=== PATIENT | male | born 1960 | race Caucasian/White ===

== ENCOUNTER → 2018-05-06 10:40 | Outpatient (CLI) | payer OTHER, SELFPAY | PROVIDERS: Family Provider Family Medicine; PCP Family Medicine; Visit Provider Family Medicine | DX: R31.9 Hematuria, unspecified (principal) | CPT/HCPCS: 87086; 87088 ==

== ENCOUNTER → 2018-06-14 10:41 | Outpatient (CLI) | payer OTHER, SELFPAY ==
--- NOTE | 2018-06-14 10:43 | CT_ITS ---
STUDY: LOW DOSE CT LUNG CANCER SCREENING REASON FOR EXAM: Male, 58 years old. 50 pack-year history RADIATION DOSAGE (If Supplied By Facility): CTDIvol = ( 1.7 ) mGy, DLP = ( 59.55 ) mGycm TECHNIQUE: No contrast was administered. Low dose technique was utilized (average mAS-38 and kVp 120). 1.25 mm axial source images with a slice interval of 1.25-mm were reconstructed in lung windows. 2.5 mm axial source images with a slice interval of 2.5-mm were reconstructed in lung windows. 5.0 mm axial source images with a slice interval of 5.0-mm were reconstructed in soft tissue windows. Nodule measured using lung windows on PACS and/or independent workstation with automated measurement of minimum and maximum diameter. Nodule measurement reported as average diameter rounded to the nearest whole number. Growth is defined as an increase ins size of greater than 1.5 mm. COMPARISON: Chest, February 26, 2015. NODULES: Total lung nodules (excluding granulomas): 0 Emphysema: There are emphysematous changes of the lungs with bilateral apical pleural scarring. Endobronchial lesion: No Aorta: There is minimal atherosclerotic changes of the descending aorta without aneurysm. Coronary arteries: There are coronary artery calcifications. Heart: Normal in size Pulmonary artery: Normal Mediastinal nodes: None Other chest and abdominal findings: There are degenerative changes of the thoracic spine. CT/Low Dose CT Lung Screening IMPRESSION: Lung-RADS category 1 - Continue annual screening with LDCT in 12 months. IMPORTANT NOTES FOR USE: ACR Lung-RADS Version 1.0 Assessment Categories Release Date: March 20, 2014 Category: Coded 0-4 bases on nodule(s) with highest degree of suspicion. Negative screen is defined as categories 1 and 2; a positive screen is defined as categories 3 and 4. Category 3 and 4A nodules that are unchanged on interval CT should be coded as category 2, and individuals returned to screening in 12 months. Category 4X: Category 3 or 4 nodules with additional imaging findings that increase the suspicion of lung cancer, such as spiculation, GGN that doubles in size in 1 year, enlarged lymph notes, etc. Category Modifiers: S (significant finding unrelated to lung cancer) and C (prior history of treated lung cancer) may be added to the 0-4 Lung-RADS Electronically Signed: Spencer Bustillos DO at 17:02 EDT Tel [phone], Service support ,
== END ==
PROVIDERS: Family Provider Family Medicine; PCP Family Medicine; Visit Provider Family Medicine
DX: Z12.2 Encounter for screening for malignant neoplasm of respiratory organs (principal); Z87.891 Personal history of nicotine dependence
CPT/HCPCS: G0297

== ENCOUNTER → 2018-06-21 12:27 | Outpatient (CLI) | payer OTHER, SELFPAY ==
--- NOTE | 2018-06-21 12:30 | CDU_ITS ---
Reason For Study: bruit Rt. Velocities/BP Lt. Velocities/BP Prox CCA 121/23.6 cm/sec. Prox CCA 111/25.1 cm/sec. Mid CCA 119/27.5 cm/sec. Mid CCA 101/24.4 cm/sec. Dist CCA 93.5/25.9 cm/sec. Dist CCA 84.9/25.9 cm/sec. Prox ICA 63.6/14.1 cm/sec. Prox ICA 56.6/14.9 cm/sec. Mid ICA 77.0/25.9 cm/sec. Mid ICA 73.1/18.1 cm/sec. Dist ICA 85.6/33.8 cm/sec. Dist ICA 78.2/30.1 cm/sec. Rt. ICA/CCA = .7. Lt. ICA/CCA = .8. Prox ECA 93.5/22.0 cm/sec. Prox ECA 87.2/25.1 cm/sec. Rt. Vert. 57.4/19.6 cm/sec. Lt. Vert. 44.6/15.8 cm/sec. Right Extracranial There is heterogeneous, irregular atherosclerotic plaque noted in the right common carotid artery. There is heterogeneous, irregular atherosclerotic plaque noted in the right internal carotid artery. There is intimal thickening but no significant atherosclerotic plaque noted in the right external carotid artery. Antegrade flow is noted in the right vertebral artery. Left Extracranial There is homogeneous, smooth atherosclerotic plaque noted in the left common carotid artery. There is heterogeneous, irregular atherosclerotic plaque noted in the left internal carotid artery. There is intimal thickening but no significant atherosclerotic plaque noted in the left external carotid artery. Antegrade flow is noted in the left vertebral artery. Procedure Carotid Duplex [id number]. The exam was diagnostic. Exam performed in department. Interpretation Summary Mild (<50%) stenosis right extracranial internal carotid. Mild (<50%) stenosis left extracranial internal carotid. Flow within the vertebral arteries is antegrade bilaterally. Ordering Physician: Maury Cole Performed By: Mahesh De Anda RVT
== END ==
PROVIDERS: Family Provider Family Medicine; PCP Family Medicine; Visit Provider Family Medicine
DX: I10 Essential (primary) hypertension (principal); R09.89 Other specified symptoms and signs involving the circulatory and respiratory systems; Z72.0 Tobacco use
CPT/HCPCS: 93880

== ENCOUNTER → 2018-06-22 09:32 | Outpatient (CLI) | payer OTHER, SELFPAY ==
--- NOTE | 2018-06-22 09:38 | RAD_ITS ---
STUDY: X-RAY - RIGHT ELBOW REASON FOR EXAM: Male, 58 years old. NKI, pt. states pain for a few weeks without relief, getting worse TECHNIQUE: 2 view(s) of the elbow. COMPARISON: None. FINDINGS: Normal visualized humerus, radius and ulna. Normal radiocapitellar and ulnotrochlear articulations. The soft tissue structures are unremarkable. RAD/Elbow 2 Views IMPRESSION: Normal x-ray examination of the elbow. Electronically Signed: Julissa Glynn MD at 9:51 EDT , Service support ,
== END ==
PROVIDERS: Family Provider Family Medicine; PCP Family Medicine; Visit Provider Nurse Practitioner Family
DX: M25.521 Pain in right elbow (principal)
CPT/HCPCS: 73070

== ENCOUNTER → 2018-12-15 09:19 | Outpatient (CLI) | payer OTHER, SELFPAY ==
--- NOTE | 2018-12-15 09:23 | RAD_ITS ---
STUDY: X-RAY - RIGHT WRIST REASON FOR EXAM: Male, 58 years old. Six-month history of pain. No known injury. TECHNIQUE: 3 view(s) of the wrist were obtained. COMPARISON: None. FINDINGS: Normal visualized distal radius and ulna. There is degenerative arthrosis of the radiocarpal articulation. Normal distal radioulnar articulation. Normal carpal bones. There is widening of the space between the scaphoid and lunate bones. Ligamentous injury should be ruled out. Normal carpometacarpal articulation of the thumb. Normal second through fifth carpometacarpal articulations. Normal visualized metacarpal bones. The soft tissue structures are unremarkable. RAD/Wrist min 3 Views IMPRESSION: Increased distance in the scapholunate space as described suggestive of scapholunate disassociation. Rotary subluxation of the scaphoid should be ruled out. Electronically Signed: Madan Hernández MD at 9:51 EST Tel [phone], Service support ,
--- OUTSIDE RECORDS SUMMARY | 2019-02-16 05:54 | XMS RPT_ITS ---
:1960 Author Organization OHIP Care Team Providers Name Role Phone Maury Cole Attending Unavailable Maury Cole Referring Unavailable Maury Cole Primary Care Unavailable ASSESSMENT, HEALTH RISK Attending Unavailable ASSESSMENT, HEALTH RISK Referring Unavailable Maury Cole Primary Care Unavailable Kelsey, Maury Attending Unavailable Kelsey, Maury Referring Unavailable Kelsey, Maury Primary Care Unavailable Kelsey, Maury Attending Unavailable Kelsey, Maury Referring Unavailable Kelsey, Maury Primary Care Unavailable Kelsey, Maury Attending Unavailable Kelsey, Maury Referring Unavailable Kelsey, Maury Primary Care Unavailable Ute Isidro, [employer] Attending Unavailable Kelsey, Maury Referring Unavailable Ute Isidro, [employer]C Attending Unavailable Ute Isidro, [employer]-C Referring Unavailable Kelsey, Maury Primary Care Unavailable PROBLEMS PROBLEMS DATE TYPE CONDITION / CODE ATTENDING STATUS SOURCE 06/22/2018 Unknown M25.521 - Pain Ute Active [place] in right elbow / Isidro, [employer]ER-C [facility] M25.521(ICD-10) Hospital Repository PROCEDURES PROCEDURES No Procedure Records FoundRESULTS RESULTS WRIST MIN 3 VIEWS Observed: 12/15/2018 Status: F Source: JOHN 9:23 AM [facility] REPOSITORY [facility] Imaging Services [address] [place] [address] Wrist min 3 Views MR#: [id number] Acct: [id number] Name: TAVARES SHAW Rep #: [id number] : 1960 M 58 From: Madan Hernández MD PCP: Maury Cole DO Status: REG CLI Study: Wrist min 3 Views Date of Exam: 12/15/18 Exam# [id number] Ordering Dr: Maury Cole DO STUDY: X-RAY - RIGHT WRIST REASON FOR EXAM: Male, 58 years old. Six-month history of pain. No known injury. TECHNIQUE: 3 view(s) of the wrist were obtained. COMPARISON: None. FINDINGS: Normal visualized distal radius and ulna. There is degenerative arthrosis of the radiocarpal articulation. Normal distal radioulnar articulation. Normal carpal bones. There is widening of the space between the scaphoid and lunate bones. Ligamentous injury should be ruled out. Normal carpometacarpal articulation of the thumb. Normal second through fifth carpometacarpal articulations. Normal visualized metacarpal bones. The soft tissue structures are unremarkable. RAD/Wrist min 3 Views IMPRESSION: Increased distance in the scapholunate space as described suggestive of scapholunate disassociation. Rotary subluxation of the scaphoid should be ruled out. Electronically Signed: Madan Hernández MD at 9:51 EST Tel [phone], Service support , CC: Maury Cole DO Executive Creative Director: Signed CAROTID DUPLEX Observed: 06/23/2018 Status: F Source: [place] ULTRASOUND 5:32 PM [facility] REPOSITORY [facility] Cardiovascular Services [address] [place] [address] Carotid Duplex Ultrasound 06/21/18 1231 MR#: [id number] Acct: [id number] Name: TAVARES SHAW Rep #: [id number] : 1960 58 From: Heriberto Rizvi MD Attending Dr: Maury Cole DO Status: REG CLI Ordering Dr: aMury Cole DO Date: 06/21/18 Location: [facility] Sex: M C Admitted: Reason For Study: bruit Rt. Velocities/BP Lt. Velocities/BP Prox CCA 121/23.6 cm/sec. Prox CCA 111/25.1 cm/sec. Mid CCA 119/27.5 cm/sec. Mid CCA 101/24.4 cm/sec. Dist CCA 93.5/25.9 cm/sec. Dist CCA 84.9/25.9 cm/sec. Prox ICA 63.6/14.1 cm/sec. Prox ICA 56.6/14.9 cm/sec. Mid ICA 77.0/25.9 cm/sec. Mid ICA 73.1/18.1 cm/sec. Dist ICA 85.6/33.8 cm/sec. Dist ICA 78.2/30.1 cm/sec. Rt. ICA/CCA = .7. Lt. ICA/CCA = .8. Prox ECA 93.5/22.0 cm/sec. Prox ECA 87.2/25.1 cm/sec. Rt. Vert. 57.4/19.6 cm/sec. Lt. Vert. 44.6/15.8 cm/sec. Right Extracranial There is heterogeneous, irregular atherosclerotic plaque noted in the right common carotid artery. There is heterogeneous, irregular atherosclerotic plaque noted in the right internal carotid artery. There is intimal thickening but no significant atherosclerotic plaque noted in the right external carotid artery. Antegrade flow is noted in the right vertebral artery. Left Extracranial There is homogeneous, smooth atherosclerotic plaque noted in the left common carotid artery. There is heterogeneous, irregular atherosclerotic plaque noted in the left internal carotid artery. There is intimal thickening but no significant atherosclerotic plaque noted in the left external carotid artery. Antegrade flow is noted in the left vertebral artery. Procedure Carotid Duplex 03104. The exam was diagnostic. Exam performed in department. Interpretation Summary Mild (<50%) stenosis right extracranial internal carotid. Mild (<50%) stenosis left extracranial internal carotid. Flow within the vertebral arteries is antegrade bilaterally. Ordering Physician: Maury Cole Performed By: Mahesh De Anda, T 06/23/181730 Date Heriberto Rizvi MD CC: Maury Cole DO Date Dictated: 06/21/18 1231 Date Transcribed: 06/23/181730 Executive Creative Director: Signed OFFICE VISIT REPORT Observed: 06/22/2018 Status: F Source: JOHN 10:[address] [place] [address] OFFICE VISIT Date of Service: 06/22/18 MR#: [id number] Acct: [id number] Patient: TAVARES SHAW Rep #: [id number] : 1960 Provider: INÉS Felix Age/Sex: 58/M Location: [facility] Status: Signed Intake Vital Signs06/22/18 Height 5 ft 6 in Intake Visit Reasons: RT ELBOW PAIN Chief Complaint: right elbow pain Allergies lisinopril Allergy (Verified 06/22/18 08:58) Other Medications Potassium Chloride 8 meq PO DAILY 09/24/13 [History Confirmed 06/22/18] Multivitamins,Therapeutic [Multivitamin] 1 tab PO DAILY 10/04/13 [History Confirmed 06/22/18] amlodipine 5 mg tablet 5 mg PO DAILY 06/22/18 [History Confirmed 06/22/18] losartan 100 mg-hydrochlorothiazide 12.5 mg tablet 1 tab PO DAILY 06/22/18 [History Confirmed 06/22/18] PFSH Medical History HTN (hypertension) (Chronic) Surgical History History of carpal tunnel release (Acute) Hx of shoulder surgery (Acute) Social History Smoking Status: Smoker, status unknown tobacco type: cigarettes alcohol intake: current Alcohol type: beer HPI HPI Chief Complaint: right elbow pain Details: TAVARES SHAW, is a 58 M who presents to the office today for right elbow pain. The pain started about 2 weeks ago but has been worse over the last 2 days. The patient describes the pain as a constant ache in his right lateral elbow now extending down his forearm. He denies injury or trauma but his current occupation requires repetitive movements. He denies numbness, tingling, redness, warmth or swelling at the site. He has tried naproxen with no relief. ROS Const Constitutional: No fever(s), headache(s), weakness or fatigue ENT ENT: No headache(s) Resp Respiratory: No cough or shortness of breath Cardio Cardiology: No chest pain at rest Musc Musculoskeletal: Positive for joint pain (right elbow); no joint swelling, body aches or numbness Skin Skin: No rash or wounds Neuro Neurology: No headache(s), weakness or numbness Endo Endocrine: No fatigue Exam Const General: cooperative, healthy appearing, comfortable, no acute distress Resp Effort AND Inspection: normal respiratory effort, able to speak in complete sentences Auscultation: Bilateral: Clear to Auscultation Musc Musculoskeletal: Yes joint tenderness (right lateral elbow pain); no joint redness (right elbow), joint warmth (right elbow) or decreased ROM (right elbow) Skin General: no rashes or lesions noted Neuro General: alert, awake, oriented x3 Extrem General: normal to inspection Assessment AND Plan Problems 1. Right elbow pain M25.521 Plan Suspect right lateral epicondylitis. Xray appears benign, final report pending. Patient instructed on RICE, ice 15 min 3 to 4 times a day. Ibuprofen 600mg QID for 7-14 days. Return to PCP in 1 week. Patient Instructions R - rest I - ice C - compression E - elevation Ice 15min on 3 to 4 times a day. Ibuprofen 600mg by mouth 4 times a day for 1 week, then as needed. Orders Orders: Plan Detail Follow Up PCP in 1 week Coding Level of Care Code Off vis,est,level 3 Diagnoses Right elbow pain M25.521 06/22/18 1029 <Electronically signed by Ute CONTE> Date Ute CONTE Cosigner Signature: Date (if applicable) CC: ELBOW 2 VIEWS Observed: 06/22/2018 Status: F Source: [place] 9:38 AM [facility] REPOSITORY [facility] Imaging Services [address] [place] [address] Elbow 2 Views MR#: [id number] Acct: [id number] Name: TAVARES SHAW Rep #: [id number] : 1960 M 58 From: Julissa Glynn MD PCP: Maury Cole DO Status: REG CLI Study: Elbow 2 Views Date of Exam: 06/22/18 Exam# [id number] Ordering Dr: Ute Felix STUDY: X-RAY - RIGHT ELBOW REASON FOR EXAM: Male, 58 years old. NKI, pt. states pain for a few weeks without relief, getting worse TECHNIQUE: 2 view(s) of the elbow. COMPARISON: None. FINDINGS: Normal visualized humerus, radius and ulna. Normal radiocapitellar and ulnotrochlear articulations. The soft tissue structures are unremarkable. RAD/Elbow 2 Views IMPRESSION: Normal x-ray examination of the elbow. Electronically Signed: Julissa Glynn MD at 9:51 EDT , Service support , CC: INÉS Felix; Maury Cole DO Executive Creative Director: Signed LOW DOSE CT LUNG Observed: 06/14/2018 Status: F Source: [place] SCREENING 10:43 AM [facility] REPOSITORY [facility] Imaging Services [address] [place] [address] Lung Screening MR#: [id number] Acct: [id number] Name: TAVARES SHAW Cristina Rep #: [id number] : 1960 M 58 From: Spencer Bustillos DO PCP: Maury Cole DO Status: REG CLI Study: Low Dose CT Lung Screening Date of Exam: 06/14/18 Exam# [id number] Ordering Dr: Maury Cole DO STUDY: LOW DOSE CT LUNG CANCER SCREENING REASON FOR EXAM: Male, 58 years old. 50 pack-year history RADIATION DOSAGE (If Supplied By Facility): CTDIvol = ( 1.7 ) mGy, DLP = ( 59.55 ) mGycm TECHNIQUE: No contrast was administered. Low dose technique was utilized (average mAS-38 and kVp 120). 1.25 mm axial source images with a slice interval of 1.25- mm were reconstructed in lung windows. 2.5 mm axial source images with a slice interval of 2.5-mm were reconstructed in lung windows. 5.0 mm axial source images with a slice interval of 5.0-mm were reconstructed in soft tissue windows. Nodule measured using lung windows on PACS and/or independent workstation with automated measurement of minimum and maximum diameter. Nodule measurement reported as average diameter rounded to the nearest whole number. Growth is defined as an increase ins size of greater than 1.5 mm. COMPARISON: Chest, February 26, 2015. NODULES: Total lung nodules (excluding granulomas): 0 Emphysema: There are emphysematous changes of the lungs with bilateral apical pleural scarring. Endobronchial lesion: No Aorta: There is minimal atherosclerotic changes of the descending aorta without aneurysm. Coronary arteries: There are coronary artery calcifications. Heart: Normal in size Pulmonary artery: Normal Mediastinal nodes: None Other chest and abdominal findings: There are degenerative changes of the thoracic spine. CT/Low Dose CT Lung Screening IMPRESSION: Lung-RADS category 1 - Continue annual screening with LDCT in 12 months. IMPORTANT NOTES FOR USE: ACR Lung-RADS Version 1.0 Assessment Categories Release Date: March 20, 2014 Category: Coded 0-4 bases on nodule(s) with highest degree of suspicion. Negative screen is defined as categories 1 and 2; a positive screen is defined as categories 3 and 4. Category 3 and 4A nodules that are unchanged on interval CT should be coded as category 2, and individuals returned to screening in 12 months. Category 4X: Category 3 or 4 nodules with additional imaging findings that increase the suspicion of lung cancer, such as spiculation, GGN that doubles in size in 1 year, enlarged lymph notes, etc. Category Modifiers: S (significant finding unrelated to lung cancer) and C (prior history of treated lung cancer) may be added to the 0-4 Lung-RADS Electronically Signed: Spencer Bustillos DO at 17:02 EDT Tel [phone], Service support , CC: Maury Cole DO Executive Creative Director: Signed Observed: 05/05/2018 Status: F Source: JOHN CULTURE, URINE 1:00 PM [facility] REPOSITORY Urine Culture ORGANISM 1: Mixed Gram Positive Organisms [place] Count 1000-10,000 MIX CULTURE Mixed contaminants. Submit a new specimen if indicated. Performed By: #### M100.0650 #### [facility] [address] [place], [place], [address] CBC, EMPLOYEE Collected: 05/05/2018 Status: F Source: JOHN 8:50 AM [facility] REPOSITORY TYPE CODE TESTS RESULT OUT OF RANGE REFERENCE UNITS LAB L100.1000 4.4-11.0 K/mm3 Normal WBC 7.6 LAB L100.1200 4.6-6.2 M/mm3 Low RBC 4.57 LAB L100.1300 13.0-16.5 g/dl Normal HGB 15.0 LAB L100.1400 40-54 % Normal HCT 42.2 LAB L100.1500 80-94 fL Normal MCV 92.3 LAB L100.1600 27.0-32.0 pg High MCH 32.8 LAB L100.1700 32-36 g/gl Normal MCHC 35.5 LAB L100.1810 11.6-14.6 % Normal RDW CV 12.3 LAB L100.1820 35.1-43.9 fl Normal RDW SD 40.9 LAB L100.1900 150-450 K/mm3 Normal PLT 320 LAB L100.2000 6.2-12.0 fl Normal MPV 10.0 LAB L100.2110 47-70 % Normal NEUT% 48.3 LAB L100.2210 19-41 % High LY% 42.1 LAB L100.2310 0-10 % Normal MONO% 7.5 LAB L100.2410 0-5 % Normal EO% 1.3 LAB L100.2510 0-1 % Normal BASO% 0.5 LAB L100.2620 2.0-7.7 X10 3/uL Normal Absolute Neut 3.7 LAB L100.2720 0.83-4.51 X10 3/ul Normal Absolute Lymph 3.21 Performed By: #### L100.0200 #### [facility] [address] [place], [address] NICOTINE URINE DRUG Collected: 05/05/2018 Status: F Source: JOHN SCREEN 8:50 AM [facility] REPOSITORY TYPE CODE TESTS RESULT OUT OF RANGE REFERENCE UNITS LAB L505.6250 TO BE Normal CONFIRMED Result Comment: CONFIRMATORY TESTING FOR ALL POSITIVE URINE DRUG SCREEN RESULTS WILL ONLY BE SENT OUT UPON PHYSICIAN ORDER. The results of Urine Drug Screen methods provide only preliminary analytical test results. A more specific alternate chemical method must be used in order to obtain a confirmed analytical result. Gas chromatography/mass spectrometery (GC/MS) is the preferred confirmatory method. Clinical consideration and professional judgement should be applied to any drug of abuse test result, particularly when preliminary positive results are used. LAB L505.6270 <200 ng/mL Normal COT DRG Positive SCREEN Result Comment: Cotinine is the first-stage metabolite of Nicotine. Performed By: #### L505.6240 #### [facility] [address] [place], [place], [address] EMPLOYEE PROFILE Collected: 05/05/2018 Status: F Source: [place] 8:50 AM [facility] REPOSITORY TYPE CODE TESTS RESULT OUT OF RANGE REFERENCE UNITS LAB L501.0100 74-106 mg/dL Normal GLU 92 Result Comment: Please note revised GLUCOSE reference range effective 2017. LAB L501.1000 7-18 mg/dL Normal BUN 17 LAB L501.1100 0.70-1.30 mg/dL Normal CREAT,SERUM 1.13 Result Comment: The validity of the calculated GFR AND GFRAA in patients over 70 years has not been determined. Clinical correlation is essential. LAB L501.1110 >60 mL/min Normal EST GFR 71 Result Comment: Non- GFR Calc LAB L501.1115 >60 mL/min Normal EST GFR - AA 85 Result Comment: GFR Calc LAB L501.1300 10-20 RATIO Normal BUN/CRE 15.0 LAB L501.1400 3.5-7.2 mg/dL Normal URIC 4.6 Result Comment: The drugs N-Acetylcysteine and Metamizole may falsely depress this assay. LAB L501.1500 6.4-8.2 g/dL Normal T PROT 8.0 LAB L501.1800 3.2-5.0 g/dL Normal ALB 4.0 LAB L501.1950 2.2-4.2 g/dL Normal GLOB 4.0 LAB L501.2000 0.9-2.4 RATIO Normal A/G 1.0 LAB L501.2200 8.5-10.1 mg/dL Normal CA 9.0 LAB L501.2300 2.5-4.9 mg/dL Normal PHOS 3.3 LAB L501.4100 15-37 U/L Normal AST 20 LAB L501.4305 45-117 U/L Normal ALK P 76 LAB L501.4405 16-61 U/L Normal ALT 27 LAB L501.4600 0.20-1.00 mg/dL Normal T BILI 0.60 LAB L501.4700 0.00-0.30 mg/dL Normal D BILI 0.14 LAB L501.4900 200 mg/dL High CHOL 212 Result Comment: <200 mg/dL Desirable 200-240 mg/dL Borderline >240 mg/dL High Risk LAB L501.5000 mg/dL Normal TRIG 121 Result Comment: The drugs N-Acetylcysteine and Metamizole may falsely depress this assay. Serum Triglycerides Reference Interval Normal <150 mg/dL Borderline high 150 - 199 mg/dL High 200 - 499 mg/dL Very High > or = 500 mg/dL LAB L501.5300 136-145 mmol/L Low NA 135 LAB L501.5600 3.5-5.1 mmol/L Normal K 3.6 LAB L501.5900 98-107 mmol/L Normal CL 101 LAB L501.6100 21.0-32.0 mmol/L Normal CO2 25.0 LAB L501.6200 5-15 Normal 9 GAP LAB L501.6400 mg/dL Normal HDL 69 Result Comment: The drugs N-Acetylcysteine and Metamizole may falsely depress this assay. Reference Range HDL <40 mg/dL Low HDL Cholesterol HDL >or= 60 mg/dL High HDL Cholesterol LAB L501.6475 Normal CHOL:HDL 3.10 LAB L501.6500 0-130 mg/dL Normal LDL 119 LAB L501.6600 5-40 mg/dL Normal VLDL 24 LAB L504.2610 87-241 U/L Normal LDH 178 Performed By: #### L500.2900 #### [facility] [address] [place], [address] URINALYSIS, EMPLOYEE Collected: 05/05/2018 Status: F Source: [place] 8:50 AM [facility] REPOSITORY TYPE CODE TESTS RESULT OUT OF RANGE REFERENCE UNITS LAB L400.3000 Yellow COLOR Normal Yellow LAB L400.3050 Clear Normal CLARITY Clear LAB L400.3200 Normal mg/dl Normal GLUCOSE, UR Normal LAB L400.3300 Negative mg/dL Normal BILIRUBIN URINE Negative LAB L400.3400 Negative mg/dl Normal KETONE UR Negative LAB L400.3465 1.002-1.030 Normal SP.GR. DIPSTX 1.010 LAB L400.3550 5.0 - 8.0 pH UR Normal 7.0 LAB L400.3600 Negative mg/dl PROT Normal DIPSTX Negative LAB L400.3700 Normal mg/dl Normal UROBILI Normal LAB L400.3750 Negative Normal NITRITE UR Negative LAB L400.3780 Negative /ul High 10 OCCULT BLOOD-UR LAB L400.3800 Negative /ul High LEUK 25 ESTERASE Performed By: #### L400.0100 #### [facility] [address] [place], [address] ALLERGIES ALLERGIES DATE TYPE / CODE NAME / CODE REACTION SEVERITY SOURCE 06/22/2018 Drug lisinopril/F Other Unknown [facility] Allergy/4160 [id number]([facility] 24439(SNOMED NORM) Repository CT) ENCOUNTERS ENCOUNTERS ADMIT/DISCHARGE ACCOUNT ADMITTING ENCOUNTER LOCATION SOURCE NUMBER CLASS 12/15/2018 [id number] [facility] ing:RAD Repository 06/22/2018 [id number] Ambulatory [place] 9 [facility] ing:HPRAD Repository 06/22/2018/ [id number] Ambulatory BMSBuilding:B [place] 8 3 [facility] Repository 06/21/2018 [id number] Amb[place] 0 [facility] ing:CVS Repository 06/14/2018 [id number] Amb[place] 8 [facility] ing:CT Repository 05/06/2018 [id number] Amb[place] 0 [facility] ing:LABSPEC Repository 05/05/2018 [id number] Ambulatory [place] 1 [facility] ing:EMPH Repository PAYERS PAYERS ENCOUNTER GUARANTOR PAYER SUBSCRIBER SOURCE 12/15/2018 TAVARES BELTRAN Primary Insurance:[facility] TAVARES SIGALA [id number] [address] [place] [address] LUCASDOB: [address] [facility] [id number], [place] Number: Repository [phone]: (330 [id number] [phone] (HP) Date:1152-50-74HX [address] [address], [place] [address]EG: CHECK WEBSITE 12/15/2018 Secondary NOT GIVENUNK [place] Insurance:SELF PAY [facility] Number: Effective Repository Date:2018-12-15 06/22/2018 TAVARES A LUCASPO Primary Insurance:[facility] TAVARES A [place] [id number] [place] [address] LUCASD[address]: [address] [facility] [id number], [place] Number: Repository [id number]: ([phone] [id number] [phone] (HP) Date:8815-25-45AU [address] [address]TXGITZXJA, [place] [address]VR: CHECK WEBSITE 06/22/2018 Secondary NOT GIVENUNK [place] Insurance:SELF PAY [facility] Number: Effective Repository Date:2018-06-22 06/22/2018 TAVARES A LUCASPO Primary Insurance:[facility] TAVARES A [place] [address] [place] [address] LUC[address]: [address] [facility]LE[facility] SERVICES[facility] [id number], [place] Number: Repository [id number]: (330 [id number] [phone] (HP) Date:3147-29-48UY [address] [address]YOMXFHNOD, [place] [address]TH: CHECK WEBSITE 06/22/2018 Secondary NOT GIVENUNK [place] Insurance:SELF PAY [facility] Number: Effective Repository Date:2018-06-22 06/21/2018 Tavares A LucasPo Primary Insurance:[facility] Tavares A [place] [id number] [place] [address] LucasDOB: [address] [facility] [id number], [place] Number: Repository [id number]: 330 [id number] [phone] (HP) Date:8492-09-54QH [address] [address]HWZVHZCTU, [place] [address]IP: CHECK WEBSITE 06/21/2018 Secondary NOT GIVENUNK [place] Insurance:SELF PAY [facility] Number: Effective Repository Date:2018-06-10 06/14/2018 Tavares A LucasPo Primary Insurance:[facility] Tavares Evans John [id number] [place] [address] LucasDOB: [facility] Herm[address] [facility] [id number], [place] Number: Repository [address]Fwc: 330 [id number] [phone] (HP) Date:8482-10-25AT [address] [address]BSIJOMSRV, [place] [address]YB: CHECK WEBSITE 06/14/2018 Secondary NOT GIVENUNK [place] Insurance:SELF PAY [facility] Number: Effective Repository Date:2018-06-10 05/06/2018 Tavares A LucasPo Primary Insurance:[facility] Tavares Evans [place] [id number] [place] [address] LucasDOB: [facility] Herm[address] [facility] [id number], [place] Number: Repository [address]Jeo: 330 [id number] [phone] () Date:0450-07-84HY [address] [address]VEBHJGVZC, [place] [address]UY: CHECK WEBSITE 05/06/2018 Secondary NOT GIVENUNK [place] Insurance:SELF PAY [facility] Number: Effective Repository Date:2018-05-06 05/05/2018 Tavares A LucasPo Primary NOT GIVENUNK [place] [id number] 3rd Insurance:SELF PAY [place] Number: Effective Repository [id number]: 330) Date:2018-05-05 [phone] ()
== END ==
PROVIDERS: Family Provider Family Medicine; PCP Family Medicine; Referring Provider Family Medicine; Visit Provider Family Medicine
DX: M25.531 Pain in right wrist (principal)
CPT/HCPCS: 73110

== ENCOUNTER → 2019-01-19 12:19 | Outpatient (CLI) | payer OTHER, SELFPAY ==
--- NOTE | 2019-01-19 13:34 | NEURO ---
NCS and/or EMG Patient Report DATE OF SERVICE: 01/19/19 Smooth Melgar is a 58-year-old male presents for elective diagnostic testing of the right upper limb. He has complaints of pain around the right wrist. He has a history of right carpal tunnel release approximately 6 years ago. Electrodiagnostic findings: Right median motor nerve demonstrates normal distal latency, amplitude and conduction velocity. The right ulnar motor nerve demonstrates normal distal latency and amplitude with an approximately 18% drop in conduction across the elbow. Median sensory latency at the wrist is borderline delayed. Normal right median palmar latency. Normal right ulnar and radial sensory responses. Normal right median and ulnar F-wave. Needle EMG testing showed no evidence of denervation in any muscles tested. Motor unit action potentials were of normal amplitude and duration without polyphasic activity. Electrodiagnostic assessment: This is an abnormal study. 1. There is electrodiagnostic evidence of reduced ulnar motor conduction across the elbow. This is consistent with a mild cubital tunnel syndrome. 2. No electrodiagnostic evidence is noted for median neuropathy, including carpal tunnel syndrome. 3. No electrodiagnostic evidence is noted for cervical radiculopathy. If there are any further questions, please do not hesitate to contact me.
== END ==
PROVIDERS: Family Provider Family Medicine; PCP Family Medicine
DX: G56.21 Lesion of ulnar nerve, right upper limb (principal)
CPT/HCPCS: 95886; 95910

== ENCOUNTER 2019-04-13 13:00 | Outpatient (RCR) | payer OTHER, SELFPAY ==
--- NOTE | 2019-04-01 13:03 | HP.PTEVAL ---
Patient's Visit Information TAVARES SHAW is a 58 year old M referred to Physical Therapy by Maury Cole DO with a diagnosis of LBP. Date of Evaluation: 04/01/19 Physical Therapist: Wilbur Reese, SLIMT, OCS, CSCS - Visit Plan Frequency: 2x /Week Duration: 4-6 Weeks Plan: 2x/week for 4-6 weeks for : hip flexor stretching, NS positioing, increased pelvic movment, NS strengthening and DLS. Progression of function, lossings traction and flexion mobs L/S as needed. - Subjective Findings: Can't walk very far before he gets R leg adn back pain and R forefoot goes numb. Pain starts in R hip posteriorly. Walking 200 feet and needs to stop. Been that way for a couple months. Started all of a sudden for no reason. Wants MRI adn needs therapy first. History inlcudes intermittent back pain forever. Comfortabe sitting unless too long. Firt steps are oK. Up steps a challenge strength adn weak. L side feels good. Sleep is interrupted as he cannot get comfortable usually on back. 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 Enjoys wood working adn runs [employer] and these are on the back burner for last couple months adn hasn;t done in a couple months. Basic ADLS are doable - Pain R LBP and leg Pain Intensity (Out of 10): 0 Pain Intensity Range: 0, 7 Comment: sitting OK - Objective Walks slightly hunched over, flat lodosis in L/S and forward head posture. Stiff in lower L/S. L/S AROM flexion is mod limited, ext is mod limited, SB min Limited B, R SB adn ext both hurt. Pelvic movement is poor and hard for his motor control. reflexes 2/3 patella and achilles. Sensation LE WNL to gross light touch. Strength LE 4+/5, trunk 4/5, no pain. + R slump adn SLR with posterior symptoms. - Goals Goal 1:: Pt able to find neutral spine position and relieve sypmtoms Goal Time Frame: 4-6 Weeks Goal 2:: Pain 1/10 at worst adn walk through parking lot at work without needing rest. Goal Time Frame: 4-6 Weeks Goal 3:: Pt I in approp HEEP to minimize future problems. Goal Time Frame: 4-6 Weeks Goal 4:: Resume walking dogs adn woodworking. Goal Time Frame: 4-6 Weeks - Rehabilitation Potential Physical Therapy Diagnosis: LB likely stenotic in nature. Rehabilitation Potential: Fair - Anticipated Interventions Patient/Client Instruction: Educate patient on: Condition, Plan of Care For the Purpose of:: To decrease pain, To increase tolerance to activity/condition/position, To improve ability of physical actions for home/community/work/leisure Therapeutic Exercise to Include: Strength training, Flexibilty training, Passive ROM, Active ROM, Dynamic Lumbar Stabilization For the Purpose of:: To decrease pain, To increase tolerance to activity/condition/position, To improve ability of physical actions for home/community/work/leisure Manual Therapy Techniques to Include: Mobilization For the Purpose of:: To increase ROM TENS: Yes Thermo therapy (hot pack): Yes For the Purpose of:: To decrease pain Thank you for the opportunity to evaluate your patient. For Medicare and Medicare HMO plans, please review the plan of care and approve it. It will need to be FAXED BACK to us at [phone] for Medicare purposes. For Medicare only, by signing this I certify the plan of care. Please let me know if there are questions or concerns regarding this plan of care. Physician Signature: Date:
--- NOTE | 2019-04-20 10:20 | HP.PTDCSUM ---
HP - PT D/C Summary It has been my pleasure to treat TAVARES SHAW under orders from Maury Cole DO, for the diagnosis of LBP for a total of 5 visit(s). Discharge Date: 04/20/19 Please see the following information for a summary of their discharge status. - Subjective Subjective: Pt called and is not seeing any improvement in condition and is frustrated with pain. wants to return to doctor for next step. - Pain R LBP and leg Pain Intensity (Out of 10): 0 - Overall Improvement % Improvement: 0 - Objective Objective/Function: Pt frustrated and appropriate to return to doctor as therapy is not getting him where he needs to be. - Goals Goal 1:: Pt able to find neutral spine position and relieve sypmtoms Goal 2:: Pain 1/10 at worst adn walk through parking lot at work without needing rest. Goal 3:: Pt I in approp HEEP to minimize future problems. Goal 4:: Resume walking dogs adn woodworking. - Plan Plan: Pt to contact doctor regarding appointment for next step. - D/C Information Discharge Comments: Pt not improving and will contact doctor regarding follow up. If there are questions or concerns regarding this patient's physical therapy, please feel free to call me at [phone]. Thank you for the referral of this patient. Sincerely, Wilbur Reese, DPT, OCS, CSCS
== END 2019-04-13 19:00 | disposition home or self-care (01) ==
LOC: PT 13:00
PROVIDERS: Family Provider Family Medicine; PCP Family Medicine; Referring Provider Family Medicine; Visit Provider Family Medicine
DX: M54.17 Radiculopathy, lumbosacral region (principal); M51.36 Other intervertebral disc degeneration, lumbar region
CPT/HCPCS: 97012; 97014; 97110; 97162; 97530; G0283

== ENCOUNTER → 2019-05-04 11:32 | Outpatient (CLI) | payer OTHER, SELFPAY ==
--- NOTE | 2019-05-04 11:39 | MRI_ITS ---
HISTORY:R sciatica, into R hip down leg and into R foot x 2 mons, no relief with PT MR Spine Lumbar W/O Contrast Technique:Sagittal T1 and T2 and STIR and axial T1 and T2-weighted images # of images including paperwork:123 Comparison:Radiographs obtained on November 29, 2015 Findings: The conus ends at the T12-L1 disc space and appears within normal limits. Straightening of the normal lumbar lordosisl T12-L1: Disc height and hydration are preserved. There is no evidence of the disc contour abnormality or canal stenosis. No significant neural foraminal narrowing or nerve root impingement. L1-2:There is mild disc desiccation. There is a diffuse annular bulge with a central/left central disc protrusion effacing the ventral thecal sac. There is no canal stenosis. No significant neural foraminal narrowing. No nerve impingement L2-3:Modic type II changes at the endplates. There is a diffuse annular bulge with a left central and foraminal disc protrusion as well as posterior osteophytes. There is moderate low right and moderate to marked left neural foraminal narrowing. There is effacement of the ventral thecal sac. The thecal sac is flattened measuring approximately 7.5 mm at this level. There is facet arthrosis. There is effacement of the bilateral L2 nerve roots as they exit the foramen greater on the left. L3-4:Decreased disc height and hydration. Diffuse annular bulge. Trefoil appearance to the canal. Facet hypertrophy. Subarticular recess narrowing. There is flattening of the thecal sac. It measures approximately 6 mm at this level. There is moderate to marked right and moderate left neuroforaminal narrowing. There is impingement on the right L3 nerve root as it exits the foramen and minimal effacement of the left L3 nerve root as it exits the foramen L4-5:Decreased disc height and hydration. There is a diffuse annular bulge with posterior osteophytes. Moderate to marked bilateral neural foraminal narrowing. No canal stenosis. There is effacement of the bilateral L4 nerve roots greater on the left as they exit the foramen L5-S1:Decreased disc height. There is a diffuse annular bulge. There is a prominent amount of fat surrounding the thecal sac at this level. No evidence of nerve root impingement. There is mild/down neural foraminal narrowing at this level MRI/Spine Lumbar (Routine) IMPRESSION: Degenerative changes of the lumbar spine as discussed L2-3 diffuse annular bulge with a left central and foraminal disc protrusion and posterior osteophytes. Flattening of the thecal sac which measures 7.5 mm. Effacement of bilateral L2 nerve roots as they exit the foramen greater on the left L3-4 diffuse annular bulge. Trefoil appearance the canal with subarticular recess narrowing. Flattening of the thecal sac to 6 mm. Impingement on the right L3 nerve root and effacement of the left L3 nerve root as they exit the foramen L4-5 diffuse annular bulge with posterior osteophytes. Effacement of bilateral L4 nerve roots greater on the left as they exit the foramen L5-S1 diffuse annular bulge prominent amount of fat surrounding the thecal sac. No significant nerve impingement at 1807 Reported and signed by: Misti Pollard DO Electronically Signed: Msiti Pollard DO at 18:06 EDT Tel , Service support ,
== END ==
PROVIDERS: Family Provider Family Medicine; PCP Family Medicine; Referring Provider Family Medicine; Visit Provider Family Medicine
DX: M54.17 Radiculopathy, lumbosacral region (principal)
CPT/HCPCS: 72148

== ENCOUNTER 2019-10-13 08:30 | Outpatient (RCR) | payer OTHER, SELFPAY ==
--- NOTE | 2019-09-13 10:36 | HP.PTEVAL ---
Patient's Visit Information TAVARES SHAW is a 59 year old M referred to Physical Therapy by SUKHI GAUTHIER with a diagnosis of L2-4 DECOMPRESSION 08/23/19. Date of Evaluation: 09/13/19 Physical Therapist: Nina Weiss PT, Cert MDT - Visit Plan Frequency: 2-3x /Week Duration: 4-6 Weeks Plan: POSTURE CORRECTION/STRENGTHENING, INSTRUCTION IN APPROPRIATE BODY MECHANICS AND ACTIVITY MODIFICATIONS. DLS STARTING WITH A NEUTRAL SPINE PROGRESSING ROM TOLERATED WHEN OK'D BY SURGEON. ENOC LE ROM, STRETCHING AND STRENGTHENING. HEP INSTRUCTION. *MINIMAL LIFTING < 20 LBS. NO BENDING, TWISTING OR OVER HEAD EXTENSION UNTIL SURGICAL FOLLOW UP. 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 A LOT OF BENDING AND LIFTING. STANDING AND WALKING MOST OF THE TIME. Disability: NO. Present symptoms: ENOC LBP, RIGHT HIP, GROIN, TESTICLE, THIGH, LEG AND FOOT. NUMBNESS AND TINGLING IN RIGHT TOES. Present since: YEARS AGO. Pain Scale: WORST 7/10, LEAST 2/10. Currently: 4/10. IMPROVING. Commenced as a result of: NO APPARENT REASON. Symptoms at onset: DOWN THE RIGHT LEG. Worse: WALKING. Better: SITTING, LSDLY, FLEXERIL, PERCOCET, NEUROTIN. Disturbed sleep: YES. Previous history/Previous treatment: PHYSICAL THERAPY. L45 HEMILAMINECTOMY ABOUT 30 YEARS AGO. Coughing/sneezing/straining: NEGATIVE. Gait: CAN ONLY WALK A COUPLE HUNDRED YARDS BEFORE PAIN DOWN THE RIGHT LEG INCREASES. Difficulty initiating urinatin: YES - HAVING DIFFICULTY BEFORE SURGERY TOO. STATES HE DOESN'T THINK HE HAS TOLD HIS DOCTORS - THIS PT RECOMMENDED NOTIFYING HIS DOCTORS RIGHT AWAY (SURGEON OR FAMILY DOCTORY - LIS). Accidents: NO. Unexplained weight loss: NO. Imaging: NO IMAGING SINCE SURGERY. PMH: HTN - Objective Sitting/Standing Posture: POOR. RIGHT SHLD LEVEL LOWER THAN LEFT. MILD INCREASED TRUNK FLEXION. Lordosis: REDUCED. Active Correction of posture: NE. Other Observations: INDEP GAIT AND TRANSFERS. WEARING BACK BRACE TO PT. MILD LIMP ON RIGHT LE. Motor deficit: ENOC LE STRENGTH GROSSLY 5/5 WITH MMT'ING EXCEPT ENOC HIPS: RIGHT 4-/5, LEFT 4/5. Sensory deficit: DECREASED LIGHT TOUCH SENSATION OF RIGHT LE COMPARED TO LEFT. ROM deficit: TIGHT ENOC HS'S RIGHT > LEFT. Reflexes: UNABLE TO ELICIT ENOC LE DTR'S. Dural Signs: NEG ENOC LE'S. Lumbar mvmt loss: NT. Core strength: POOR. Palpation: INCISION LOOKS GOOD WITHOUT ANY SIGNS OF INFECTION. OTHER: PATIENT IS VERY PLEASANT AND COOPERATIVE TO WORK WITH. INITIATED HEP WITH SUPINE ISO ABDOMINALS AND ENOC LE DURAL STRETCHING TODAY WITH GOOD TOLERANCE. - Goals Goal 1:: DECREASE C/O BACK AND RIGHT LE SX'S Goal Time Frame: 4-6 Weeks Goal 2:: IMPROVE ADL, LIFTING, WALKING, SITTING, STANDING, SLEEP, SOCIAL LIFE, TRAVEL AND WORK FUNCTION. Goal Time Frame: 4-6 Weeks Goal 3:: INSTRUCT IN PROPHYLAXIS Goal Time Frame: 4-6 Weeks - Rehabilitation Potential Rehabilitation Potential: Fair - Anticipated Interventions Patient/Client Instruction: Educate patient on: Condition, Plan of Care, Risk Factors, Benefits of Fitness Program For the Purpose of:: To improve self management Therapeutic Exercise to Include: Strength training, Body mechanics, Postural training, Flexibilty training, Dynamic Lumbar Stabilization For the Purpose of:: To decrease pain, To increase ROM, To improve muscle performance and motor function, To increase tolerance to activity/condition/position, To improve ability of physical actions for home/community/work/leisure, To improve gait and locomotor functions Thank you for the opportunity to evaluate your patient. For Medicare and Medicare HMO plans, please review the plan of care and approve it. It will need to be FAXED BACK to us at [phone] for Medicare purposes. For Medicare only, by signing this I certify the plan of care. Please let me know if there are questions or concerns regarding this plan of care. Physician Signature: Date:
--- NOTE | 2019-10-13 13:54 | HP.PTREVAL ---
SUKHI GAUTHIER, It has been my pleasure to treat TAVARES SHAW over the last 8 visits for L2-4 DECOMPRESSION 08/23/19. Please see the progress note below for an update on the physical therapy plan of care! Subjective: PATIENT REPORTS HE DOES NOT THINK THERAPY HAS HELPED HIM YET BUT HE IS HOPING THERE ARE OTHER THINGS THAT CAN BE DONE TO HELP BECAUSE HE DOESN'T FEEL HE CAN GO ON LIKE THIS. PATIENT REPORTS HE LIKES TO [place] BUT CAN'T BECAUSE HE IS AFRAID HE WONT BE ABLE TO WALK ENOUGH. TOOK A 6 HOUR TRIP TO [facility] AND STATES HE PAID FOR IT FOR 2-3 DAYS. PATIENT REPRTS HE CAN'T WALK 2 BLOCKS. STATES HE TRIED TO VACUUM AND CAN'T TOLERATE THE PAIN. FOLLOW UP WITH SURGEON PENDING THURSDAY. PATIENT REPORTS HE IS GETTING VERY FRUSTRATED WITH HIS PAIN AND HIS LACK OF ABILITY TO DO WHAT HE WANTS TO DO. Patient is not forcing his ex, he stops if pain increases. pt feels the HEP is fine and is a challenge. Present symptoms: STILL GETTING ENOC LBP, RIGHT HIP, GROIN, TESTICLE, THIGH, LEG AND FOOT. NUMBNESS AND TINGLING IN RIGHT TOES. CORTISONE SHOT LEFT SHLD 2 DAYS AGO. CONTACTED DOCTOR AFTER INITIAL PT EVAL AND DUE TO DIFFICULTY INITIATING URINATION AND WAS PUT ON AN ANTIBIOTIC. Objective/Function: THERE ARE NO SIGNIFICANT CHANGES WITH TESTING TODAY COMPARED TO INITIAL EVAL. PHYSICIAN RE-ASSESSMENT RECOMMENDED. FOLLOW UP PENDING THURSDAY. PATIENT MAY BENEFIT FROM AQUATIC THERAPY FOR A REDUCED WEIGHT BEARING ENVIRONMENT. Plan Plan: HOLD PT PENDING FOLLOW UP WITH SURGEON. Goals Goal 1:: DECREASE C/O BACK AND RIGHT LE SX'S Goal Time Frame: 4-6 Weeks Goal Progress: Not Progressing Goal 2:: IMPROVE ADL, LIFTING, WALKING, SITTING, STANDING, SLEEP, SOCIAL LIFE, TRAVEL AND WORK FUNCTION. Goal Time Frame: 4-6 Weeks Goal Progress: Not Progressing Goal 3:: INSTRUCT IN PROPHYLAXIS Goal Time Frame: 4-6 Weeks Goal Progress: Not Progressing Anticipated Interventions Patient/Client Instruction: Educate patient on: Condition, Plan of Care, Risk Factors, Benefits of Fitness Program For the Purpose of:: To improve self management Therapeutic Exercise to Include: Strength training, Body mechanics, Postural training, Flexibilty training, Dynamic Lumbar Stabilization For the Purpose of:: To decrease pain, To increase ROM, To improve muscle performance and motor function, To increase tolerance to activity/condition/position, To improve ability of physical actions for home/community/work/leisure, To improve gait and locomotor functions Please do not hesitate to contact me at [phone] by phone or if you have questions or concerns regarding this new plan of care! Sincerely, Nina Weiss, PT, Cert MDT
--- NOTE | 2019-11-18 16:25 | HP.PT.NRP ---
HP - Discharge Summary (1) - Patient Information TAVARES SHAW was seen in my office for initial evaluation on 09/13/19. The following Plan of Care was established for this patient: Initial Frequency: 2-3x /Week Initial Duration: 4-6 Weeks - Anticipated Interventions Patient/Client Instruction: Educate patient on: Condition, Plan of Care, Risk Factors, Benefits of Fitness Program For the Purpose of:: To improve self management Therapeutic Exercise to Include: Strength training, Body mechanics, Postural training, Flexibilty training, Dynamic Lumbar Stabilization For the Purpose of:: To decrease pain, To increase ROM, To improve muscle performance and motor function, To increase tolerance to activity/condition/position, To improve ability of physical actions for home/community/work/leisure, To improve gait and locomotor functions This patient was last seen in our office 10/13/19. Pertinent comments regarding their Physical therapy will appear below: This patient has not returned to Physical Therapy and is appropriate to return to MD for further follow-up as needed. At this point I will be discontinuing this patient from physical therapy. I would be happy to see this patient again in the future if found appropriate by the physician. Thank you! Nina Weiss, PT, Cert MDT
== END 2019-10-13 19:00 | disposition home or self-care (01) ==
LOC: PT 08:30
PROVIDERS: Family Provider Family Medicine; PCP Family Medicine
DX: M47.816 Spondylosis without myelopathy or radiculopathy, lumbar region (principal); Z98.890 Other specified postprocedural states
CPT/HCPCS: 97110; 97162; 97530

== ENCOUNTER → 2019-10-26 10:58 | Outpatient (CLI) | payer OTHER, SELFPAY ==
--- NOTE | 2019-10-26 11:25 | MRI_ITS ---
STUDY: MRI LUMBAR SPINE WITHOUT CONTRAST REASON FOR EXAM: Male, 59 years old. right lbp, sciatica, right leg pain, s/p surgery 08/23/19 TECHNIQUE: Standardized fat and water weighted pulse sequences were obtained in the sagittal and axial planes. COMPARISON: May 04, 2019 FINDINGS: T12-L1: Normal endplates. Normal disc height, hydration and morphology. Normal bilateral facet joints. Normal central canal and bilateral lateral recesses. Normal bilateral intervertebral neural foramina. Normal lumbar lordosis. There is no substantial scoliosis. Normal conus medullaris that terminates at the T11-T12 assuming 5 nonrib-bearing lumbar vertebral body segments. L1-2: Mild disc desiccation is noted with mild disc bulge and mild bilateral facet arthropathy. There is mild impression upon the anterior left ventral aspect of the thecal sac but no evidence of significant central or foraminal encroachment. L2-3: Disc desiccation with disc height loss and broad disc bulge noted. Degenerative endplate bony changes are present. There is moderate bilateral facet arthropathy with fluid in the right facet joint. There is impression upon the ventral aspect of the thecal sac but no evidence of significant central canal stenosis though there does appear mild left lateral recess stenosis. There is mild encroachment upon the right neural foramen and moderate encroachment upon the left neural foramen. Prior laminectomy. L3-4: Disc desiccation with disc height loss and marginal osteophytes present. Degenerative endplate Modic changes present. There is a broad disc bulge/protrusion which flattens the ventral aspect of the thecal sac. There is bilateral lateral recess stenosis though there is no significant central canal stenosis. There is moderate bilateral facet arthropathy. There is moderate right and left neural foraminal encroachment. Prior laminectomy. L4-5: Marked disc height loss with endplate marginal osteophytes and Modic degenerative changes noted. There is mild bilateral facet arthropathy. There is a mild disc bulge with moderate bilateral neural foraminal encroachment. Prior laminectomy. L5-S1: There is no evidence of significant disc height loss though there is a mild disc bulge. There is no evidence of significant central or foraminal encroachment. There does appear epidural lipomatosis. Normal visualized sacral ala. Normal visualized paraspinous soft tissue structures. MRI/Spine Lumbar (Routine) IMPRESSION: No significant interval change when compared to prior study. The most significant level of right neural foraminal encroachment appears at L3-4 secondary to disc. This abuts the inferior aspect of the exiting nerve root, for instance referred to image #12 series 3. Electronically Signed: Dawn Haney MD at 12:37 EST , Service support ,
== END ==
PROVIDERS: Family Provider Family Medicine; PCP Family Medicine
DX: M54.5 Low back pain (principal); G89.29 Other chronic pain
CPT/HCPCS: 72148

== ENCOUNTER → 2019-12-16 08:46 | Outpatient (CLI) | payer OTHER, SELFPAY ==
--- NOTE | 2019-12-16 11:44 | NEURO ---
NCS and/or EMG Patient Report DATE OF SERVICE: 12/16/19 Smooth Melgar is a 59-year-old male who presents for electrodiagnostic testing of the right lower limb. He reports having had a lumbar laminectomy in August 2019 and having severe low back and right lower extremity pain since. He reports intermittent weakness. Electrodiagnostic findings: Right median motor nerve demonstrates normal distal latency, amplitude and conduction velocity. Normal right tibial motor response. Normal tibial and peroneal F wave. Sensory responses are within normal limits. On needle EMG, 1+ positive sharp waves are noted in the right lower lumbar paraspinals. All other distal muscles tested showed no evidence of denervation with normal motor unit action potentials. Electrodiagnostic assessment: This is an abnormal study in the right lower limb. 1. Electrodiagnostic evaluation reveals the presence of denervation of the right lower lumbar paraspinals. This may be indicative of a right lumbar radiculitis. However, denervation is often noted for a few months postoperatively. There is no definitive evidence for lumbosacral radiculopathy or peripheral neuropathy. If there are any further questions, please do not hesitate to contact me
== END ==
PROVIDERS: Family Provider Family Medicine; PCP Family Medicine; Referring Provider Neurological Surgery; Visit Provider Neurological Surgery
DX: M51.16 Intervertebral disc disorders with radiculopathy, lumbar region (principal); Z98.890 Other specified postprocedural states
CPT/HCPCS: 95886; 95910

== ENCOUNTER → 2020-07-18 08:57 | Outpatient (CLI) | payer OTHER, SELFPAY ==
[2018-06-22 09:04] VITALS: BMI 23.7
== END ==
PROVIDERS: Family Provider Family Medicine; PCP Family Medicine; Referring Provider Family Medicine; Visit Provider Family Medicine
DX: Z12.5 Encounter for screening for malignant neoplasm of prostate (principal)
CPT/HCPCS: 36415; 84153; G0103

== ENCOUNTER → 2020-08-13 | Outpatient (CLI) | payer OTHER, SELFPAY ==
[2020-08-13 09:12] LABS: Absolute Lymphocyte Count 1.65 X10^3/uL (0.83-4.51); Absolute Neutrophil Count 4.6 X10^3/uL (2.0-7.7); Basophil# 0.04 X10^3/uL; Basophil% 0.6 % (0-1); Eosinophil# 0.11 X10^3/uL; Eosinophils% 1.6 % (0-5); Hematocrit 36.9 % (40-54); Hemoglobin 12.4 g/dL (13.0-16.5); Lymphocyte # 1.65 X10^3/ul (4.0); Lymphocyte % 23.3 % (19-41); Mean Corp Hgb Conc 33.6 g/dL (32-36); Mean Corpuscular Hgb 31.7 pg (27.0-32.0); Mean Corpuscular Volume 94.4 fL (80-94); Mean Platelet Vol. 8.8 fl (6.2-12.0); Monocyte# 0.62 X10^3/uL; Monocyte% 8.8 % (0-10); NRBC Flagged by Analyzer 0 % (0-5); Platelet Count 375 K/mm3 (150-450); RBC Distribution Width CV 12.5 % (11.6-14.6); RBC Distribution Width SD 43.5 fl (35.1-43.9); Red Blood Count 3.91 M/mm3 (4.6-6.2); White Blood Count 7.1 K/mm3 (4.4-11.0)
[2020-08-13 09:46] LABS: Ferritin 157 ng/mL (26-388); Iron 103 ug/dL (65-175); T4 Free Direct 1.03 ng/dL (0.76-1.46); Thyroid Stim Hormone (TSH) 0.69 uIU/mL (0.358-3.74)
[2020-08-13 10:08] LABS: Vitamin B12 437 pg/mL (211-911)
[2020-08-18 03:06] LABS: Metanephrine, Ur 53 ug/L (Undefined); Normetanephrines, 24Ur 218 ug/24 hr (156-729); Normetanephrines, Ur 84 ug/L (Undefined)
[2020-08-18 08:08] LABS: Dopamine, UR 71 ug/L (Undefined); Epinephrine, 24Ur 8 ug/24 hr (0-20); Epinephrine, Ur 3 ug/L (Undefined); Norepinephrine, 24Ur 36 ug/24 hr (0-135); Norepinephrine, Ur 14 ug/L (Undefined)
[2020-08-18 08:12] LABS: Dopamine, 24Ur 185 ug/24 hr (0-510)
[2020-08-18 11:04] LABS: Metanephrines, 24Ur 138 ug/24 hr (58-276)
== END | disposition home or self-care (01) ==
LOC: LABSPEC 06:02
PROVIDERS: PCP Family Medicine; Visit Provider Family Medicine
DX: L74.9 Eccrine sweat disorder, unspecified (principal); D64.9 Anemia, unspecified; E27.8 Other specified disorders of adrenal gland
CPT/HCPCS: 36415; 81050; 82384; 82607; 82728; 83540; 83835; 84439; 84443; 85025

== ENCOUNTER → 2020-10-05 11:33 | Outpatient (CLI) | payer OTHER, SELFPAY ==
[2020-10-05 15:37] LABS: Erythrocyte Sedimentation Rate 36 mm/hr (0-20)
[2020-10-05 15:57] LABS: CPK Total, Creatine Kinase 69 U/L (39-308); Rheumatoid Factor < 10.0 IU/mL (<15)
[2020-10-08 12:58] LABS: ANTINUCLEAR ANTIBODIES DIRECT Negative (Negative)
[2020-10-16 05:06] LABS: Lyme IgG P18 Ab Absent (.); Lyme IgG P23 Ab Absent (.); Lyme IgG P28 Ab Absent (.); Lyme IgG P30 Ab Absent (.); Lyme IgG P39 Ab Absent (.); Lyme IgG P41 Ab Absent (.); Lyme IgG P45 Ab Absent (.); Lyme IgG P58 Ab Absent (.); Lyme IgG P66 Ab Absent (.); Lyme IgG P93 Ab Absent (.); Lyme IgM P23 Ab Absent (.); Lyme IgM P39 Ab Absent (.); Lyme IgM P41 Ab Absent (.)
[2020-10-16 11:59] LABS: CCP IgG Antibodies 8 units (0-19); Lyme IgG WB Interpretation Negative (.); Lyme IgM WB Interpretation Negative (.)
== END ==
PROVIDERS: PCP Family Medicine; Visit Provider Family Medicine
DX: M25.50 Pain in unspecified joint (principal); M79.10 Myalgia, unspecified site
CPT/HCPCS: 36415; 82550; 85652; 86038; 86140; 86200; 86225; 86235; 86431; 86617

== ENCOUNTER → 2020-11-22 08:08 | Outpatient (CLI) | payer OTHER, SELFPAY ==
--- NOTE | 2020-11-22 09:15 | RAD_ITS ---
STUDY: X-RAY - PELVIS REASON FOR EXAM: Male, 60 years old. Polyarthropathy, recent back surgery with right iliac artery stent, joint pain all over since back surgery TECHNIQUE: One view of the pelvis was obtained. COMPARISON: None. FINDINGS: There is a non-specific bowel gas pattern. Normal visualized soft tissue structures. Right iliac artery stent. Normal bilateral iliac wings, sacroiliac joints and visualized sacrum. Normal visualized bilateral superior and inferior pubic rami. Normal pubic symphysis. Normal ischial tuberosities. Normal visualized right femoral head. Normal right acetabulum. Normal right hip joint. Normal visualized left femoral head. Normal left acetabulum. Normal left hip joint. RAD/Pelvis 1 or 2 Views IMPRESSION: Normal x-ray examination of the pelvis. Electronically Signed: Raghavendra Pizano MD at 10:11 EST Tel , Service support ,
[2020-11-22 09:28] LABS: Absolute Lymphocyte Count 0.99 X10^3/uL (0.83-4.51); Absolute Neutrophil Count 3.4 X10^3/uL (2.0-7.7); Basophil# 0.04 X10^3/uL; Basophil% 0.8 % (0-1); Eosinophil# 0.32 X10^3/uL; Hematocrit 36.9 % (40-54); Hemoglobin 12.5 g/dL (13.0-16.5); Lymphocyte # 0.99 X10^3/ul (4.0); Lymphocyte % 18.6 % (19-41); Mean Corp Hgb Conc 33.9 g/dL (32-36); Mean Corpuscular Volume 94.4 fL (80-94); Mean Platelet Vol. 9.6 fl (6.2-12.0); Monocyte# 0.57 X10^3/uL; Monocyte% 10.7 % (0-10); NRBC Flagged by Analyzer 0 % (0-5); Neutrophil # 3.36 X10^3/uL (2.7-7.7); Neutrophil % 63.3 % (47-70); Platelet Count 340 K/mm3 (150-450); RBC Distribution Width CV 12.4 % (11.6-14.6); RBC Distribution Width SD 42.7 fl (35.1-43.9); Red Blood Count 3.91 M/mm3 (4.6-6.2); White Blood Count 5.3 K/mm3 (4.4-11.0)
[2020-11-22 10:06] LABS: ALB/GLOB Ratio 1.1 RATIO (0.9-2.4); AST(SGOT) 13 U/L (15-37); Alanine Aminotransfer ALT/SGPT 21 U/L (16-61); Albumin, Serum 3.8 g/dL (3.2-5.0); Alkaline Phosphatase 87 U/L (45-117); Anion Gap 4 (5-15); BUN 13 mg/dL (7-18); BUN/Creat Ratio 11.6 RATIO (10-20); Calcium,Total 8.6 mg/dL (8.5-10.1); Chloride 106 mmol/L (98-107); Creatinine, Serum 1.12 mg/dL (0.70-1.30); EST Glomerular Filtration Rate 71 mL/min (>60); Est Glom Filt Rate - Afr Amer 86 mL/min (>60); Globulin 3.5 g/dL (2.2-4.2); Glucose 100 mg/dL (74-106); Potassium 3.8 mmol/L (3.5-5.1); Protein, Total 7.3 g/dL (6.4-8.2); Sodium Level 137 mmol/L (136-145)
[2020-11-22 10:41] LABS: Hepatitis B Surface Antibody Non-Reactive; Hepatitis B Surface Antigen Non-Reactive (Nonreactive); Hepatitis C Antibody Non-Reactive (Nonreactive)
[2020-11-27 04:07] LABS: QNTFERON TB Mitogen Value > 10.00 IU/mL (.); QNTFERON TB Nil Value 0.03 IU/mL (.); QNTFERON TB1+ Ag Value 0.05 IU/mL (.); QNTFERON TB2+ Ag Value 0.03 IU/mL (.)
[2020-11-27 14:03] LABS: Hepatitis B Core AB IgM Negative (Negative); QNTIFERON TB Positive Criteria Negative (Negative)
== END ==
PROVIDERS: PCP Family Medicine; Referring Provider Internal Medicine Rheumatology; Visit Provider Internal Medicine Rheumatology
DX: M06.4 Inflammatory polyarthropathy (principal); M51.36 Other intervertebral disc degeneration, lumbar region; K21.9 Gastro-esophageal reflux disease without esophagitis; I25.10 Atherosclerotic heart disease of native coronary artery without angina pectoris; I73.9 Peripheral vascular disease, unspecified; I10 Essential (primary) hypertension; N52.9 Male erectile dysfunction, unspecified; M19.139 Post-traumatic osteoarthritis, unspecified wrist; Q66.70 Congenital pes cavus, unspecified foot
CPT/HCPCS: 36415; 72170; 80053; 85025; 86480; 86705; 86706; 86803; 87340

== ENCOUNTER → 2020-12-03 08:02 | Outpatient (CLI) | payer OTHER, SELFPAY ==
[2018-06-22 09:04] VITALS: BMI 23.7
--- NOTE | 2020-12-03 08:09 | AAVD_ITS ---
Reason For Study: Atherosclerosis Aorta Measurements Aorta Doppler Measurements Proximal aorta measures1.65 x 1.69cm. in cross- Peak systolic flow velocities within the proximal sectional axis. aorta measure 73.2 cm/sec. Proximal aorta measures1.61cm. in longitudinal Peak systolic flow velocities within the mid aorta axis. measure 50.1 cm/sec. Mid aorta measures1.04 x 1.03cm. in cross- Peak systolic flow velocities within the distal sectional axis. aorta measure 71 cm/sec. Mid aorta measures1.05cm. in longitudinal axis. Distal aorta measures1.03 x 1.03cm. in cross- sectional axis. Distal aorta measures1.04cm. in longitudinal axis. Left Iliac Artery Left iliac artery measures 0.64 x 0.64 cm. in the cross-sectional axis. Left iliac artery measures 0.67 cm. in the longitudinal axis. Peak systolic velocity in the left iliac artery measures 304.4 cm/sec. Right Iliac Artery Right iliac artery measures 0.61 x 0.64 cm. in the cross-sectional axis. Right iliac artery measures 0.62 cm. in the longitudinal axis. Peak systolic velocity in the right iliac artery measures 183. cm/sec. Stent noted with the Rt MARCELLUS. Procedure Aorta IVC Iliac vasculature or bypass grafts [id number]. Exam performed in department. Interpretation Summary Left iliac with severe stenoiss and otherwise no stenosis or aneurysm noted. Ordering Physician: Chuck Shaw Referring Physician: Maury Cole Performed By: Rubia Singh RVT
--- NOTE | 2020-12-03 08:09 | ART_ITS ---
Reason For Study: Atherosclerosis Procedure A bilateral lower extremity continuous wave Doppler with analog waveform analysis and ankle brachial indexes. Left Segmental Pressures Left brachial= 159mmHg. Left posterior tibial artery = 162mmHg. Left dorsalis pedis artery = 150mmHg. The left dorsalis pedis waveforms are triphasic. The left posterior tibial artery waveforms are triphasic. Right Segmental Pressures Right brachial= 165mmHg. Right posterior tibial artery = 164mmHg. Right dorsalis pedis artery = 163mmHg. The right dorsalis pedis waveforms are triphasic. The right posterior tibial artery waveforms are triphasic. Indices The right ankle brachial index by the dorsalis pedis is 0.99. The right ankle brachial index by the posterior tibial artery is 0.99. The left ankle brachial index by the dorsalis pedis is 0.91. The left ankle brachial index by the posterior tibial artery is 0.98. Interpretation Summary No evidence of occlussive disease at rest wt BRENDA 0.99 and 0.98. Ordering Physician: Chuck Shaw Referring Physician: Maury Cole Performed By: Rubia Singh RVT
--- NOTE | 2020-12-03 08:09 | ADUL_ITS ---
Reason For Study: Atherosclerosis Right Velocities Ext. Iliac Artery, dist = 148.4 cm./sec. Common Femoral Artery, mid = 60.9 cm./sec. Supf Femoral Artery, prox = 119.8 cm./sec. Supf Femoral Artery, mid = 179 cm./sec. Supf Femoral Artery, dist. = 97.8 cm./sec. Profunda Femoral Artery = 79.3 cm./sec. Popliteal Artery, prox. = 92.4 cm./sec. Popliteal Artery, mid = 84.3 cm./sec. Popliteal Artery, dist = 58.5 cm./sec. Post. Tibial Artery, prox = 91.6 cm./sec. Post. Tibial Artery, mid = 86.7 cm./sec. Post. Tibial Artery, dist = 81.8 cm./sec. Peroneal Artery, prox = 45.7 cm./sec. Peroneal Artery, mid = 55.6 cm./sec. Peroneal Artery,dist = 45.7 cm./sec. Ant. Tibial Artery, prox = 74.3 cm./sec. Ant. Tibial Artery, mid = 91.6 cm./sec. Ant. Tibial Artery, dist = 92.8 cm./sec. Procedure Exam performed in department. Interpretation Summary no stenosis right leg with triphasic flow throughout. Ordering Physician: Chuck Shaw Referring Physician: Maury Cole Performed By: Rubia Singh RVT
== END ==
PROVIDERS: PCP Family Medicine
DX: I77.1 Stricture of artery (principal); I70.213 Atherosclerosis of native arteries of extremities with intermittent claudication, bilateral legs; I10 Essential (primary) hypertension; I25.10 Atherosclerotic heart disease of native coronary artery without angina pectoris
CPT/HCPCS: 93922; 93926; 93978

== ENCOUNTER → 2021-02-13 10:24 | Outpatient (CLI) | payer OTHER, SELFPAY ==
[2018-06-22 09:04] VITALS: BMI 23.7
[2021-02-13 11:28] LABS: Absolute Lymphocyte Count 1.28 X10^3/uL (0.83-4.51); Absolute Neutrophil Count 4.6 X10^3/uL (2.0-7.7); Basophil# 0.02 X10^3/uL; Basophil% 0.3 % (0-1); Eosinophil# 0.02 X10^3/uL; Eosinophils% 0.3 % (0-5); Hematocrit 33.8 % (40-54); Hemoglobin 11.5 g/dL (13.0-16.5); Lymphocyte # 1.28 X10^3/ul (4.0); Lymphocyte % 20.1 % (19-41); Mean Corpuscular Hgb 31.9 pg (27.0-32.0); Mean Corpuscular Volume 93.9 fL (80-94); Mean Platelet Vol. 9.6 fl (6.2-12.0); Monocyte# 0.42 X10^3/uL; Monocyte% 6.6 % (0-10); NRBC Flagged by Analyzer 0 % (0-5); Neutrophil # 4.61 X10^3/uL (2.7-7.7); Neutrophil % 72.4 % (47-70); Platelet Count 336 K/mm3 (150-450); RBC Distribution Width CV 13.9 % (11.6-14.6); RBC Distribution Width SD 46.9 fl (35.1-43.9); White Blood Count 6.4 K/mm3 (4.4-11.0)
[2021-02-13 11:55] LABS: ALB/GLOB Ratio 1.1 RATIO (0.9-2.4); AST(SGOT) 25 U/L (15-37); Alanine Aminotransfer ALT/SGPT 36 U/L (16-61); Albumin, Serum 4.1 g/dL (3.2-5.0); Alkaline Phosphatase 74 U/L (45-117); Anion Gap 7 (5-15); BUN 12 mg/dL (7-18); BUN/Creat Ratio 10.7 RATIO (10-20); Calcium,Total 9.3 mg/dL (8.5-10.1); Chloride 102 mmol/L (98-107); Creatinine, Serum 1.12 mg/dL (0.70-1.30); EST Glomerular Filtration Rate 71 mL/min (>60); Est Glom Filt Rate - Afr Amer 86 mL/min (>60); Globulin 3.6 g/dL (2.2-4.2); Glucose 104 mg/dL (74-106); Potassium 3.9 mmol/L (3.5-5.1); Protein, Total 7.7 g/dL (6.4-8.2); Sodium Level 135 mmol/L (136-145)
== END ==
PROVIDERS: PCP Family Medicine; Referring Provider Internal Medicine Rheumatology; Visit Provider Internal Medicine Rheumatology
DX: M06.4 Inflammatory polyarthropathy (principal); M51.36 Other intervertebral disc degeneration, lumbar region; M19.139 Post-traumatic osteoarthritis, unspecified wrist; K21.9 Gastro-esophageal reflux disease without esophagitis; I25.10 Atherosclerotic heart disease of native coronary artery without angina pectoris; I73.9 Peripheral vascular disease, unspecified; I10 Essential (primary) hypertension; N52.9 Male erectile dysfunction, unspecified; Q66.70 Congenital pes cavus, unspecified foot
CPT/HCPCS: 36415; 80053; 85025

== ENCOUNTER → 2021-02-27 09:22 | Outpatient (CLI) | payer OTHER, SELFPAY ==
[2018-06-22 09:04] VITALS: BMI 23.7
[2021-02-27 11:02] LABS: AST(SGOT) 26 U/L (15-37); Alanine Aminotransfer ALT/SGPT 40 U/L (16-61); Cholesterol 209 mg/dL (200); High Density Lipoprotein 124 mg/dL; Triglycerides 78 mg/dL; Very Low Density Lipoprotein 16 mg/dL (5-40)
== END ==
PROVIDERS: PCP Family Medicine
DX: E78.5 Hyperlipidemia, unspecified (principal)
CPT/HCPCS: 36415; 80061; 84450; 84460

== ENCOUNTER → 2021-03-18 10:53 | Outpatient (CLI) | payer OTHER, SELFPAY ==
[2021-03-18 12:16] LABS: Anion Gap 10 (5-15); BUN 17 mg/dL (7-18); BUN/Creat Ratio 12.8 RATIO (10-20); Chloride 104 mmol/L (98-107); Creatinine, Serum 1.33 mg/dL (0.70-1.30); EST Glomerular Filtration Rate 58 mL/min (>60); Est Glom Filt Rate - Afr Amer 70 mL/min (>60); Glucose 111 mg/dL (74-106); Potassium 3.7 mmol/L (3.5-5.1); Sodium Level 137 mmol/L (136-145)
== END ==
PROVIDERS: PCP Family Medicine
DX: I10 Essential (primary) hypertension (principal)
CPT/HCPCS: 36415; 80048

== ENCOUNTER → 2021-04-05 12:24 | Outpatient (CLI) | payer OTHER, SELFPAY ==
[2018-06-22 09:04] VITALS: BMI 23.7
[2021-04-05 13:30] LABS: Absolute Lymphocyte Count 0.69 X10^3/uL (0.83-4.51); Absolute Neutrophil Count 3.1 X10^3/uL (2.0-7.7); Basophil# 0.01 X10^3/uL; Basophil% 0.2 % (0-1); Hematocrit 31.2 % (40-54); Hemoglobin 10.2 g/dL (13.0-16.5); Lymphocyte # 0.69 X10^3/ul (0.83-4.51); Lymphocyte % 16.4 % (19-41); Mean Corp Hgb Conc 32.7 g/dL (32-36); Mean Corpuscular Hgb 32.2 pg (27.0-32.0); Mean Corpuscular Volume 98.4 fL (80-94); Mean Platelet Vol. 9.6 fl (6.2-12.0); Monocyte# 0.36 X10^3/uL; Monocyte% 8.5 % (0-10); NRBC Flagged by Analyzer 0 % (0-5); Neutrophil # 3.14 X10^3/uL (2.7-7.7); Neutrophil % 74.4 % (47-70); Platelet Count 304 K/mm3 (150-450); RBC Distribution Width CV 13.6 % (11.6-14.6); Red Blood Count 3.17 M/mm3 (4.6-6.2); White Blood Count 4.2 K/mm3 (4.4-11.0)
[2021-04-05 13:59] LABS: ALB/GLOB Ratio 1.1 RATIO (0.9-2.4); AST(SGOT) 32 U/L (15-37); Alanine Aminotransfer ALT/SGPT 35 U/L (16-61); Albumin, Serum 3.8 g/dL (3.2-5.0); Alkaline Phosphatase 73 U/L (45-117); Anion Gap 6 (5-15); BUN 17 mg/dL (7-18); BUN/Creat Ratio 12.8 RATIO (10-20); Calcium,Total 8.9 mg/dL (8.5-10.1); Chloride 107 mmol/L (98-107); Creatinine, Serum 1.33 mg/dL (0.70-1.30); EST Glomerular Filtration Rate 58 mL/min (>60); Est Glom Filt Rate - Afr Amer 70 mL/min (>60); Globulin 3.6 g/dL (2.2-4.2); Glucose 115 mg/dL (74-106); Protein, Total 7.4 g/dL (6.4-8.2); Sodium Level 138 mmol/L (136-145)
== END ==
PROVIDERS: PCP Family Medicine; Referring Provider Internal Medicine Rheumatology; Visit Provider Internal Medicine Rheumatology
DX: I10 Essential (primary) hypertension (principal); M06.4 Inflammatory polyarthropathy; M51.36 Other intervertebral disc degeneration, lumbar region; K21.9 Gastro-esophageal reflux disease without esophagitis; I25.10 Atherosclerotic heart disease of native coronary artery without angina pectoris; I73.9 Peripheral vascular disease, unspecified; N52.9 Male erectile dysfunction, unspecified; M19.139 Post-traumatic osteoarthritis, unspecified wrist; Q66.70 Congenital pes cavus, unspecified foot; Z79.899 Other long term (current) drug therapy
CPT/HCPCS: 36415; 80053; 85025

== ENCOUNTER → 2021-05-31 10:21 | Outpatient (CLI) | payer OTHER, SELFPAY ==
[2018-06-22 09:04] VITALS: BMI 23.7
[2021-05-31 11:29] LABS: Absolute Lymphocyte Count 1.02 X10^3/uL (0.83-4.51); Absolute Neutrophil Count 3.3 X10^3/uL (2.0-7.7); Basophil# 0.03 X10^3/uL; Basophil% 0.6 % (0-1); Eosinophil# 0.09 X10^3/uL; Eosinophils% 1.8 % (0-5); Hematocrit 32.5 % (40-54); Hemoglobin 10.8 g/dL (13.0-16.5); Lymphocyte # 1.02 X10^3/ul (0.83-4.51); Lymphocyte % 20.3 % (19-41); Mean Corp Hgb Conc 33.2 g/dL (32-36); Mean Corpuscular Hgb 32.7 pg (27.0-32.0); Mean Corpuscular Volume 98.5 fL (80-94); Mean Platelet Vol. 9.9 fl (6.2-12.0); Monocyte# 0.58 X10^3/uL; Monocyte% 11.5 % (0-10); NRBC Flagged by Analyzer 0 % (0-5); Neutrophil # 3.25 X10^3/uL (2.7-7.7); Neutrophil % 64.6 % (47-70); Platelet Count 262 K/mm3 (150-450); RBC Distribution Width SD 50.4 fl (35.1-43.9)
[2021-05-31 12:10] LABS: ALB/GLOB Ratio 1.1 RATIO (0.9-2.4); AST(SGOT) 28 U/L (15-37); Alanine Aminotransfer ALT/SGPT 42 U/L (16-61); Albumin, Serum 3.9 g/dL (3.2-5.0); Alkaline Phosphatase 82 U/L (45-117); Anion Gap 8 (5-15); BUN 17 mg/dL (7-18); BUN/Creat Ratio 12.4 RATIO (10-20); Calcium,Total 8.9 mg/dL (8.5-10.1); Chloride 105 mmol/L (98-107); Creatinine, Serum 1.37 mg/dL (0.70-1.30); EST Glomerular Filtration Rate 56 mL/min (>60); Est Glom Filt Rate - Afr Amer 68 mL/min (>60); Globulin 3.5 g/dL (2.2-4.2); Glucose 92 mg/dL (74-106); Potassium 4.5 mmol/L (3.5-5.1); Protein, Total 7.4 g/dL (6.4-8.2); Sodium Level 137 mmol/L (136-145)
== END ==
PROVIDERS: PCP Family Medicine; Referring Provider Internal Medicine Rheumatology; Visit Provider Internal Medicine Rheumatology
DX: M06.4 Inflammatory polyarthropathy (principal); M51.36 Other intervertebral disc degeneration, lumbar region; K21.9 Gastro-esophageal reflux disease without esophagitis; I25.10 Atherosclerotic heart disease of native coronary artery without angina pectoris; I73.9 Peripheral vascular disease, unspecified; I10 Essential (primary) hypertension; N52.9 Male erectile dysfunction, unspecified; M19.139 Post-traumatic osteoarthritis, unspecified wrist; Q66.70 Congenital pes cavus, unspecified foot; Z79.899 Other long term (current) drug therapy
CPT/HCPCS: 36415; 80053; 85025

== ENCOUNTER → 2021-07-25 10:14 | Outpatient (CLI) | payer OTHER, SELFPAY ==
[2021-07-25 11:31] LABS: PSA,Total - Annual Screen 1.88 ng/mL (0.00-4.00)
== END ==
PROVIDERS: PCP Family Medicine; Referring Provider Family Medicine; Visit Provider Family Medicine
DX: Z12.5 Encounter for screening for malignant neoplasm of prostate (principal)
CPT/HCPCS: 36415; 84153; G0103

== ENCOUNTER → 2021-08-08 15:28 | Outpatient (CLI) | payer OTHER, SELFPAY ==
--- NOTE | 2021-08-08 15:30 | RAD_ITS ---
STUDY: X-RAY CHEST REASON FOR EXAM: Male, 61 years old. CHEST PAIN COUGH,RML CRACKLES TECHNIQUE: XR Chest 2 Views COMPARISON: 4.6.15 FINDINGS: There is no demonstrated pleural abnormality. There is bilateral infiltrate / atelectasis. Normal size heart. Normal mediastinum and jose elias. Normal visualized pulmonary arteries. There is atherosclerotic calcification of the aortic arch with tortuosity. There are diffuse degenerative changes of the visualized thoracic spine. There is degenerative osteoarthritis of the bilateral shoulders. There is no demonstrated abnormality of the visualized soft tissue structures of the upper abdomen. RAD/Chest PA and Lateral IMPRESSION: There is bilateral infiltrate / atelectasis. Electronically Signed: Kvng Dorsey MD at 15:11 EDT , Service support ,
== END ==
PROVIDERS: PCP Family Medicine; Referring Provider Family Medicine; Visit Provider Family Medicine
DX: R05 Cough (principal); R91.8 Other nonspecific abnormal finding of lung field
CPT/HCPCS: 71046

== ENCOUNTER → 2021-08-22 10:37 | Outpatient (CLI) | payer OTHER, SELFPAY ==
[2018-06-22 09:04] VITALS: BMI 23.7
[2021-08-22 11:18] LABS: Absolute Lymphocyte Count 1.13 X10^3/uL (0.83-4.51); Absolute Neutrophil Count 3.1 X10^3/uL (2.0-7.7); Basophil# 0.04 X10^3/uL; Basophil% 0.8 % (0-1); Eosinophil# 0.05 X10^3/uL; Hematocrit 30.9 % (40-54); Hemoglobin 10.2 g/dL (13.0-16.5); Lymphocyte # 1.13 X10^3/ul (0.83-4.51); Lymphocyte % 23.5 % (19-41); Mean Corpuscular Hgb 32.8 pg (27.0-32.0); Mean Corpuscular Volume 99.4 fL (80-94); Mean Platelet Vol. 9.6 fl (6.2-12.0); Monocyte# 0.51 X10^3/uL; Monocyte% 10.6 % (0-10); NRBC Flagged by Analyzer 0 % (0-5); Neutrophil # 3.06 X10^3/uL (2.7-7.7); Neutrophil % 63.7 % (47-70); Platelet Count 316 K/mm3 (150-450); RBC Distribution Width CV 14.5 % (11.6-14.6); Red Blood Count 3.11 M/mm3 (4.6-6.2); White Blood Count 4.8 K/mm3 (4.4-11.0)
[2021-08-22 11:46] LABS: Vitamin B12 1167 pg/mL (211-911)
[2021-08-22 11:50] LABS: ALB/GLOB Ratio 1.1 RATIO (0.9-2.4); AST(SGOT) 32 U/L (15-37); Alanine Aminotransfer ALT/SGPT 41 U/L (16-61); Albumin, Serum 3.8 g/dL (3.2-5.0); Alkaline Phosphatase 67 U/L (45-117); Anion Gap 9 (5-15); BUN 17 mg/dL (7-18); BUN/Creat Ratio 11.1 RATIO (10-20); Calcium,Total 9.1 mg/dL (8.5-10.1); Chloride 104 mmol/L (98-107); Creatinine, Serum 1.53 mg/dL (0.70-1.30); EST Glomerular Filtration Rate 49 mL/min (>60); Est Glom Filt Rate - Afr Amer 60 mL/min (>60); Ferritin 231 ng/mL (26-388); Globulin 3.6 g/dL (2.2-4.2); Glucose 87 mg/dL (74-106); Iron 71 ug/dL (65-175); Potassium 4.3 mmol/L (3.5-5.1); Protein, Total 7.4 g/dL (6.4-8.2); Sodium Level 138 mmol/L (136-145)
[2021-08-29 00:07] LABS: QNTFERON TB Mitogen Value > 10.00 IU/mL (.); QNTFERON TB Nil Value 0.05 IU/mL (.); QNTFERON TB1+ Ag Value 0.05 IU/mL (.); QNTFERON TB2+ Ag Value 0.05 IU/mL (.)
[2021-08-29 14:32] LABS: QNTIFERON TB Positive Criteria Negative (Negative)
== END ==
PROVIDERS: PCP Family Medicine; Visit Provider Internal Medicine Rheumatology
DX: D64.9 Anemia, unspecified (principal); M06.4 Inflammatory polyarthropathy; Z79.899 Other long term (current) drug therapy; M51.36 Other intervertebral disc degeneration, lumbar region; K21.9 Gastro-esophageal reflux disease without esophagitis
CPT/HCPCS: 80053; 82607; 82728; 83540; 85025; 86480

== ENCOUNTER → 2021-09-04 06:09 | Outpatient (CLI) | payer OTHER, SELFPAY ==
--- NOTE | 2021-09-04 06:21 | RAD_ITS ---
STUDY: X-RAY CHEST REASON FOR EXAM: Male, 61 years old. CAD TECHNIQUE: PA and lateral views of the chest. COMPARISON: Comparison is made with prior study 08/08/2021. FINDINGS: There is hyperinflation of the lungs consistent with chronic obstructive lung disease (COPD). There is no demonstrated pleural abnormality. Normal size heart. Normal mediastinum and jose elias. Normal visualized pulmonary arteries. Normal visualized aortic arch and descending thoracic aorta. There are degenerative changes of the visualized thoracic spine. Normal visualized ribs, clavicles, and shoulders. There is no demonstrated abnormality of the visualized soft tissue structures of the upper abdomen. RAD/Chest PA and Lateral IMPRESSION: Hyperinflation. Electronically Signed: Madan Hernández MD at 11:02 EDT , Service support ,
== END ==
PROVIDERS: PCP Family Medicine; Referring Provider Internal Medicine Rheumatology; Visit Provider Internal Medicine Rheumatology
DX: M06.09 Rheumatoid arthritis without rheumatoid factor, multiple sites (principal); M51.36 Other intervertebral disc degeneration, lumbar region; K21.9 Gastro-esophageal reflux disease without esophagitis; I25.10 Atherosclerotic heart disease of native coronary artery without angina pectoris; I73.9 Peripheral vascular disease, unspecified; I10 Essential (primary) hypertension; N52.9 Male erectile dysfunction, unspecified; Z79.899 Other long term (current) drug therapy
CPT/HCPCS: 71046

== ENCOUNTER 2021-11-27 08:33 | Outpatient (CLI) | payer OTHER, SELFPAY ==
[2021-11-27 09:18] LABS: Absolute Lymphocyte Count 0.98 X10^3/uL (0.83-4.51); Absolute Neutrophil Count 1.6 X10^3/uL (2.0-7.7); Basophil# 0.01 X10^3/uL; Basophil% 0.3 % (0-1); Eosinophil# 0.01 X10^3/uL; Eosinophils% 0.3 % (0-5); Hematocrit 36.9 % (40-54); Hemoglobin 12.6 g/dL (13.0-16.5); Lymphocyte # 0.98 X10^3/ul (0.83-4.51); Lymphocyte % 30.9 % (19-41); Mean Corp Hgb Conc 34.1 g/dL (32-36); Mean Corpuscular Hgb 31.9 pg (27.0-32.0); Mean Corpuscular Volume 93.4 fL (80-94); Mean Platelet Vol. 10.4 fl (6.2-12.0); Monocyte# 0.51 X10^3/uL; Monocyte% 16.1 % (0-10); NRBC Flagged by Analyzer 0 % (0-5); Neutrophil # 1.63 X10^3/uL (2.7-7.7); Neutrophil % 51.5 % (47-70); Platelet Count 247 K/mm3 (150-450); RBC Distribution Width CV 11.9 % (11.6-14.6); RBC Distribution Width SD 40.9 fl (35.1-43.9); Red Blood Count 3.95 M/mm3 (4.6-6.2); White Blood Count 3.2 K/mm3 (4.4-11.0)
[2021-11-27 09:51] LABS: ALB/GLOB Ratio 0.9 RATIO (0.9-2.4); AST(SGOT) 36 U/L (15-37); Alanine Aminotransfer ALT/SGPT 48 U/L (16-61); Albumin, Serum 3.7 g/dL (3.2-5.0); Alkaline Phosphatase 86 U/L (45-117); Anion Gap 9 (5-15); BUN 21 mg/dL (7-18); BUN/Creat Ratio 11.8 RATIO (10-20); Calcium,Total 8.6 mg/dL (8.5-10.1); Chloride 102 mmol/L (98-107); Creatinine, Serum 1.78 mg/dL (0.70-1.30); EST Glomerular Filtration Rate 41 mL/min (>60); Est Glom Filt Rate - Afr Amer 50 mL/min (>60); Globulin 3.9 g/dL (2.2-4.2); Glucose 116 mg/dL (74-106); Potassium 4.8 mmol/L (3.5-5.1); Protein, Total 7.6 g/dL (6.4-8.2); Sodium Level 136 mmol/L (136-145)
== END 2021-11-27 23:59 | disposition short-term general hospital (02) ==
PROVIDERS: PCP Family Medicine; Referring Provider Internal Medicine Rheumatology; Visit Provider Internal Medicine Rheumatology
DX: M06.09 Rheumatoid arthritis without rheumatoid factor, multiple sites (principal); I73.9 Peripheral vascular disease, unspecified; M51.36 Other intervertebral disc degeneration, lumbar region; K21.9 Gastro-esophageal reflux disease without esophagitis; I25.10 Atherosclerotic heart disease of native coronary artery without angina pectoris; I10 Essential (primary) hypertension; Z79.899 Other long term (current) drug therapy
CPT/HCPCS: 36415; 80053; 85025

== ENCOUNTER 2022-01-24 10:17 | Outpatient (CLI) | payer OTHER, SELFPAY ==
[2022-01-24 10:49] LABS: Basophil# 0.04 X10^3/uL; Basophil% 0.9 % (0-1); Eosinophils% 2.3 % (0-5); Hematocrit 34.9 % (40-54); Hemoglobin 12.1 g/dL (13.0-16.5); Lymphocyte % 38.9 % (19-41); Mean Corp Hgb Conc 34.7 g/dL (32-36); Mean Corpuscular Hgb 33.2 pg (27.0-32.0); Mean Corpuscular Volume 95.6 fL (80-94); Mean Platelet Vol. 10.1 fl (6.2-12.0); Monocyte# 0.53 X10^3/uL; Monocyte% 12.1 % (0-10); NRBC Flagged by Analyzer 0 % (0-5); Neutrophil # 1.99 X10^3/uL (2.7-7.7); Neutrophil % 45.6 % (47-70); Platelet Count 254 K/mm3 (150-450); RBC Distribution Width CV 12.7 % (11.6-14.6); RBC Distribution Width SD 44.7 fl (35.1-43.9); Red Blood Count 3.65 M/mm3 (4.6-6.2); White Blood Count 4.4 K/mm3 (4.4-11.0)
[2022-01-24 11:24] LABS: ALB/GLOB Ratio 1.1 RATIO (0.9-2.4); AST(SGOT) 33 U/L (15-37); Alanine Aminotransfer ALT/SGPT 41 U/L (16-61); Albumin, Serum 3.7 g/dL (3.2-5.0); Alkaline Phosphatase 54 U/L (45-117); Anion Gap 4 (5-15); BUN 22 mg/dL (7-18); BUN/Creat Ratio 16.3 RATIO (10-20); Chloride 107 mmol/L (98-107); Creatinine, Serum 1.35 mg/dL (0.70-1.30); EST Glomerular Filtration Rate 57 mL/min (>60); Est Glom Filt Rate - Afr Amer 69 mL/min (>60); Globulin 3.4 g/dL (2.2-4.2); Glucose 125 mg/dL (74-106); Potassium 4.1 mmol/L (3.5-5.1); Protein, Total 7.1 g/dL (6.4-8.2); Sodium Level 138 mmol/L (136-145)
== END 2022-01-24 23:59 | disposition home or self-care (01) ==
LOC: LAB 10:19
PROVIDERS: PCP Family Medicine; Referring Provider Internal Medicine Rheumatology; Visit Provider Internal Medicine Rheumatology
DX: M06.09 Rheumatoid arthritis without rheumatoid factor, multiple sites (principal); I73.9 Peripheral vascular disease, unspecified; M51.36 Other intervertebral disc degeneration, lumbar region; K21.9 Gastro-esophageal reflux disease without esophagitis; I25.10 Atherosclerotic heart disease of native coronary artery without angina pectoris; Z79.899 Other long term (current) drug therapy
CPT/HCPCS: 36415; 80053; 85025

== ENCOUNTER → 2022-03-25 | Outpatient (CLI) | payer OTHER, SELFPAY ==
[2022-03-25 11:10] LABS: Absolute Lymphocyte Count 1.66 X10^3/uL (0.83-4.51); Absolute Neutrophil Count 2.2 X10^3/uL (2.0-7.7); Basophil# 0.03 X10^3/uL; Basophil% 0.6 % (0-1); Eosinophil# 0.06 X10^3/uL; Eosinophils% 1.3 % (0-5); Hematocrit 36.1 % (40-54); Hemoglobin 12.3 g/dL (13.0-16.5); Lymphocyte # 1.66 X10^3/ul (0.83-4.51); Lymphocyte % 35.3 % (19-41); Mean Corp Hgb Conc 34.1 g/dL (32-36); Mean Platelet Vol. 10.2 fl (6.2-12.0); Monocyte# 0.75 X10^3/uL; NRBC Flagged by Analyzer 0 % (0-5); Neutrophil # 2.19 X10^3/uL (2.7-7.7); Neutrophil % 46.6 % (47-70); Platelet Count 249 K/mm3 (150-450); RBC Distribution Width CV 12.2 % (11.6-14.6); RBC Distribution Width SD 42.2 fl (35.1-43.9); Red Blood Count 3.84 M/mm3 (4.6-6.2); White Blood Count 4.7 K/mm3 (4.4-11.0)
[2022-03-25 11:50] LABS: ALB/GLOB Ratio 1.1 RATIO (0.9-2.4); AST(SGOT) 46 U/L (15-37); Alanine Aminotransfer ALT/SGPT 63 U/L (16-61); Albumin, Serum 3.9 g/dL (3.2-5.0); Alkaline Phosphatase 69 U/L (45-117); Anion Gap 9 (5-15); BUN 20 mg/dL (7-18); BUN/Creat Ratio 14.1 RATIO (10-20); Calcium,Total 8.8 mg/dL (8.5-10.1); Chloride 105 mmol/L (98-107); Creatinine, Serum 1.42 mg/dL (0.70-1.30); EST Glomerular Filtration Rate 54 mL/min (>60); Est Glom Filt Rate - Afr Amer 65 mL/min (>60); Globulin 3.6 g/dL (2.2-4.2); Glucose 96 mg/dL (74-106); Potassium 4.4 mmol/L (3.5-5.1); Protein, Total 7.5 g/dL (6.4-8.2); Sodium Level 138 mmol/L (136-145)
== END | disposition home or self-care (01) ==
LOC: LAB 10:14
PROVIDERS: PCP Family Medicine; Visit Provider Internal Medicine Rheumatology
DX: M06.09 Rheumatoid arthritis without rheumatoid factor, multiple sites (principal); I73.9 Peripheral vascular disease, unspecified; M51.36 Other intervertebral disc degeneration, lumbar region; K21.9 Gastro-esophageal reflux disease without esophagitis; I25.10 Atherosclerotic heart disease of native coronary artery without angina pectoris; I10 Essential (primary) hypertension; N52.9 Male erectile dysfunction, unspecified; M19.139 Post-traumatic osteoarthritis, unspecified wrist; Q66.70 Congenital pes cavus, unspecified foot; Z95.5 Presence of coronary angioplasty implant and graft; Z79.899 Other long term (current) drug therapy
CPT/HCPCS: 36415; 80053; 85025

== ENCOUNTER → 2022-06-25 | Outpatient (CLI) | payer OTHER, SELFPAY | END | disposition home or self-care (01) | LOC: LAB 08:38 | PROVIDERS: PCP Family Medicine; Referring Provider Internal Medicine Rheumatology; Visit Provider Internal Medicine Rheumatology | DX: M06.09 Rheumatoid arthritis without rheumatoid factor, multiple sites (principal); I73.9 Peripheral vascular disease, unspecified; M51.36 Other intervertebral disc degeneration, lumbar region; K21.9 Gastro-esophageal reflux disease without esophagitis; I25.10 Atherosclerotic heart disease of native coronary artery without angina pectoris; I10 Essential (primary) hypertension; N52.9 Male erectile dysfunction, unspecified; M19.139 Post-traumatic osteoarthritis, unspecified wrist; Q66.70 Congenital pes cavus, unspecified foot; Z95.5 Presence of coronary angioplasty implant and graft; Z79.899 Other long term (current) drug therapy ==

== ENCOUNTER → 2022-08-15 | Outpatient (CLI) | payer OTHER, SELFPAY ==
--- NOTE | 2022-08-15 10:16 | RAD_ITS ---
STUDY: X-RAY - THORACIC SPINE REASON FOR EXAM: Male, 62 years old. Dorsalgia, unspecified TECHNIQUE: 3 view(s) of the thoracic spine were obtained. COMPARISON: None. FINDINGS: Normal kyphosis of the thoracic spine. There is no substantial scoliosis. Normal thoracic vertebrae and endplates. There is multilevel disc space narrowing of the thoracic spine. The soft tissue structures are unremarkable. RAD/Thoracic Spine 3 Views IMPRESSION: Degenerative changes, no acute findings Electronically Signed: Rufino Joya MD at 14:25 EDT ,
--- NOTE | 2022-08-15 10:17 | RAD_ITS ---
STUDY: X-RAY - UNILATERAL RIBS ( RIGHT ) WITH CHEST REASON FOR EXAM: Male, 62 years old. Dorsalgia, unspecified TECHNIQUE - RIBS: 4 view(s) of the ribs. TECHNIQUE - CHEST: Single PA view of the chest. COMPARISON: None. FINDINGS - RIBS: Normal visualized ribs without a demonstrated fracture. FINDINGS - CHEST: The lungs are clear and expanded. There is no demonstrated pleural abnormality. Normal size heart. Normal mediastinum and jose elias. Normal visualized pulmonary arteries. Normal visualized aortic arch and descending thoracic aorta. Normal visualized thoracic spine. Normal visualized ribs, clavicles, and shoulders. There is no demonstrated abnormality of the visualized soft tissue structures of the upper abdomen. RAD/Ribs Uni Min 3V w/PA Chest IMPRESSION: RIBS: Normal x-ray examination of the ribs. CHEST: Normal x-ray examination of the chest. Electronically Signed: Rufino Joya MD at 14:24 EDT ,
== END | disposition home or self-care (01) ==
PROVIDERS: PCP Family Medicine; Referring Provider Family Medicine; Visit Provider Family Medicine
DX: M51.34 Other intervertebral disc degeneration, thoracic region (principal); R07.81 Pleurodynia
CPT/HCPCS: 71101; 72072

== ENCOUNTER → 2022-09-10 | Outpatient (CLI) | payer OTHER, SELFPAY ==
[2022-09-10 10:01] LABS: Absolute Lymphocyte Count 1.86 X10^3/uL (0.83-4.51); Absolute Neutrophil Count 3.5 X10^3/uL (2.0-7.7); Basophil# 0.04 X10^3/uL; Basophil% 0.7 % (0-1); Eosinophil# 0.08 X10^3/uL; Eosinophils% 1.3 % (0-5); Hematocrit 35.8 % (40-54); Hemoglobin 12.6 g/dL (13.0-16.5); Lymphocyte # 1.86 X10^3/ul (0.83-4.51); Lymphocyte % 30.5 % (19-41); Mean Corp Hgb Conc 35.2 g/dL (32-36); Mean Corpuscular Hgb 33.2 pg (27.0-32.0); Mean Corpuscular Volume 94.5 fL (80-94); Mean Platelet Vol. 10.2 fl (6.2-12.0); Monocyte# 0.65 X10^3/uL; Monocyte% 10.7 % (0-10); NRBC Flagged by Analyzer 0 % (0-5); Neutrophil # 3.45 X10^3/uL (2.7-7.7); Neutrophil % 56.5 % (47-70); Platelet Count 282 K/mm3 (150-450); RBC Distribution Width CV 12.1 % (11.6-14.6); RBC Distribution Width SD 42.2 fl (35.1-43.9); Red Blood Count 3.79 M/mm3 (4.6-6.2); White Blood Count 6.1 K/mm3 (4.4-11.0)
[2022-09-10 10:31] LABS: ALB/GLOB Ratio 1.1 RATIO (0.9-2.4); AST(SGOT) 34 U/L (15-37); Alanine Aminotransfer ALT/SGPT 49 U/L (16-61); Albumin, Serum 3.9 g/dL (3.2-5.0); Alkaline Phosphatase 79 U/L (45-117); Anion Gap 7 (5-15); BUN 23 mg/dL (7-18); BUN/Creat Ratio 15.4 RATIO (10-20); Calcium,Total 9.2 mg/dL (8.5-10.1); Chloride 105 mmol/L (98-107); Creatinine, Serum 1.49 mg/dL (0.70-1.30); EST Glomerular Filtration Rate 51 mL/min (>60); Est Glom Filt Rate - Afr Amer 61 mL/min (>60); Globulin 3.6 g/dL (2.2-4.2); Glucose 105 mg/dL (74-106); Potassium 4.5 mmol/L (3.5-5.1); Protein, Total 7.5 g/dL (6.4-8.2); Sodium Level 136 mmol/L (136-145)
== END | disposition home or self-care (01) ==
LOC: LAB 08:52
PROVIDERS: PCP Family Medicine; Referring Provider Internal Medicine Rheumatology; Visit Provider Internal Medicine Rheumatology
DX: M06.09 Rheumatoid arthritis without rheumatoid factor, multiple sites (principal); I73.9 Peripheral vascular disease, unspecified; M51.36 Other intervertebral disc degeneration, lumbar region; K21.9 Gastro-esophageal reflux disease without esophagitis; I25.10 Atherosclerotic heart disease of native coronary artery without angina pectoris; I10 Essential (primary) hypertension; N52.9 Male erectile dysfunction, unspecified; M19.139 Post-traumatic osteoarthritis, unspecified wrist; Q66.70 Congenital pes cavus, unspecified foot; Z79.899 Other long term (current) drug therapy
CPT/HCPCS: 36415; 80053; 85025

== ENCOUNTER → 2022-10-06 | Outpatient (CLI) | payer OTHER, SELFPAY ==
--- NOTE | 2022-10-06 10:54 | ADUL_ITS ---
Reason For Study: Atherosclerosis Right Velocities Ext. Iliac Artery, mid = 160.8 cm./sec. Common Femoral Artery, mid = 143.2 cm./sec. Supf Femoral Artery, prox = 103.7 cm./sec. Supf Femoral Artery, mid = 112.5 cm./sec. Supf Femoral Artery, dist. = 130.1 cm./sec. Profunda Femoral Artery = 176.2 cm./sec. Popliteal Artery, mid = 51.9 cm./sec. Post. Tibial Artery, prox = 71.7 cm./sec. Post. Tibial Artery, mid = 80.5 cm./sec. Post. Tibial Artery, dist = 86.0 cm./sec. Peroneal Artery, prox = 44.2 cm./sec. Peroneal Artery, mid = 55.2 cm./sec. Peroneal Artery,dist = 46.4 cm./sec. Ant. Tibial Artery, prox = 53.0 cm./sec. Ant. Tibial Artery, mid = 75.0 cm./sec. Ant. Tibial Artery, dist = 68.4 cm./sec. Procedure The exam was diagnostic. Exam performed in department. /US Art Duplex Unilat Lower Ext Interpretation Summary Right leg with no stenosis noted. Ordering Physician: BETSY LÓPEZ Referring Physician: Maury Cole Performed By: Satnam Kelly RVT
--- NOTE | 2022-10-06 10:54 | ART_ITS ---
Reason For Study: Atherosclerosis Procedure A bilateral lower extremity continuous wave Doppler with analog waveform analysis and ankle brachial indexes. Left Segmental Pressures Left brachial= 151mmHg. Left posterior tibial artery = 146mmHg. Left dorsalis pedis artery = 139mmHg. Left digit = 124 mmHg. The left posterior tibial artery waveforms are triphasic. The left dorsalis pedis waveforms are triphasic. Right Segmental Pressures Right brachial= 151mmHg. Right posterior tibial artery = 161mmHg. Right dorsalis pedis artery = 163mmHg. Right digit = 132 mmHg. The right posterior tibial artery waveforms are triphasic. The right dorsalis pedis waveforms are triphasic. Indices The right ankle brachial index by the posterior tibial artery is 1.07. The right ankle brachial index by the dorsalis pedis is 1.08. The right digital-brachial index is 0.87. The left ankle brachial index by the posterior tibial artery is 0.97. The left ankle brachial index by the dorsalis pedis is 0.92. The left digital-brachial index is 0.82. VL/Ankle Brachial Index Interpretation Summary Bilateral lower extremity with no significant occlussive disease at rest with t riphasic flow and with BRENDA 1.08 and 0.97. Ordering Physician: BETSY LÓPEZ Referring Physician: Maury Cole Performed By: Satnam Kelly RVT
== END | disposition home or self-care (01) ==
PROVIDERS: PCP Family Medicine; Referring Provider Surgery; Visit Provider Surgery
DX: Z48.812 Encounter for surgical aftercare following surgery on the circulatory system (principal); I70.211 Atherosclerosis of native arteries of extremities with intermittent claudication, right leg
CPT/HCPCS: 93922; 93926

== ENCOUNTER → 2022-12-10 | Outpatient (CLI) | payer OTHER, SELFPAY ==
[2022-12-10 12:21] LABS: Absolute Neutrophil Count 2.9 X10^3/uL (2.0-7.7); Basophil# 0.03 X10^3/uL; Basophil% 0.6 % (0-1); Eosinophil# 0.06 X10^3/uL; Eosinophils% 1.2 % (0-5); Hematocrit 38.2 % (40-54); Hemoglobin 12.8 g/dL (13.0-16.5); Mean Corp Hgb Conc 33.5 g/dL (32-36); Mean Corpuscular Hgb 31.8 pg (27.0-32.0); Mean Corpuscular Volume 94.8 fL (80-94); Mean Platelet Vol. 10.4 fl (6.2-12.0); Monocyte# 0.64 X10^3/uL; Monocyte% 12.4 % (0-10); NRBC Flagged by Analyzer 0 % (0-5); Neutrophil # 2.93 X10^3/uL (2.7-7.7); Neutrophil % 56.4 % (47-70); Platelet Count 274 K/mm3 (150-450); RBC Distribution Width SD 41.9 fl (35.1-43.9); Red Blood Count 4.03 M/mm3 (4.6-6.2); White Blood Count 5.2 K/mm3 (4.4-11.0)
[2022-12-10 12:51] LABS: ALB/GLOB Ratio 1.1 RATIO (0.9-2.4); AST(SGOT) 33 U/L (15-37); Alanine Aminotransfer ALT/SGPT 48 U/L (16-61); Albumin, Serum 3.9 g/dL (3.2-5.0); Alkaline Phosphatase 63 U/L (45-117); Anion Gap 8 (5-15); BUN 22 mg/dL (7-18); Chloride 105 mmol/L (98-107); Creatinine, Serum 1.47 mg/dL (0.70-1.30); EST Glomerular Filtration Rate 51 mL/min (>60); Est Glom Filt Rate - Afr Amer 62 mL/min (>60); Globulin 3.5 g/dL (2.2-4.2); Glucose 124 mg/dL (74-106); Potassium 4.3 mmol/L (3.5-5.1); Protein, Total 7.4 g/dL (6.4-8.2); Sodium Level 138 mmol/L (136-145)
== END | disposition home or self-care (01) ==
LOC: LAB 11:30
PROVIDERS: PCP Family Medicine; Referring Provider Internal Medicine Rheumatology; Visit Provider Internal Medicine Rheumatology
DX: M06.09 Rheumatoid arthritis without rheumatoid factor, multiple sites (principal); Z79.899 Other long term (current) drug therapy
CPT/HCPCS: 36415; 80053; 85025

== ENCOUNTER → 2023-01-22 | Outpatient (CLI) | payer OTHER, SELFPAY ==
--- NOTE | 2023-01-22 09:20 | NM_ITS ---
CLINICAL: 62-year-old male status post traumatic fall with resultant right anterior rib and mid thoracic spine pain. WHOLE BODY 99m Tc MDP RADIONUCLIDE BONE SCINTIGRAPHY COMPARISON: Plain film radiograph reports thoracic spine and ribs series 08/15/2022 FINDINGS: Following the intravenous administration of 27.0 mCi of 99m Tc MDP, whole body bone images reveal: 1. Increased radiopharmaceutical concentration is defined in the fifth-sixth ribs anteriorly on the right, the fifth thoracic vertebra diffusely, the costochondral junction on the right. 2. Facilitated uptake is noted in the acromioclavicular compartments of both shoulders, the sternoclavicular compartment of the left shoulder, the lower cervical spine posteriorly on the left and in the midline, the 10th thoracic vertebra posteriorly on the right, the patellofemoral and medial tibiofemoral compartments of both knees, the fourth-fifth lumbar vertebra. 3. The remaining skeletal structures are scintigraphically unremarkable with normal-appearing renal images and urinary bladder activity identified. NM/Bone Scan Whole Body IMPRESSION: 1. The increase in tracer visualized in the right anterior fifth and sixth ribs, fifth thoracic vertebra and right costochondral junction is consistent with trauma-fracture. 2. Degenerative arthritis is identified in the cervical, thoracic and lumbar spine, the bilateral shoulders, both knee articulations. Electronically Signed: Raghavendra Rosenberg, at 22:11 EST ,
== END | disposition home or self-care (01) ==
LOC: NM 09:15
PROVIDERS: PCP Family Medicine; Visit Provider Family Medicine
DX: M54.6 Pain in thoracic spine (principal); R07.81 Pleurodynia
CPT/HCPCS: 78306; A9503

== ENCOUNTER → 2023-02-03 | Outpatient (CLI) | payer OTHER, SELFPAY ==
--- NOTE | 2023-02-03 08:06 | BD_ITS ---
STUDY: DUAL ENERGY X-RAY ABSORPTIOMETRY / DXA REASON FOR EXAM: Male, 62 years old. Z79.52 TECHNIQUE: Bone Mineral Density (BMD) measurements of lumbar spine and bilateral hips were obtained. COMPARISON: None. FINDINGS: Lumbar Spine (L1-L4): g/cm2 (0.894) / T-score (-1.4) / Z-score (-0.7) Findings are suggestive of osteopenia with a low fracture risk. Left Femur Total: g/cm2 (0.849) / T-score (-1.2) / Z-score (-0.7) Left Femoral Neck: g/cm2 (0.701) / T-score (-1.7) / Z-score (-0.7) Right Femur Total: g/cm2 (0.832) / T-score (-1.3) / Z-score (-0.8) Right Femoral Neck: g/cm2 (0.717) / T-score (-1.6) / Z-score (-0.6) BD/Dexa Bone Density Study IMPRESSION: The patient is considered osteopenic as outlined below according to World Nathan Organization (WHO) criteria with a moderate fracture risk. Reference Information: The T-score is the number of standard deviations above or below the standard which is normal for young adults at their peak bone mineral density. The World Health Organization (WHO) interprets the T-scores as follows: Above -1 Normal bone density Between -1 and -2.5 Osteopenia Equal to / or below -2.5 Osteoporosis As a practical clinical guideline, osteopenia may be graded as follows: Mild -1 through -1.5 Moderate -1.6 through -2.0 Severe -2.1 through -2.4 The Z-score is the number of standard deviations above or below age-matched controls. A Z-score of less than -1.5 would be considered abnormal. References: 1. NIH Osteoporosis and Related Bone Diseases www osteo.org 2. International Society for Clinical Densitometry www iscd.org 3. National Osteoporosis Foundation www nof.org Electronically Signed: Madan Hernández MD at 12:29 EDT ,
== END | disposition home or self-care (01) ==
LOC: OPBD 08:19
PROVIDERS: PCP Family Medicine; Referring Provider Family Medicine; Visit Provider Family Medicine
DX: Z00.00 Encounter for general adult medical examination without abnormal findings (principal); Z79.52 Long term (current) use of systemic steroids
CPT/HCPCS: 77080

== ENCOUNTER → 2023-02-27 | Outpatient (CLI) | payer OTHER, SELFPAY ==
--- NOTE | 2023-02-27 11:44 | RAD_ITS ---
EXAM: XR CHEST, 2 VIEWS CLINICAL INDICATION: cough TECHNIQUE: Frontal and lateral views of the chest. This report was created using [employer] report generation technology. COMPARISON: 08/15/2022 FINDINGS: LUNGS AND PLEURAL SPACES: Unremarkable. No consolidation or edema. No pneumothorax. No effusion. HEART: Unremarkable. Cardiac silhouette not enlarged. MEDIASTINUM: Central airways and mediastinal contour are unremarkable. BONES/JOINTS: Moderate chronic compression fracture of an upper to midthoracic spine vertebral body without underlying pathology or retropulsion. SOFT TISSUES: Unremarkable. RAD/Chest PA and Lateral IMPRESSION: No radiographic evidence of acute cardiopulmonary disease. Electronically Signed: Julien Dale MD at 20:58 EDT ,
== END | disposition home or self-care (01) ==
LOC: MTRAD 11:43
PROVIDERS: PCP Family Medicine; Referring Provider Physician Assistant; Visit Provider Physician Assistant
DX: R05.9 Cough, unspecified (principal)
CPT/HCPCS: 71046

== ENCOUNTER → 2023-03-02 | Outpatient (CLI) | payer OTHER, SELFPAY ==
[2023-03-02 10:07] LABS: Hematocrit 37.1 % (40-54); Hemoglobin 12.7 g/dL (13.0-16.5); Mean Corp Hgb Conc 34.2 g/dL (32-36); Mean Corpuscular Hgb 32.5 pg (27.0-32.0); Mean Corpuscular Volume 94.9 fL (80-94); Mean Platelet Vol. 10.4 fl (6.2-12.0); Platelet Count 263 K/mm3 (150-450); RBC Distribution Width CV 12.4 % (11.6-14.6); Red Blood Count 3.91 M/mm3 (4.6-6.2); White Blood Count 8.2 K/mm3 (4.4-11.0)
[2023-03-02 10:42] LABS: AST(SGOT) 28 U/L (15-37); Alanine Aminotransfer ALT/SGPT 39 U/L (16-61); Albumin, Serum 3.7 g/dL (3.2-5.0); Alkaline Phosphatase 76 U/L (45-117); Anion Gap 3 (5-15); BUN 25 mg/dL (7-18); BUN/Creat Ratio 18.2 RATIO (10-20); Calcium,Total 8.4 mg/dL (8.5-10.1); Chloride 110 mmol/L (98-107); Creatinine, Serum 1.37 mg/dL (0.70-1.30); EST Glomerular Filtration Rate 56 mL/min (>60); Est Glom Filt Rate - Afr Amer 67 mL/min (>60); Globulin 3.6 g/dL (2.2-4.2); Glucose 110 mg/dL (74-106); Potassium 3.8 mmol/L (3.5-5.1); Protein, Total 7.3 g/dL (6.4-8.2); Sodium Level 139 mmol/L (136-145)
[2023-03-03 11:05] LABS: Absolute Neutrophil Count 5.5 X10^3/uL (2.0-7.7); Basophil# 0.01 X10^3/uL; Basophil% 0.1 % (0-1); Lymphocyte % 24.4 % (19-41); Monocyte# 0.67 X10^3/uL; Monocyte% 8.2 % (0-10); NRBC Flagged by Analyzer 0 % (0-5); Neutrophil # 5.49 X10^3/uL (2.7-7.7); Neutrophil % 66.9 % (47-70)
== END | disposition home or self-care (01) ==
LOC: LAB 09:00
PROVIDERS: PCP Family Medicine; Referring Provider Internal Medicine Rheumatology; Visit Provider Internal Medicine Rheumatology
DX: M06.09 Rheumatoid arthritis without rheumatoid factor, multiple sites (principal); Z79.899 Other long term (current) drug therapy
CPT/HCPCS: 36415; 80053; 85025; 85027

== ENCOUNTER → 2023-06-03 | Outpatient (CLI) | payer OTHER, SELFPAY ==
[2023-06-03 11:20] LABS: Absolute Lymphocyte Count 2.62 X10^3/uL (0.83-4.51); Absolute Neutrophil Count 2.2 X10^3/uL (2.0-7.7); Basophil# 0.03 X10^3/uL; Basophil% 0.5 % (0-1); Eosinophil# 0.32 X10^3/uL; Eosinophils% 5.6 % (0-5); Hematocrit 35.8 % (40-54); Hemoglobin 12.3 g/dL (13.0-16.5); Lymphocyte # 2.62 X10^3/ul (0.83-4.51); Mean Corp Hgb Conc 34.4 g/dL (32-36); Mean Corpuscular Hgb 32.2 pg (27.0-32.0); Mean Corpuscular Volume 93.7 fL (80-94); Mean Platelet Vol. 10.2 fl (6.2-12.0); Monocyte# 0.56 X10^3/uL; Monocyte% 9.8 % (0-10); NRBC Flagged by Analyzer 0 % (0-5); Neutrophil # 2.16 X10^3/uL (2.7-7.7); Neutrophil % 37.9 % (47-70); Platelet Count 248 K/mm3 (150-450); RBC Distribution Width CV 12.4 % (11.6-14.6); RBC Distribution Width SD 42.4 fl (35.1-43.9); Red Blood Count 3.82 M/mm3 (4.6-6.2); White Blood Count 5.7 K/mm3 (4.4-11.0)
[2023-06-03 11:43] LABS: AST(SGOT) 28 U/L (15-37); Alanine Aminotransfer ALT/SGPT 43 U/L (16-61); Albumin, Serum 3.6 g/dL (3.2-5.0); Alkaline Phosphatase 54 U/L (45-117); Anion Gap 4 (5-15); BUN 21 mg/dL (7-18); BUN/Creat Ratio 13.6 RATIO (10-20); Calcium,Total 8.6 mg/dL (8.5-10.1); Chloride 108 mmol/L (98-107); Creatinine, Serum 1.54 mg/dL (0.70-1.30); EST Glomerular Filtration Rate 49 mL/min (>60); Est Glom Filt Rate - Afr Amer 59 mL/min (>60); Globulin 3.5 g/dL (2.2-4.2); Glucose 98 mg/dL (74-106); Potassium 4.1 mmol/L (3.5-5.1); Protein, Total 7.1 g/dL (6.4-8.2); Sodium Level 139 mmol/L (136-145)
== END | disposition home or self-care (01) ==
LOC: LAB 10:46
PROVIDERS: PCP Family Medicine; Referring Provider Internal Medicine Rheumatology; Visit Provider Internal Medicine Rheumatology
DX: M06.09 Rheumatoid arthritis without rheumatoid factor, multiple sites (principal); Z79.899 Other long term (current) drug therapy
CPT/HCPCS: 36415; 80053; 85025

== ENCOUNTER → 2023-08-10 | Outpatient (CLI) | payer OTHER, SELFPAY ==
--- NOTE | 2023-08-10 10:02 | RAD_ITS ---
STUDY: X-RAY CHEST REASON FOR EXAM: Male, 63 years old. Cough and dyspnea. TECHNIQUE: PA and lateral views of the chest. COMPARISON: Comparison is made with prior study February 27, 2023. FINDINGS: There is hyperinflation of the lungs consistent with chronic obstructive lung disease (COPD). There is no demonstrated pleural abnormality. Evidence of coronary artery stenting. Normal mediastinum and jose elias. Normal visualized pulmonary arteries. Normal visualized aortic arch and descending thoracic aorta. There are degenerative changes of the visualized thoracic spine. Normal visualized ribs, clavicles, and shoulders. There is no demonstrated abnormality of the visualized soft tissue structures of the upper abdomen. RAD/Chest PA and Lateral IMPRESSION: Hyperinflation. No acute abnormality is seen. Electronically Signed: Madan Hernández MD at 10:57 EDT ,
== END | disposition home or self-care (01) ==
PROVIDERS: PCP Family Medicine; Referring Provider Nurse Practitioner Family; Visit Provider Nurse Practitioner Family
DX: R05.9 Cough, unspecified (principal)
CPT/HCPCS: 71046

== ENCOUNTER → 2023-08-25 | Outpatient (CLI) | payer OTHER, SELFPAY ==
[2023-08-25 12:36] LABS: Absolute Neutrophil Count 3.3 X10^3/uL (2.0-7.7); Basophil# 0.05 X10^3/uL; Basophil% 0.6 % (0-1); Eosinophil# 0.17 X10^3/uL; Eosinophils% 2.1 % (0-5); Hematocrit 38.4 % (40-54); Hemoglobin 12.5 g/dL (13.0-16.5); Lymphocyte % 45.6 % (19-41); Mean Corp Hgb Conc 32.6 g/dL (32-36); Mean Corpuscular Hgb 31.8 pg (27.0-32.0); Mean Corpuscular Volume 97.7 fL (80-94); Mean Platelet Vol. 10.5 fl (6.2-12.0); Monocyte# 0.84 X10^3/uL; Monocyte% 10.4 % (0-10); NRBC Flagged by Analyzer 0 % (0-5); Neutrophil # 3.29 X10^3/uL (2.7-7.7); Neutrophil % 40.6 % (47-70); Platelet Count 248 K/mm3 (150-450); RBC Distribution Width CV 12.5 % (11.6-14.6); RBC Distribution Width SD 45.2 fl (35.1-43.9); Red Blood Count 3.93 M/mm3 (4.6-6.2); White Blood Count 8.1 K/mm3 (4.4-11.0)
[2023-08-25 13:12] LABS: ALB/GLOB Ratio 1.1 RATIO (0.9-2.4); AST(SGOT) 41 U/L (15-37); Alanine Aminotransfer ALT/SGPT 69 U/L (16-61); Albumin, Serum 3.5 g/dL (3.2-5.0); Alkaline Phosphatase 42 U/L (45-117); Anion Gap 7 (5-15); BUN 24 mg/dL (7-18); Calcium,Total 8.4 mg/dL (8.5-10.1); Chloride 105 mmol/L (98-107); EST Glomerular Filtration Rate 50 mL/min (>60); Est Glom Filt Rate - Afr Amer 61 mL/min (>60); Globulin 3.1 g/dL (2.2-4.2); Glucose 91 mg/dL (74-106); Protein, Total 6.6 g/dL (6.4-8.2); Sodium Level 138 mmol/L (136-145)
== END | disposition home or self-care (01) ==
LOC: LAB 12:06
PROVIDERS: PCP Family Medicine; Referring Provider Internal Medicine Rheumatology; Visit Provider Internal Medicine Rheumatology
DX: M06.09 Rheumatoid arthritis without rheumatoid factor, multiple sites (principal); M51.36 Other intervertebral disc degeneration, lumbar region; Z79.899 Other long term (current) drug therapy
CPT/HCPCS: 36415; 80053; 85025

== ENCOUNTER → 2023-09-09 | Outpatient (CLI) | payer OTHER, SELFPAY ==
--- NOTE | 2023-09-10 09:58 | PFT ---
INTRODUCTION: The patient is a 63-year-old male that presents for pulmonary function studies secondary to a diagnosis of emphysema. Respiratory therapy reported good patient effort. Bronchodilators were used during testing. INTERPRETATION: Forced expiration spirometry demonstrates the presence of a severe large airways obstructive ventilatory defect. There was no significant response to aerosolized bronchodilators. Body plethysmography was performed and revealed a decreased TLC to 4.87 L, 77% of predicted, indicative of a mild restrictive ventilatory impairment. Diffusing capacity by single breath CO was reduced to 56% of predicted. IMPRESSION: Irreversible severe mixed ventilatory defect with symmetric reduction in diffusion capacity.
== END | disposition home or self-care (01) ==
PROVIDERS: PCP Family Medicine; Referring Provider Family Medicine; Visit Provider Family Medicine
DX: J43.9 Emphysema, unspecified (principal)
CPT/HCPCS: 94060; 94726; 94729

== ENCOUNTER → 2023-11-18 | Outpatient (CLI) | payer OTHER, SELFPAY ==
--- NOTE | 2023-11-18 12:56 | PR.HP_ITS ---
History of Present Illness General Arrival date:: 11/18/23 Arrival time:: 12:57 Date of Referral:: 11/02/23 Date of Evaluation: 11/18/23 Referring Physician: Dr. Meza Primary Diagnosis: COPD History of Present Pulmonary Event mMRC Breathless Scale: When is the patient short of breath? Y/N Grade: Description of Breathlessness: 0 I only get breathless with strenuous exercise. 1 I get short of breath when hurrying on level ground or walking up a slight hill. 2 On level ground, I walk slower than people of the same age because of breathless, or have to stop for breath when walking at my own pace. 3 I stop for breath after walking 100 yards or after a few minutes on level ground. 4 I am too breathless to leave the house or I am breathless when dressing. Respiratory Problems: Yes Fatigue, Hoarseness, Anxiety, Panic and Dyspnea with Activity; No Retain Secretions, Limited Range of Motion, Chest Pain, Wheezing, Able to Speak in Full Sentences, Dizziness, Ankle Swelling, Dyspnea at Rest, Dyspnea Lying Down Flat or Cough with Secretions Medications Home Medications potassium chloride 8 mEq tablet,extended release 8 meq PO DAILY 09/24/13 multivitamin with folic acid 400 mcg tablet 1 tab PO DAILY 10/04/13 amlodipine 5 mg tablet 5 mg PO DAILY 06/22/18 losartan 100 mg-hydrochlorothiazide 12.5 mg tablet 1 tab PO DAILY 06/22/18 adalimumab 40 mg/0.4 mL subcutaneous pen kit (Humira(CF) Pen) mg subcut 08/09/23 albuterol sulfate 90 mcg/actuation aerosol inhaler (Ventolin HFA) 2 puff inhalation Q6H PRN shortness of breath or wheezing #8.5 grams 08/09/23 benzonatate 200 mg capsule 200 mg PO TID PRN cough #20 caps 08/09/23 carvedilol 25 mg tablet mg PO 08/09/23 clopidogrel 75 mg tablet mg PO 08/09/23 esomeprazole magnesium 40 mg capsule,delayed release mg PO 08/09/23 gabapentin 600 mg tablet mg PO 08/09/23 hydroxychloroquine 200 mg tablet mg PO 08/09/23 oxycodone 5 mg tablet mg PO 08/09/23 rosuvastatin 10 mg tablet mg PO 08/09/23 Allergies Allergies lisinopril Allergy (Verified 08/09/23 08:37) Other Secretions Cough:: No Sleep Disorder Evaluation Hx of Sleep Apnea: No Do you snore loudly (louder than talking or can be heard through closed doors)?: No Do you often feel tired/ fatigued/ sleepy during daytime?: No Has anyone observed you stop breathing during sleep?: No History of Hypertension (for STOP score): Yes STOP Results: Negative Medical Utilization Medical Devices Do you use a spacer device with your inhalers?: Yes Medical Utilization Number of hospital visits in the last year?: 1 Number of emergency room visits in the last year?: 0 Do you see your physician on a regular schedule?: Yes How often?: twice a year Advanced Directives Advanced Directives Power of Residential Recycle Driver: No Living Will: No Advance Directives Information Provided: No Advance Directives on File: No DNR Order?:: No Past Medical History Covid-19 Screening Physicial Symptoms Other Clinical Concerns Exposure Risk Pertinent Comorbidities Has a chronic lung disease or moderate to severe asthma:: Yes Has a serious heart condition:: Yes Severely obese (Body Mass Index of 40 or higher):: No Medical History Past Medical History (Updated 08/09/23 @ 09:26 by Sunny Yang NP, SERVICE OPERATIONS MANAGER-C) Atherosclerosis of [place] coronary artery of [place] heart without angina pectoris I25.10 Stenting x3 to RCA in 03/2020 at [place]; Contact with and (suspected) exposure to other viral communicable diseases Z20.828 HTN (hypertension) I10 Wheezing R06.2 Surgical History Past Surgical History (Updated 08/09/23 @ 08:51 by Sunny Yang SERVICE OPERATIONS MANAGER, SERVICE OPERATIONS MANAGER-C) H/O endarterectomy Z98.890 right femoral 08/2020; History of carpal tunnel release Z98.890 History of coronary artery stent placement Z95.5 Stenting x3 to RCA in 03/2020 at [place]; Hx of shoulder surgery Z98.890 Significant Family History Family History (Updated 08/09/23 @ 08:52 by Sunny Yang NP, SERVICE OPERATIONS MANAGER-C) Father Cancer Prostate Social History Smoking History Smoking Status: Former smoker Years Smokin Packs Smoked per Day: 1 Hx Tobacco Use: Yes (stopped smoking in 2019) Occupation Occupation (List type of work in comments):: Employed Hours worked per day:: 8 Hobbies, Recreation, Social Activities Hobbies: Woodworking and Other (ice maker) Recreational Activities: I am able to engage in all my recreational activities Functioning ADL/IADL Current Ability Current Ability: Dependent: Self-Care (e.g.,grooming, dressing, & bathing), Depe ndent: Ambulation, Dependent: Transfer and Dependent: Household tasks (e.g., light meal prep, laundry, shopping) Pt Functioning Prior to Problem Prior Functioning: Self-Care (e.g.,grooming, dressing, & bathing): Dependent, Ambulation: Dependent, Transfer: Dependent and Household tasks (e.g., light meal prep, laundry, shopping): Dependent Social Environment Status Marital Status: Current Living Arrangements Living Environment:: Spouse Children How many children do you have?: 1 Do any of your children live nearby?: No Safety Do you feel safe in your surroundings?: Yes Assistance Do you need any assistance at home?: no Review of Systems Review of Systems Review of Systems Respiratory: Reports SOB upon Exertion, Appetite, Normal, Fatigue, PVD and Sleep, Normal; Denies Cough, Hemoptysis, Pleuritic Pain, SOB at Rest, Sputum production, Wheezing, Dizziness/Lightheadedness or Sexual changes Pain Is Patient Pain Free?: No Pain Location: other (arthritis pain everywhere) Pain Level: 06/01 Risk Factor Assessment Chief Complaint Chief Complaint: COPD Vital Signs Pulse Rate: 69 Pulse Ox: 97 Blood Pressure: 110/70 Obesity Height: 5 ft 7 in Weight:: 167 lb Weight in Pounds: 167.0 lbs Body Mass Index (BMI): 26.2 Nutritional Referral for Obesity: No Physical Activity Physical Inactivity: Physically demanding job Risk Stratification Risk Guidelines: Moderate Risk: Risk Factor for Smoking, Risk Factor for Diabetes, Risk Factor for Obesity, Risk Factor for Sedentary Lifestyle and Risk Factor for Depression and Highest Risk: Risk Factor for Dyslipidemia and Risk Factor for Hypertension For Smoking Smoking Risk Guidelines For Dyslipidemia Dyslipidemia Risk Guidelines For Diabetes Mellitus Diabetes Risk Guidelines For Obesity/Overweight Obesity/Overweight Risk Guidelines For Hypertension Hypertension Risk Guidelines For Sedentary Lifestyle Sedentary Lifestyle Risk Guidelines For Depression Depression Risk Guidelines Motivation Motivation to Participate On a scale of 1 to 10, how prepared are you to commit to attending program?: 10 What do you see as barriers to successfully being able to complete the program?: nothing What do you see as the benefits of succesfully completing the program? In other words, what do you hope to get out of participating in the program?: breath easier, education Are there issues you are dealing with that will interfere with completing the program?: no Do you have a spouse or signficant other, family or friends who will help support you to complete the program?: yes Diagnostic Data Review Pulmonary Function Test FEV1:: 32 FVC:: 45 FEV1/FVC%:: 71 Gold Classification: GOLD class III(severe COPD)with FEV1/FVC<70, 30%</=FEV1< 50% predicted
[2023-11-18 13:10] VITALS: BP 110/70; PULSE 69; O2SAT 97
--- NOTE | 2023-11-18 13:11 | PCM.PR.TP ---
General Information2 General Information Admitting Diagnosis: COPD Gold Classification:: GOLD 3: Severe PFT FEV1:: 32 FVC:: 45 FEV1/FVC%:: 71 Personal Learning Style/Barriers Personal Learning Style:: Audio/Visual Barriers to Learning: None Education/Goals NE Patient Goals: Increase muscle strength: Initial Assessment, Experience less dyspnea: Initial Assessment, Improve energy level: Initial Assessment, Participate in home exercise: Initial Assessment, Improve the ability to cope with ADLs: Initial Assessment, Improve knowledge of lung disease: Initial Assessment, Understand how to use medications: Initial Assessment, Control panic/anxiety: Initial Assessment, Improve diet and nutrition: Initial Assessment, Improve my quality of life: Initial Assessment and Reduce Stress/relaxation techniques: Initial Assessment Exercise - Initial Assessment Visit Date of Eval: 11/18/23 (initial eval ) Problem/Goals Goals:: Aerobic exercise 30-60 mins x 12 weeks [36 sessions] Physician Prescribed Exercise Modalities: Treadmill, Rower, Airdyne, NuStep, SciFit and Lateral Welding Supervisor Frequency (days/week): 3 Duration (Minutes):: 30-45 Intensity: 60-80% of age predicted maximum heart rate reserve Current METSs:: 3 Resting Blood Pressure: 110/70 Minimum SpO2 with exercise: 97 Plan Plan and Plan to Review:: Benefits of exercise, Core components of exercise, How to measure dyspnea level, How to monitor dyspnea level, Exercise intensity, Exercise safety guideline, Home exercise guidelines and Mark: 3-4/11-13 Home Exercise Mode: Walking and Other Nutrition/Wt Mgmt - Initial Visit Date of Eval: 11/18/23 (initial eval ) Weight Management Admit Height:: 5 ft 7 in Admit Weight:: 167 lb Admit BMI:: 26.2 Intervention Referral to dietitian:: No Will attend diet classes:: Yes Intervention/Plan: Instruct on ideal BMI & set weight loss goal w/patient, Assist pt to ID & incorporate diet changes for weight loss by S9, Refer to Structured Weight Loss program as appropriate, Encourage goal of using 250-300dcal per session for weight loss and Other additional plan/interventions Plan Nutrition Plan: Yes: Review BMI or WC & identify target wt & strategies for wt control, Yes: Nutrition education class:, Yes: Medication education class [Prednisone]:, Yes: Weight control education class:, Yes: Education re: Need for ongoing weight monitoring, Yes: Food diary: and Yes: Physical activity log: Nutrition/Wt Mgmt - 30-Day Weight Management Height: 5 ft 7 in Weight:: 167 lb BMI: 26.2 Nutrition/Wt Mgmt - 60-Day Weight Management Height: 5 ft 7 in Weight:: 167 lb BMI: 26.2 Nutrition/Wt Mgmt - 90-Day Weight Management Height: 5 ft 7 in Weight:: 167 lb BMI: 26.2 Nutrition/Wt Mgmt - Final Weight Management Height: 5 ft 7 in Weight:: 167 lb BMI: 26.2 Psychosocial - Initial Assess Visit Date of Eval: 11/18/23 (initial eval ) Problems/Goals History of Emotional Disorders: None Self-reported stressors: Recent Illness Psychosocial Test Referred to MD for counseling:: No Referral to Behavioral Health PS - Interventions: No: Referral to Behavioral Health if PHQ-9 score >9:, No: Referral to [facility] and No: Attend Stress Management Classes Psychosocial - 30-Day Problems/Goals History of Emotional Disorders: None Self-reported stressors: Recent Illness Psychosocial Test Referred to MD for counseling:: No Referral to Behavioral Health PS - Interventions: No: Referral to Behavioral Health if PHQ-9 score >9:, No: Referral to [facility] and No: Attend Stress Management Classes Psychosocial - 60-Day Problems/Goals History of Emotional Disorders: None Self-reported stressors: Recent Illness Psychosocial Test Referred to MD for counseling:: No Referral to Behavioral Health PS - Interventions: No: Referral to Behavioral Health if PHQ-9 score >9:, No: Referral to [facility] and No: Attend Stress Management Classes Psychosocial - 90-Day Problems/Goals History of Emotional Disorders: None Self-reported stressors: Recent Illness Psychosocial Test Referred to MD for counseling:: No Referral to Behavioral Health PS - Interventions: No: Referral to Behavioral Health if PHQ-9 score >9:, No: Referral to [facility] and No: Attend Stress Management Classes Psychosocial - Final Assess Problems/Goals History of Emotional Disorders: None Self-reported stressors: Recent Illness Psychosocial Test Referred to MD for counseling:: No Referral to Behavioral Health PS - Interventions: No: Referral to Behavioral Health if PHQ-9 score >9:, No: Referral to [facility] and No: Attend Stress Management Classes Oxygen & Oxygen Titration Init Visit Date of Eval: 11/18/23 (initial eval ) Initial Assessment Oxygen on Admission: None SpO2:: 97 Patient Reports:: No cough Plans Plan: Monitor SpO2 rest & with exercise and Train O2 safety & systems Reviewed prescribed medications:: Purpose, Schedule, Side effects and Importance of compliance Bronchial Hygiene Plan: Controlled cough, CPT, Vibratory PEP device, VEST, Role of exercise in secretion clearance, NS Nasal spray, Hydration, Hand hygiene, Evaluate sputum, When to call MD, Signs/symptoms to report:, Influenza/Pneumovax vaccines and Cleaning of respiratory equipment Oxygen & Oxygen Titration 30D Reassessment SpO2:: 97 Oxygen & Oxygen Titration 60D Reassessment SpO2:: 97 Oxygen & Oxygen Titration 90D Reassessment SpO2:: 97 Oxygen & Oxygen Titration MICHOACANO Reassessment SpO2:: 97 Core Components - Initial Visit Date of Eval: 11/18/23 (initial eval ) Hypertension Hypertension Diagnosis:: Hypertension ICD-10 I10 BP: 110/70 [place] [employer] Hypertension Guidelines Outcomes/Goals: Able to verbalize/achieve optimal blood pressure <130/80, Incorporates diet changes & exercise for blood pressure control by DC and Other additional outcomes/goals Tobacco - Initial Assessment Tobacco Program Goals Stages of Change:: Contemplate Learning Barriers: Ready to Learn Do you have family support?: Yes Tobacco Use: Non-smoker (reformed) How long ago did you quit using tobacco products?: Greater than or equal to 6 months ago Years Smokin Smoking Cessation Referral:: No Individual Education/Counseling:: No Education Schedule Given:: Yes Gave Education Materials For:: Tobacco Triggers, Pulmonary Disease, Risk Factors, Breathing Techniques, Medical Compliance, Pulmonary A&P, Exacerbation Signs & Symptoms and Stress & Relaxation Exacerbation Mgmt & Airway Clearance Goals: Pt describes signs and symptoms of infection. Patient Reports:: No cough Plan: Monitor SpO2 rest & with exercise and Train O2 safety & systems Bronchial Hygiene Plan: Controlled cough, CPT, Vibratory PEP device, VEST, Role of exercise in secretion clearance, NS Nasal spray, Hydration, Hand hygiene, Evaluate sputum, When to call MD, Signs/symptoms to report:, Influenza/Pneumovax vaccines and Cleaning of respiratory equipment Medication Interventions/plans: Instruct on medication effects & side effects, Review medication list w/patient every two weeks and Instruct importance of taking meds as ordered & assist problem solving Medication Goals: Adherence to prescribed medications Does pt report taking home meds as prescribed?: Yes Medications: Yes: Spacer Reviewed prescribed medications:: Purpose, Schedule, Side effects and Importance of compliance Diabetes Diabetes:: No Referral to dietitian:: No Will attend diet classes:: Yes Core Components - 30 DAYS Hypertension Hypertension Diagnosis:: Hypertension ICD-10 I10 Resting Blood Pressure:: 110/70 [place] [employer] Hypertension Guidelines Outcomes/Goals: Able to verbalize/achieve optimal blood pressure <130/80, Incorporates diet changes & exercise for blood pressure control by DC and Other additional outcomes/goals Tobacco - 30-Day Tobacco Program Goals Stages of Change:: Contemplate Do you have family support?: Yes Tobacco Use: Non-smoker (reformed) Smoking Cessation Referral:: No Education Schedule Given:: Yes Gave Education Materials For:: Tobacco Triggers, Pulmonary Disease, Risk Factors, Breathing Techniques, Medical Compliance, Pulmonary A&P, Exacerbation Signs & Symptoms and Stress & Relaxation Diabetes Diabetes:: No Core Components - 60 DAYS Hypertension Hypertension Diagnosis:: Hypertension ICD-10 I10 Resting Blood Pressure:: 110/70 [place] [employer] Hypertension Guidelines Outcomes/Goals: Able to verbalize/achieve optimal blood pressure <130/80, Incorporates diet changes & exercise for blood pressure control by DC and Other additional outcomes/goals Tobacco - 60-Day Tobacco Program Goals Stages of Change:: Contemplate Do you have family support?: Yes Tobacco Use: Non-smoker (reformed) Smoking Cessation Referral:: No Individual Education/Counseling:: No Education Schedule Given:: Yes Gave Education Materials For:: Tobacco Triggers, Pulmonary Disease, Risk Factors, Breathing Techniques, Medical Compliance, Pulmonary A&P, Exacerbation Signs & Symptoms and Stress & Relaxation Diabetes Diabetes:: No Core Components - 90 DAYS Hypertension Hypertension Diagnosis:: Hypertension ICD-10 I10 Resting Blood Pressure:: 110/70 [place] [employer] Hypertension Guidelines Outcomes/Goals: Able to verbalize/achieve optimal blood pressure <130/80, Incorporates diet changes & exercise for blood pressure control by DC and Other additional outcomes/goals Tobacco - 90-Day Tobacco Program Goals Stages of Change:: Contemplate Do you have family support?: Yes Tobacco Use: Non-smoker (reformed) Smoking Cessation Referral:: No Individual Education/Counseling:: No Education Schedule Given:: Yes Gave Education Materials For:: Tobacco Triggers, Pulmonary Disease, Risk Factors, Breathing Techniques, Medical Compliance, Pulmonary A&P, Exacerbation Signs & Symptoms and Stress & Relaxation Diabetes Diabetes:: No Core Components - Final Hypertension Hypertension Diagnosis:: Hypertension ICD-10 I10 Resting Blood Pressure:: 110/70 [place] [employer] Hypertension Guidelines Outcomes/Goals: Able to verbalize/achieve optimal blood pressure <130/80, Incorporates diet changes & exercise for blood pressure control by DC and Other additional outcomes/goals Tobacco - Final Tobacco Program Goals Stages of Change:: Contemplate Do you have family support?: Yes Tobacco Use: Non-smoker (reformed) Smoking Cessation Referral:: No Individual Education/Counseling:: No Education Schedule Given:: Yes Diabetes Diabetes:: No Patient Health Questionnaire PHQ-9 Screening Initial Assessment: 1. Little interest or pleasure in doing things: Not at all 2. Feeling down, depressed, or hopeless: Not at all 3. Trouble falling or staying asleep, or sleeping too much: Several days 4. Feeling tired or having little energy: Several days 5. Poor appetite or overeating: Not at all 6. Feeling bad about yourself -- or that you are a failure or have let yourself or your family down: Not at all 7. Trouble concentrating on things, such as reading the newspaper or watching television: Not at all 8. Moving or speaking so slowly that other people could have noticed. Or the opposite - being so fidgety or restless that you have been moving around a lot more than usual: Not at all 9. Thoughts that you would be better off , or of hurting yourself in some way: Not at all How difficult have these problems made it for you to do your work, take care of things at home, or get along with other people?: Not difficult at all Total Score: 2 Knowledge Questionaire (BCKQ) Information Information: [place] COPD Knowledge Questionnaire (BCKQ) This questionnaire is designed to find out what you know about your lung problem. It should be completed without help form anyone else. This usually takes between 10 and 20 minutes. Your answers will help us to find out what information you need to help you to understand and manage your lung condition. [place] which you think is the correct answer. Questions 1. In COPD: b. COPD can only be confirmed by breathing tests: False c. In COPD ther is usually gradual worsening over time: True d. In COPD oxygen levels in the blood are always low: False e. COPD is usually in people less than 40 years old: False 2. COPD: Kristine than 80% of COPD cases are caused by cigarette smoking: True b. COPD can be caused by occupational dust exposure: True c. Longstanding asthma can develop into COPD: True d. COPD is commonly an inherited disease: False e. Women are less vunerable to the effects of cigarette than men: False 3. The following symptoms are Common in COPD: a. Swelling of the ankles is common in COPD:: True b. Fatigue [tiredness] is common in COPD: True c. Wheezing is common in COPD: True d. Crushing chest pain is common in COPD: True e. Rapid weight loss is common in COPD: True 4. Breathlessness in COPD: a. Severe breathlessness prevents travel by air: True b. Breathlessness can be worsened by eating large meals: True c. Breathlessness means that your oxygen levels are low: False d. Breathlessness is a normal response to exercise: False e. Breathlessness is primarily caused by a narrowing of the bronchial tubes: True 5. Phlegm (sputum): a. Coughing phlegm is a common symptom in COPD: True b. Clearing phlegm is more difficult if you get dehydrated: True c. Bronchodilator inhalers can help clear phlegm: True d. Phlegm causes harm if swallowed: False e. Clearing phlegm can be assisted by breathing exercises: True 6. Chest infections / exacerbations: a. Chest infections often cause coughing of blood: True b. Chest infection phlegm usually becomes coloured (ylw/grn): True cExerbations (episodes of worsening) can occur in the absence of chest infection: True d. Chest infections are always accompanied by a high temperature: False e. Steroid tablets should be taken whenever there is an exacerbation: True 7. Excercise in COPD: aWalking excercises better than breathing to improve fitness: True b. Exercise should be avoided as it strains the lungs: False c. Exercise can help maintain your bone density: True d. Exercise helps relieve depression: True e. Exercise should be stopped if it makes you breathless: False 8. Smoking: a. Stopping smoking will reduce the risk of heart disease: True b. Stopping smoking will slow down further lung damage: True c. Stopping smoking is pointless as the damage is done: False d.Stopping smoking usually results in improved lung function: True eNicotine replacement therapy only available on prescription: False 9. Vaccination: a. A flu jab is recommended every year: True b. You can get flu from having a flu jab: False c. You can only have a flu jab if you are 65 or over: False d. A pneumonia jab protects against all forms of pneumonia: False e.You can have a pneumonia jab and a flu job on the same day: True 10. Inhaled bronchodilators: a. Bronchodilators act quickly (within 10 minutes): False b. Both short & long acting bronchodilators can be taken on the same day: True c. Spacers (volumatic,nebuhaler,serochamber)should be dried w/atowel after washing: True d. A spacer device increases the medication to the lungs: True e. Tremor may be a side effect of bronchodilators: True 11. Antibiotic treatment in COPD: a. To be effective, the course should last at least 10 days: True b. Excessive use of antibiotics can cause resistant bacteria (germs): False c. Antibiotics will clear all chest infections: False d. Antibiotic treatment is necessary for an exacerbation (worsening) however mild: False e. Seek advice if antibiotics cause severe diarrhoea: True 12. Steroid tablets given for COPD (eg Prednisolone): a. Steroid tablets help strengthen muscles: False b. Steroid tablets should be avoided if there is a chest infection: False c. The risk of long-term side effects due to steroids is less w/short courses then w/continous treatment: False dIndigestion is common side effect from using steroid tablet: True e. Steroid tablets can increase your appetite: False 13. Inhaled steroids (brown, red or orange): a. Inhaled steroids should be stopped if you are given steroid tablets: False bSteroid inhalers can be used for rapid relief breathlessnes: True c. Spacer devices reduce the risk of getting thrush in the mouth: False d.Steroid inhaler should be taken before your bronchodilator: Don't know e. Inhaled steroids improve lung function in COPD: True COPD Assessment Test [CAT] Questions Never cough = 0, Cough all the time = 5: 1 No phlegm = 0, Chest full of phlegm = 5: 0 No chest tightness = 0, Chest very tight = 5: 0 No breathless w/exertion = 0, Very breathless w/exertion = 5: 2 No limitations w/activity = 0, Very limited w/activity = 5: 2 Confident leaving home = 0, Not at all confident = 5: 0 Sleep soundly = 0, Don't sleep soundly = 5: 2 Lots of energy = 0, No energy at all = 5: 2 Total CAT score:: 9 Self-Efficacy 6-Item Scale Initial Assessment: We would like to know how confident you are in doing certain activities. Please select your confidence level for: Fatigue Select Number: 10 Physical Discomfort or Pain Select Number: 8 Emotional Distress Select Number: 10 Other Symptoms or Health Problems Select Number: 10 Different Tasks and Activities Select Number: 10 Medication Select Number: 10 Total Score:: 9 Nutrition Survey Nutrition Survey Instructions Scoring Instructions Nutrition Survey Initial: Have you lost >10 lbs over the past 2 months without trying?: No Are you following a special diet at home for diabetes, low fat, or low salt?: No Are you interested in meeting with a dietitian for help understanding your diet?: No Do you eat less than 3 meals a day?: Yes Do you eat fatty meats (yeh, sausage, ribs, etc), fried foods, desserts, large amounts of salad dressings, margarine, butter, or cheese most days?: No Do you have food allergies? [Enter types in comment field]: No Do you eat in restaurants more than 3 times a week?: No Do you season food with salt, seasoning salt, or garlic salt?: Yes Do you used canned, boxed, frozen meals, or soups, seasoning packets?: No Total Score:: 2
[2023-11-18 13:12] VITALS: BMI 26.2
[2023-11-18 13:46] VITALS: BP 110/70
[2023-11-18 14:06] VITALS: BP 110/70; O2SAT 97; BMI 26.2
== END | disposition home or self-care (01) ==
LOC: PR 11:45
PROVIDERS: PCP Family Medicine; Referring Provider Internal Medicine Critical Care Medicine; Visit Provider Internal Medicine Critical Care Medicine
DX: J44.9 Chronic obstructive pulmonary disease, unspecified (principal)

== ENCOUNTER → 2023-11-20 | Outpatient (CLI) | payer OTHER, SELFPAY ==
[2023-11-18 14:06] VITALS: BMI 26.2
--- OUTSIDE RECORDS SUMMARY | 2023-11-20 12:05 | XMS RPT_ITS | CCD ---
Author Name Unknown Address [address] [place] [address] Organization [facility] Care Team Providers Care Founder And Chief Technical Officer Name Role Phone Unavailable Primary Care Provider Benitez HAYS DO, DR KATIA Evans Primary Care Unavailab mendy CEDILLO MD, ROXANA Attending Unavailable NGUYEN WHITE, ROXANA Admitting Unavailable LIS CHRISTY, DR KATIA Evans Consulting Unavailab mendy HUMPHRIES MD, DR RAMIREZ Consulting Angeline NAVA MD, ARACELI Morgan Consulting Tasha JACK MD, JOAQUIN Consulting Unavailable Results Test Name Value Interpretation Reference Range Facil ity Encounters Encounter Date Encounter Type Care Provider Facility Start: 09-11-2023 End: 09-14-2023 Evaluation and management of inpatient DR KATIA HAYS DO Facility:[facility] Start: 05-27-2020 End: 05-27-2020 Subsequent hospital visit by physician Provider [facility] Procedures Date Procedure Procedure Detail Performing Clinician Start: 08-23-2019 Antibody screen Payers Date Payer Category Payer Unknown [id number] 1960 Unknown [id number] Social History Date Type Detail Facility Tobacco smoking status NHIS Unknown if ev er smoked [facility] Sex Assigned At Not on file [facility] Summary Purpose Family History No Family History Records FoundNo Family History Records FoundNo Family History Records FoundNo Family History Records FoundNo Family History Records Found Advance Directives No Advanced Directives Records FoundNo Advanced Directives Records FoundNo Advanced Directives Records FoundNo Advanced Directives Records FoundNo Advanced Directives Records Found Procedure Findings Note HNO ID: [id number] Author: Nara Gerber MD Service: Orthopaedic Surgery Author Type: Resident Type: Brief Op Note Filed: 08/23/2019 5:14 PM Note Text: BRIEF OPERATIVE / PROCEDURE NOTE LOG ID: [id number] SURGERY/PROCEDURE DATE: 08/23/2019 INCISION/PROCEDURE START TIME: 12:17 PM INCISION CLOSE/PROCEDURE END TIME: 2:32 PM SURGEON(S)/PROCEDURALIST(S) AND BRIDGE INSTRUCTOR(S): Surgeon(s) and Role: * Jimbo Richter - Primary * Paulo Gerber MD - Resident - Assisting No Additional Staff SURGERY/PROCEDURE(S): L2-4 laminectomy and decrompression ANESTHESIA: General FINDINGS: See dictated op note ESTIMATED BLOOD LOSS: 200 mls SPECIMENS: None COMPLICATIONS: None PRE-OP/PRE-PROCEDURE DIAGNOSIS: Neurogenic claudication [M48.062] POST-OP/POST-PROCEDURE DIAGNOSIS: Neurogenic claudication [M48.062] SIGNATURE: Paulo Gerber MD PATIENT NAME: Smooth Shaw DATE: August 23, 2019 TIME: 5:14 PM PAGER/CONTACT #: Note HNO ID: [id number] Author: Maira Rodriguez Service: ? Author Type: Chiropractor Type: Progress Notes Filed: 12/27/2019 9:08 AM Note Text: Chiropractor Progress/Procedure Note Smooth Shaw is a 59 year old male who presents for Chiropractic follow up for Low Back Pain (into right leg) sm 2 vpcy Have you noticed any improvement since your last visit? Not much has changed since last visit Have you done any home exercises that Dr. Rodriguez gave you? 3 times per day What is your response to the home exercises? Doesn't notice any changes What aggravates your pain? walking What makes your pain better? Rest, repositioning Current pain level? 10 How low has your pain level been on the pain scale since your last visit? 10 How high has your pain level been on the pain scale since your last visit? 10. Since your last visit with Dr. Rodriguez have you had any Images or injections? no REVIEW OF SYSTEMS: Constitutional: Negative for fever and chills. Eyes: Negative for blurred vision and double vi (more content not included)... Note HNO ID: [id number] Author: Maira Rodriguez Service: ? Author Type: Chiropractor Type: Progress Notes Filed: 01/13/2020 8:29 AM Note Text: Chiropractor Progress/Procedure Note Smooth Shaw is a 59 year old male who presents for Chiropractic follow up for Low Back Pain and Right Lower Extremity Pain AB 3/10 vpcy Have you noticed any improvement since your last visit? No noticeable reduction in pain level Have you done any home exercises that Dr. Rodriguez gave you? Performs as instructed What is your response to the home exercises? No complications during, no noticeable improvement in pain level, slight improvement in ROM What aggravates your pain? Walking, lifting, laying down/sleeping What makes your pain better? No specific activity at this time Current pain level? 10 How low has your pain level been on the pain scale since your last visit? 10 How high has your pain level been on the pain scale since your last visit? 10. Since your last visit with Dr. Rodriguez have you had any Images (more content not included)... Note HNO ID: [id number] Author: Maira Rodriguez Service: ? Author Type: Chiropractor Type: Progress Notes Filed: 01/18/2020 9:41 AM Note Text: Chiropractor Progress/Procedure Note Smooth Shaw is a 59 year old male who presents for Chiropractic follow up for Low Back Pain 4/10 VPCY SC Have you noticed any improvement since your last visit? Patient states that his pain was the same leaving as it was coming in and the past 4-5 days have been really bad Have you done any home exercises that Dr. Rodriguez gave you? Y What is your response to the home exercises? Patient is doing them states they are going ok but they do not help with pain and he states that they are difficult to do when pain is high What aggravates your pain? daily What makes your pain better? Patient states there nothing Current pain level? 10 How low has your pain level been on the pain scale since your last visit? 10 How high has your pain level been on the pain scale since your last visit? 910. Since your last visit with Nara (more content not included)... Note HNO ID: [id number] Author: Maira Rodriguez Service: ? Author Type: Chiropractor Type: Progress Notes Filed: 01/24/2020 3:16 PM Note Text: Chiropractor Progress/Procedure Note Smooth Shaw is a 59 year old male who presents for Chiropractic follow up for Low Back Pain (into right leg) sm 04/01 vpcy Have you noticed any improvement since your last visit? No relief after treatment Have you done any home exercises that Dr. Rodriguez gave you? dialy What is your response to the home exercises? Seems to aggravate his pain but he continues to do the exercises What aggravates your pain? Walking, some exercises, quick movements, lifting What makes your pain better? rest Current pain level? 01/30 How low has your pain level been on the pain scale since your last visit? 01/30 How high has your pain level been on the pain scale since your last visit? 08/02. Since your last visit with Dr. Rodriguez have you had any Images or injections? no REVIEW OF SYSTEMS: Constitutional: Negative for fever and chills. Eyes (more content not included)... Note HNO ID: [id number] Author: Tyra peck ([facility]) Maki Service: Neurosurgery Author Type: Nurse Practitioner Type: Discharge Summary Filed: 08/24/2019 1:02 PM Note Text: DISCHARGE SUMMARY PATIENT NAME: Smooth Shaw ADMISSION DATE: 08/23/2019 DISCHARGE DATE: 08/24/2019 Attending Physician: Jimbo Richter Code Status: Not on file Highest Readmission Risk Score: 10 The 30 day readmissions risk score is derived from an internally validated risk model which evaluates patient level characteristics, utilization history, medication orders and lab results up until the day of discharge. Patients with a score of 40 or above are considered highest risk for readmission. Specific patient level drivers will be listed at the bottom of the summary. Reason for Hospitalization: lumbar surgery Diagnosis: lumbar stenosis Hospital Course as Described to the Patient: You were admitted for spine surgery for stenosis. POD #1 did very well. Tolerating diet + flatus, ambulating in halls. Drain removed Op (more content not included)... Hospital Course Note HNO ID: [id number] [facility] Service: Neurosurgery Author Type: Nurse Practitioner Type: Discharge Summary Filed: 08/24/2019 1:02 PM Note Text: DISCHARGE SUMMARY PATIENT NAME: Smooth Shaw ADMISSION DATE: 08/23/2019 DISCHARGE DATE: 08/24/2019 Attending Physician: Jimbo Richter Code Status: Not on file Highest Readmission Risk Score: 10 The 30 day readmissions risk score is derived from an internally validated risk model which evaluates patient level characteristics, utilization history, medication orders and lab results up until the day of discharge. Patients with a score of 40 or above are considered highest risk for readmission. Specific patient level drivers will be listed at the bottom of the summary. Reason for Hospitalization: lumbar surgery Diagnosis: lumbar stenosis Hospital Course as Described to the Patient: You were admitted for spine surgery for stenosis. POD #1 did very well. Tolerating diet + flatus, ambulating in halls. Drain removed Op (more content not included)... Additional Source Comments (unrecognized sect ion and content) No Status Records FoundNo Status Records FoundNo Status Records FoundNo Status Records FoundNo Status Records Found INFORMATION SOURCE (unrecogn ized section and content) DATE CREATED AUTHOR AUTHOR'S ORGANIZ ATION 06/15/2020 [facility] DATE CREATED AUTHOR AUTHOR'S ORGANIZ ATION 06/15/2020 [facility] DATE CREATED AUTHOR AUTHOR'S ORGANIZ ATION 10/30/2020 [facility] DATE CREATED AUTHOR AUTHOR'S ORGANIZ ATION 09/22/2023 [facility] ([place]) Source Comments (unrecognize d section and content) In the event this informatio n is protected by the Federal Confidentiality of Alcohol and Drug Abuse Patient Records regulations: The Federal rules restrict any use of the information to criminally investigate or prosecute any alcohol or drug abuse patient.[facility] FOR RECORDS PERTAINING TO PATIENTS WHO ARE OR HAVE BEEN ENROLLED IN A CHEMICAL DEPENDENCY/SUBSTANCEABUSE PROGRAM, SOME INFORMATION MAY BE OMITTED. This clinical summary was aggregated from multiple sources. Caution should be exercised in using it in the provision of clinical care. This summary normalizes information from multiple sources, and as a consequence, information in this document may materially change the coding, format and clinical context of patient data. In addition, data may be omitted in some cases. CLINICAL DECISIONS SHOULD BE BASED ON THE PRIMARY CLINICAL RECORDS. [facility] [employer] [facility]. provides no warranty or guarantee of the accuracy or completeness of information in this document.
[2023-11-20 12:50] LABS: Absolute Neutrophil Count 3.4 X10^3/uL (2.0-7.7); Basophil# 0.04 X10^3/uL; Basophil% 0.5 % (0-1); Eosinophil# 0.46 X10^3/uL; Eosinophils% 6.2 % (0-5); Hematocrit 34.2 % (40-54); Hemoglobin 11.2 g/dL (13.0-16.5); Lymphocyte % 33.5 % (19-41); Mean Corp Hgb Conc 32.7 g/dL (32-36); Mean Corpuscular Hgb 30.8 pg (27.0-32.0); Mean Platelet Vol. 10.2 fl (6.2-12.0); Monocyte# 1.05 X10^3/uL; Monocyte% 14.1 % (0-10); NRBC Flagged by Analyzer 0 % (0-5); Neutrophil # 3.39 X10^3/uL (2.7-7.7); Neutrophil % 45.4 % (47-70); Platelet Count 264 K/mm3 (150-450); RBC Distribution Width CV 12.5 % (11.6-14.6); RBC Distribution Width SD 43.1 fl (35.1-43.9); Red Blood Count 3.64 M/mm3 (4.6-6.2); White Blood Count 7.5 K/mm3 (4.4-11.0)
[2023-11-20 13:23] LABS: ALB/GLOB Ratio 1.1 RATIO (0.9-2.4); AST(SGOT) 33 U/L (15-37); Alanine Aminotransfer ALT/SGPT 34 U/L (16-61); Albumin, Serum 3.7 g/dL (3.2-5.0); Alkaline Phosphatase 52 U/L (45-117); Anion Gap 7 (5-15); BUN 17 mg/dL (7-18); BUN/Creat Ratio 12.6 RATIO (10-20); Calcium,Total 8.1 mg/dL (8.5-10.1); Chloride 108 mmol/L (98-107); Creatinine, Serum 1.35 mg/dL (0.70-1.30); EST Glomerular Filtration Rate 56 mL/min (>60); Est Glom Filt Rate - Afr Amer 68 mL/min (>60); Globulin 3.3 g/dL (2.2-4.2); Glucose 82 mg/dL (74-106); Potassium 3.9 mmol/L (3.5-5.1); Sodium Level 140 mmol/L (136-145)
== END | disposition home or self-care (01) ==
LOC: LAB 11:49
PROVIDERS: PCP Family Medicine; Referring Provider Internal Medicine Rheumatology; Visit Provider Internal Medicine Rheumatology
DX: M06.09 Rheumatoid arthritis without rheumatoid factor, multiple sites (principal); Z79.899 Other long term (current) drug therapy
CPT/HCPCS: 36415; 80053; 85025

== ENCOUNTER 2023-12-23 13:00 | Outpatient (RCR) | payer OTHER, SELFPAY ==
[2023-11-18 14:06] VITALS: BMI 26.2
== END 2023-12-23 23:59 ==
LOC: PR 13:00
PROVIDERS: PCP Family Medicine; Referring Provider Internal Medicine Critical Care Medicine; Visit Provider Internal Medicine Critical Care Medicine
DX: J44.9 Chronic obstructive pulmonary disease, unspecified (principal)
CPT/HCPCS: 97150; 94626

== ENCOUNTER 2024-01-20 13:00 | Outpatient (RCR) | payer OTHER, SELFPAY ==
[2023-11-18 14:06] VITALS: BMI 26.2
--- NOTE | 2024-01-18 08:41 | PR.ITP_ITS ---
Exercise - Initial Assessment Visit Session Number:: 20 Physician Prescribed Exercise Current RPD:: 2 Maximum Exercise HR:: 123 Resting Blood Pressure: 136/60 Maximum Exercise Blood Pressure: 168/88 Minimum SpO2 with exercise: 95 EKG Type: NSR to ST Nutrition/Wt Mgmt - Initial Visit Session Number:: 20 Weight Management Admit Height:: 5 ft 7 in Admit Weight:: 161 lb 8 oz Admit BMI:: 25.2 Nutrition/Wt Mgmt - 30-Day Visit Date of Eval: 01/18/24 Session Number:: 20 Weight Management Height: 5 ft 7 in Weight:: 161 lb 8 oz BMI: 25.2 Nutrition/Wt Mgmt - 60-Day Visit Date of Eval: 01/18/24 Session Number:: 20 Weight Management Height: 5 ft 7 in Weight:: 161 lb 8 oz BMI: 25.2 Weight Goals Progress:: Goal met Nutrition/Wt Mgmt - 90-Day Visit Session Number:: 20 Weight Management Height: 5 ft 7 in Weight:: 161 lb 8 oz BMI: 25.2 Weight Goals Progress:: Goal met Nutrition/Wt Mgmt - Final Visit Session Number:: 20 Weight Management Height: 5 ft 7 in Weight:: 161 lb 8 oz BMI: 25.2 Psychosocial - Initial Assess Visit Session Number:: 20 Problems/Goals History of Emotional Disorders: None Intervention/Plan: See List Interventions/Plan:: Assess stressors,coping strategies & signs of derpression on admission, Instruct/assist pt to develop coping & personal stress Mgt strategies, Refer to Behavioral Health if appropriate, Refer to Physician if appropriate, Instruct patient to recognize signs & symptoms of depression, Instruct patient to recog and Other additional plan/intervention Psychosocial - 30-Day Visit Date of Eval: 01/18/24 Session Number:: 20 Problems/Goals History of Emotional Disorders: None Plan Interventions/Plan:: Assess stressors,coping strategies & signs of derpression on admission, Instruct/assist pt to develop coping & personal stress Mgt strategies, Refer to Behavioral Health if appropriate, Refer to Physician if appropriate, Instruct patient to recognize signs & symptoms of depression, Instruct patient to recog and Other additional plan/intervention Psychosocial - 60-Day Visit Date of Eval: 01/18/24 Session Number:: 20 Problems/Goals History of Emotional Disorders: None Plan Interventions/Plan:: Assess stressors,coping strategies & signs of derpression on admission, Instruct/assist pt to develop coping & personal stress Mgt strategies, Refer to Behavioral Health if appropriate, Refer to Physician if appropriate, Instruct patient to recognize signs & symptoms of depression, Instruct patient to recog and Other additional plan/intervention Psychosocial - 90-Day Visit Session Number:: 20 Problems/Goals History of Emotional Disorders: None Plan Interventions/Plan:: Assess stressors,coping strategies & signs of derpression on admission, Instruct/assist pt to develop coping & personal stress Mgt strategies, Refer to Behavioral Health if appropriate, Refer to Physician if appropriate, Instruct patient to recognize signs & symptoms of depression, Instruct patient to recog and Other additional plan/intervention Psychosocial - Final Assess Visit Session Number:: 20 Problems/Goals History of Emotional Disorders: None Plan Interventions/Plan:: Assess stressors,coping strategies & signs of derpression on admission, Instruct/assist pt to develop coping & personal stress Mgt strategies, Refer to Behavioral Health if appropriate, Refer to Physician if appropriate, Instruct patient to recognize signs & symptoms of depression, Instruct patient to recog and Other additional plan/intervention Oxygen & Oxygen Titration Init Visit Session Number:: 20 Initial Assessment SpO2:: 95 Oxygen & Oxygen Titration 30D Visit Date of Eval: 01/18/24 Session Number:: 20 Reassessment Breath Sounds:: Clear SpO2:: 95 Oxygen & Oxygen Titration 60D Visit Date of Eval: 01/18/24 Session Number:: 20 Reassessment Breath Sounds:: Clear SpO2:: 95 Oxygen & Oxygen Titration 90D Visit Date of Eval: 01/18/24 Session Number:: 20 Reassessment Breath Sounds:: Clear SpO2:: 95 Oxygen & Oxygen Titration [place]ANO Visit Date of Eval: 01/18/24 Session Number:: 20 Reassessment Breath Sounds:: Clear SpO2:: 95 Core Components - Initial Visit Session Number:: 20 Hypertension Hypertension Diagnosis:: Hypertension ICD-10 I10 BP: 136/60 [place] [employer] Hypertension Guidelines Blood Pressure: 168/88 Outcomes/Goals: Able to verbalize/achieve optimal blood pressure <130/80, Incorporates diet changes & exercise for blood pressure control by DC and Other additional outcomes/goals Tobacco - Initial Assessment Tobacco Program Goals Tobacco Use: Non-smoker Diabetes Diabetes:: No Core Components - 30 DAYS Visit Date of Eval: 01/18/24 Session Number:: 20 Hypertension Hypertension Diagnosis:: Hypertension ICD-10 I10 Resting Blood Pressure:: 136/60 [place] [employer] Hypertension Guidelines Peak Exercise Blood Pressure:: 168/88 Change in medication: No Outcomes/Goals: Able to verbalize/achieve optimal blood pressure <130/80, Incorporates diet changes & exercise for blood pressure control by DC and Other additional outcomes/goals Interventions/plan: Instruct on optimal blood pressure, hypertension & medications, Instruct on effects of sodium, alcohol, stress, exercise &hypertension and Other additional plan/interventions 30 day Reassessments:: Met Tobacco - 30-Day Tobacco Program Goals Tobacco Use: Non-smoker Exacerbation Mgmt & Airway Clearance Bronchial Hygiene Plan: Yes: Pt demonstrates correctly for effective cough, Yes: Pt demo correct for CPT, Yes: Pt demo correct for device, Yes: Pt demo correct for NS nasal spray, Yes: Pt demo correct for sputum management, Yes: Pt demo correct for improved hydration, Yes: Pt demo correct for hand hygiene, Yes: Pt demo correct for evalute sputum, Yes: Pt demo correct for verbalize when to call MD and Yes: Pt demo correct for cleaning of respiratory equipment Medication Taking medications 100% of the time:: Met Medication reassessment: Yes: Pt demonstrates correct technique timing for MDI, Yes: Pt demonstrates correct technique timing for DPI, Yes: Pt demonstrates correct technique timing for NEB and Yes: Pt demonstrates correct technique timing for spacer Diabetes Diabetes:: No Core Components - 60 DAYS Visit Date of al: 01/18/24 Session Number:: 20 Hypertension Hypertension Diagnosis:: Hypertension ICD-10 I10 Resting Blood Pressure:: 136/60 [place] [employer] Hypertension Guidelines Peak Exercise Blood Pressure:: 168/88 Change in medication: No Outcomes/Goals: Able to verbalize/achieve optimal blood pressure <130/80, Incorporates diet changes & exercise for blood pressure control by DC and Other additional outcomes/goals Interventions/plan: Instruct on optimal blood pressure, hypertension & medications, Instruct on effects of sodium, alcohol, stress, exercise &hyp ertension and Other additional plan/interventions 60 day Reassessments:: Met Tobacco - 60-Day Tobacco Program Goals Tobacco Use: Non-smoker Exacerbation Mgmt & Airway Clearance Bronchial Hygiene Plan: Yes: Pt demonstrates correctly for effective cough, Yes: Pt demo correct for CPT, Yes: Pt demo correct for device, Yes: Pt demo correct for NS nasal spray, Yes: Pt demo correct for sputum management, Yes: Pt demo correct for improved hydration, Yes: Pt demo correct for hand hygiene, Yes: Pt demo correct for evalute sputum, Yes: Pt demo correct for verbalize when to call MD and Yes: Pt demo correct for cleaning of respiratory equipment Medication Medication list reviewed:: Yes Taking medications 100% of the time:: Met Taking medications 100% of the time:: Met Medication reassessment: Yes: Pt demonstrates correct technique timing for MDI, Yes: Pt demonstrates correct technique timing for DPI, Yes: Pt demonstrates correct technique timing for NEB and Yes: Pt demonstrates correct technique timing for spacer 60-day Reassessments:: Met Diabetes Diabetes:: No Core Components - 90 DAYS Visit Session Number:: 20 Hypertension Hypertension Diagnosis:: Hypertension ICD-10 I10 Resting Blood Pressure:: 136/60 [place] [employer] Hypertension Guidelines Peak Exercise Blood Pressure:: 168/88 Outcomes/Goals: Able to verbalize/achieve optimal blood pressure <130/80, Incorporates diet changes & exercise for blood pressure control by DC and Other additional outcomes/goals Interventions/plan: Instruct on optimal blood pressure, hypertension & medications, Instruct on effects of sodium, alcohol, stress, exercise &hypertension and Other additional plan/interventions 90 day Reassessments:: Met Tobacco - 90-Day Tobacco Program Goals Tobacco Use: Non-smoker Exacerbation Mgmt & Airway Clearance Bronchial Hygiene Plan: Yes: Pt demonstrates correctly for effective cough, Yes: Pt demo correct for CPT, Yes: Pt demo correct for device, Yes: Pt demo correct for NS nasal spray, Yes: Pt demo correct for sputum management, Yes: Pt demo correct for improved hydration, Yes: Pt demo correct for hand hygiene, Yes: Pt demo correct for evalute sputum, Yes: Pt demo correct for verbalize when to call MD and Yes: Pt demo correct for cleaning of respiratory equipment Medication Medication reassessment: Yes: Pt demonstrates correct technique timing for MDI, Yes: Pt demonstrates correct technique timing for DPI, Yes: Pt demonstrates correct technique timing for NEB and Yes: Pt demonstrates correct technique timing for spacer Diabetes Diabetes:: No Core Components - Final Visit Session Number:: 20 Hypertension Hypertension Diagnosis:: Hypertension ICD-10 I10 Resting Blood Pressure:: 136/60 [place] [employer] Hypertension Guidelines Peak Exercise Blood Pressure:: 168/88 Outcomes/Goals: Able to verbalize/achieve optimal blood pressure <130/80, Incorporates diet changes & exercise for blood pressure control by DC and Other additional outcomes/goals Tobacco - Final Tobacco Program Goals Tobacco Use: Non-smoker Exacerbation Mgmt & Airway Clearance Bronchial Hygiene Plan: Yes: Pt demonstrates correctly for effective cough, Yes: Pt demo correct for CPT, Yes: Pt demo correct for device, Yes: Pt demo correct for NS nasal spray, Yes: Pt demo correct for sputum management, Yes: Pt demo correct for improved hydration, Yes: Pt demo correct for hand hygiene, Yes: Pt demo correct for evalute sputum, Yes: Pt demo correct for verbalize when to call MD and Yes: Pt demo correct for cleaning of respiratory equipment Medication Medication reassessment: Yes: Pt demonstrates correct technique timing for MDI, Yes: Pt demonstrates correct technique timing for DPI, Yes: Pt demonstrates correct technique timing for NEB and Yes: Pt demonstrates correct technique timing for spacer Diabetes Diabetes:: No Patient Health Questionnaire PHQ-9 Screening 60-Day Re-eval Assessment: 1. Little interest or pleasure in doing things: Not at all 2. Feeling down, depressed, or hopeless: Not at all 3. Trouble falling or staying asleep, or sleeping too much: Several days 4. Feeling tired or having little energy: Several days 5. Poor appetite or overeating: Not at all 6. Feeling bad about yourself -- or that you are a failure or have let y ourself or your family down: Not at all 7. Trouble concentrating on things, such as reading the newspaper or watching television: Not at all 8. Moving or speaking so slowly that other people could have noticed. Or the opposite - being so fidgety or restless that you have been moving around a lot more than usual: Not at all 9. Thoughts that you would be better off , or of hurting yourself in some way: Not at all How difficult have these problems made it for you to do your work, take care of things at home, or get along with other people?: Not difficult at all Total Score: 2 Knowledge Questionaire (BCKQ) Information Information: [place] COPD Knowledge Questionnaire (BCKQ) This questionnaire is designed to find out what you know about your lung problem. It should be completed without help form anyone else. This usually takes between 10 and 20 minutes. Your answers will help us to find out what information you need to help you to understand and manage your lung condition. Maury the mary's igloo which you think is the correct answer. Self-Efficacy 6-Item Scale 60-Day Re-eval Assessment: We would like to know how confident you are in doing certain activities. Please select your confidence level for: Fatigue Select Number: 10 Physical Discomfort or Pain Select Number: 8 Emotional Distress Select Number: 10 Other Symptoms or Health Problems Select Number: 10 Different Tasks and Activities Select Number: 10 Medication Select Number: 10 Total Score:: 9 Nutrition Survey Nutrition Survey Instructions Scoring Instructions
[2024-01-18 08:53] VITALS: BP 136/60; BP 168/88; O2SAT 95; BMI 25.2
== END 2024-01-21 23:59 ==
LOC: PR 13:00
PROVIDERS: PCP Family Medicine; Referring Provider Internal Medicine Critical Care Medicine; Visit Provider Internal Medicine Critical Care Medicine
DX: J44.9 Chronic obstructive pulmonary disease, unspecified (principal)
CPT/HCPCS: 97150; 94626

== ENCOUNTER → 2024-01-20 | Outpatient (CLI) | payer OTHER, SELFPAY ==
[2024-01-18 08:53] VITALS: BMI 25.2
[2024-01-20 11:29] LABS: ALB/GLOB Ratio 1.2 RATIO (0.9-2.4); AST(SGOT) 43 U/L (15-37); Alanine Aminotransfer ALT/SGPT 45 U/L (16-61); Albumin, Serum 3.8 g/dL (3.2-5.0); Alkaline Phosphatase 51 U/L (45-117); Anion Gap 5 (5-15); BUN 24 mg/dL (7-18); BUN/Creat Ratio 15.6 RATIO (10-20); Calcium,Total 8.9 mg/dL (8.5-10.1); Chloride 107 mmol/L (98-107); Cholesterol 158 mg/dL (200); Creatinine, Serum 1.54 mg/dL (0.70-1.30); EST Glomerular Filtration Rate 49 mL/min (>60); Est Glom Filt Rate - Afr Amer 59 mL/min (>60); Globulin 3.3 g/dL (2.2-4.2); Glucose 84 mg/dL (74-106); High Density Lipoprotein 90 mg/dL; Potassium 4.3 mmol/L (3.5-5.1); Protein, Total 7.1 g/dL (6.4-8.2); Sodium Level 136 mmol/L (136-145); Triglycerides 79 mg/dL; Very Low Density Lipoprotein 16 mg/dL (5-40)
--- OUTSIDE RECORDS SUMMARY | 2024-01-20 19:07 | XMS RPT_ITS | CCD ---
Author Name Unknown Address [address] [place] [address] Organization [facility] Care Team Providers Care Diabetic Educator Name Role Phone Unavailable Primary Care Provider Benitez HAYS DO, DR KATIA Evans Primary Care Unavailab mendy CEDILLO MD, ROXANA Attending Unavailable NGUYEN WHITE, ROXANA Admitting Unavailable LIS CHRISTY, DR KATIA Evans Consulting Unavailab menyd HUMPHRIES MD, DR RAMIREZ Consulting Angeline NAVA [...] screen Payers Date Payer Category Payer Unknown [id number] 1960 Unknown [id number] Social History Date Type Detail Facility Tobacco smoking status NHIS Unknown if ev er smoked [facility] Sex Assigned At Not on file [facility] Summary Purpose Family History No Family History Records FoundNo Family History Records FoundNo Family History Records FoundNo Family History Records FoundNo Family History Records Found Advance Directives No Advanced Directives Records FoundNo Advanced Directives Records FoundNo Advanced Directives Records FoundNo Advanced Directives Records FoundNo Advanced Directives Records Found Procedure Findings Note HNO ID: [id number] Author: Nara Gerber MD Service: Orthopaedic Surgery Author Type: Resident Type: Brief Op Note Filed: 08/23/2019 5:14 PM Note Text: BRIEF OPERATIVE / PROCEDURE NOTE LOG ID: [id number] SURGERY/PROCEDURE DATE: 08/23/2019 INCISION/PROCEDURE START TIME: 12:17 PM INCISION CLOSE/PROCEDURE END TIME: 2:32 PM SURGEON(S)/PROCEDURALIST(S) AND MENTAL MEASUREMENTS TEACHER(S): Surgeon(s) and Role: * Jimbo Rcihter - Primary * Paulo Gerber MD - [...] 5:14 PM PAGER/CONTACT #: Note HNO ID: [id number] Author: Maira Rodriguez Service: ? Author Type: [...] (more content not included)... Note HNO ID: [id number] Author: Maira Rodriguez Service: ? Author Type: [...] (more content not included)... Note HNO ID: [id number] Author: Maira Rodriguez Service: ? Author Type: [...] (more content not included)... Note HNO ID: [id number] Author: Maira Rodriguez Service: ? Author Type: [...] (more content not included)... Note HNO ID: [id number] Author: Tyra peck ([facility]) Maki Service: Neurosurgery Author Type: Nurse [...] not included)... Hospital Course Note HNO ID: [id number] [facility] Service: Neurosurgery Author Type: Nurse [...] DATE CREATED AUTHOR AUTHOR'S ORGANIZ ATION 06/15/2020 [facility] DATE CREATED AUTHOR AUTHOR'S ORGANIZ ATION 06/15/2020 [facility] DATE CREATED AUTHOR AUTHOR'S ORGANIZ ATION 10/30/2020 [facility] DATE CREATED AUTHOR AUTHOR'S ORGANIZ ATION 09/22/2023 [facility] ([place]) Source Comments (unrecognize d section and content) In the event this informatio n is protected by the Federal Confidentiality of Alcohol and Drug Abuse Patient Records regulations: The Federal rules restrict any use of the information to criminally investigate or prosecute any alcohol or drug abuse patient.[facility] FOR RECORDS PERTAINING TO PATIENTS WHO [...] BE BASED ON THE PRIMARY CLINICAL RECORDS. [facility] [address] [facility]. provides no warranty or guarantee of the accuracy or completeness of information in this document.
== END | disposition home or self-care (01) ==
LOC: LAB 10:08
PROVIDERS: PCP Family Medicine
DX: I25.10 Atherosclerotic heart disease of native coronary artery without angina pectoris (principal); E78.5 Hyperlipidemia, unspecified
CPT/HCPCS: 36415; 80053; 80061

== ENCOUNTER 2024-02-19 13:00 | Outpatient (RCR) | payer OTHER, SELFPAY ==
[2024-01-18 08:53] VITALS: BMI 25.2
[2024-01-22 00:15] VITALS: BP 136/60; BP 168/88; BMI 25.2
== END 2024-02-21 23:59 ==
LOC: PR 13:00
PROVIDERS: PCP Family Medicine; Referring Provider Internal Medicine Critical Care Medicine; Visit Provider Internal Medicine Critical Care Medicine
DX: J44.9 Chronic obstructive pulmonary disease, unspecified (principal)
CPT/HCPCS: 97150; 94626

== ENCOUNTER 2024-02-24 13:00 | Outpatient (RCR) | payer OTHER, SELFPAY ==
[2024-01-18 08:53] VITALS: BMI 25.2
[2024-02-22 00:16] VITALS: BP 136/60; BP 168/88; BMI 25.2
== END 2024-03-22 23:59 ==
LOC: PR 13:00
PROVIDERS: PCP Family Medicine; Referring Provider Internal Medicine Critical Care Medicine; Visit Provider Internal Medicine Critical Care Medicine
DX: J44.9 Chronic obstructive pulmonary disease, unspecified (principal)
CPT/HCPCS: 97150; 94626

== ENCOUNTER → 2024-03-02 | Outpatient (CLI) | payer OTHER, SELFPAY ==
[2024-01-18 08:53] VITALS: BMI 25.2
== END | disposition home or self-care (01) ==
LOC: PSN 08:43
PROVIDERS: PCP Family Medicine; Referring Provider Internal Medicine Critical Care Medicine; Visit Provider Internal Medicine Critical Care Medicine
DX: J44.9 Chronic obstructive pulmonary disease, unspecified (principal)
CPT/HCPCS: 94060; 94726; 94729

== ENCOUNTER 2024-03-29 16:12 | Emergency (ER) | payer OTHER, SELFPAY ==
[2024-01-18 08:53] VITALS: BMI 25.2
[2024-03-29 16:13] VITALS: BP 128/71; PULSE 74; RESP 19; TEMP 36.1; O2SAT 99; BMI 24.8
--- NOTE | 2024-03-29 16:21 | RAD_ITS ---
EXAM: XR RIGHT FOOT COMPLETE, 3 OR MORE VIEWS CLINICAL INDICATION: INJURY TECHNIQUE: Frontal, lateral and oblique views of the right foot. COMPARISON: No relevant prior studies available. FINDINGS: BONES/JOINTS: There is an oblique fracture through the fifth metatarsal. Preservation of the joint space. No sclerotic or destructive changes observed. SOFT TISSUES: Unremarkable. No soft tissue swelling or gas. No radiopaque foreign body. RAD/Foot min 3 Views IMPRESSION: Minimally displaced fracture through the fifth metatarsal. Electronically Signed: Boby Mena MD at 16:36 EDT ,
--- NOTE | 2024-03-29 16:44 | EX.ED.DYSGE1 ---
HPI History of Present Illness Chief Complaint: Lower Extremity Injury [facility] Medical History (Updated 03/29/24 @ 16:[address] Thai Ocampo, DO) Atherosclerosis of [place] coronary artery of [place] heart without angina pectoris Contact with and (suspected) exposure to other viral communicable diseases HTN (hypertension) Wheezing Home Medications potassium chloride 8 mEq tablet,extended release 8 meq PO DAILY 09/24/13 [History Last Taken Unknown] multivitamin with folic acid 400 mcg tablet 1 tab PO DAILY 10/04/13 [History Last Taken Unknown] amlodipine 5 mg tablet 5 mg PO DAILY 06/22/18 [History Last Taken Unknown] losartan 100 mg-hydrochlorothiazide 12.5 mg tablet 1 tab PO DAILY 06/22/18 [History Last Taken Unknown] adalimumab 40 mg/0.4 mL subcutaneous pen kit (Humira(CF) Pen) mg subcut 08/09/23 [History Last Taken Unknown] albuterol sulfate 90 mcg/actuation aerosol inhaler (Ventolin HFA) 2 puff inhalation Q6H PRN shortness of breath or wheezing #8.5 grams 08/09/23 [Rx Last Taken Unknown] benzonatate 200 mg capsule 200 mg PO TID PRN cough #20 caps 08/09/23 [Rx Last Taken Unknown] carvedilol 25 mg tablet mg PO 08/09/23 [History Last Taken Unknown] clopidogrel 75 mg tablet mg PO 08/09/23 [History Last Taken Unknown] esomeprazole magnesium 40 mg capsule,delayed release mg PO 08/09/23 [History Last Taken Unknown] gabapentin 600 mg tablet mg PO 08/09/23 [History Last Taken Unknown] hydroxychloroquine 200 mg tablet mg PO 08/09/23 [History Last Taken Unknown] oxycodone 5 mg tablet mg PO 08/09/23 [History Last Taken Unknown] rosuvastatin 10 mg tablet mg PO 08/09/23 [History Last Taken Unknown] oxycodone 5 mg capsule 5 mg PO Q8H PRN pain 3 days #12 caps 03/29/24 [Rx Last Taken Unknown] Allergy/AdvReac Type Severity Reaction Status Date / Time lisinopril Allergy Other Verified 08/09/23 08:37 Family History (Updated 08/09/23 @ 08:52 by Sunny Yang BIOLOGICAL ENGINEER, BIOLOGICAL ENGINEER-C) Father Cancer Prostate Surgical History (Updated 08/09/23 @ 08:51 by Sunny Yang BIOLOGICAL ENGINEER, BIOLOGICAL ENGINEER-C) H/O endarterectomy History of carpal tunnel release History of coronary artery stent placement Hx of shoulder surgery Social History (Updated 08/09/23 @ 08:53 by Sunny Yang NP, BIOLOGICAL ENGINEER-C) Smoking Status: Former smoker alcohol intake: current Alcohol type: beer EXAM Physical Exam Const Vital Signs: 03/29/24 16:13 Temperature 96.9 F L Temperature Source Temporal Pulse Rate 74 Respiratory Rate 19 H Blood Pressure 128/71 H Blood Pressure Mean 90 Pulse Ox 99 [facility] Narr[place] Medical decision making narrative: HISTORY OF PRESENT ILLNESS: 63-year-old male presents with right foot pain. Notes he tripped suffered mechanical fall and injured his right foot. He further states REVIEW OF SYSTEMS: Pertinent positives: Right foot pain Pertinent negatives: Numbness, tingling PHYSICAL EXAM: Nursing triage notes reviewed, Vital signs reviewed Constitutional: please see [facility] HENT: MMM Eyes: Pupils equal round and reactive to light, Extraocular muscles intact Neck: No stridor, no JVD, full neck ROM Lungs: Clear to auscultation, No wheezing or rales. No increased work of breathing, no conversational dyspnea, no accessory muscle use, no nasal flaring. No respiratory distress noted Heart: Regular rate and rhythm, No murmurs, No rubs and No gallops, 2+ distal pulses (radial, femoral, posterior tibial) in all extremities Abdomen: Soft, there is no tenderness, rigidity, rebound or guarding, no obvious peritoneal signs, no palpable pulsatile abdominal masses, no auscultated abdominal bruit : No CVAT Extremities: No edema Neuro: Intact sensation L1-S1 dermatomal distributions. Intact 5/5 strength in hip flexion (T12-L3). Knee extension (L2-L4). Ankle dorsiflexion (L4-L5). Ankle plantar flexion (S1). Great toe extension (L5). 2+ patellar and Achilles DTRs. Skin: No evidence of open fracture MEDICAL DECISION MAKING: Chief Complaint: Foot pain External records reviewed: Imaging reviewed: Recent [facility] imaging of the involved extremity Factors affecting care: CAD, carotid artery stenosis status post carotid endarterectomy [facility] Narrative: Patient was initially hemodynamically stable, afebrile and nontoxic-appearing. Right lower extremity is neurovascular intact. TTP over lateral right foot. X-ray was read reviewed myself and showed evidence of 5th metatarsal fracture. Patient placed in a short leg splint. He was made nonweightbearing. Given crutches. He is encouraged follow with orthopedic surgery. Strict return precautions were discussed. The patient and/or family, caregivers express understanding. The patient and/or family, caregivers agrees with the plan. Shared decision making: I will have a discussion with the patient and or visitors regarding risk/benefits of further testing or admission. They will be made aware of of the risk/benefits inherent in this decision they will be given the opportunity to voice understanding. Total critical care time today provided was at least 0 minutes. This excludes separately billable procedures. Critical care time (if documented) is secondary to the patient having high probability of clinically significant/life threatening deterioration in the patient's condition which required my urgent intervention. Impression: 1. Foot pain 2. Fifth metatarsal fracture Dispo: Discharge This note was generated with [employer] Interactive dictation software. It may contain incorrect words, spelling, and punctuation that were not noted in review of the chart prior to signing. Radiography Diagnostic Testing: Clinical Impression(s) from Imaging Studies Foot X-Ray 03/29/24 16:21 IMPRESSION: Minimally displaced fracture through the fifth metatarsal. Electronically Signed: Boby Mena MD at 16:36 EDT , Discharge Plan Triage Chief Complaint: Lower Extremity Injury ED Provider: Thai Ocampo Dx/Rx/DC Orders Clinical Impression: Metatarsal bone fracture Instructions: ED Fracture, Foot Prescriptions: New oxycodone 5 mg capsule 5 mg PO Q8H PRN (Reason: pain) 3 Days Qty: 12 0RF No Action Humira(CF) Pen 40 mg/0.4 mL pen injector kit subcut Patient Comments: INJECT 1 SYRINGErSUBCUTANEOUSLY EVERYtOTHER WEEK clopidogrel 75 mg tablet PO Patient Comments: TAKE 1 TABLET BY MOUTHCONCE DAILY, REPLACES BRILINTA AND ASPIRIN oxycodone 5 mg tablet PO Patient Comments: TAKE 1 TABLET BY MOUTHiFOUR TIMES A DAY NEEDED FOR SEVERE PAIN gabapentin 600 mg tablet PO Patient Comments: TAKE 1 TABLET BY MOUTH 3CTIMES A DAY esomeprazole magnesium 40 mg capsule,delayed release(DR/EC) PO Patient Comments: TAKE 1 CAPSULE BY MOUTHCONCE DAILY rosuvastatin 10 mg tablet PO Patient Comments: TAKE 1 TABLET BY MOUTHEONCE DAILY carvedilol 25 mg tablet PO Patient Comments: TAKE 1 TABLET BY MOUTH 2CTIMES A DAY hydroxychloroquine 200 mg tablet PO Patient Comments: TAKE 1 TABLET BY MOUTH 2ITIMES A DAY benzonatate 200 mg capsule 200 mg PO TID PRN (Reason: cough) Qty: 20 0RF albuterol sulfate [Ventolin HFA] 90 mcg/actuation HFA aerosol inhaler 2 puff inhalation Q6H PRN (Reason: shortness of breath or wheezing) Qty: 8.5 0RF multivitamin with folic acid 1 TABLET tablet 1 tab PO DAILY potassium chloride 8 MEQ tablet extended release 8 meq PO DAILY Patient Comments: UNSURE OF DOSE amlodipine 5 mg tablet 5 mg PO DAILY losartan-hydrochlorothiazide 100-12.5 mg tablet 1 tab PO DAILY Stand Alone Forms: ED Work / School Excuse Primary Care Provider: Maury Cole Referrals: Maury Cole DO [Primary Care Provider] - Activity Restrictions/Additional Instructions: Thank you for trusting us with your care today! You are diagnosed with a foot fracture. Please maintain your splint is much as possible throughout the day. Please use crutches and do not bear weight on the involved extremity Please take Tylenol (2 pills, 650 mg), every 6 hours as needed for pain and fever control. If the above regimen does not control your pain please take oxycodone and ibuprofen (2 pills, 400 mg) as needed for breakthrough pain Please return to the emergency department if your symptoms change or worsen. Specifically develop numbness, tingling, loss sensation if your pain is not controlled by the above regimen. Please follow with orthopedic surgery (Dr. Gann) for further outpatient evaluation and management. Disposition Disposition: Home, Self Care
[2024-03-29] MEDS: Oxycodone/Apap 5/325 Tablet PO (16:54)
[2024-03-29 17:28] VITALS: BP 128/71; PULSE 74; RESP 19; TEMP 36.1; O2SAT 99
== END 2024-03-29 17:30 | disposition home or self-care (01) ==
PROVIDERS: Emergency Provider Emergency Medicine; PCP Family Medicine; Visit Provider Emergency Medicine
DX: S92.351A Displaced fracture of fifth metatarsal bone, right foot, initial encounter for closed fracture (principal); I25.10 Atherosclerotic heart disease of native coronary artery without angina pectoris; Z87.891 Personal history of nicotine dependence; I10 Essential (primary) hypertension; Z79.899 Other long term (current) drug therapy; Z95.5 Presence of coronary angioplasty implant and graft; W01.10XA Fall on same level from slipping, tripping and stumbling with subsequent striking against unspecified object, initial encounter
CPT/HCPCS: 29515; 73630; 99283

== ENCOUNTER → 2024-04-29 | Outpatient (CLI) | payer OTHER, SELFPAY ==
[2024-01-18 08:53] VITALS: BMI 25.2
[2024-03-30 08:32] VITALS: BMI 25.2
--- NOTE | 2024-04-29 10:15 | CT_ITS ---
STUDY: LOW DOSE CT LUNG CANCER SCREENING REASON FOR EXAM: Male, 64 years old. SCREENING FOR LUNG CANCER. Patient smoked 1 pack per day for 52 years. Former smoker. RADIATION DOSAGE (If Supplied By Facility): CTDIvol = ( 2.01 ) mGy, DLP = ( 67.71 ) mGycm TECHNIQUE: No contrast was administered. Low dose technique was utilized (average mAS-38 and kVp 120). 1.25 mm axial source images with a slice interval of 1.25-mm were reconstructed in lung windows. 2.5 mm axial source images with a slice interval of 2.5-mm were reconstructed in lung windows. 5.0 mm axial source images with a slice interval of 5.0-mm were reconstructed in soft tissue windows. COMPARISON: Comparison is made with prior study dated June 14, 2018. NODULES: No suspicious nodules are seen. Emphysema: Hyperinflation. Emphysematous changes involving both lungs with the mild biapical scarring. Endobronchial lesion: None Aorta: Atherosclerotic plaque formation of the aortic arch and descending thoracic aorta. CORONARY ARTERIES: Coronary artery calcification is seen. Coronary stents are seen. Heart: Unremarkable Pulmonary artery: Unremarkable Mediastinal nodes: Small mediastinal lymph nodes. Other chest and abdominal findings: Degenerative changes of the thoracic spine. CT/Low Dose CT Lung Screening IMPRESSION: Lung-RADS category 2 - Continue annual screening with LDCT in 12 months. IMPORTANT NOTES FOR USE: ACR Lung-RADS Version 1.1 Assessment Categories Release Date: 2018 Category: Coded 0-4 bases on nodule(s) with highest degree of suspicion. Negative screen is defined as categories 1 and 2; a positive screen is defined as categories 3 and 4. Category 3 and 4A nodules that are unchanged on interval CT should be coded as category 2, and individuals returned to screening in 12 months. Category 4X: Category 3 or 4 nodules with additional imaging findings that increase the suspicion of lung cancer, such as spiculation, GGN that doubles in size in 1 year, enlarged lymph notes, etc. Category Modifiers: S (significant finding unrelated to lung cancer) Electronically Signed: Madan Hernández MD at 11:07 EDT ,
== END | disposition home or self-care (01) ==
LOC: CT 10:15
PROVIDERS: PCP Family Medicine; Referring Provider Family Medicine; Visit Provider Family Medicine
DX: Z12.2 Encounter for screening for malignant neoplasm of respiratory organs (principal); Z87.891 Personal history of nicotine dependence
CPT/HCPCS: 71271

== ENCOUNTER → 2024-05-03 | Outpatient (CLI) | payer OTHER, SELFPAY ==
[2024-03-30 08:32] VITALS: BMI 25.2
--- NOTE | 2024-05-03 10:55 | RAD_ITS ---
INDICATION: pain EXAMINATION/TECHNIQUE: X-RAY - RIGHT XR Foot Min 3 Views 3 VIEWS COMPARISON: March 29, 2024 FINDINGS: SOFT TISSUES: No soft tissue swelling or gas. No radiopaque foreign body. BONES/JOINTS: There is a radiolucency within the fifth mid and distal metatarsal diaphysis that is less pronounced than the prior examination consistent with a healing fracture. There is periosteal bone formation adjacent to the fracture. There is minimal medial displacement of the distal fifth metatarsal. Preservation of the joint space.. No sclerotic or destructive changes observed. RAD/Foot min 3 Views IMPRESSION: Healing fifth metatarsal fracture. Electronically Signed: Maureen Huertas MD at 14:05 EDT ,
== END | disposition home or self-care (01) ==
LOC: RAD 09:39
PROVIDERS: PCP Family Medicine; Referring Provider Orthopaedic Surgery Orthopaedic Surgery of the Spine; Visit Provider Orthopaedic Surgery Orthopaedic Surgery of the Spine
DX: S92.354A Nondisplaced fracture of fifth metatarsal bone, right foot, initial encounter for closed fracture (principal)
CPT/HCPCS: 73630

== ENCOUNTER → 2024-05-19 | Outpatient (CLI) | payer OTHER, SELFPAY ==
[2023-11-18 14:06] VITALS: BMI 26.2
[2024-03-30 08:32] VITALS: BMI 25.2
--- NOTE | 2024-05-19 10:30 | RAD_ITS ---
INDICATION: RHEUMATOID ARTHRITIS EXAMINATION/TECHNIQUE: X-RAY - XR Hips Bilateral with Pelvis when performed; Min 5 Views COMPARISON: Pelvis x-ray dated 11/22/2020. FINDINGS: There is a non-specific bowel gas pattern. Normal visualized soft tissue structures. Persistent iliac artery stent. Normal bilateral iliac wings, sacroiliac joints and visualized sacrum. Normal visualized bilateral superior and inferior pubic rami. Normal pubic symphysis. Normal ischial tuberosities. Normal visualized right femoral head. Normal right acetabulum. Normal right hip joint, with no demonstrated acute fracture. Normal visualized left femoral head. Normal left acetabulum. Normal left hip joint, with no demonstrated acute fracture. Again seen is calcific density adjacent to the left greater trochanter, which could represent sequelae from an old avulsion injury. RAD/Hips B/L min 2 views w/ Pelvis IMPRESSION: Persistent calcific density adjacent to the left greater trochanter, which could represent sequelae from an old avulsion injury. No demonstrated acute fracture. Electronically Signed: Surya Glynn MD at 8:57 EDT ,
[2024-05-19 10:51] LABS: Absolute Lymphocyte Count 2.43 X10^3/uL (0.83-4.51); Absolute Neutrophil Count 1.6 X10^3/uL (2.0-7.7); Basophil# 0.03 X10^3/uL; Basophil% 0.6 % (0-1); Eosinophil# 0.14 X10^3/uL; Eosinophils% 2.9 % (0-5); Hematocrit 33.7 % (40-54); Hemoglobin 11.3 g/dL (13.0-16.5); Lymphocyte # 2.43 X10^3/ul (0.83-4.51); Lymphocyte % 50.9 % (19-41); Mean Corp Hgb Conc 33.5 g/dL (32-36); Mean Corpuscular Hgb 31.3 pg (27.0-32.0); Mean Corpuscular Volume 93.4 fL (80-94); Monocyte# 0.55 X10^3/uL; Monocyte% 11.5 % (0-10); NRBC Flagged by Analyzer 0 % (0-5); Neutrophil # 1.61 X10^3/uL (2.7-7.7); Neutrophil % 33.9 % (47-70); Platelet Count 240 K/mm3 (150-450); RBC Distribution Width CV 12.2 % (11.6-14.6); RBC Distribution Width SD 41.8 fl (35.1-43.9); Red Blood Count 3.61 M/mm3 (4.6-6.2); White Blood Count 4.8 K/mm3 (4.4-11.0)
[2024-05-19 11:26] LABS: ALB/GLOB Ratio 1.2 RATIO (0.9-2.4); AST(SGOT) 51 U/L (15-37); Alanine Aminotransfer ALT/SGPT 64 U/L (16-61); Albumin, Serum 3.7 g/dL (3.2-5.0); Alkaline Phosphatase 47 U/L (45-117); Anion Gap 6 (5-15); BUN 25 mg/dL (7-18); BUN/Creat Ratio 16.9 RATIO (10-20); Calcium,Total 8.5 mg/dL (8.5-10.1); Chloride 109 mmol/L (98-107); Creatinine, Serum 1.48 mg/dL (0.70-1.30); EST Glomerular Filtration Rate 51 mL/min (>60); Est Glom Filt Rate - Afr Amer 61 mL/min (>60); Glucose 122 mg/dL (74-106); PSA,Total - Annual Screen 1.96 ng/mL (0.00-4.00); Potassium 4.1 mmol/L (3.5-5.1); Protein, Total 6.7 g/dL (6.4-8.2); Sodium Level 140 mmol/L (136-145)
== END | disposition home or self-care (01) ==
PROVIDERS: PCP Family Medicine; Referring Provider Internal Medicine Rheumatology; Visit Provider Internal Medicine Rheumatology
DX: Z12.5 Encounter for screening for malignant neoplasm of prostate (principal); M06.09 Rheumatoid arthritis without rheumatoid factor, multiple sites; Z79.899 Other long term (current) drug therapy; M51.36 Other intervertebral disc degeneration, lumbar region
CPT/HCPCS: 36415; 73521; 80053; 84153; 85025; G0103

== ENCOUNTER → 2024-07-22 | Outpatient (CLI) | payer OTHER, SELFPAY ==
[2024-03-30 08:32] VITALS: BMI 25.2
--- NOTE | 2024-07-22 07:22 | AAVD_ITS ---
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 in cross- Peak systolic flow velocities within the proximal sectional axis. aorta measure 54.2 cm/sec. Proximal aorta measures1.58cm. in longitudinal Peak systolic flow velocities within the mid aorta axis. measure 88.6 cm/sec. Mid aorta measures1.52 x 1.45cm. in cross- Peak systolic flow velocities within the distal sectional axis. aorta measure 77.7 cm/sec. Mid aorta measures1.69cm. in longitudinal axis. Distal aorta measures1.52 x 1.42cm. in cross- sectional axis. Distal aorta measures1.49cm. in longitudinal axis. Left Iliac Artery Left iliac artery measures 0.79 x 0.74 cm. in the cross-sectional axis. Left iliac artery measures 0.74 cm. in the longitudinal axis. Peak systolic velocity in the left iliac artery measures 293.5 cm/sec. Right Iliac Artery Right iliac artery measures 1.03 x 1.05 cm. in the cross-sectional axis. Right iliac artery measures 1.05 cm. in the longitudinal axis. Peak systolic velocity in the right iliac artery measures 124.1 cm/sec. VL/Abd Aortic/IVC Duplex scan Interpretation Summary Left common iliac artery severe stenosis. Otherwise no stenosis or aneurysm see n. Ordering Physician: BETSY LÓPEZ Referring Physician: Luciano Cole Performed By: Satnam Kelly RVT
--- NOTE | 2024-07-22 07:22 | ART_ITS ---
Reason For Study: S/P Rt PRODUCTION ROUSTABOUT Endart Procedure A bilateral lower extremity continuous wave Doppler with analog waveform analysis and ankle brachial indexes. Left Segmental Pressures Left brachial= 134mmHg. Left posterior tibial artery = 122mmHg. Left dorsalis pedis artery = 117mmHg. Left digit = 85 mmHg. The left posterior tibial artery waveforms are biphasic. The left dorsalis pedis waveforms are triphasic. Right Segmental Pressures Right brachial= 136mmHg. Right posterior tibial artery = 142mmHg. Right dorsalis pedis artery = 138mmHg. Right digit = 110 mmHg. The right posterior tibial artery waveforms are triphasic. The right dorsalis pedis waveforms are triphasic. Indices The right ankle brachial index by the posterior tibial artery is 1.04. The right ankle brachial index by the dorsalis pedis is 1.01. The right digital-brachial index is 0.81. The left ankle brachial index by the posterior tibial artery is 0.90. The left ankle brachial index by the dorsalis pedis is 0.86. The left digital-brachial index is 0.63. VL/Ankle Brachial Index Interpretation Summary Right BRENDA _, normal. The left resting ankle-brachial index appears mildly abnor mal. Ordering Physician: BETSY LÓPEZ Referring Physician: Maury Cole Performed By: Satnam Kelly RVT
== END | disposition home or self-care (01) ==
LOC: CVS 07:20
PROVIDERS: PCP Family Medicine; Referring Provider Surgery; Visit Provider Surgery
DX: Z48.812 Encounter for surgical aftercare following surgery on the circulatory system (principal); I70.212 Atherosclerosis of native arteries of extremities with intermittent claudication, left leg; I10 Essential (primary) hypertension
CPT/HCPCS: 93922; 93978

== ENCOUNTER → 2024-11-10 | Outpatient (CLI) | payer OTHER, SELFPAY ==
[2024-03-30 08:32] VITALS: BMI 25.2
== END | disposition home or self-care (01) ==
PROVIDERS: PCP Family Medicine; Visit Provider Family Medicine
DX: Z79.899 Other long term (current) drug therapy (principal)
CPT/HCPCS: 36415

== ENCOUNTER → 2024-11-24 | Outpatient (CLI) | payer OTHER, SELFPAY ==
[2024-03-30 08:32] VITALS: BMI 25.2
[2024-11-24 11:27] LABS: Absolute Lymphocyte Count 2.97 X10^3/uL (0.83-4.51); Absolute Neutrophil Count 2.5 X10^3/uL (2.0-7.7); Basophil# 0.04 X10^3/uL; Basophil% 0.6 % (0-1); Eosinophil# 0.26 X10^3/uL; Hematocrit 37.5 % (40-54); Hemoglobin 12.4 g/dL (13.0-16.5); Lymphocyte # 2.97 X10^3/ul (0.83-4.51); Lymphocyte % 45.9 % (19-41); Mean Corp Hgb Conc 33.1 g/dL (32-36); Mean Corpuscular Hgb 30.8 pg (27.0-32.0); Mean Corpuscular Volume 93.3 fL (80-94); Monocyte# 0.74 X10^3/uL; Monocyte% 11.4 % (0-10); NRBC Flagged by Analyzer 0 % (0-5); Neutrophil # 2.45 X10^3/uL (2.7-7.7); Neutrophil % 37.9 % (47-70); Platelet Count 249 K/mm3 (150-450); RBC Distribution Width CV 12.1 % (11.6-14.6); RBC Distribution Width SD 41.6 fl (35.1-43.9); Red Blood Count 4.02 M/mm3 (4.6-6.2); White Blood Count 6.5 K/mm3 (4.4-11.0)
[2024-11-24 11:56] LABS: ALB/GLOB Ratio 1.1 RATIO (0.9-2.4); AST(SGOT) 42 U/L (15-37); Alanine Aminotransfer ALT/SGPT 50 U/L (16-61); Albumin, Serum 3.8 g/dL (3.2-5.0); Alkaline Phosphatase 66 U/L (45-117); Anion Gap 7 (5-15); BUN 21 mg/dL (7-18); BUN/Creat Ratio 13.7 RATIO (10-20); Calcium,Total 8.7 mg/dL (8.5-10.1); Chloride 107 mmol/L (98-107); Creatinine, Serum 1.53 mg/dL (0.70-1.30); EST Glomerular Filtration Rate 49 mL/min (>60); Est Glom Filt Rate - Afr Amer 59 mL/min (>60); Globulin 3.5 g/dL (2.2-4.2); Glucose 87 mg/dL (74-106); Potassium 4.4 mmol/L (3.5-5.1); Protein, Total 7.3 g/dL (6.4-8.2); Sodium Level 138 mmol/L (136-145)
== END | disposition home or self-care (01) ==
PROVIDERS: PCP Family Medicine; Referring Provider Internal Medicine Rheumatology; Visit Provider Internal Medicine Rheumatology
DX: M06.09 Rheumatoid arthritis without rheumatoid factor, multiple sites (principal); M51.369 Other intervertebral disc degeneration, lumbar region without mention of lumbar back pain or lower extremity pain; K21.9 Gastro-esophageal reflux disease without esophagitis; I25.10 Atherosclerotic heart disease of native coronary artery without angina pectoris; I73.9 Peripheral vascular disease, unspecified; I10 Essential (primary) hypertension; N52.9 Male erectile dysfunction, unspecified; M19.139 Post-traumatic osteoarthritis, unspecified wrist; Q66.70 Congenital pes cavus, unspecified foot; Z79.899 Other long term (current) drug therapy
CPT/HCPCS: 36415; 80053; 85025

== ENCOUNTER → 2025-04-26 | Outpatient (CLI) | payer OTHER, SELFPAY ==
[2024-03-30 08:32] VITALS: BMI 25.2
--- OUTSIDE RECORDS SUMMARY | 2025-04-26 07:08 | XMS RPT_ITS | CCD ---
Author Organization [facility] CliniSyaz Care Team Providers Care Hair Spinner Name Role Phone Unavailable Primary Care Provider Unavailsalima e Dr. Katia Hays Primary Care Provider [phone] Dr. Katia Hays Referring Provider KALLI La Attending Provider [phone] Katia Hays Primary Care Provider [phone] Dr. Katia Hays Referring Provider [phone] KALLI Roe Attending Provider Trey FLASK FITTER, RICK-Hector Morgan Attending Provider KALLI Roe Attending Provider Dr. Katia Hays Other Provider Dr. Bautista Hudson Attending Provider Dr. Katia Hays Primary Care Provider Dr. Katia Hays Referring Provider Trey CABRERA NP-Hector Morgan Attending Provider Dr. Katia Hays Other Provider Dr. Bautista Hudson Attending Provider [phone] Dr. Katia Hays Primary Care Provider Dr. Katia Hays Referring Provider JOAQUIN JACK MD Attending Unavailable DR KATIA HAYS DO Primary Care Unavailab emndy CEDILLO MD, ROXANA Attending Unavailable NGUYEN WHITE, ROXANA Admitting Unavailable DR KATIA HAYS DO Consulting Unavailab DR KATIA Pardo DO Primary Care Unavailab mendy HUMPHRIES MD, DR RAMIREZ Consulting Angeline NAVA MD, ARACELI Morgan Consulting Unavailable MARCIE WIHTE, JOAQUIN Consulting Unavailable LIS CHRISTY, DR KATIA Evans Primary Care Physician [phone] BETSY LÓPEZ MD Attending Unavailable LISROSCOE CHRISTY, DR KATIA Evans Primary Care Unavailab le LisKatia castillo Primary Care Unavailable Nashawati, Joaquin Attending Unavailable Nashawati, Joaquin Referring Unavailable Lis, Katia Primary Care Unavailable Vellanki, Jaz Referring Unavailable Vellanki, Jaz Attending Unavailable Stubbs, Matt Referring Unavailable Stubbs, Matt Attending Unavailable Lis, Katia Primary Care Unavailable Lis, Katia Primary Care Unavailable Lis, Katia Referring Unavailable LisKatia Attending Unavailable Thai Ocampo Attending Unavailable Lis, Katia Primary Care Unavailable Stubbs, Matt Attending Unavailable Lis, Katia Primary Care Unavailable Lis, Katia Referring Unavailable Stubbs, Matt Attending Unavailable Lis, Katia Primary Care Unavailable Lis, Katia Referring Unavailable Nashawati, Joaquin Referring Unavailable Lis, Katia Primary Care Unavailable Bautista Hudson Attending Unavailable Lis, Katia Primary Care Unavailable Vellanki, Jaz Referring Unavailable Vellanki, Jaz Attending Unavailable Nashawati, Joaquin Attending Unavailable Ils, Katia Attending Unavailable Lis, Katia Primary Care Unavailable Lis, Katia Primary Care Unavailable CARMELO, J Referring Unavailable CARMELO, Tyra Attending Unavailable Lis, Katia Primary Care Unavailable BETSY LÓPEZ Referring Unavailable RENE, BETSY Attending Unavailable Nashawahever, Joaquin Attending Unavailable Lis, Katia Primary Care Unavailable Nashawati, Joaquin Referring Unavailable Lis, Katia Primary Care Unavailable Conrad Arroyo Referring Unavailable Conrad Arroyo Attending Unavailable Vellanki, Jaz Consulting Unavailable Nashawati, Joaqiun Referring Unavailable Lis, Katia Primary Care Unavailable Nashawati, Joaquin Attending Unavailable Lis, Katia Primary Care Unavailable LisKatia Attending Unavailable Lis, Katia Primary Care Unavailable Nashawati, Joaquin Attending Unavailable Nashawati, Joaquin Referring Unavailable Allergies Allergy Classification Reported Allergen(s) Allergy Type Date of Onset Reaction(s) Facility (20 sources) Lisinopril; Translations: [lisinopril] Drug Allergy 8 Dry cough (finding) [facility] (1 source) Lisinopril Drug Allergy 4 [facility] Repository Medications Current Medications Medication Drug Class(es) Dates Sig (Normalized) Sig (Original) 0.4 ml adalimumab 100 mg/ml auto-injector (12 sources) Tumor Necrosis Factor Anton Start: 08-09-2023 Adalimumab (Humira(Cf) Pen) 40 mg/0.4 mL pen injector kit Active MG SC August 09, 2023 12:00am Start: 09-05-2022 inject 0.4 mL by sub cutaneous injection every other week Humira Pen 40 mg/0.4 mL subcutaneous kit Dose : 40 mg = 0.4 mL, Subcutaneous, q2wk, 0 Refill(s) Start Date: 09/05/22 Status: Ordered Repeat number: 1 [id number] 200 actuat albuterol 0.09 mg/actuat metered dose inhaler (11 sources) beta2-Adrenergic Agonist Start: 08-09-2023 take 1 puff(s) by inhalation every six hours Albuterol Sulfate (Ventolin Hfa) 90 mcg/actuation HFA aerosol inhaler Active 2 PUFF INHALATION EVERY 6 HOURS 8.5 August 09, 2023 12:00am amLODIPine 10 mg oral tablet (20 sources) Dihydropyridine Calcium Channel Anton Start: 02-16-2024 amLODIPine 10 mg oral tablet Dose : 10 mg = 1 tab(s), Oral, qDay, # 90 tab(s), 3 Refill(s), Pharmacy: [facility], 167, cm, 10/01/23 10:25:00 EST, Height, kg, 10/01/23 10:25:00 EST, Dosing Weight Start Date: 02/16/24 Status: Ordered Quantity: 90.0 Unit: tab(s) Repeat number: 4 Start: 09-24-2013 End: 06-22-2018 take 5 mg by mouth once daily Amlodipine Active 5 MG P O DAILY June 22, 2018 8:58am benzonatate 200 mg oral capsule (11 sources) Non-narcotic Antitussive Start: 08-09-2023 take 200 mg by mouth three times daily Benzonatate Active 200 MG PO THREE TIMES A DAY 20 August 09, 2023 12:00am carvedilol 25 mg oral tablet (12 sources) alpha-Adrenergic Anton, beta-Adrenergic Anton Start: 03-28-2024 carvedilol 25 mg oral tablet Dose : 25 mg = 1 tab(s), Oral, BID, # 180 tab(s), 3 Refill(s), Pharmacy: [facility], 167, cm, 10/01/23 10:25:00 EST, Height, kg, 10/01/23 10:25:00 EST, Dosing Weight Start Date: 03/28/24 Status: Ordered Quantity: 180.0 Unit: tab(s) Repeat number: 4 Start: 08-09-2023 Carvedilol Act keke MG PO August 08, 2023 11:00pm Start: 08-09-2023 Carvedilol Act keke MG PO August 09, 2023 12:00am clopidogrel 75 mg oral tablet (12 sources) [id number] Platelet Inhibitor Start: 07-26-2024 clopidogrel 75 mg or al tablet Dose : 75 mg = 1 tab(s), Oral, qDay, # 90 tab(s), 3 Refill(s), Pharmacy: [facility], 165, cm, 04/08/24 9:04:00 EDT, Height, kg, 04/08/24 9:04:00 EDT, Dosing Weight Start Date: 07/26/24 Status: Ordered Quantity: 90.0 Unit: tab(s) Repeat number: 4 Start: 08-09-2023 Clopidogrel Ac tive MG PO August 09, 2023 12:00am esomeprazole 40 mg delayed release oral capsule (12 sources) Proton Pump Inhibitor Start: 08-09-2023 Esomeprazole Magnesi um Active MG PO August 09, 2023 12:00am Start: 08-22-2020 esomeprazole 4 0 mg oral delayed release capsule Dose : 40 mg = 1 cap(s), Oral, qDay, 0 Refill(s) Start Date: 08/22/20 Status: Ordered Repeat number: 1 gabapentin 600 mg oral tablet (12 sources) Anti-epileptic Agent Start: 08-09-2023 Gabapenti n Active MG PO August 09, 2023 12:00am Start: 09-05-2022 gabapentin 600 mg oral tablet Dose : 600 mg = 1 tab(s), Oral, TID, 0 Refill(s), 75.8 Start Date: 09/05/22 Status: Ordered Repeat number: 1 hydroCHLOROthiazide 12.5 mg / losartan potassium 100 mg oral tablet (20 sources) Thiazide Diuretic, Angiotensin 2 Receptor Anton Start: 09-24-2013 End: 06-22-2018 take 1 tablet by mouth once daily Losartan-Hydrochlorothiazide Active 1 TABLET PO DAILY June 22, 2018 8:59am hydroxychloroquine sulfate 200 mg oral tablet (12 sources) Antimalarial, Antirheumatic Agent Start: 08-09-2023 Hydroxychloroquine Active MG PO August 09, 2023 12:00am Start: 09-05-2022 hydroxychloroq uine 200 mg oral tablet Dose : 200 mg = 1 tab(s), Oral, BID, 0 Refill(s) Start Date: 09/05/22 Status: Ordered Repeat number: 1 losartan potassium 100 mg oral tablet (1 source) Angiotensin 2 Receptor Anton Start: 03-28-2024 losartan 100 mg oral tablet Dose : 100 mg = 1 tab(s), Oral, qDay, # 90 tab(s), 3 Refill(s), Pharmacy: [facility], 167, cm, 10/01/23 10:25:00 EST, Height, kg, 10/01/23 10:25:00 EST, Dosing Weight Start Date: 03/28/24 Status: Ordered Quantity: 90.0 Unit: tab(s) Repeat number: 4 Multivitamin With Folic Acid (20 sources) Start: 10-04-2013 take 1 tablet by mouth once daily Multivitamin With Folic Acid Active 1 TABLET PO DAILY October 04, 2013 7:14am Start: 10-04-2013 take 1 tablet by sharan th once daily Multivitamin With Folic Acid Active 1 TABLET PO DAILY October 04, 2013 12:00am Start: 10-04-2013 take 1 tablet by sharan th once daily Multivitamin With Folic Acid Active 1 TABLET PO DAILY October 04, 2013 1:00am oxyCODONE hydrochloride 5 mg oral capsule (13 sources) Opioid Agonist Start: 03-29-2024 take 5 mg by mouth every eight hours Oxycodone Active 5 MG PO Q8H 12 3 March 29, 2024 Start: 08-09-2023 Oxycodone Acti ve MG PO August 09, 2023 12:00am Start: 04-18-2020 oxyCODONE 5 mg oral tablet ( IMMEDIATE release ) Dose : 5 mg = 1 tab(s), Oral, q6h, PRN as needed for pain, 0 Refill(s), 68 Start Date: 04/18/20 Status: Ordered Repeat number: 1 potassium chloride 10 meq extended release oral capsule (20 sources) Start: 04-18-2020 potassium chlo ride 10 mEq oral capsule, extended release Dose : 10 mEq = 1 cap(s), Oral, qDay, 0 Refill(s) Start Date: 04/18/20 Status: Ordered Repeat number: 1 Start: 09-24-2013 take 8 mEq by mouth once daily Potassium Chloride Active 8 MEQ PO DAILY September 24, 2013 12:00am rosuvastatin calcium 40 mg oral tablet (12 sources) HMG-CoA Reductase Inhibitor Start: 09-19-2024 rosuvastatin 40 mg oral tablet Dose : 40 mg = 1 tab(s), Oral, Daily, # 90 tab(s), 3 Refill(s), Pharmacy: [facility], 165, cm, 04/08/24 9:04:00 EDT, Height, kg, 04/08/24 9:04:00 EDT, Dosing Weight Start Date: 09/19/24 Status: Ordered Quantity: 90.0 Unit: tab(s) Repeat number: 4 Start: 08-09-2023 Rosuvastatin A ctive MG PO August 09, 2023 12:00am Symbicort 160 mcg-4.5 mcg/inh Inhaler (1 source) Start: 09-14-2023 take 1 dose by inhalation twice daily Symbicort 160 mcg-4.5 mcg/inh Inhaler Dose = 2 puff(s), Inhalation, BID, # 1 EA, 0 Refill(s), Pharmacy: [facility], 167.6, cm, 09/12/23 4:48:00 EDT, Height, kg, 09/12/23 4:48:00 EDT, Dosing Weight Start Date: 09/14/23 Status: Ordered Quantity: 1.0 Unit: EA Repeat number: 1 Completed/Discontinued Medications Medication Drug Class(es) Dates Sig (Normalized) Sig (Original) azithromycin 250 mg oral tablet (11 sources) Macrolide Antimicrobial Start: 07-20-2023 End: 09-17-2023 Azithromycin Discontinued 250 MG PO daily July 20, 2023 12:00am August 09, 2023 8:46am 2 tablets today, then 1 tablet daily on days 2 through 5 doxycycline hyclate 100 mg oral capsule (20 sources) Tetracycline-class Drug Start: 08-09-2023 End: 08-16-2023 take 100 mg by mouth twice daily Doxycycline Hyclate Discontinued 100 MG PO TWICE A DAY 14 August 09, 2023 12:00am August 16, 2023 12:04am Start: 02-27-2023 End: 07-20-2023 take 100 mg by mouth twice daily Doxycycline Hyclate Discontinued 100 MG PO TWICE A DAY February 27, 2023 12:00am July 20, 2023 11:04am methylPREDNISolone 4 mg oral tablet (20 sources) Corticosteroid Start: 02-27-2023 End: 08-09-2023 take 1 tablet by mouth once Methylprednisolone (Medrol (Johan)) 4 mg tablets,dose pack Discontinued 0 PO per package directions July 20, 2023 12:00am August 09, 2023 8:46am PO PER PKG DIR nitroglycerin 0.4 mg sublingual tablet (1 source) Nitrate Vasodilator Start: 01-08-2022 End: 04-08-2022 Nitrostat 0.4 mg sublingual tablet Dose : 0.4 mg = 1 tab(s), Sublingual, q5min, PRN Chest pain, # 100 tab(s), 2 Refill(s), Pharmacy: [facility], 170, cm, 07/19/21 8:33:00 EDT, Height, kg, 07/19/21 8:33:00 EDT, Dosing Weight Start Date: 01/08/22 Stop Date: 04/08/22 Status: Ordered Quantity: 100.0 Unit: tab(s) Repeat number: 3 Problems Active Problems Problem Classification Problem Date Documented Da te Episodic/Chronic Acute bronchitis (17 sources) Acute bronchitis; Translations: [Acute bronchitis, unspecified] 02-27-2023 Episodic Acute myocardial infarction (12 sources) Myocardial infarction; Translations: [ST elevation (STEMI) myocardial infarction of unspecified site] Onset: 03-23-2020 08-09-2023 Chronic Comment on above: stents in RCA x3 Aortic and peripheral arterial embolism or thrombosis (2 sources) 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; Translations: [Other arterial embolism and thrombosis of abdominal aorta] Onset: 12-12-2024 Chronic Chronic obstructive pulmonary disease and bronchiectasis (2 sources) Chronic obstructive lung disease; Translations: [Chronic obstructive pulmonary disease, unspecified] Onset: 06-21-2024 10-01-2023 Chronic Coronary atherosclerosis and other heart disease (14 sources) Coronary atherosclerosis; Translations: [Atherosclerotic heart disease of [place] coronary artery without angina pectoris] Onset: 01-25-2024 08-09-2023 Chronic Disorders of lipid metabolism (3 sources) Hyperlipidemia; Translations: [Hyperlipidemia, unspecified] Onset: 12-06-2024 Chronic Comment on above: pt is unable to take statins due to myalgias, it has reynaldo discussed ro start on injections in the future Essential hypertension (3 sources) Essential hypertension; Translations: [Essential (primary) hypertension] Onset: 12-06-2024 Chronic Immunizations and screening for infectious disease (13 sources) Contact with and (suspected) exposure to other viral communicable diseases; Translations: [Contact with or suspected exposure to other viral communicable disease] 07-20-2023 Episodic Open wounds of head; neck; and trunk (20 sources) Laceration - injury; Translations: [Laceration] 09-24-2013 Episodic Other aftercare (2 sources) Other terminal gauger (current) drug therapy; Translations: [Other mcfp (current) drug therapy] Onset: 12-06-2024 Episodic Other lower respiratory disease (20 sources) Cough; Translations: [Cough] 02-27-2023 Episodic Other lower respiratory disease (11 sources) Wheezing; Translations: [Wheezing] 07-20-2023 Episodic Other lower respiratory disease (2 sources) Wheezing; Translations: [Wheezing] 07-20-2023 Episodic Peripheral and visceral atherosclerosis (2 sources) Peripheral vascular disease; Translations: [Peripheral vascular disease, unspecified] Onset: 12-06-2024 Chronic Residual codes; unclassified (11 sources) History of cardiovascular surgery; Translations: [Other specified postprocedural states] 08-09-2023 Episodic Rheumatoid arthritis and related disease (2 sources) Rheumatoid arthritis without rheumatoid factor, multiple sites; Translations: [Rheumatoid arthritis without rheumatoid factor, multiple sites] Onset: 12-06-2024 Chronic Unclassified (1 source) Peripheral arterial disease 07-19-2021 Viral infection (20 sources) Disease caused by 2019-nCoV; Translations: [COVID-19] 11-17-2021 Episodic Past or Other Problems Problem Classification Problem Date Documented Da te Episodic/Chronic Fracture of lower limb (4 sources) Metatarsal bone fracture; Translations: [Fracture of unspecified metatarsal bone(s), unspecified foot, initial encounter for closed fracture] Onset: 04-07-2024 03-29-2024 Episodic Other aftercare (1 source) Encounter for surgical aftercare following surgery on the circulatory system; Translations: [Encounter for surgical aftercare following surgery on the circulatory system] Onset: 08-02-2024 Episodic Other screening for suspected conditions (not mental disorders or infectious disease) (3 sources) Encounter for screening for malignant neoplasm of prostate; Translations: [Encounter for screening for malignant neoplasm of respiratory organs] Onset: 03-17-2024 Episodic Results Test Name Value Interpretation Reference Range Facility .Auto Diffon 12-12-2024 Basophil, Absolute 0.0 10 3/mcL Normal 0.0-0.3 [facility] Comment on above: Performed By: #### A SANFORD, GFR, CBC, ADIFF, BMP #### [address] [address] Basophils/100 WBC (Bld) 0.6 % Normal 0.0-2.5 [facility] Comment on above: Performed By: #### A SANFORD, GFR, CBC, ADIFF, BMP #### [address] [address] Eosinophil, Absolute 0.3 10 3/mcL Normal 0.0-0.7 [facility] Comment on above: Performed By: #### A SANFORD, GFR, CBC, ADIFF, BMP #### [address] [address] Eosinophils/100 WBC (Bld) 5.2 % Normal 0.0-6.0 [facility] Comment on above: Performed By: #### A SANFORD, GFR, CBC, ADIFF, BMP #### [address] [address] Lymphocyte, Absolute 2.1 10 3/mcL Normal 0.9-4.3 [facility] Comment on above: Performed By: #### A SANFORD, GFR, CBC, ADIFF, BMP #### [address] [address] Lymphocytes/100 WBC (Bld) 40.4 % High 20.0-40.0 [facility] Comment on above: Performed By: #### A SANFORD, GFR, CBC, ADIFF, BMP #### [address] [address] Monocyte, Absolute 0.5 10 3/mcL Normal 0.1-1.4 [facility] Comment on above: Performed By: #### A SANFORD, GFR, CBC, ADIFF, BMP #### [address] [address] Monocytes/100 WBC (Bld) 10.1 % Normal 2.0-13.0 [facility] Comment on above: Performed By: #### A SANFORD, GFR, CBC, ADIFF, BMP #### [address] [address] Neutrophils/100 WBC (Bld) 43.7 % Low 50.0-75.0 [facility] Comment on above: Performed By: #### A SANFORD, GFR, CBC, ADIFF, BMP #### [address] [address] .GFRon 12-12-2024 GFR >60 Normal [facility] Comment on above: Result Comment: GFR Population mean for , Non- Americans Ages 20-29 = 116 mL/min/1.73 sq.m. Ages 30-39 = 107 mL/min/1.73 sq.m. Ages 40-49 = 99 mL/min/1.73 sq.m. Ages 50-59 = 93 mL/min/1.73 sq.m. Ages 60-69 = 85 mL/min/1.73 sq.m. Ages 70+ = 75 mL/min/1.73 sq.m. Chronic Kidney Disease: Less than 60 mL/min/1.73 square meters End Stage Renal Disease: Less than 15 mL/min/1.73 square meters Performed By: #### A SANFORD, GFR, CBC, ADIFF, BMP #### [address] [address] GFR Non- 57 ml/min/1.73sqm Normal [facility] Comment on above: Result Comment: GFR Population mean for , Non- Americans Ages 20-29 = 116 mL/min/1.73 sq.m. Ages 30-39 = 107 mL/min/1.73 sq.m. Ages 40-49 = 99 mL/min/1.73 sq.m. Ages 50-59 = 93 mL/min/1.73 sq.m. Ages 60-69 = 85 mL/min/1.73 sq.m. Ages 70+ = 75 mL/min/1.73 sq.m. Chronic Kidney Disease: Less than 60 mL/min/1.73 square meters End Stage Renal Disease: Less than 15 mL/min/1.73 square meters Performed By: #### A SANFORD, GFR, CBC, ADIFF, BMP #### [address] [address] .NEUABSon 12-12-2024 Neutrophil, Absolute 2.3 10 3/mcL Normal 2.3-8.1 [facility] Comment on above: Performed By: #### A SANFORD, GFR, CBC, ADIFF, BMP #### [address] [address] [facility] BUN/Creatinine Ratio 12.6 ratio Normal 10.0-22.0 [facility] Comment on above: Performed By: #### A SANFORD, GFR, CBC, ADIFF, BMP #### [address] [address] Calcium [Mass/Vol] 9.4 mg/dL Normal 8.7-10.4 [facility] Comment on above: Performed By: #### A SANFORD, GFR, CBC, ADIFF, BMP #### [address] [address] Chloride [Moles/Vol] 107 mmol/L Normal 98-110 [facility] Comment on above: Performed By: #### A SANFORD, GFR, CBC, ADIFF, BMP #### [address] [address] CO2 [Moles/Vol] 26 mmol/L Normal 22-32 [facility] Comment on above: Performed By: #### A SANFORD, GFR, CBC, ADIFF, BMP #### [address] [address] Creatinine [Mass/Vol] 1.27 mg/dL Normal 0.60-1.40 [facility] Comment on above: Result Comment: Test ing performed on [employer] analyzer using enzymatic creatinine methodology. Performed By: #### A SANFORD, GFR, CBC, ADIFF, BMP #### [address] [address] Electrolyte Balance 8.0 mEq/L Normal 4.0-15.0 [facility] Comment on above: Performed By: #### A SANFORD, GFR, CBC, ADIFF, BMP #### [address] [address] Glucose [Mass/Vol] 94 mg/dL Normal 82-115 [facility] Comment on above: Performed By: #### A SANFORD, GFR, CBC, ADIFF, BMP #### [address] [address] Potassium [Moles/Vol] 4.4 mmol/L Normal 3.5-5.0 [facility] Comment on above: Performed By: #### A SANFORD, GFR, CBC, ADIFF, BMP #### [address] [address] Sodium [Moles/Vol] 141 mmol/L Normal 136-145 [facility] Comment on above: Performed By: #### A SANFORD, GFR, CBC, ADIFF, BMP #### [address] [address] Urea nitrogen [Mass/Vol] 16.0 mg/dL Normal 8.0-22.0 [facility] Comment on above: Performed By: #### A SANFORD, GFR, CBC, ADIFF, BMP #### [address] [address] CBCon 12-12-2024 Erythrocyte distribution width (RBC) [Ratio] 12.4 % Normal 11.5-15.5 [facility] Comment on above: Performed By: #### A SANFORD, GFR, CBC, ADIFF, BMP #### [place] [address] Hematocrit (Bld) [Volume fraction] 38.6 % Low 40.0-52.0 [facility] Comment on above: Performed By: #### A SANFORD, GFR, CBC, ADIFF, BMP #### [place] [address] Hgb 13.5 G/dL Normal 13.0-17.5 [facility] Comment on above: Performed By: #### A SANFORD, GFR, CBC, ADIFF, BMP #### [place] [address] MCH (RBC) [Entitic mass] 32.3 pg Normal 27.0-33.0 [facility] Comment on above: Performed By: #### A SANFORD, GFR, CBC, ADIFF, BMP #### [place] [address] MCHC 34.8 G/dL Normal 32.0-36.0 [facility] Comment on above: Performed By: #### A SANFORD, GFR, CBC, ADIFF, BMP #### [place] [address] MCV (RBC) [Entitic vol] 92.6 fL Normal 81.0-100.0 [facility] Comment on above: Performed By: #### A SANFORD, GFR, CBC, ADIFF, BMP #### [place] [id number] Platelet 250 10 3/mcL Normal 150-450 [facility] Comment on above: Performed By: #### A SANFORD, GFR, CBC, ADIFF, BMP #### [place] [address] Platelet mean volume (Bld) [Entitic vol] 8.1 fL Normal 6.4-10.5 [facility] Comment on above: Performed By: #### A SANFORD, GFR, CBC, ADIFF, BMP #### [place] [id number] RBC 4.17 10 6/mcL Low 4.50-6.00 [facility] Comment on above: Performed By: #### A SANFORD, GFR, CBC, ADIFF, BMP #### [facility] [address] [place] [address] WBC 5.2 10 3/mcL Normal 4.5-10.8 [facility] Comment on above: Performed By: #### A SANFORD, GFR, CBC, ADIFF, BMP #### [facility] [address] [place] [id number] IR ARTERIOGRAM EXTREMITY ENOC ATERAL LOWERon 12-12-2024 IR ARTERIOGRAM EXTREMITY BILATERAL LOWER ORIGINAL Images acquired, not reported on this accession number. Normal [facility] LABORATORYOrdered By: SYSTEM SYSTEM on 12-12-2024 Basophils (Bld) [#/Vol] 0.0 103/mcL Normal 0.0 - 0.3 10^3/mcL Workflow SS Basophils/100 WBC (Bld) 0.6 % Normal 0.0 - 2.5 % Workflow SS Calcium [Mass/Vol] 9.4 mg/dL Normal 8.7 - 10. 4 mg/dL ADM SS Chloride [Moles/Vol] 107 mmol/L Normal 98 - 11 0 mEq/L ADM SS CO2 [Moles/Vol] 26 mmol/L Normal 22 - 32 mEq/L ADM SS Creatinine [Mass/Vol] 1.27 mg/dL Normal 0.60 - 1.40 mg/dL ADM SS Comment on above: Interpretive Data: T esting performed on [employer] CH analyzer using enzymatic creatinine methodology. Electrolyte Balance 8.0 mEq/L Normal 4.0 - 15 .0 mEq/L ADM SS Eosinophils (Bld) [#/Vol] 0.3 103/mcL Normal 0.0 - 0.7 10^3/mcL Workflow SS Eosinophils/100 WBC (Bld) 5.2 % Normal 0.0 - 6.0 % AH Workflow SS Erythrocyte distribution width (RBC) [Ratio] 12.4 % Normal 11.5 - 15.5 % Workflow SS GFR/1.73 sq M.predicted among blacks MDRD (S/P/Bld) [Vol rate/Area] ml/min/1.73sqm Invalid Interpretation Code Chemistry S Comment on above: Interpretive Data: GFR Population mean for , Non- Americans Ages 20-29 = 116 mL/min/1.73 sq.m. Ages 30-39 = 107 mL/min/1.73 sq.m. Ages 40-49 = 99 mL/min/1.73 sq.m. Ages 50-59 = 93 mL/min/1.73 sq.m. Ages 60-69 = 85 mL/min/1.73 sq.m. Ages 70+ = 75 mL/min/1.73 sq.m. Chronic Kidney Disease: Less than 60 mL/min/1.73 square meters End Stage Renal Disease: Less than 15 mL/min/1.73 square meters GFR/1.73 sq M.predicted among non-blacks MDRD (S/P/Bld) [Vol rate/Area] 57 ml/min/1.73sqm Invalid Interpretation Code Chemistry S Comment on above: Interpretive Data: GFR Population mean for , Non- Americans Ages 20-29 = 116 mL/min/1.73 sq.m. Ages 30-39 = 107 mL/min/1.73 sq.m. Ages 40-49 = 99 mL/min/1.73 sq.m. Ages 50-59 = 93 mL/min/1.73 sq.m. Ages 60-69 = 85 mL/min/1.73 sq.m. Ages 70+ = 75 mL/min/1.73 sq.m. Chronic Kidney Disease: Less than 60 mL/min/1.73 square meters End Stage Renal Disease: Less than 15 mL/min/1.73 square meters Glucose [Mass/Vol] 94 mg/dL Normal 82 - 115 mg/dL ADM SS Hematocrit (Bld) [Volume fraction] 38.6 % Low 40.0 - 52.0 % Workflow SS Hemoglobin (Bld) [Mass/Vol] 13.5 G/dL Normal 13.0 - 17.5 G/dL Workflow SS Lymphocytes (Bld) [#/Vol] 2.1 103/mcL Normal 0.9 - 4.3 10^3/mcL Workflow SS Lymphocytes/100 WBC (Bld) 40.4 % High 20.0 - 40.0 % Workflow SS MCH (RBC) [Entitic mass] 32.3 pg Normal 27.0 - 33.0 pg Workflow SS MCHC 34.8 G/dL Normal 32.0 - 36.0 G/dL AH Workflow SS MCV (RBC) [Entitic vol] 92.6 fL Normal 81.0 - 100.0 fL AH Workflow SS Monocytes (Bld) [#/Vol] 0.5 103/mcL Normal 0.1 - 1.4 10^3/mcL AH Workflow SS Monocytes/100 WBC (Bld) 10.1 % Normal 2.0 - 13.0 % AH Workflow SS Neutrophils (Bld) [#/Vol] 2.3 103/mcL Normal 2.3 - 8.1 10^3/mcL AH Workflow SS Neutrophils/100 WBC (Bld) 43.7 % Low 50.0 - 75.0 % AH Workflow SS Platelet mean volume (Bld) [Entitic vol] 8.1 fL Normal 6.4 - 10.5 fL AH Workflow SS Platelets (Bld) [#/Vol] 250 103/mcL Normal 150 - 450 10^3/mcL AH Workflow SS Potassium [Moles/Vol] 4.4 mmol/L Normal 3.5 - 5.0 mEq/L AH ADM SS RBC (Bld) [#/Vol] 4.17 106/mcL Low 4.50 - 6.0 0 10^6/mcL AH Workflow SS Sodium [Moles/Vol] 141 mmol/L Normal 136 - 145 mEq/L AH ADM SS Urea nitrogen [Mass/Vol] 16.0 mg/dL Normal 8.0 - 22.0 mg/dL AH ADM SS Urea nitrogen/Creatinine [Mass ratio] 12.6 ratio Normal 10.0 - 22.0 ratio AH ADM SS WBC (Bld) [#/Vol] 5.2 103/mcL Normal 4.5 - 10.8 10^3/mcL Workflow SS Miscellaneous Lab Procedureo n 11-26-2024 [facility] Normal [facility] Comment on above: Order Comment: DRUG [id number] W/REFLEX [id number] WB/RT DRUG [id number] W/REFLEX [id number] WB/RT Result Comment: TEST RESULTS LIMITS Drug Screen 16 w/Conf, WB AMPHETAMINES, [place] Negative ng/mL Cutoff:50 BARBITURATES, [place] Negative ug/mL Cutoff:0.1 BENZODIAZEPINES, [place] Negative ng/mL Cutoff:20 COCAINE/METABOLITE,IA Negative ng/mL Cutoff:25 PHENCYCLIDINE, IA Negative ng/mL Cutoff:8 THC (MARIJUANA) MTB,IA ++POSITIVE++ ng/mL Cutoff:5 OPIATES, IA Negative ng/mL Cutoff:5 Presumptive immunoassay result indicated need for further testing; definitive confirmation was negative. OXYCODONES, IA ++POSITIVE++ ng/mL Cutoff:5 METHADONE, IA Negative ng/mL Cutoff:25 FENTANYL, IA Negative ng/mL Cutoff:1.0 BUPRENORPHINE, IA Negative ng/mL Cutoff:1.0 PROPOXYPHENE, IA Negative ng/mL Cutoff:50 MEPERIDINE, IA Negative ng/mL Cutoff:100 TRAMADOL, IA Negative ng/mL Cutoff:50 GABAPENTIN, IA ++POSITIVE++ ug/mL Cutoff:1.0 CARISOPRODOL, IA Negative ug/mL Cutoff:0.5 This test was developed and its performance characteristics determined by [employer]. It has not been cleared or approved by the Food and Drug Administration. OPIATES,MS,WB/SP RFX Opiate Confirmation Negative Codeine Negative ng/mL Morphine Negative ng/mL 6-Acetylmorphine Negative Hydrocodone Negative ng/mL Hydromorphone Negative ng/mL Dihydrocodeine Negative ng/mL Confirmation threshold: 1.0 ng/mL OXYCODONES,MS,WB/SP RFX Oxycodones Confirmation Positive Oxycodone 30.4 ng/mL Oxymorphone Negative ng/mL Expected metabolism of oxycodone class drugs: Parent Drug Detected Metabolites Oxycodone: Oxymorphone Oxymorphone: None Confirmation threshold: 1.0 ng/mL THC,MS,WB/SP RFX Cannabinoid Confirmation Positive Tetrahydrocannabinol(THC) Negative ng/mL Carboxy-THC 38.8 ng/mL Hydroxy-THC Negative ng/mL Cannabidiol Negative ng/mL Confirmation threshold: 1.0 ng/mL GABAPENTIN,IA,WB/SP RFX Gabapentin Confirmation Positive Gabapentin 8.0 ug/mL Confirmation threshold: 1.0 ug/mL TESTING PERFORMED AT [facility]. ORIGINAL REPORT ON FILE IN LAB CONTAINS ADDITIONAL TEST SITE INFORMATION. Performed By: #### L 801.1541 #### [facility] [address] [place], [address] CBC W/Diff, Automatedon 01-0 2-2025 Absolute Lymph 2.97 X10 3/uL Normal 0.83-4.51 [facility] Comment on above: Performed By: #### L 100.0100, L500.4050 #### [facility] [address] [place], [address] Absolute Neut 2.5 X10 3/uL Normal 2.0-7.7 [facility] Comment on above: Performed By: #### L 100.0100, L500.4050 #### [facility] [address] [place], [address] Basophils/100 WBC (Bld) 0.6 % Normal 0-1 [facility] Comment on above: Performed By: #### L 100.0100, L500.4050 #### [facility] [address] [place], [address] Eosinophils/100 WBC (Bld) 4.0 % Normal 0-5 [facility] Comment on above: Performed By: #### L 100.0100, L500.4050 #### [facility] [address] [place], [address] Erythrocyte distribution width (RBC) [Ratio] 12.1 % Normal 11.6-14.6 [facility] Comment on above: Performed By: #### L 100.0100, L500.4050 #### [facility] [address] [place], [address] Hematocrit (Bld) [Volume fraction] 37.5 % Low 40-54 [facility] Comment on above: Performed By: #### L 100.0100, L500.4050 #### [facility] [address] [place], [address] Hemoglobin (Bld) [Mass/Vol] 12.4 g/dL Low 13.0-16.5 [facility] Comment on above: Performed By: #### L 100.0100, L500.4050 #### [facility] [address] [place], [address] IG% 0.200 Normal 0.0-0.9 [facility] Comment on above: Result Comment: IG% - Immature Granulocytes (promyelocytes, myelocytes and metamyelocytes) > 1% indicates that a LEFT SHIFT is Present. Performed By: #### L 100.0100, L500.4050 #### [facility] [address] [place], [address] Lymphocytes/100 WBC (Bld) 45.9 % High 19-41 [facility] Comment on above: Performed By: #### L 100.0100, L500.4050 #### [facility] [address] [place], [address] MCH (RBC) [Entitic mass] 30.8 pg Normal 27.0-32.0 [facility] Comment on above: Performed By: #### L 100.0100, L500.4050 #### [facility] [address] [place], [address] MCHC (RBC) [Mass/Vol] 33.1 g/dL Normal 32-36 [facility] Comment on above: Performed By: #### L 100.0100, L500.4050 #### [facility] [address] [place], [address] MCV (RBC) [Entitic vol] 93.3 fL Normal 80-94 [facility] Comment on above: Performed By: #### L 100.0100, L500.4050 #### [facility] [address] [place], [address] Monocytes/100 WBC (Bld) 11.4 % High 0-10 [facility] Comment on above: Performed By: #### L 100.0100, L500.4050 #### [facility] [address] [place], [address] Neutrophils/100 WBC (Bld) 37.9 % Low 47-70 [facility] Comment on above: Performed By: #### L 100.0100, L500.4050 #### [facility] [address] [place], [address] Nucleated RBC (Bld) [#/Vol] 0 10*3/uL Normal 0-5 [facility] Comment on above: Performed By: #### L 100.0100, L500.4050 #### [facility] [address] [place], [address] Platelet mean volume (Bld) [Entitic vol] 10.0 fL Normal 6.2-12.0 [facility] Comment on above: Performed By: #### L 100.0100, L500.4050 #### [facility] [address] [place], [address] Platelets (Bld) [#/Vol] 249 10*3/uL Normal 150-450 [facility] Comment on above: Performed By: #### L 100.0100, L500.4050 #### [facility] [address] [place], [address] RBC (Bld) [#/Vol] 4.02 10*6/uL Low 4.6-6.2 [facility] Comment on above: Performed By: #### L 100.0100, L500.4050 #### [facility] [address] [place], [address] RDW SD 41.6 fl Normal 35.1-43.9 [facility] Comment on above: Performed By: #### L 100.0100, L500.4050 #### [facility] [address] [place], [address] WBC (Bld) [#/Vol] 6.5 10*3/uL Normal 4.4-11.0 [facility] Comment on above: Performed By: #### L 100.0100, L500.4050 #### [facility] [address] [place], [address] Comprehensive Metabolic Prof ilon 11-24-2024 Albumin [Mass/Vol] 3.8 g/dL Normal 3.2-5.0 [facility] Comment on above: Performed By: #### L 100.0100, L500.4050 #### [facility] [address] [place], [address] Albumin/Globulin [Mass ratio] 1.1 {ratio} Normal 0.9-2.4 [facility] Comment on above: Performed By: #### L 100.0100, L500.4050 #### [facility] [address] [place], [address] ALK P 66 U/L Normal 45-117 [facility] Comment on above: Performed By: #### L 100.0100, L500.4050 #### [facility] [address] [place], [address] ALT [Catalytic activity/Vol] 50 U/L Normal 16-61 [facility] Comment on above: Performed By: #### L 100.0100, L500.4050 #### [facility] [address] [place], [address] AST [Catalytic activity/Vol] 42 U/L High 15-37 [facility] Comment on above: Performed By: #### L 100.0100, L500.4050 #### [facility] [address] [place], [address] Bilirubin [Mass/Vol] 0.50 mg/dL Normal 0.20-1.00 [facility] Comment on above: Result Comment: For patients on eltrombopag therapy, use of Dimension [place] TBIL is not recommended. Performed By: #### L 100.0100, L500.4050 #### [facility] [address] [place], [address] BUN/CRE 13.7 RATIO Normal 10-20 [facility] Comment on above: Performed By: #### L 100.0100, L500.4050 #### [facility] [address] [place], [address] CA,Total 8.7 mg/dL Normal 8.5-10.1 [facility] Comment on above: Performed By: #### L 100.0100, L500.4050 #### [facility] [address] [place], [address] Chloride [Moles/Vol] 107 mmol/L Normal 98-107 [facility] Comment on above: Performed By: #### L 100.0100, L500.4050 #### [facility] [address] [place], [address] CO2 [Moles/Vol] 24.0 mmol/L Normal 21.0-32.0 [facility] Comment on above: Performed By: #### L 100.0100, L500.4050 #### [facility] [address] [place], [address] Creatinine [Mass/Vol] 1.53 mg/dL High 0.70-1.30 [facility] Comment on above: Result Comment: The validity of the calculated GFR GFRAA in patients over 70 years has not been determined. Clinical correlation is essential. Performed By: #### L 100.0100, L500.4050 #### [facility] [address] [place], [address] EST GFR - AA 59 mL/min Low >60 [facility] Comment on above: Result Comment: Afri can Guinean GFR Calc Performed By: #### L 100.0100, L500.4050 #### [facility] [address] [place], [address] GAP 7 Normal 5-15 [facility] Comment on above: Performed By: #### L 100.0100, L500.4050 #### [facility] [address] [place], [address] GFR/1.73 sq M.predicted among non-blacks MDRD (S/P/Bld) [Vol rate/Area] 49 mL/min/{1.73_m2} Low >60 [facility] Comment on above: Result Comment: Non- GFR Calc Performed By: #### L 100.0100, L500.4050 #### [facility] [address] [place], [address] Globulin (S) [Mass/Vol] 3.5 g/dL Normal 2.2-4.2 [facility] Comment on above: Performed By: #### L 100.0100, L500.4050 #### [facility] [address] [place], [address] Glucose [Mass/Vol] 87 mg/dL Normal 74-106 [facility] Comment on above: Performed By: #### L 100.0100, L500.4050 #### [facility] [address] [place], [address] Potassium [Moles/Vol] 4.4 mmol/L Normal 3.5-5.1 [facility] Comment on above: Performed By: #### L 100.0100, L500.4050 #### [facility] [address] [place], [address] Sodium [Moles/Vol] 138 mmol/L Normal 136-145 [facility] Comment on above: Performed By: #### L 100.0100, L500.4050 #### [facility] [address] [place], [address] T PROT 7.3 g/dL Normal 6.4-8.2 [facility] Comment on above: Performed By: #### L 100.0100, L500.4050 #### [facility] [address] [place], [address] Urea nitrogen [Mass/Vol] 21 mg/dL High 7-18 [facility] Comment on above: Performed By: #### L 100.0100, L500.4050 #### [facility] [address] [place], [address] Abd Aortic/IVC Duplex scanon 07-22-2024 Abd Aortic/IVC Duplex scan [facility] [address] 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 in cross- Peak systolic flow velocities within the proximal sectional axis. aorta measure 54.2 cm/sec. Proximal aorta measures1.58cm. in longitudinal Peak systolic flow velocities within the mid aorta axis. measure 88.6 cm/sec. Mid aorta measures1.52 x 1.45cm. in cross- Peak systolic flow velocities within the distal sectional axis. aorta measure 77.7 cm/sec. Mid aorta measures1.69cm. in longitudinal axis. Distal aorta measures1.52 x 1.42cm. in cross- sectional axis. Distal aorta measures1.49cm. in longitudinal axis. Left Iliac Artery Left iliac artery measures 0.79 x 0.74 cm. in the cross-sectional axis. Left iliac artery measures 0.74 cm. in the longitudinal axis. Peak systolic velocity in the left iliac artery measures 293.5 cm/sec. Right Iliac Artery Right iliac artery measures 1.03 x 1.05 cm. in the cross-sectional axis. Right iliac artery measures 1.05 cm. in the longitudinal axis. Peak systolic velocity in the right iliac artery measures 124.1 cm/sec. VL/Abd Aortic/IVC Duplex scan Interpretation Summary Left common iliac artery severe stenosis. Otherwise no stenosis or aneurysm seen. Ordering Physician: BETSY LÓPEZ Referring Physician: Luciano Hays Performed By: Satnam Kelly, ANDREA 08/17/24951 Date Ede Kauffman MD CC: Dr. Katia Hays, DO; BETSY LÓPEZ MD Date Dictated: 07/22/24814 Date Transcribed: 08/17/24951 House Supervisor: Signed Normal [facility] Ankle Brachial Indexon 07-22 Ankle Brachial Index [facility] [address] 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 Left Segmental Pressures Left brachial= 134mmHg. Left posterior tibial artery = 122mmHg. Left dorsalis pedis artery = 117mmHg. Left digit = 85 mmHg. The left posterior tibial artery waveforms are biphasic. The left dorsalis pedis waveforms are triphasic. Right Segmental Pressures Right brachial= 136mmHg. Right posterior tibial artery = 142mmHg. Right dorsalis pedis artery = 138mmHg. Right digit = 110 mmHg. The right posterior tibial artery waveforms are triphasic. The right dorsalis pedis waveforms are triphasic. Indices The right ankle brachial index by the posterior tibial artery is 1.04. The right ankle brachial index by the dorsalis pedis is 1.01. The right digital-brachial index is 0.81. The left ankle brachial index by the posterior tibial artery is 0.90. The left ankle brachial index by the dorsalis pedis is 0.86. The left digital-brachial index is 0.63. VL/Ankle Brachial Index Interpretation Summary Right BRENDA _, normal. The left resting ankle-brachial index appears mildly abnormal. Ordering Physician: BETSY LÓPEZ Referring Physician: Katia Hays Performed By: Satnam Kelly, RVT 08/17/2452 Date Ede Kauffman MD CC: Dr. Katia Hays DO; BETSY LÓPEZ MD Date Dictated: 07/22/24803 Date Transcribed: 08/17/24951 House Supervisor: Signed Normal [facility] CBC W/Diff, Automatedon 04-24 Absolute Lymph 2.43 X10 3/uL Normal 0.83-4.51 [facility] Comment on above: Order Comment: DR.ST CASTILLO ORDERED A PSA. Performed By: #### L 500.4050, L501.9910, L100.0100 #### [facility] [address] [place], [address] Absolute Neut 1.6 X10 3/uL Low 2.0-7.7 [facility] Comment on above: Order Comment: DR.ST CASTILLO ORDERED A PSA. Performed By: #### L 500.4050, L501.9910, L100.0100 #### [facility] [address] [place], [address] Basophils/100 WBC (Bld) 0.6 % Normal 0-1 [facility] Comment on above: Order Comment: DR.ST CASTILLO ORDERED A PSA. Performed By: #### L 500.4050, L501.9910, L100.0100 #### [facility] [address] [place], [address] Eosinophils/100 WBC (Bld) 2.9 % Normal 0-5 [facility] Comment on above: Order Comment: DR.ST CASTILLO ORDERED A PSA. Performed By: #### L 500.4050, L501.9910, L100.0100 #### [facility] [address] [place], [address] Erythrocyte distribution width (RBC) [Ratio] 12.2 % Normal 11.6-14.6 [facility] Comment on above: Order Comment: DR.ST CASTILLO ORDERED A PSA. Performed By: #### L 500.4050, L501.9910, L100.0100 #### [facility] [address] [place], [address] Hematocrit (Bld) [Volume fraction] 33.7 % Low 40-54 [facility] Comment on above: Order Comment: DR.ST CASTILLO ORDERED A PSA. Performed By: #### L 500.4050, L501.9910, L100.0100 #### [facility] [address] [place], [address] Hemoglobin (Bld) [Mass/Vol] 11.3 g/dL Low 13.0-16.5 [facility] Comment on above: Order Comment: DR.ST CASTILLO ORDERED A PSA. Performed By: #### L 500.4050, L501.9910, L100.0100 #### [facility] [address] [place], [address] IG% 0.200 Normal 0.0-0.9 [facility] Comment on above: Order Comment: DR.ST CASTILLO ORDERED A PSA. Result Comment: IG% - Immature Granulocytes (promyelocytes, myelocytes and metamyelocytes) > 1% indicates that a LEFT SHIFT is Present. Performed By: #### L 500.4050, L501.9910, L100.0100 #### [facility] [address] [place], [address] Lymphocytes/100 WBC (Bld) 50.9 % High 19-41 [facility] Comment on above: Order Comment: DR.ST CASTILLO ORDERED A PSA. Performed By: #### L 500.4050, L501.9910, L100.0100 #### [facility] [address] [place], [address] MCH (RBC) [Entitic mass] 31.3 pg Normal 27.0-32.0 [facility] Comment on above: Order Comment: DR.ST CASTILLO ORDERED A PSA. Performed By: #### L 500.4050, L501.9910, L100.0100 #### [facility] [address] [place], [address] MCHC (RBC) [Mass/Vol] 33.5 g/dL Normal 32-36 [facility] Comment on above: Order Comment: DR.ST CASTILLO ORDERED A PSA. Performed By: #### L 500.4050, L501.9910, L100.0100 #### [facility] [address] [place], [address] MCV (RBC) [Entitic vol] 93.4 fL Normal 80-94 [facility] Comment on above: Order Comment: DR.ST CASTILLO ORDERED A PSA. Performed By: #### L 500.4050, L501.9910, L100.0100 #### [facility] [address] [place], [address] Monocytes/100 WBC (Bld) 11.5 % High 0-10 [facility] Comment on above: Order Comment: DR.ST CASTILLO ORDERED A PSA. Performed By: #### L 500.4050, L501.9910, L100.0100 #### [facility] [address] [place], [address] Neutrophils/100 WBC (Bld) 33.9 % Low 47-70 [facility] Comment on above: Order Comment: DR.ST CASTILLO ORDERED A PSA. Performed By: #### L 500.4050, L501.9910, L100.0100 #### [facility] [address] [place], [address] Nucleated RBC (Bld) [#/Vol] 0 10*3/uL Normal 0-5 [facility] Comment on above: Order Comment: DR.ST CASTILLO ORDERED A PSA. Performed By: #### L 500.4050, L501.9910, L100.0100 #### [facility] [address] [place], [address] Platelet mean volume (Bld) [Entitic vol] 10.0 fL Normal 6.2-12.0 [facility] Comment on above: Order Comment: DR.ST CASTILLO ORDERED A PSA. Performed By: #### L 500.4050, L501.9910, L100.0100 #### [facility] [address] [place], [address] Platelets (Bld) [#/Vol] 240 10*3/uL Normal 150-450 [facility] Comment on above: Order Comment: DR.ST CASTILLO ORDERED A PSA. Performed By: #### L 500.4050, L501.9910, L100.0100 #### [facility] [address] [place], [address] RBC (Bld) [#/Vol] 3.61 10*6/uL Low 4.6-6.2 [facility] Comment on above: Order Comment: DR.ST CASTILLO ORDERED A PSA. Performed By: #### L 500.4050, L501.9910, L100.0100 #### [facility] [address] [place], [address] RDW SD 41.8 fl Normal 35.1-43.9 [facility] Comment on above: Order Comment: DR.ST CASTILLO ORDERED A PSA. Performed By: #### L 500.4050, L501.9910, L100.0100 #### [facility] [address] [place], [address] WBC (Bld) [#/Vol] 4.8 10*3/uL Normal 4.4-11.0 [facility] Comment on above: Order Comment: DR.ST CASTILLO ORDERED A PSA. Performed By: #### L 500.4050, L501.9910, L100.0100 #### [facility] [address] [place], [address] Comprehensive Metabolic Prof [facility] 05-19-2024 Albumin [Mass/Vol] 3.7 g/dL Normal 3.2-5.0 [facility] Comment on above: Order Comment: DR.ST CASTILLO ORDERED A PSA. Performed By: #### L 500.4050, L501.9910, L100.0100 ####[facility] [address] [place], [address] Albumin/Globulin [Mass ratio] 1.2 {ratio} Normal 0.9-2.4 [facility] Comment on above: Order Comment: DR.ST CASTILLO ORDERED A PSA. Performed By: #### L 500.4050, L501.9910, L100.0100 ####[facility] [address], [address] ALK P 47 U/L Normal 45-117 [facility] Comment on above: Order Comment: DR.ST CASTILLO ORDERED A PSA. Performed By: #### L 500.4050, L501.9910, L100.0100 ####[facility] [address] [place], [address] ALT [Catalytic activity/Vol] 64 U/L High 16-61 [facility] Comment on above: Order Comment: DR.ST CASTILLO ORDERED A PSA. Performed By: #### L 500.4050, L501.9910, L100.0100 ####[facility] [address] [place], [address] AST [Catalytic activity/Vol] 51 U/L High 15-37 [facility] Comment on above: Order Comment: DR.ST CASTILLO ORDERED A PSA. Performed By: #### L 500.4050, L501.9910, L100.0100 ####[facility] [address] [place], [address] Bilirubin [Mass/Vol] 0.40 mg/dL Normal 0.20-1.00 [facility] Comment on above: Order Comment: DR.ST CASTILLO ORDERED A PSA. Result Comment: For patients on eltrombopag therapy, use of Dimension [place] TBIL is not recommended. Performed By: #### L 500.4050, L501.9910, L100.0100 ####[facility] [address] [place], [address] BUN/CRE 16.9 RATIO Normal 10-20 [facility] Comment on above: Order Comment: DR.ST CASTILLO ORDERED A PSA. Performed By: #### L 500.4050, L501.9910, L100.0100 ####[facility] [address] [place], [address] CA,Total 8.5 mg/dL Normal 8.5-10.1 [facility] Comment on above: Order Comment: DR.ST CASTILLO ORDERED A PSA. Performed By: #### L 500.4050, L501.9910, L100.0100 ####[facility] [address] [place], [address] Chloride [Moles/Vol] 109 mmol/L High 98-107 [facility] Comment on above: Order Comment: DR.ST CASTILLO ORDERED A PSA. Performed By: #### L 500.4050, L501.9910, L100.0100 ####[facility] [address] [place], [address] CO2 [Moles/Vol] 25.0 mmol/L Normal 21.0-32.0 [facility] Comment on above: Order Comment: DR.ST CASTILLO ORDERED A PSA. Performed By: #### L 500.4050, L501.9910, L100.0100 ####[facility] [address] [place], [address] Creatinine [Mass/Vol] 1.48 mg/dL High 0.70-1.30 [facility] Comment on above: Order Comment: DR.ST CASTILLO ORDERED A PSA. Result Comment: The validity of the calculated GFR GFRAA in patients over 70 years has not been determined. Clinical correlation is essential. Performed By: #### L 500.4050, L501.9910, L100.0100 ####[facility] [address] [place], [address] EST GFR - AA 61 mL/min Normal >60 [facility] Comment on above: Order Comment: DR.ST CASTILLO ORDERED A PSA. Result Comment: Afri can Guine[place] GFR Calc Performed By: #### L 500.4050, L501.9910, L100.0100 ####[facility] [address] [place], [address] GAP 6 Normal 5-15 [facility] Comment on above: Order Comment: DR.ST CASTILLO ORDERED A PSA. Performed By: #### L 500.4050, L501.9910, L100.0100 ####[facility] [address] [place], [address] GFR/1.73 sq M.predicted among non-blacks MDRD (S/P/Bld) [Vol rate/Area] 51 mL/min/{1.73_m2} Low >60 [facility] Comment on above: Order Comment: DR.ST CASTILLO ORDERED A PSA. Result Comment: Non- GFR Calc Performed By: #### L 500.4050, L501.9910, L100.0100 ####[facility] [address] [place], [address] Globulin (S) [Mass/Vol] 3.0 g/dL Normal 2.2-4.2 [facility] Comment on above: Order Comment: DR.ST CASTILLO ORDERED A PSA. Performed By: #### L 500.4050, L501.9910, L100.0100 ####[facility] [address] [place], [address] Glucose [Mass/Vol] 122 mg/dL High 74-106 [facility] Comment on above: Order Comment: DR.ST CASTILLO ORDERED A PSA. Result Comment: Fast ing Glucose result from 100 to 125 mg/dL suggests IMPAIRED HOMEOSTASIS per A.D.A. criteria. Performed By: #### L 500.4050, L501.9910, L100.0100 ####[facility] [address] [place], [address] Potassium [Moles/Vol] 4.1 mmol/L Normal 3.5-5.1 [facility] Comment on above: Order Comment: DR.ST CASTILLO ORDERED A PSA. Performed By: #### L 500.4050, L501.9910, L100.0100 ####[facility] [address] [place], [address] Sodium [Moles/Vol] 140 mmol/L Normal 136-145 [facility] Comment on above: Order Comment: DR.ST CASTILLO ORDERED A PSA. Performed By: #### L 500.4050, L501.9910, L100.0100 ####[facility] [address] [place], [address] T PROT 6.7 g/dL Normal 6.4-8.2 [facility] Comment on above: Order Comment: DR.ST CASTILLO ORDERED A PSA. Performed By: #### L 500.4050, L501.9910, L100.0100 ####[facility] [address] [place], [address] Urea nitrogen [Mass/Vol] 25 mg/dL High 7-18 [facility] Comment on above: Order Comment: DR.ST CASTILLO ORDERED A PSA. Performed By: #### L 500.4050, L501.9910, L100.0100 ####[facility] [address] [place], [address] Hips B/L min 2 views w/ Pelv kamila 05-19-2024 Hips B/L min 2 views w/ Pelvis [facility] Imaging Services [address] [place] [address] Hips B/L min 2 views w/ Pelvis MR#: [id number] Acct: [id number] Name: TAVARES MELGAR Rep #: [id number] : 1960 M 64 From: Surya Glynn MD PCP: Dr. Katia Hays, DO Status: REG CLI Study: Hips B/L min 2 views w/ Pelvis Date of Exam: 0 05/19/24 Exam# [id number] Ordering Dr: Jaz Castro [place] [id number] INDICATION: RHEUMATOID ARTHRITIS EXAMINATION/TECHNIQUE: X-RAY - XR Hips Bilateral with Pelvis when performed; Min 5 Views COMPARISON: Pelvis x-ray dated 11/22/2020. FINDINGS: There is a non-specific bowel gas pattern. Normal visualized soft tissue structures. Persistent iliac artery stent. Normal bilateral iliac wings, sacroiliac joints and visualized sacrum. Normal visualized bilateral superior and inferior pubic rami. Normal pubic symphysis. Normal ischial tuberosities. Normal visualized right femoral head. Normal right acetabulum. Normal right hip joint, with no demonstrated acute fracture. Normal visualized left femoral head. Normal left acetabulum. Normal left hip joint, with no demonstrated acute fracture. Again seen is calcific density adjacent to the left greater trochanter, which could represent sequelae from an old avulsion injury. RAD/Hips B/L min 2 views w/ Pelvis IMPRESSION: Persistent calcific density adjacent to the left greater trochanter, which could represent sequelae from an old avulsion injury. No demonstrated acute fracture. Electronically Signed: Surya Glynn MD at 8:57 EDT , CC: Dr. Katia Hays, DO; Dr. Jaz Castro MD House Supervisor: Signed Normal [facility] PSA,Total - Annual Screenon 05-19-2024 PSA,TOT SCREEN 1.96 ng/mL Normal 0.00-4.00 [facility] Comment on above: Order Comment: DR.ST CASTILLO ORDERED A PSA. Result Comment: This test was performed using the TPSA assay method for the [employer] chemistry system. Values obtained with different assay methods cannot be used interchangably. When changing PSA assays in the course of monitoring a patient, additional sequential testing should be carried out to confirm baseline values. Performed By: #### L 500.4050, L501.9910, L100.0100 ####[facility] [address] [place], [address] Orthopedic Visit Reporton Orthopedic Visit Report [facility] [address] [place] [address] OFFICE VISIT Date of Service: 05/05/24 MR#: [id number] Acct: [id number] Name: TAVARES MELGAR Rep #: [id number] : 1960 Provider: Dr. Matt Stubbs MD Age/Sex: 64/M Location: [facility] Status: Signed Intake Vital Signs 03/30/24 08:32 Height 5 ft 7 in Intake Visit Reasons: RIGHT FOOT Chief Complaint: 5 week follow-up Accompanied by: Self Is patient in pain?: Yes Allergies lisinopril Allergy (Verified 05/05/24 13:15) Other Medications ???Medication ???Instructions ???Recorded ???Confirmed ???Type potassium chloride 8 mEq 8 meq PO DAILY 09/24/13 05/05/24 History tablet,extended release multivitamin with folic acid 400 1 tab PO DAILY 10/04/13 05/05/24 History mcg tablet amlodipine 5 mg tablet 5 mg PO DAILY 06/22/18 05/05/24 History losartan 100 1 tab PO DAILY 06/22/18 05/05/24 History mg-hydrochlorothiazide 12.5 mg tablet adalimumab 40 mg/0.4 mL mg subcut 08/09/23 05/05/24 History subcutaneous pen kit (Humira(CF) Pen) albuterol sulfate 90 mcg/actuation 2 puff inhalation Q6H PRN 08/09/23 05/05/24 Rx aerosol inhaler (Ventolin HFA) shortness of breath or wheezing #8.5 grams carvedilol 25 mg tablet mg PO 08/09/23 05/05/24 History clopidogrel 75 mg tablet mg PO 08/09/23 05/05/24 History esomeprazole magnesium 40 mg mg PO 08/09/23 05/05/24 History capsule,delayed release gabapentin 600 mg tablet mg PO 08/09/23 05/05/24 History hydroxychloroquine 200 mg tablet mg PO 08/09/23 05/05/24 History rosuvastatin 10 mg tablet mg PO 08/09/23 05/05/24 History oxycodone 5 mg capsule 5 mg PO Q8H PRN pain 3 days #12 03/29/24 05/05/24 Rx caps PFSH Medical History Atherosclerosis of [place] coronary artery of [place] heart without angina pectoris Wheezing Contact with and (suspected) exposure to other viral communicable diseases HTN (hypertension) Surgical History H/O endarterectomy History of coronary artery stent placement History of carpal tunnel release Hx of shoulder surgery Family History Father Cancer Prostate Social History Smoking Status: Former smoker alcohol intake: current Alcohol type: beer HPI RIGHT FOOT Details: This documentation accurately reflects the service provided and the decisions made by me, Dr. Matt Stubbs MD 05/05/24 1311. Part of today???s visit was documented by Madie Lipscomb ATC, acting as scribe. TAVARES MELGAR is a 64 year old M here today for 5 week follow-up of the right foot. Patient states the head of the metatarsal is still bothering him and hurts quite a bit. He states the swelling is down and has seen relief with the pain. Patient states he has been back to work now and it is going okay. He states it was rough the first couple of days back. Patient states he takes Ibuprofen for the pain when it is increased. 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 Tavares has been using the Aircast boot for the last 4 to 5 weeks and has had good improvement of his pain and swelling. He has minimal pain in the area of the fracture. He has been full weightbearing without any pain. Following his his previous history: 03/31/24: TAVARES MELGAR is a 63 year old M here today for right foot pain. Patient states the injury happened on Thursday03/29/2024 and was seen in the [facility] ER. He states he tripped and then fell. Patient describes most of his pain on the lateral aspect of the foot. Patient denies any previous injuries to the right foot at all. Patient states he is taking Oxycodone for pain. Patient has crutches and has tried to use them when he can. 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 On Thursday, he fell at home when he tripped over a dog bed. He has pain along the lateral aspect of his right foot but also on the dorsal and plantar aspect of the lateral foot. He has rheumatoid arthritis and is on Humira. He denies taking any steroids. He is also on Plavix. He does not believe he had any open wounds. He has been putting some weight on the right foot without difficulties. He does have crutches which he can use for longer distance walking. Ortho Exam General General: Yes no acute distress Neurologic: Yes alert and Yes oriented x3 Right Foot/Ankle ANKLE: Exam to the right foot outside of the Aircast boot, shows reduced swelling mild deep tenderness in the region of the distal fifth metatarsal. Patient able to actively flex and extend toes. Distal neurovascular exam is intact. Coding Level of Care Code Off vis,est,level 3 Diagnoses Closed nondisp (more content not included)... Normal [facility] Foot min 3 Viewson 4 Foot min 3 Views [facility] [address] [place], [place] [address] Foot min 3 Views MR#: [id number] Acct: [id number] Name: TAVARES MELGAR Rep #: [id number] : 1960 M 64 From: Maureen Huertas MD PCP: Dr. Katia Hays, Status: REG CLI Study: Foot min 3 Views Date of Exam: 05/03/24 Exam# [id number] Ordering Dr: Matt Stubbs MD [id number] INDICATION: pain EXAMINATION/TECHNIQUE: X-RAY - RIGHT XR Foot Min 3 Views 3 VIEWS COMPARISON: March 29, 2024 FINDINGS: SOFT TISSUES: No soft tissue swelling or gas. No radiopaque foreign body. BONES/JOINTS: There is a radiolucency within the fifth mid and distal metatarsal diaphysis that is less pronounced than the prior examination consistent with a healing fracture. There is periosteal bone formation adjacent to the fracture. There is minimal medial displacement of the distal fifth metatarsal. Preservation of the joint space.. No sclerotic or destructive changes observed. RAD/Foot min 3 Views IMPRESSION: Healing fifth metatarsal fracture. Electronically Signed: Maureen Huertas MD at 14:05 EDT , CC: Dr. Matt Stubbs MD; Dr. Katia Hays DO House Supervisor: Signed Normal [facility] Low Dose CT Lung Screeningon 04-29-[address] Lung Screening [facility] [address] [place] [address] Lung Screening MR#: [id number] Acct: [id number] Name: TAVARES MELGAR Rep #: [id number] : 1960 M 64 From: Madan olivia MD PCP: Dr. Katia Hays, Status: REG CLI Study: Low Dose CT Lung Screening Date of Exam: 04/29 Exam# [id number] Ordering Dr: Katia Hays DO [id number] STUDY: LOW DOSE CT LUNG CANCER SCREENING REASON FOR EXAM: Male, 64 years old. SCREENING FOR LUNG CANCER. Patient smoked 1 pack per day for 52 years. Former smoker. RADIATION DOSAGE (If Supplied By Facility): CTDIvol = ( 2.01 ) mGy, DLP = ( 67.71 ) mGycm TECHNIQUE: No contrast was administered. Low dose technique was utilized (average mAS-38 and kVp 120). 1.25 mm axial source images with a slice interval of 1.25-mm were reconstructed in lung windows. 2.5 mm axial source images with a slice interval of 2.5-mm were reconstructed in lung windows. 5.0 mm axial source images with a slice interval of 5.0-mm were reconstructed in soft tissue windows. COMPARISON: Comparison is made with prior study dated June 14, 2018. NODULES: No suspicious nodules are seen. Emphysema: Hyperinflation. Emphysematous changes involving both lungs with the mild biapical scarring. Endobronchial lesion: None Aorta: Atherosclerotic plaque formation of the aortic arch and descending thoracic aorta. CORONARY ARTERIES: Coronary artery calcification is seen. Coronary stents are seen. Heart: Unremarkable Pulmonary artery: Unremarkable Mediastinal nodes: Small mediastinal lymph nodes. Other chest and abdominal findings: Degenerative changes of the thoracic spine. CT/Low Dose CT Lung Screening IMPRESSION: Lung-RADS category 2 - Continue annual screening with LDCT in 12 months. IMPORTANT NOTES FOR USE: ACR Lung-RADS Version 1.1 Assessment Categories Release Date: 2018 Category: Coded 0-4 bases on nodule(s) with [...] S (significant finding unrelated to lung cancer) Electronically Signed: Madan Hernández MD at 11:07 EDT , CC: Dr. Katia Hays DO House Supervisor: Signed Normal [facility] Orthopedic Visit Reporton Orthopedic Visit Report [facility] [address] [place] [address] [address] [place] [address] OFFICE VISIT Date of Service: 03/31/24 MR#: [id number] Acct: [id number] Name: TAVARES MELGAR Rep #: [id number] : 1960 Provider: Dr. Matt Stubbs MD Age/Sex: 63/M Location: [facility] Status: Signed Intake Vital Signs 03/29/24 16:13 03/30/24 08:32 Height 5 ft 7 in 5 ft 7 in Intake Visit Reasons: RIGHT FOOT Chief Complaint: ED F/U Accompanied by: Is patient in pain?: Yes Pain scale (1-10): 6 Allergies lisinopril Allergy (Verified 03/31/24 08:58) Other Medications potassium chloride 8 mEq tablet,extended release 8 meq PO DAILY 09/24/13 [History Confirmed 03/31/24] multivitamin with folic acid 400 mcg tablet 1 tab PO DAILY 10/04/13 [History Confirmed 03/31/24] amlodipine 5 mg tablet 5 mg PO DAILY 06/22/18 [History Confirmed 03/31/24] losartan 100 mg-hydrochlorothiazide 12.5 mg tablet 1 tab PO DAILY 06/22/18 [History Confirmed 03/31/24] adalimumab 40 mg/0.4 mL subcutaneous pen kit (Humira(CF) Pen) mg subcut 08/09/23 [History Confirmed 03/31/24] albuterol sulfate 90 mcg/actuation aerosol inhaler (Ventolin HFA) 2 puff inhalation Q6H PRN shortness of breath or wheezing #8.5 grams 08/09/23 [Rx Confirmed 03/31/24] carvedilol 25 mg tablet mg PO 08/09/23 [History Confirmed 03/31/24] clopidogrel 75 mg tablet mg PO 08/09/23 [History Confirmed 03/31/24] esomeprazole magnesium 40 mg capsule,delayed release mg PO 08/09/23 [History Confirmed 03/31/24] gabapentin 600 mg tablet mg PO 08/09/23 [History Confirmed 03/31/24] hydroxychloroquine 200 mg tablet mg PO 08/09/23 [History Confirmed 03/31/24] rosuvastatin 10 mg tablet mg PO 08/09/23 [History Confirmed 03/31/24] oxycodone 5 mg capsule 5 mg PO Q8H PRN pain 3 days #12 caps 03/29/24 [Rx Confirmed 03/31/24] PFSH Medical History Atherosclerosis of [place] coronary artery of [place] heart without angina pectoris Contact with and (suspected) exposure to other viral communicable diseases HTN (hypertension) Wheezing Surgical History H/O endarterectomy History of carpal tunnel release History of coronary artery stent placement Hx of shoulder surgery Family History Father Cancer Prostate Social History Smoking Status: Former smoker alcohol intake: current Alcohol type: beer HPI RIGHT FOOT Details: This documentation accurately reflects the service provided and the decisions made by me, Dr. Matt Stubbs MD 03/31/24 0807. Part of today???s visit was documented by Madie Lipscomb ATC, acting as scribe. TAVARES MELGAR is a 63 year old M here today for right foot pain. Patient states the injury happened on Thursday03/29/2024 and was seen in the [facility] ER. He states he tripped and then fell. Patient describes most of his pain on the lateral aspect of the foot. Patient denies any previous injuries to the right foot at all. Patient states he is taking Oxycodone for pain. Patient has crutches and has tried to use them when he can. 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 On Thursday, he fell at home when he tripped over a dog bed. He has pain along the lateral aspect of his right foot but also on the dorsal and plantar aspect of the lateral foot. He has rheumatoid arthritis and is on Humira. He denies taking any steroids. He is also on Plavix. He does not believe he had any open wounds. He has been putting some weight on the right foot without difficulties. He does have crutches which he can use for longer distance walking. Ortho Exam General General: Yes no acute distress Neurologic: Yes alert and Yes oriented x3 Right Foot/Ankle ANKLE: Splint placed in the ER was removed. Ecchymosis noticed in 2nd-4th toe dorsal aspect. Swelling over the dorsum of the foot noticed. Tenderness along the fifth metatarsal noticed. No other areas of bony tenderness noticed. Patient able to actively flex and extend toes. Distal neurovascular exam is intact. Coding Level of Care Code Off vis,new,level 4 Diagnoses Closed nondisplaced fracture of fifth metatarsal bone of right foot, initial encounter S92.354A Encounter type: initial encounter Time Spent (min) 45 Assessment and Plan Assessment and Plan (1) Closed nondisplaced fracture of fifth right metatarsal bone: Status: Acute Qualifiers: Encounter type: initial encounter Qualified Code(s): S92.354A - Nondisplaced fracture of fifth metatarsal bone, right foot, initial encounter for closed fracture Plan I evaluated the x-rays of the right foot done in the ER 2 days ago. These show nondisplaced oblique fracture of the distal third shaft of right fifth metatarsal. N (more content not included)... Normal [facility] Emergency Department Summary on 03-29-2024 Emergency Department Summary [facility] Medical Records Department [address] [place] [id number] Emergency Department Summary 03/29/24 MR#: [id number] Acct: [id number] Name: TAVARES MELGAR Rep #: [id number] : 1960 63 From: Thai Ocampo DO PCP: Dr. Katia Hays DO Status:PRE ER Location: ED HPI History of Present Illness Chief Complaint: Lower Extremity Injury [facility] Medical History (Updated 03/29/24 @ 16:[address] Thai Ocampo DO) Atherosclerosis of [place] coronary artery of [place] heart without angina pectoris Contact with and (suspected) exposure to other viral communicable diseases HTN (hypertension) Wheezing Home Medications potassium chloride 8 mEq tablet,extended release 8 meq PO DAILY 09/24/13 [History Last Taken Unknown] multivitamin with folic acid 400 mcg tablet 1 tab PO DAILY 10/04/13 [History Last Taken Unknown] amlodipine 5 mg tablet 5 mg PO DAILY 06/22/18 [History Last Taken Unknown] losartan 100 mg-hydrochlorothiazide 12.5 mg tablet 1 tab PO DAILY 06/22/18 [History Last Taken Unknown] adalimumab 40 mg/0.4 mL subcutaneous pen kit (Humira(CF) Pen) mg subcut 08/09/23 [History Last Taken Unknown] albuterol sulfate 90 mcg/actuation aerosol inhaler (Ventolin HFA) 2 puff inhalation Q6H PRN shortness of breath or wheezing #8.5 grams 08/09/23 [Rx Last Taken Unknown] benzonatate 200 mg capsule 200 mg PO TID PRN cough #20 caps 08/09/23 [Rx Last Taken Unknown] carvedilol 25 mg tablet mg PO 08/09/23 [History Last Taken Unknown] clopidogrel 75 mg tablet mg PO 08/09/23 [History Last Taken Unknown] esomeprazole magnesium 40 mg capsule,delayed release mg PO 08/09/23 [History Last Taken Unknown] gabapentin 600 mg tablet mg PO 08/09/23 [History Last Taken Unknown] hydroxychloroquine 200 mg tablet mg PO 08/09/23 [History Last Taken Unknown] oxycodone 5 mg tablet mg PO 08/09/23 [History Last Taken Unknown] rosuvastatin 10 mg tablet mg PO 08/09/23 [History Last Taken Unknown] oxycodone 5 mg capsule 5 mg PO Q8H PRN pain 3 days #12 caps 03/29/24 [Rx Last Taken Unknown] Allergy/AdvReac Type Severity Reaction Status Date / Time lisinopril Allergy Other Verified 08/09/23 08:37 Family History (Updated 08/09/23 @ 08:52 by Sunny Yang FLASK FITTER, FLASK FITTER-C) Father Cancer Prostate Surgical History (Updated 08/09/23 @ 08:51 by Sunny Yang NP, FLASK FITTER-C) H/O endarterectomy History of carpal tunnel release History of coronary artery stent placement Hx of shoulder surgery Social History (Updated 08/09/23 @ 08:53 by Sunny Yang NP, FLASK FITTER-C) Smoking Status: Former smoker alcohol intake: current Alcohol type: beer EXAM Physical Exam Const Vital Signs: 03/29/24 16:13 Temperature 96.9 F L Temperature Source Temporal Pulse Rate 74 Respiratory Rate 19 H Blood Pressure 128/71 H Blood Pressure Mean 90 Pulse Ox 99 [facility] Narrative Medical decision making narrative: HISTORY OF PRESENT ILLNESS: 63-year-old male presents with right foot pain. Notes he tripped suffered mechanical fall and injured his right foot. He further states REVIEW OF SYSTEMS: Pertinent positives: Right foot pain Pertinent negatives: Numbness, tingling PHYSICAL EXAM: Nursing triage notes reviewed, Vital signs reviewed Constitutional: please see [facility] HENT: MMM Eyes: Pupils equal round and reactive to light, Extraocular muscles intact Neck: No stridor, no JVD, full neck ROM Lungs: Clear to auscultation, No wheezing or rales. No increased work of breathing, no conversational dyspnea, no accessory muscle use, no nasal flaring. No respiratory distress noted Heart: Regular rate and rhythm, No murmurs, No rubs and No gallops, 2+ distal pulses (radial, femoral, posterior tibial) in all extremities Abdomen: Soft, there is no tenderness, rigidity, rebound or guarding, no obvious peritoneal signs, no palpable pulsatile abdominal masses, no auscultated abdominal bruit : No CVAT Extremities: No edema Neuro: Intact sensation L1-S1 dermatomal distributions. Intact 5/5 strength in hip flexion (T12- L3). Knee extension (L2-L4). Ankle dorsiflexion (L4-L5). Ankle plantar flexion (S1). Great toe extension (L5). 2+ patellar and Achilles DTRs. Skin: No evidence of open fracture MEDICAL DECISION MAKING: Chief Complaint: Foot pain External records reviewed: Imaging reviewed: Recent [facility] imaging of the involved extremity Factors affecting care: CAD, carotid artery stenosis status post carotid endarterectomy [facility] Narrative: Patient was initially hemodynamically stable, afebrile and nontoxic-appearing. Right lower extremity is neurovascular intact. TTP over lateral right foot. X-ray was read reviewed myself and showed evidence of 5th metatarsal fracture. Patient placed in a short leg splint. He was made nonweightbearing. Given crutches. He is encouraged follow with (more content not included)... Normal [facility] Foot min 3 Viewson 4 Foot min 3 Views [facility] Imaging Services [address] [place] [address] Foot min 3 Views MR#: [id number] Acct: [id number] Name: TAVARES MELGAR Rep #: [id number] : 1960 M 63 From: Boby Mena MD PCP: Dr. Katia Hays, Status: PRE ER Study: Foot min 3 Views Date of Exam: 03/29/24 Exam# [id number] Ordering Dr: Provider,Ed P. [id number] EXAM: XR RIGHT FOOT COMPLETE, 3 OR MORE VIEWS CLINICAL INDICATION: INJURY TECHNIQUE: Frontal, lateral and oblique views of the right foot. COMPARISON: No relevant prior studies available. FINDINGS: BONES/JOINTS: There is an oblique fracture through the fifth metatarsal. Preservation of the joint space. No sclerotic or destructive changes observed. SOFT TISSUES: Unremarkable. No soft tissue swelling or gas. No radiopaque foreign body. RAD/Foot min 3 Views IMPRESSION: Minimally displaced fracture through the fifth metatarsal. Electronically Signed: Boby Mena MD at 16:36 EDT , CC: Dr. Katia Hays DO; ED PHYSICIAN PROVIDER House Supervisor: Signed Normal [facility] Basophil percentageon 2023 Bilirubin [Mass/Vol] 0.50 mg/dL 0.20-1.00 [facility] Comment on above: For patients on eltr ombopag therapy, use of Dimension [place] TBIL is not recommended. Chloride [Moles/Vol] 107 mmol/L 98-107 [facility] Cholesterol [Mass/Vol] 158 mg/dL <200 [facility] Comment on above: <200 mg/dL Desirable 200-240 mg/dL Borderline >240 mg/dL High Risk Glucose [Mass/Vol] 84 mg/dL 74-106 [facility] Potassium [Moles/Vol] 4.3 mmol/L 3.5-5.1 [facility] Protein [Mass/Vol] 7.1 g/dL 6.4-8.2 [facility] Sodium [Moles/Vol] 136 mmol/L 136-145 [facility] Triglyceride [Mass/Vol] 79 mg/dL <199 [facility] Comment on above: The drugs N-Acetylcy steine and Metamizole may falsely depress this assay.Serum Triglycerides Reference Interval Normal <150 mg/dL Borderline high 150 - 199 mg/dL High 200 - 499 mg/dL Very High > or = 500 mg/dL Comprehensive Metabolic Prof ilon 01-20-2024 Albumin [Mass/Vol] 3.8 g/dL Normal 3.2-5.0 [facility] Comment on above: Performed By: #### L 500.4100, L500.4050 #### [facility] [address] [place], [address] Albumin/Globulin [Mass ratio] 1.2 {ratio} Normal 0.9-2.4 [facility] Comment on above: Performed By: #### L 500.4100, L500.4050 #### [facility] [address] [place], [address] ALK P 51 U/L Normal 45-117 [facility] Comment on above: Performed By: #### L 500.4100, L500.4050 #### [facility] [address] [place], [address] ALT [Catalytic activity/Vol] 45 U/L Normal 16-61 [facility] Comment on above: Performed By: #### L 500.4100, L500.4050 #### [facility] [address] [place], [address] AST [Catalytic activity/Vol] 43 U/L High 15-37 [facility] Comment on above: Performed By: #### L 500.4100, L500.4050 #### [facility] [address] [place], [address] Bilirubin [Mass/Vol] 0.50 mg/dL Normal 0.20-1.00 [facility] Comment on above: Result Comment: For patients on eltrombopag therapy, use of Dimension [place] TBIL is not recommended. Performed By: #### L 500.4100, L500.4050 #### [facility] [address] [place], [address] BUN/CRE 15.6 RATIO Normal 10-20 [facility] Comment on above: Performed By: #### L 500.4100, L500.4050 #### [facility] [address] [place], [address] CA,Total 8.9 mg/dL Normal 8.5-10.1 [facility] Comment on above: Performed By: #### L 500.4100, L500.4050 #### [facility] [address] [place], [address] Chloride [Moles/Vol] 107 mmol/L Normal 98-107 [facility] Comment on above: Performed By: #### L 500.4100, L500.4050 #### [facility] [address] [place], [address] CO2 [Moles/Vol] 24.0 mmol/L Normal 21.0-32.0 [facility] Comment on above: Performed By: #### L 500.4100, L500.4050 #### [facility] [address] [place], [address] Creatinine [Mass/Vol] 1.54 mg/dL High 0.70-1.30 [facility] Comment on above: Result Comment: The validity of the calculated GFR GFRAA in patients over 70 years has not been determined. Clinical correlation is essential. Performed By: #### L 500.4100, L500.4050 #### [facility] [address] [place], [address] EST GFR - AA 59 mL/min Low >60 [facility] Comment on above: Result Comment: Afri can [place] GFR Calc Performed By: #### L 500.4100, L500.4050 #### [facility] [address] [place], [address] GAP 5 Normal 5-15 [facility] Comment on above: Performed By: #### L 500.4100, L500.4050 #### [facility] [address] [place], [address] GFR/1.73 sq M.predicted among non-blacks MDRD (S/P/Bld) [Vol rate/Area] 49 mL/min/{1.73_m2} Low >60 [facility] Comment on above: Result Comment: Non- GFR Calc Performed By: #### L 500.4100, L500.4050 #### [facility] [address] [place], [address] Globulin (S) [Mass/Vol] 3.3 g/dL Normal 2.2-4.2 [facility] Comment on above: Performed By: #### L 500.4100, L500.4050 #### [facility] [address] [place], [address] Glucose [Mass/Vol] 84 mg/dL Normal 74-106 [facility] Comment on above: Performed By: #### L 500.4100, L500.4050 #### [facility] [address] [place], [address] Potassium [Moles/Vol] 4.3 mmol/L Normal 3.5-5.1 [facility] Comment on above: Performed By: #### L 500.4100, L500.4050 #### [facility] [address] [place], [address] Sodium [Moles/Vol] 136 mmol/L Normal 136-145 [facility] Comment on above: Performed By: #### L 500.4100, L500.4050 #### [facility] [address] [place], [address] T PROT 7.1 g/dL Normal 6.4-8.2 [facility] Comment on above: Performed By: #### L 500.4100, L500.4050 #### [facility] [address] [place], [address] Urea nitrogen [Mass/Vol] 24 mg/dL High 7-18 [facility] Comment on above: Performed By: #### L 500.4100, L500.4050 #### [facility] [address] [place], [address] Laboratory - Chemistry and C hemistry - challengeon 01-20-2024 Albumin/Globulin [Mass ratio] 1.2 {ratio} 0.9-2.4 [facility] ALP [Catalytic activity/Vol] 51 U/L 45-117 [facility] ALT [Catalytic activity/Vol] 45 U/L 16-61 [facility] Cholesterol in HDL [Mass/Vol] 90 mg/dL >40 [facility] Comment on above: The drugs N-Acetylcy steine and Metamizole may falsely depress this assay. Reference Range HDL <40 mg/dL Low HDL Cholesterol HDL >or= 60 mg/dL High HDL Cholesterol Cholesterol in LDL [Mass/Vol] 52 mg/dL 0-130 [facility] CO2 [Moles/Vol] 24.0 mmol/L 21.0-32.0 [facility] Globulin (S) [Mass/Vol] 3.3 g/dL 2.2-4.2 [facility] Urea nitrogen/Creatinine [Mass ratio] 15.6 mg/mg 10-20 [facility] Lipid Profileon 01-20-2024 Cholesterol [Mass/Vol] 158 mg/dL Normal 200 [facility] Comment on above: Result Comment: <200 mg/dL Desirable 200-240 mg/dL Borderline >240 mg/dL High Risk Performed By: #### L 500.4100, L500.4050 #### [facility] [address] [place], [address] Cholesterol in HDL [Mass/Vol] 90 mg/dL Normal [facility] Comment on above: Result Comment: The drugs N-Acetylcysteine and Metamizole may falsely depress this assay. Reference Range HDL <40 mg/dL Low HDL Cholesterol HDL >or= 60 mg/dL High HDL Cholesterol Performed By: #### L 500.4100, L500.4050 #### [facility] [address] [place], [address] Cholesterol in LDL [Mass/Vol] 52 mg/dL Normal 0-130 [facility] Comment on above: Performed By: #### L 500.4100, L500.4050 #### [facility] [address] [place], [address] Cholesterol in VLDL [Mass/Vol] 16 mg/dL Normal 5-40 [facility] Comment on above: Performed By: #### L 500.4100, L500.4050 #### [facility] [address] [place], [address] Triglyceride [Mass/Vol] 79 mg/dL Normal [facility] Comment on above: Result Comment: The drugs N-Acetylcysteine and Metamizole may falsely depress this assay. Serum Triglycerides Reference Interval Normal <150 mg/dL Borderline high 150 - 199 mg/dL High 200 - 499 mg/dL Very High > or = 500 mg/dL Performed By: #### L 500.4100, L500.4050 #### [facility] [address] [place], [address] No Panel Informationon 01-20 Estimated GFR (MDRD) Amer 59 mL/min >60 [facility] Comment on above: GFR Calc Estimated GFR (MDRD) Non-Af Amer 49 mL/min >60 [facility] Comment on above: Non- GFR Calc VLDL Cholesterol 16 mg/dL 5-40 [facility] Serum or plasma calcium [place] urement (mass/volume)on 01-20-2024 Calcium [Mass/Vol] 8.9 mg/dL 8.5-10.1 [facility] Serum or plasma creatinine m easurement (mass/volume)on 01-20-2024 Creatinine [Mass/Vol] 1.54 mg/dL 0.70-1.30 [facility] Comment on above: The validity of the calculated GFR & GFRAA in patients over 70 years has not been determined. Clinical correlation is essential. Serum or plasma urea nitroge n measurement (mass/volume)on 01-20-2024 Urea nitrogen [Mass/Vol] 24 mg/dL 7-18 [facility] Thin prep Papanicolaou smear with manual screeningon 01-20-2024 Thin prep Papanicolaou smear with manual screening 3.8 g/dL 3.2-5.0 [facility] Thin prep Papanicolaou smear with manual screening 43 U/L 15-37 [facility] Thin prep Papanicolaou smear with manual screening 5 5-15 [facility] HI - Individual Treatment Pl anon 01-18-2024 HI - Individual Treatment Plan [facility] Pulmonary Rehab Reports [address] [place] [address] HI - Individual Treatment Plan MR#: [id number] Acct: [id number] Name: TAVARES MELGAR Rep #: [id number] : 1960 63 From: Mahesh De Anda BS, RVT PCP: Dr. Katia Hays, Exercise - Initial Assessment Visit Session Number:: 20 Physician Prescribed Exercise Current RPD:: 2 Maximum Exercise HR:: 123 Resting Blood Pressure: 136/60 Maximum Exercise Blood Pressure: 168/88 Minimum SpO2 with exercise: 95 EKG Type: NSR to ST Nutrition/Wt Mgmt - Initial Visit Session Number:: 20 Weight Management Admit Height:: 5 ft 7 in Admit Weight:: 161 lb 8 oz Admit BMI:: 25.2 Nutrition/Wt Mgmt - 30-Day Visit Date of Eval: 01/18/24 Session Number:: 20 Weight Management Height: 5 ft 7 in Weight:: 161 lb 8 oz BMI: 25.2 Nutrition/Wt Mgmt - 60-Day Visit Date of Eval: 01/18/24 Session Number:: 20 Weight Management Height: 5 ft 7 in Weight:: 161 lb 8 oz BMI: 25.2 Weight Goals Progress:: Goal met Nutrition/Wt Mgmt - 90-Day Visit Session Number:: 20 Weight Management Height: 5 ft 7 in Weight:: 161 lb 8 oz BMI: 25.2 Weight Goals Progress:: Goal met Nutrition/Wt Mgmt - Final Visit Session Number:: 20 Weight Management Height: 5 ft 7 in Weight:: 161 lb 8 oz BMI: 25.2 Psychosocial - Initial Assess Visit Session Number:: 20 Problems/Goals History of Emotional Disorders: None Intervention/Plan: See List Interventions/Plan:: Assess stressors,coping strategies signs of derpression on admission, Instruct/assist pt to develop coping personal stress Mgt strategies, Refer to Behavioral Health if appropriate, Refer to Physician if appropriate, Instruct patient to recognize signs symptoms of depression, Instruct patient to recog and Other additional plan/intervention Psychosocial - 30-Day Visit Date of Eval: 01/18/24 Session Number:: 20 Problems/Goals History of Emotional Disorders: None Plan Interventions/Plan:: Assess stressors,coping strategies signs of derpression on admission, Instruct/assist pt to develop coping personal stress Mgt strategies, Refer to Behavioral Health if appropriate, Refer to Physician if appropriate, Instruct patient to recognize signs symptoms of depression, Instruct patient to recog and Other additional plan/intervention Psychosocial - 60-Day Visit Date of Eval: 01/18/24 Session Number:: 20 Problems/Goals History of Emotional Disorders: None Plan Interventions/Plan:: Assess stressors,coping strategies signs of derpression on admission, Instruct/assist pt to develop coping personal stress Mgt strategies, Refer to Behavioral Health if appropriate, Refer to Physician if appropriate, Instruct patient to recognize signs symptoms of depression, Instruct patient to recog and Other additional plan/intervention Psychosocial - 90-Day Visit Session Number:: 20 Problems/Goals History of Emotional Disorders: None Plan Interventions/Plan:: Assess stressors,coping strategies signs of derpression on admission, Instruct/assist pt to develop coping personal stress Mgt strategies, Refer to Behavioral Health if appropriate, Refer to Physician if appropriate, Instruct patient to recognize signs symptoms of depression, Instruct patient to recog and Other additional plan/intervention Psychosocial - Final Assess Visit Session Number:: 20 Problems/Goals History of Emotional Disorders: None Plan Interventions/Plan:: Assess stressors,coping strategies signs of derpression on admission, Instruct/assist pt to develop coping personal stress Mgt strategies, Refer to Behavioral Health if appropriate, Refer to Physician if appropriate, Instruct patient to recognize signs symptoms of depression, Instruct patient to recog and Other additional plan/intervention Oxygen Oxygen Titration Init Visit Session Number:: 20 Initial Assessment SpO2:: 95 Oxygen Oxygen Titration 30D Visit Date of Eval: 01/18/24 Session Number:: 20 Reassessment Breath Sounds:: Clear SpO2:: 95 Oxygen Oxygen Titration 60D Visit Date of Eval: 01/18/24 Session Number:: 20 Reassessment Breath Sounds:: Clear SpO2:: 95 Oxygen Oxygen Titration 90D Visit Date of Eval: 01/18/24 Session Number:: 20 Reassessment Breath Sounds:: Clear SpO2:: 95 Oxygen Oxygen Titration [place] Visit Date of Eval: 01/18/24 Session Number:: 20 Reassessment Breath Sounds:: Clear SpO2:: 95 Core Components - Initial Visit Session Number:: 20 Hypertension Hypertension Diagnosis:: Hypertension ICD-10 I10 BP: 136/60 [place] [employer] Hypertension Guidelines Blood Pressure: 168/88 Outcomes/Goals: Able to verbalize/achieve optimal blood pressure <130/80, Incorporates diet changes exercise for blood pressure control by DC and Other additional outcomes/goals Tobacco - Initial Assessment (more content not included)... Normal [facility] Absolute lymphocyte countOrd ered By: Jaz Castro on 11-20-2023 Lymphocytes Auto (Unsp spec) [#/Vol] 2.50 10*3/uL 0.83-4.51 [facility] Basophil percentageOrdered B y: Jaz Castro on 11-20-2023 Basophils/100 WBC (Bld) 0.5 % 0-1 [facility] Bilirubin [Mass/Vol] 0.40 mg/dL 0.20-1.00 [facility] Comment on above: For patients on eltr ombopag therapy, use of Dimension [place] TBIL is not recommended. Chloride [Moles/Vol] 108 mmol/L 98-107 [facility] Eosinophils/100 WBC (Bld) 6.2 % 0-5 [facility] Glucose [Mass/Vol] 82 mg/dL 74-106 [facility] Neutrophils (Bld) [#/Vol] 3.4 10*3/uL 2.0-7.7 [facility] Neutrophils/100 WBC (Bld) 45.4 % 47-70 [facility] Potassium [Moles/Vol] 3.9 mmol/L 3.5-5.1 [facility] Protein [Mass/Vol] 7.0 g/dL 6.4-8.2 [facility] Sodium [Moles/Vol] 140 mmol/L 136-145 [facility] WBC (Bld) [#/Vol] 7.5 10*3/uL 4.4-11.0 [facility] Blood erythrocytes count (nu mber/volume)Ordered By: Jaz Castro on 11-20-2023 RBC (Bld) [#/Vol] 3.64 10*6/uL 4.6-6.2 [facility] Blood hemoglobin measurement (mass/volume)Ordered By: Jaz Castro on 11-20-2023 Hemoglobin (Bld) [Mass/Vol] 11.2 g/dL 13.0-16.5 [facility] Blood lymphocytes/100 leukoc ytesOrdered By: Jaz Castro on 11-20-2023 Lymphocytes/100 WBC (Bld) 33.5 % 19-41 [facility] Blood monocytes/100 leukocyt esOrdered By: Jaz aCstro on 11-20-2023 Monocytes/100 WBC (Bld) 14.1 % 0-10 [facility] Blood platelet mean volumeOr dered By: Jaz Castro on 11-20-2023 Platelet mean volume (Bld) [Entitic vol] 10.2 fL 6.2-12.0 [facility] Determination of erythrocyte mean corpuscular volume (MCV)Ordered By: Jaz Castro on 11-20-2023 MCV (RBC) [Entitic vol] 94.0 fL 80-94 [facility] Hematocrit Auto (Bld) [Volum e fraction]Ordered By: Jaz Castro on 11-20-2023 Hematocrit (Bld) [Volume fraction] 34.2 % 40-54 [facility] Laboratory - Chemistry and C hemistry - challengeOrdered By: Jaz Castro on 11-20-2023 ALP [Catalytic activity/Vol] 52 U/L 45-117 [facility] ALT [Catalytic activity/Vol] 34 U/L 16-61 [facility] CO2 [Moles/Vol] 25.0 mmol/L 21.0-32.0 [facility] Globulin (S) [Mass/Vol] 3.3 g/dL 2.2-4.2 [facility] Urea nitrogen/Creatinine [Mass ratio] 12.6 mg/mg 10-20 [facility] - Hematology and Cell countsOrdered By: Jaz Castro on 11-20-2023 Erythrocyte distribution width (RBC) [Entitic vol] 43.1 fL 35.1-43.9 [facility] Erythrocyte distribution width (RBC) [Ratio] 12.5 % 11.6-14.6 [facility] Immature granulocytes/100 WBC (Bld) 0.300 % 0.0-0.9 [facility] Comment on above: IG% - Immature Granu locytes (promyelocytes, myelocytes and metamyelocytes) > 1% indicates that a LEFT SHIFT is Present. MCH (RBC) [Entitic mass] 30.8 pg 27.0-32.0 [facility] Nucleated RBC/100 WBC (Bld) [Ratio] 0 % 0-5 [facility] MCHC Auto (RBC) [Mass/Vol]Or dered By: Jaz Castro on 11-20-2023 MCHC (RBC) [Mass/Vol] 32.7 g/dL 32-36 [facility] No Panel InformationOrdered By: Jaz Castro on 11-20-2023 Estimated GFR (MDRD) Amer 68 mL/min >60 [facility] Comment on above: GFR Calc Estimated GFR (MDRD) Non-Af Amer 56 mL/min >60 [facility] Comment on above: Non- GFR Calc Platelets bldOrdered By: John Castro on 11-20-2023 Platelets (Bld) [#/Vol] 264 10*3/uL 150-450 [facility] Serum or plasma albumin [place] urement (mass/volume)Ordered By: Jaz Castro on 11-20-2023 Albumin [Mass/Vol] 3.7 g/dL 3.2-5.0 [facility] Serum or plasma albumin/glob ulin mass ratioOrdered By: Jaz Castro on 11-20-2023 Albumin/Globulin [Mass ratio] 1.1 {ratio} 0.9-2.4 [facility] Serum or plasma calcium [place] urement (mass/volume)Ordered By: Jaz Castro on 11-20-2023 Calcium [Mass/Vol] 8.1 mg/dL 8.5-10.1 [facility] Serum or plasma creatinine m easurement (mass/volume)Ordered By: Jaz Castro on 11-20-2023 Creatinine [Mass/Vol] 1.35 mg/dL 0.70-1.30 [facility] Comment on above: The validity of the calculated GFR & GFRAA in patients over 70 years has not been determined. Clinical correlation is essential. Serum or plasma urea nitroge n measurement (mass/volume)Ordered By: Jaz Castro on 11-20-2023 Urea nitrogen [Mass/Vol] 17 mg/dL 7-18 [facility] Thin prep Papanicolaou smear with manual screeningOrdered By: Jaz Castro on 11-20-2023 Thin prep Papanicolaou smear with manual screening 33 U/L 15-37 [facility] Thin prep Papanicolaou smear with manual screening 7 5-15 [facility] .Auto Diffon 09-14-2023 Basophil, Absolute 0.0 10 3/mcL Normal 0.0-0.3 [facility] ([place]) Comment on above: Performed By: #### M DW, ANEU, PBNP, CBC, ADIFF, TROPHS, GFR, BMP #### [address] [address] Basophils/100 WBC (Bld) 0.1 % Normal 0.0-2.5 [facility] ([place]) Comment on above: Performed By: #### M DW, ANEU, PBNP, CBC, ADIFF, TROPHS, GFR, BMP #### [address] [address] Eosinophil, Absolute 0.0 10 3/mcL Normal 0.0-0.7 [facility] ([place]) Comment on above: Performed By: #### M DW, ANEU, PBNP, CBC, ADIFF, TROPHS, GFR, BMP #### [address] [address] Eosinophils/100 WBC (Bld) 0.0 % Normal 0.0-6.0 [facility] ([place]) Comment on above: Performed By: #### M DW, ANEU, PBNP, CBC, ADIFF, TROPHS, GFR, BMP #### [address] [address] Lymphocyte, Absolute 0.7 10 3/mcL Low 0.9-4.3 [facility] ([place]) Comment on above: Performed By: #### M DW, ANEU, PBNP, CBC, ADIFF, TROPHS, GFR, BMP #### [address] [address] Lymphocytes/100 WBC (Bld) 7.2 % Low 20.0-40.0 [facility] ([place]) Comment on above: Performed By: #### M DW, ANEU, PBNP, CBC, ADIFF, TROPHS, GFR, BMP #### [address] [address] Monocyte, Absolute 0.5 10 3/mcL Normal 0.1-1.4 [facility] ([place]) Comment on above: Performed By: #### M DW, ANEU, PBNP, CBC, ADIFF, TROPHS, GFR, BMP #### [address] [address] Monocytes/100 WBC (Bld) 5.7 % Normal 2.0-13.0 [facility] ([place]) Comment on above: Performed By: #### M DW, ANEU, PBNP, CBC, ADIFF, TROPHS, GFR, BMP #### [address] [address] Neutrophils/100 WBC (Bld) 87.0 % High 50.0-75.0 [facility] ([place]) Comment on above: Performed By: #### M DW, ANEU, PBNP, CBC, ADIFF, TROPHS, GFR, BMP #### [address] [address] .GFRon 09-14-2023 GFR >60 Normal [facility] ([place]) Comment on above: Result Comment: GFR Population mean for , Non- Americans Ages 20-29 = 116 mL/min/1.73 sq.m. Ages 30-39 = 107 mL/min/1.73 sq.m. Ages 40-49 = 99 mL/min/1.73 sq.m. Ages 50-59 = 93 mL/min/1.73 sq.m. Ages 60-69 = 85 mL/min/1.73 sq.m. Ages 70+ = 75 mL/min/1.73 sq.m. Chronic Kidney Disease: Less than 60 mL/min/1.73 square meters End Stage Renal Disease: Less than 15 mL/min/1.73 square meters Performed By: #### M DW, ANEU, PBNP, CBC, ADIFF, TROPHS, GFR, BMP #### [address] [address] GFR Non- >60 Normal [facility] ([place]) Comment on above: Result Comment: GFR Population mean for , Non- Americans Ages 20-29 = 116 mL/min/1.73 sq.m. Ages 30-39 = 107 mL/min/1.73 sq.m. Ages 40-49 = 99 mL/min/1.73 sq.m. Ages 50-59 = 93 mL/min/1.73 sq.m. Ages 60-69 = 85 mL/min/1.73 sq.m. Ages 70+ = 75 mL/min/1.73 sq.m. Chronic Kidney Disease: Less than 60 mL/min/1.73 square meters End Stage Renal Disease: Less than 15 mL/min/1.73 square meters Performed By: #### M DW, ANEU, PBNP, CBC, ADIFF, TROPHS, GFR, BMP #### [address] [address] .NEUABSon 09-14-2023 Neutrophil, Absolute 8.0 10 3/mcL Normal 2.3-8.1 [facility] ([place]) Comment on above: Performed By: #### M DW, ANEU, PBNP, CBC, ADIFF, TROPHS, GFR, BMP #### [address] [address] BMPon 09-14-2023 BUN/Creatinine Ratio 24.2 ratio High 10.0-22.0 [facility] ([place]) Comment on above: Performed By: #### M DW, ANEU, PBNP, CBC, ADIFF, TROPHS, GFR, BMP #### [address] [address] Calcium [Mass/Vol] 8.8 mg/dL Normal 8.7-10.4 [facility] ([place]) Comment on above: Performed By: #### M DW, ANEU, PBNP, CBC, ADIFF, TROPHS, GFR, BMP #### [address] [address] Chloride [Moles/Vol] 106 mmol/L Normal 98-110 [facility] ([place] Comment on above: Performed By: #### M DW, ANEU, PBNP, CBC, ADIFF, TROPHS, GFR, BMP #### [address] [address] CO2 [Moles/Vol] 25 mmol/L Normal 22-32 [facility] ([place] Comment on above: Performed By: #### M DW, ANEU, PBNP, CBC, ADIFF, TROPHS, GFR, BMP #### [address] [address] Creatinine [Mass/Vol] 1.20 mg/dL Normal 0.60-1.40 [facility] ([place]) Comment on above: Performed By: #### M DW, ANEU, PBNP, CBC, ADIFF, TROPHS, GFR, BMP #### [address] [address] Electrolyte Balance 8.0 mEq/L Normal 4.0-15.0 [facility] ([place]) Comment on above: Performed By: #### M DW, ANEU, PBNP, CBC, ADIFF, TROPHS, GFR, BMP #### [address] [address] Glucose [Mass/Vol] 123 mg/dL High 82-115 [facility] ([place]) Comment on above: Performed By: #### M DW, ANEU, PBNP, CBC, ADIFF, TROPHS, GFR, BMP #### [place] [address] Potassium [Moles/Vol] 4.6 mmol/L Normal 3.5-5.0 [facility] ([place] Comment on above: Performed By: #### M DW, ANEU, PBNP, CBC, ADIFF, TROPHS, GFR, BMP #### [place] [address] Sodium [Moles/Vol] 139 mmol/L Normal 136-145 [facility] ([place] Comment on above: Performed By: #### M DW, ANEU, PBNP, CBC, ADIFF, TROPHS, GFR, BMP #### [place] [address] Urea nitrogen [Mass/Vol] 29.0 mg/dL High 8.0-22.0 [facility] ([place] Comment on above: Performed By: #### M DW, ANEU, PBNP, CBC, ADIFF, TROPHS, GFR, BMP #### [place] [address] CBCon 09-14-2023 Erythrocyte distribution width (RBC) [Ratio] 12.5 % Normal 11.5-15.5 [facility] ([place] Comment on above: Performed By: #### M DW, ANEU, PBNP, CBC, ADIFF, TROPHS, GFR, BMP #### [place] [address] Hematocrit (Bld) [Volume fraction] 37.6 % Low 40.0-52.0 [facility] ([place] Comment on above: Performed By: #### M DW, ANEU, PBNP, CBC, ADIFF, TROPHS, GFR, BMP #### [place] [address] Hgb 12.9 G/dL Low 13.0-17.5 [facility] ([place] Comment on above: Performed By: #### M DW, ANEU, PBNP, CBC, ADIFF, TROPHS, GFR, BMP #### [place] [address] MCH (RBC) [Entitic mass] 32.2 pg Normal 27.0-33.0 [facility] ([place] Comment on above: Performed By: #### M DW, ANEU, PBNP, CBC, ADIFF, TROPHS, GFR, BMP #### [place] [address] MCHC 34.3 G/dL Normal 32.0-36.0 [facility] ([place] Comment on above: Performed By: #### M DW, ANEU, PBNP, CBC, ADIFF, TROPHS, GFR, BMP #### [place] [address] MCV (RBC) [Entitic vol] 93.8 fL Normal 81.0-100.0 [facility] ([place] Comment on above: Performed By: #### M DW, ANEU, PBNP, CBC, ADIFF, TROPHS, GFR, BMP #### [place] [address] Platelet 311 10 3/mcL Normal 150-450 [facility] ([place] Comment on above: Performed By: #### M DW, ANEU, PBNP, CBC, ADIFF, TROPHS, GFR, BMP #### [place] [address] Platelet mean volume (Bld) [Entitic vol] 8.8 fL Normal 6.4-10.5 [facility] ([place] Comment on above: Performed By: #### M DW, ANEU, PBNP, CBC, ADIFF, TROPHS, GFR, BMP #### [place] [address] RBC 4.01 10 6/mcL Low 4.50-6.00 [facility] ([place] Comment on above: Performed By: #### M DW, ANEU, PBNP, CBC, ADIFF, TROPHS, GFR, BMP #### [place] [address] WBC 9.3 10 3/mcL Normal 4.5-10.8 [facility] ([place] Comment on above: Performed By: #### M DW, ANEU, PBNP, CBC, ADIFF, TROPHS, GFR, BMP #### [address] [address] .Auto Diffon 09-12-2023 Basophil, Absolute 0.0 10 3/mcL Normal 0.0-0.3 [facility] ([place] Comment on above: Performed By: #### A DIFF, CBC, BMP, ANEU, GFR #### [address] [address] Basophils/100 WBC (Bld) 0.1 % Normal 0.0-2.5 [facility] ([place] Comment on above: Performed By: #### A DIFF, CBC, BMP, ANEU, GFR #### [address] [address] Eosinophil, Absolute 0.0 10 3/mcL Normal 0.0-0.7 [facility] ([place]) Comment on above: Performed By: #### A DIFF, CBC, BMP, ANEU, GFR #### [address] [address] Eosinophils/100 WBC (Bld) 0.1 % Normal 0.0-6.0 [facility] ([place] Comment on above: Performed By: #### A DIFF, CBC, BMP, ANEU, GFR #### [address] [address] Lymphocyte, Absolute 0.8 10 3/mcL Low 0.9-4.3 [facility] ([place] Comment on above: Performed By: #### A DIFF, CBC, BMP, ANEU, GFR #### [address] [address] Lymphocytes/100 WBC (Bld) 14.9 % Low 20.0-40.0 [facility] ([place] Comment on above: Performed By: #### A DIFF, CBC, BMP, ANEU, GFR #### [address] [address] Monocyte, Absolute 0.1 10 3/mcL Normal 0.1-1.4 [facility] ([place] Comment on above: Performed By: #### A DIFF, CBC, BMP, ANEU, GFR #### [address] [address] Monocytes/100 WBC (Bld) 2.0 % Normal 2.0-13.0 [facility] ([place] Comment on above: Performed By: #### A DIFF, CBC, BMP, ANEU, GFR #### [address] [address] Neutrophils/100 WBC (Bld) 82.9 % High 50.0-75.0 [facility] ([place] Comment on above: Performed By: #### A DIFF, CBC, BMP, ANEU, GFR #### [address] [address] .GFRon 09-12-2023 GFR >60 Normal [facility] ([place] Comment on above: Result Comment: GFR Population mean for , Non- Americans Ages 20-29 = 116 mL/min/1.73 sq.m. Ages 30-39 = 107 mL/min/1.73 sq.m. Ages 40-49 = 99 mL/min/1.73 sq.m. Ages 50-59 = 93 mL/min/1.73 sq.m. Ages 60-69 = 85 mL/min/1.73 sq.m. Ages 70+ = 75 mL/min/1.73 sq.m. Chronic Kidney Disease: Less than 60 mL/min/1.73 square meters End Stage Renal Disease: Less than 15 mL/min/1.73 square meters Performed By: #### M DW, ANEU, PBNP, CBC, ADIFF, TROPHS, GFR, BMP #### [address] [address] GFR Non- 58 ml/min/1.73sqm Normal [facility] ([place] Comment on above: Result Comment: GFR Population mean for , Non- Americans Ages 20-29 = 116 mL/min/1.73 sq.m. Ages 30-39 = 107 mL/min/1.73 sq.m. Ages 40-49 = 99 mL/min/1.73 sq.m. Ages 50-59 = 93 mL/min/1.73 sq.m. Ages 60-69 = 85 mL/min/1.73 sq.m. Ages 70+ = 75 mL/min/1.73 sq.m. Chronic Kidney Disease: Less than 60 mL/min/1.73 square meters End Stage Renal Disease: Less than 15 mL/min/1.73 square meters Performed By: #### M DW, ANEU, PBNP, CBC, ADIFF, TROPHS, GFR, BMP #### [address] [address] .NEUABSon 09-12-2023 Neutrophil, Absolute 4.3 10 3/mcL Normal 2.3-8.1 [facility] ([place]) Comment on above: Performed By: #### M DW, ANEU, PBNP, CBC, ADIFF, TROPHS, GFR, BMP #### [address] [address] BMPon 09-12-2023 BUN/Creatinine Ratio 21.4 ratio Normal 10.0-22.0 [facility] ([place] Comment on above: Performed By: #### M DW, ANEU, PBNP, CBC, ADIFF, TROPHS, GFR, BMP #### [place] [id number] Calcium [Mass/Vol] 9.2 mg/dL Normal 8.7-10.4 [facility] ([place]) Comment on above: Performed By: #### M DW, ANEU, PBNP, CBC, ADIFF, TROPHS, GFR, BMP #### [address] [address] Chloride [Moles/Vol] 104 mmol/L Normal 98-110 [facility] ([place] Comment on above: Performed By: #### M DW, ANEU, PBNP, CBC, ADIFF, TROPHS, GFR, BMP #### [address] [address] CO2 [Moles/Vol] 22 mmol/L Normal 22-32 [facility] ([place] Comment on above: Performed By: #### M DW, ANEU, PBNP, CBC, ADIFF, TROPHS, GFR, BMP #### [address] [address] Creatinine [Mass/Vol] 1.26 mg/dL Normal 0.60-1.40 [facility] ([place] Comment on above: Performed By: #### M DW, ANEU, PBNP, CBC, ADIFF, TROPHS, GFR, BMP #### [address] [address] Electrolyte Balance 11.0 mEq/L Normal 4.0-15.0 [facility] ([place] Comment on above: Performed By: #### M DW, ANEU, PBNP, CBC, ADIFF, TROPHS, GFR, BMP #### [place] [id number] Glucose [Mass/Vol] 129 mg/dL High 82-115 [facility] ([place] Comment on above: Performed By: #### M DW, ANEU, PBNP, CBC, ADIFF, TROPHS, GFR, BMP #### [place] [id number] Potassium [Moles/Vol] 4.3 mmol/L Normal 3.5-5.0 [facility] ([place] Comment on above: Performed By: #### M DW, ANEU, PBNP, CBC, ADIFF, TROPHS, GFR, BMP #### [place] [id number] Sodium [Moles/Vol] 137 mmol/L Normal 136-145 [facility] ([place]) Comment on above: Performed By: #### M DW, ANEU, PBNP, CBC, ADIFF, TROPHS, GFR, BMP #### [place] [id number] Urea nitrogen [Mass/Vol] 27.0 mg/dL High 8.0-22.0 [facility] ([place] Comment on above: Performed By: #### M DW, ANEU, PBNP, CBC, ADIFF, TROPHS, GFR, BMP #### [address] [address] CBCon 09-12-2023 Erythrocyte distribution width (RBC) [Ratio] 12.3 % Normal 11.5-15.5 [facility] ([place] Comment on above: Performed By: #### A DIFF, CBC, BMP, ANEU, GFR #### [place] [id number] Hematocrit (Bld) [Volume fraction] 39.3 % Low 40.0-52.0 [facility] ([place] Comment on above: Performed By: #### A DIFF, CBC, BMP, ANEU, GFR #### [place] [address] Hgb 13.5 G/dL Normal 13.0-17.5 [facility] ([place] Comment on above: Performed By: #### A DIFF, CBC, BMP, ANEU, GFR #### [place] [address] MCH (RBC) [Entitic mass] 32.1 pg Normal 27.0-33.0 [facility] ([place] Comment on above: Performed By: #### A DIFF, CBC, BMP, ANEU, GFR #### [place] [address] MCHC 34.5 G/dL Normal 32.0-36.0 [facility] ([place] Comment on above: Performed By: #### A DIFF, CBC, BMP, ANEU, GFR #### [place] [address] MCV (RBC) [Entitic vol] 93.1 fL Normal 81.0-100.0 [facility] ([place] Comment on above: Performed By: #### A DIFF, CBC, BMP, ANEU, GFR #### [place] [address] Platelet 330 10 3/mcL Normal 150-450 [facility] ([place] Comment on above: Performed By: #### A DIFF, CBC, BMP, ANEU, GFR #### [place] [address] Platelet mean volume (Bld) [Entitic vol] 8.4 fL Normal 6.4-10.5 [facility] ([place] Comment on above: Performed By: #### A DIFF, CBC, BMP, ANEU, GFR #### [place] [id number] RBC 4.22 10 6/mcL Low 4.50-6.00 [facility] ([place] Comment on above: Performed By: #### A DIFF, CBC, BMP, ANEU, GFR #### [address] [address] WBC 5.2 10 3/mcL Normal 4.5-10.8 [facility] ([place] Comment on above: Performed By: #### A DIFF, CBC, BMP, ANEU, GFR #### [address] [address] MGon 09-12-2023 Magnesium [Mass/Vol] 2.2 mg/dL Normal 1.6-2.4 [facility] ([place] Comment on above: Performed By: #### M DW, ANEU, PBNP, CBC, ADIFF, TROPHS, GFR, BMP #### [address] [address] .Auto Diffon 09-11-2023 Basophil, Absolute 0.0 10 3/mcL Normal 0.0-0.3 [facility] ([place] Comment on above: Performed By: #### M DW, ANEU, PBNP, CBC, ADIFF, TROPHS, GFR, BMP #### [address] [address] Basophils/100 WBC (Bld) 0.8 % Normal 0.0-2.5 [facility] ([place] Comment on above: Performed By: #### M DW, ANEU, PBNP, CBC, ADIFF, TROPHS, GFR, BMP #### [address] [address] Eosinophil, Absolute 0.8 10 3/mcL High 0.0-0.7 [facility] ([place]) Comment on above: Performed By: #### M DW, ANEU, PBNP, CBC, ADIFF, TROPHS, GFR, BMP #### [address] [address] Eosinophils/100 WBC (Bld) 14.3 % High 0.0-6.0 [facility] ([place] Comment on above: Performed By: #### M DW, ANEU, PBNP, CBC, ADIFF, TROPHS, GFR, BMP #### [address] [address] Lymphocyte, Absolute 2.1 10 3/mcL Normal 0.9-4.3 [facility] ([place] Comment on above: Performed By: #### M DW, ANEU, PBNP, CBC, ADIFF, TROPHS, GFR, BMP #### [address] [address] Lymphocytes/100 WBC (Bld) 36.6 % Normal 20.0-40.0 [facility] ([place] Comment on above: Performed By: #### M DW, ANEU, PBNP, CBC, ADIFF, TROPHS, GFR, BMP #### [address] [address] Monocyte, Absolute 0.6 10 3/mcL Normal 0.1-1.4 [facility] [place] Comment on above: Performed By: #### M DW, ANEU, PBNP, CBC, ADIFF, TROPHS, GFR, BMP #### [address] [address] Monocytes/100 WBC (Bld) 11.4 % Normal 2.0-13.0 [facility] ([place] Comment on above: Performed By: #### M DW, ANEU, PBNP, CBC, ADIFF, TROPHS, GFR, BMP #### [address] [address] Neutrophils/100 WBC (Bld) 36.9 % Low 50.0-75.0 [facility] ([place] Comment on above: Performed By: #### M DW, ANEU, PBNP, CBC, ADIFF, TROPHS, GFR, BMP #### [address] [address] .GFRon 09-11-2023 GFR >60 Normal [facility] ([place] Comment on above: Result Comment: GFR Population mean for , Non- Americans Ages 20-29 = 116 mL/min/1.73 sq.m. Ages 30-39 = 107 mL/min/1.73 sq.m. Ages 40-49 = 99 mL/min/1.73 sq.m. Ages 50-59 = 93 mL/min/1.73 sq.m. Ages 60-69 = 85 mL/min/1.73 sq.m. Ages 70+ = 75 mL/min/1.73 sq.m. Chronic Kidney Disease: Less than 60 mL/min/1.73 square meters End Stage Renal Disease: Less than 15 mL/min/1.73 square meters Performed By: #### M DW, ANEU, PBNP, CBC, ADIFF, TROPHS, GFR, BMP #### [address] [address] GFR Non- 54 ml/min/1.73sqm Normal [facility] ([place] Comment on above: Result Comment: GFR Population mean for , Non- Americans Ages 20-29 = 116 mL/min/1.73 sq.m. Ages 30-39 = 107 mL/min/1.73 sq.m. Ages 40-49 = 99 mL/min/1.73 sq.m. Ages 50-59 = 93 mL/min/1.73 sq.m. Ages 60-69 = 85 mL/min/1.73 sq.m. Ages 70+ = 75 mL/min/1.73 sq.m. Chronic Kidney Disease: Less than 60 mL/min/1.73 square meters End Stage Renal Disease: Less than 15 mL/min/1.73 square meters Performed By: #### M DW, ANEU, PBNP, CBC, ADIFF, TROPHS, GFR, BMP #### [address] [address] .MDWon 09-11-2023 Monocyte Distribution Width 16.39 Normal 0.00-20.00 [facility] ([place] Comment on above: Result Comment: For ED adult patients suspected of sepsis, MDW<=20.0 does not rule out sepsis or risk of sepsis Performed By: #### M DW, ANEU, PBNP, CBC, ADIFF, TROPHS, GFR, BMP #### [address] [address] .NEUABSon 09-11-2023 Neutrophil, Absolute 2.1 10 3/mcL Low 2.3-8.1 [facility] ([place]) Comment on above: Performed By: #### M DW, ANEU, PBNP, CBC, ADIFF, TROPHS, GFR, BMP #### [address] [address] BMPon 09-11-2023 BUN/Creatinine Ratio 13.5 ratio Normal 10.0-22.0 [facility] ([place] Comment on above: Performed By: #### M DW, ANEU, PBNP, CBC, ADIFF, TROPHS, GFR, BMP #### [address] [address] Calcium [Mass/Vol] 9.1 mg/dL Normal 8.7-10.4 [facility] ([place] Comment on above: Performed By: #### M DW, ANEU, PBNP, CBC, ADIFF, TROPHS, GFR, BMP #### [address] [address] Chloride [Moles/Vol] 105 mmol/L Normal 98-110 [facility] ([place] Comment on above: Performed By: #### M DW, ANEU, PBNP, CBC, ADIFF, TROPHS, GFR, BMP #### [address] [address] CO2 [Moles/Vol] 28 mmol/L Normal 22-32 [facility] ([place] Comment on above: Performed By: #### M DW, ANEU, PBNP, CBC, ADIFF, TROPHS, GFR, BMP #### [address] [address] Creatinine [Mass/Vol] 1.33 mg/dL Normal 0.60-1.40 [facility] ([place]) Comment on above: Performed By: #### M DW, ANEU, PBNP, CBC, ADIFF, TROPHS, GFR, BMP #### [address] [address] Electrolyte Balance 4.0 mEq/L Normal 4.0-15.0 [facility] ([place] Comment on above: Performed By: #### M DW, ANEU, PBNP, CBC, ADIFF, TROPHS, GFR, BMP #### [address] [address] Glucose [Mass/Vol] 95 mg/dL Normal 82-115 [facility] ([place]) Comment on above: Performed By: #### M DW, ANEU, PBNP, CBC, ADIFF, TROPHS, GFR, BMP #### [place] [address] Potassium [Moles/Vol] 4.4 mmol/L Normal 3.5-5.0 [facility] ([place] Comment on above: Performed By: #### M DW, ANEU, PBNP, CBC, ADIFF, TROPHS, GFR, BMP #### [place] [address] Sodium [Moles/Vol] 137 mmol/L Normal 136-145 [facility] ([place] Comment on above: Performed By: #### M DW, ANEU, PBNP, CBC, ADIFF, TROPHS, GFR, BMP #### [place] [address] Urea nitrogen [Mass/Vol] 18.0 mg/dL Normal 8.0-22.0 [facility] ([place] Comment on above: Performed By: #### M DW, ANEU, PBNP, CBC, ADIFF, TROPHS, GFR, BMP #### [place] [address] CBCon 09-11-2023 Erythrocyte distribution width (RBC) [Ratio] 12.6 % Normal 11.5-15.5 [facility] ([place] Comment on above: Performed By: #### M DW, ANEU, PBNP, CBC, ADIFF, TROPHS, GFR, BMP #### [place] [address] Hematocrit (Bld) [Volume fraction] 38.6 % Low 40.0-52.0 [facility] ([place] Comment on above: Performed By: #### M DW, ANEU, PBNP, CBC, ADIFF, TROPHS, GFR, BMP #### [place] [address] Hgb 13.6 G/dL Normal 13.0-17.5 [facility] ([place] Comment on above: Performed By: #### M DW, ANEU, PBNP, CBC, ADIFF, TROPHS, GFR, BMP #### [place] [address] MCH (RBC) [Entitic mass] 32.6 pg Normal 27.0-33.0 [facility] ([place] Comment on above: Performed By: #### M DW, ANEU, PBNP, CBC, ADIFF, TROPHS, GFR, BMP #### [place] [address] MCHC 35.2 G/dL Normal 32.0-36.0 [facility] ([place] Comment on above: Performed By: #### M DW, ANEU, PBNP, CBC, ADIFF, TROPHS, GFR, BMP #### [place] [address] MCV (RBC) [Entitic vol] 92.5 fL Normal 81.0-100.0 [facility] ([place] Comment on above: Performed By: #### M DW, ANEU, PBNP, CBC, ADIFF, TROPHS, GFR, BMP #### [place] [address] Platelet 311 10 3/mcL Normal 150-450 [facility] ([place] Comment on above: Performed By: #### M DW, ANEU, PBNP, CBC, ADIFF, TROPHS, GFR, BMP #### [place] [address] Platelet mean volume (Bld) [Entitic vol] 8.3 fL Normal 6.4-10.5 [facility] ([place] Comment on above: Performed By: #### M DW, ANEU, PBNP, CBC, ADIFF, TROPHS, GFR, BMP #### [place] [address] RBC 4.18 10 6/mcL Low 4.50-6.00 [facility] ([place] Comment on above: Performed By: #### M DW, ANEU, PBNP, CBC, ADIFF, TROPHS, GFR, BMP #### [place] [address] WBC 5.7 10 3/mcL Normal 4.5-10.8 [facility] ([place] Comment on above: Performed By: #### M DW, ANEU, PBNP, CBC, ADIFF, TROPHS, GFR, BMP #### [address] [address] CVFLURVon 09-11-2023 FLU A PCR Negative Normal Negative [facility] ([place] Comment on above: Result Comment: [place] [id number] Performed By: #### M DW, ANEU, PBNP, CBC, ADIFF, TROPHS, GFR, BMP #### [address] [address] FLU B PCR Negative Normal Negative [facility] ([place] Comment on above: Result Comment: Note s [id number] Performed By: #### M DW, ANEU, PBNP, CBC, ADIFF, TROPHS, GFR, BMP #### [address] [address] RSV PCR Negative Normal Negative [facility] ([place] Comment on above: Result Comment: Note s [id number] Performed By: #### M DW, ANEU, PBNP, CBC, ADIFF, TROPHS, GFR, BMP #### [address] [address] SARS-CoV-2 (COVID-19) RNA JENNIE+probe Ql (Unsp spec) Negative Normal Negative [facility] ([place] Comment on above: Result Comment: Note s [id number] This test has been authorized by FDA under an EUA for use by authorized laboratories and has not been FDA cleared or approved. Results from the Xpert Xpress SARS-CoV-2/Flu/RSV or Xpert Xpress SARS-CoV-2 only test should be correlated with the clinical history, epidemiological data, and other data available to the clinician evaluating the patient. Performance of the Xpert Xpress SARS-CoV-2/Flu/RSV or Xpert Xpress SARS-CoV-2 only test has only been established in nasopharyngeal swab specimens. Erroneous test results might occur from improper specimen collection; failure to follow the recommended sample collection, handling, and storage procedures; technical error; or sample mix-up.False negative results may occur if virus is present at levels below the analytical limit of detection. Viral nucleic acid may persist in vivo, independent of virus viability. Detection of analyte target(s) does not imply that the corresponding virus(es) are infectious or are the causative agents for clinical symptoms.Recent patient exposure to FluMist or other live attenuated influenza vaccines may cause inaccurate positive results. Performed By: #### M DW, ANEU, PBNP, CBC, ADIFF, TROPHS, GFR, BMP #### [address] [address] PBNPon 09-11-2023 Natriuretic peptide B (Bld) [Mass/Vol] 88 pg/mL Normal 0-900 [facility] ([place] Comment on above: Result Comment: NT-p roBNP results of less than 300 pg/mL effectively rules out acute congestive heart failure with 99% negative predictive value. Performed By: #### M DW, ANEU, PBNP, CBC, ADIFF, TROPHS, GFR, BMP #### [place] [id number] TROPHSon 09-11-2023 Troponin I High Sensitivity <2.50 Normal 0.00-54.00 [facility] ([place] Comment on above: Performed By: #### M DW, ANEU, PBNP, CBC, ADIFF, TROPHS, GFR, BMP #### [place] [address] Troponin I High Sensitivity <2.50 Normal 0.00-54.00 [facility] ([place] Comment on above: Performed By: #### M DW, ANEU, PBNP, CBC, ADIFF, TROPHS, GFR, BMP #### [place] [address] XR CHEST 2 VIEWSon 3 XR CHEST 2 VIEWS ORIGINAL EXAMINATION: TWO XRAY VIEWS OF THE CHEST09/11/2023 12:42 pm COMPARISON: 04/18/2020 HISTORY: ORDERING SYSTEM PROVIDED HISTORY: Reason for Exam: CHEST PAIN FINDINGS: The heart size is normal.Lungs are hyperinflated. There is no pulmonary consolidation. No pneumothorax or pleural effusion. No aggressive osseous lesions identified. A compression deformity is noted in the midthoracic spine, approximately T7. Spurring noted in the thoracic spine. There is likely coronary artery vascular stent. IMPRESSION: Age indeterminate compression deformity at approximately T7 The lungs are hyperinflated. No consolidation Interpreted by: Dariel Zarate MD Preliminary Report By: Dariel Zarate MD Electronically signed By Dariel Zarate MD Dictated Date: 09/11/2023 12:49:03 PM Prelim Date: 09/11/2023 12:50:50 PM Sign Date: 09/11/2023 12:50:50 PM Ordering Provider: COREY Trujillo [facility] ([place]) Absolute lymphocyte countOrd ered By: HEALTH ASSESSMENT on 09-04-2023 Lymphocytes Auto (Unsp spec) [#/Vol] 2.64 10*3/uL 0.83-4.51 [facility] Absolute reticulocyte countO rdered By: HEALTH ASSESSMENT on 09-04-2023 Reticulocytes (Bld) [#/Vol] 0.00 10*3/uL 0-5 [facility] Basophil percentageOrdered B y: HEALTH ASSESSMENT on 09-04-2023 Basophil percentage 3.4 mg/dL 2.5-4.9 [facility] Bilirubin [Mass/Vol] 0.40 mg/dL 0.20-1.00 [facility] Comment on above: For patients on eltr ombopag therapy, use of Dimension [place] TBIL is not recommended. Chloride [Moles/Vol] 107 mmol/L 98-107 [facility] Cholesterol [Mass/Vol] 144 mg/dL <200 [facility] Comment on above: <200 mg/dL Desirable 200-240 mg/dL Borderline >240 mg/dL High Risk Glucose [Mass/Vol] 89 mg/dL 74-106 [facility] LDH [Catalytic activity/Vol] 243 U/L 87-241 [facility] Neutrophils (Bld) [#/Vol] 1.9 10*3/uL 2.0-7.7 [facility] Potassium [Moles/Vol] 4.3 mmol/L 3.5-5.1 [facility] Protein [Mass/Vol] 7.0 g/dL 6.4-8.2 [facility] Sodium [Moles/Vol] 136 mmol/L 136-145 [facility] Triglyceride [Mass/Vol] 91 mg/dL <199 [facility] Comment on above: The drugs N-Acetylcy steine and Metamizole may falsely depress this assay.Serum Triglycerides Reference Interval Normal <150 mg/dL Borderline high 150 - 199 mg/dL High 200 - 499 mg/dL Very High > or = 500 mg/dL WBC (Bld) [#/Vol] 5.9 10*3/uL 4.4-11.0 [facility] Blood erythrocytes count (nu mber/volume)Ordered By: HEALTH ASSESSMENT on 09-04-2023 RBC (Bld) [#/Vol] 3.79 10*6/uL 4.6-6.2 [facility] Blood hemoglobin measurement (mass/volume)Ordered By: HEALTH ASSESSMENT on 09-04-2023 Hemoglobin (Bld) [Mass/Vol] 12.3 g/dL 13.0-16.5 [facility] Blood leukocytes count corre cted for nucleated erythrocytes (number/volume)Ordered By: HEALTH ASSESSMENT on 09-04-2023 WBC corrected for nucl RBC (Bld) [#/Vol] FLASK FITTER [facility] Blood platelet mean volumeOr dered By: HEALTH ASSESSMENT on 09-04-2023 Platelet mean volume (Bld) [Entitic vol] 10.6 fL 6.2-12.0 [facility] Determination of erythrocyte mean corpuscular volume (MCV)Ordered By: HEALTH ASSESSMENT on 09-04-2023 MCV (RBC) [Entitic vol] 95.5 fL 80-94 [facility] Direct bilirubinOrdered By: HEALTH ASSESSMENT on 09-04-2023 Bilirubin.direct [Mass/Vol] 0.16 mg/dL 0.00-0.30 [facility] Hematocrit Auto (Bld) [Volum e fraction]Ordered By: HEALTH ASSESSMENT on 09-04-2023 Hematocrit (Bld) [Volume fraction] 36.2 % 40-54 [facility] Laboratory - Chemistry and C hemistry - challengeOrdered By: HEALTH ASSESSMENT on 09-04-2023 ALP [Catalytic activity/Vol] 51 U/L 45-117 [facility] ALT [Catalytic activity/Vol] 40 U/L 16-61 [facility] Cholesterol.total/Cho lesterol in HDL [Mass ratio] 1.90 {ratio} [facility] CO2 [Moles/Vol] 26.0 mmol/L 21.0-32.0 [facility] Globulin (S) [Mass/Vol] 3.5 g/dL 2.2-4.2 [facility] Urea nitrogen/Creatinine [Mass ratio] 12.5 mg/mg 10-20 [facility] Laboratory - Hematology and Cell countsOrdered By: HEALTH ASSESSMENT on 09-04-2023 Erythrocyte distribution width (RBC) [Entitic vol] 41.3 fL 35.1-43.9 [facility] Erythrocyte distribution width (RBC) [Ratio] 11.9 % 11.6-14.6 [facility] MCH (RBC) [Entitic mass] 32.5 pg 27.0-32.0 [facility] Nucleated RBC/100 WBC (Bld) [Ratio] 0 % 0-5 [facility] MCHC Auto (RBC) [Mass/Vol]Or dered By: HEALTH ASSESSMENT on 09-04-2023 MCHC (RBC) [Mass/Vol] 34.0 g/dL 32-36 [facility] No Panel InformationOrdered By: HEALTH ASSESSMENT on 09-04-2023 Estimated Creatinine Clearance Calc FLASK FITTER [facility] Estimated GFR (MDRD) Amer 60 mL/min >60 [facility] Comment on above: GFR Calc Estimated GFR (MDRD) Non-Af Amer 49 mL/min >60 [facility] Comment on above: Non- GFR Calc Immature Granulocyte % (Auto) FLASK FITTER [facility] Platelets bldOrdered By: HEA LT ASSESSMENT on 09-04-2023 Platelets (Bld) [#/Vol] 226 10*3/uL 150-450 [facility] Review by pathologistOrdered By: HEALTH ASSESSMENT on 09-04-2023 Pathologist review Vaughn (Unsp spec) [Interp] [facility] Segmented neutrophils/100 WB C Auto (Bld)Ordered By: HEALTH ASSESSMENT on 09-04-2023 Segmented neutrophils/100 WBC (Bld) 32.2 % 47-70 [facility] Serum or plasma albumin [place] urement (mass/volume)Ordered By: HEALTH ASSESSMENT on 09-04-2023 Albumin [Mass/Vol] 3.5 g/dL 3.2-5.0 [facility] Serum or plasma albumin/glob ulin mass ratioOrdered By: HEALTH ASSESSMENT on 09-04-2023 Albumin/Globulin [Mass ratio] 1.0 {ratio} 0.9-2.4 [facility] Serum or plasma calcium [place] urement (mass/volume)Ordered By: HEALTH ASSESSMENT on 09-04-2023 Calcium [Mass/Vol] 8.5 mg/dL 8.5-10.1 [facility] Serum or plasma cholesterol in HDL measurement (mass/volume)Ordered By: HEALTH ASSESSMENT on 09-04-2023 Cholesterol in HDL [Mass/Vol] 76 mg/dL >40 [facility] Comment on above: The drugs N-Acetylcy steine and Metamizole may falsely depress this assay. Reference Range HDL <40 mg/dL Low HDL Cholesterol HDL >or= 60 mg/dL High HDL Cholesterol Serum or plasma cholesterol in VLDL measurement (mass/volume)Ordered By: HEALTH ASSESSMENT on 09-04-2023 Cholesterol in VLDL [Mass/Vol] 18 mg/dL 5-40 [facility] Serum or plasma creatinine m easurement (mass/volume)Ordered By: HEALTH ASSESSMENT on 09-04-2023 Creatinine [Mass/Vol] 1.52 mg/dL 0.70-1.30 [facility] Comment on above: The validity of the calculated GFR & GFRAA in patients over 70 years has not been determined. Clinical correlation is essential. Serum or plasma low density lipoprotein (LDL) cholesterol measurement (mass/volume)Ordered By: HEALTH ASSESSMENT on 09-04-2023 Cholesterol in LDL [Mass/Vol] 50 mg/dL 0-130 [facility] Serum or plasma urea nitroge n measurement (mass/volume)Ordered By: HEALTH ASSESSMENT on 09-04-2023 Urea nitrogen [Mass/Vol] 19 mg/dL 7-18 [facility] Serum or plasma uric acid me asurement (mass/volume)Ordered By: HEALTH ASSESSMENT on 09-04-2023 Urate [Mass/Vol] 6.3 mg/dL 3.5-7.2 [facility] Comment on above: The drugs N-Acetylcy steine and Metamizole may falsely depress this assay. Thin prep Papanicolaou smear with manual screeningOrdered By: HEALTH ASSESSMENT on 09-04-2023 Thin prep Papanicolaou smear with manual screening 30 U/L 15-37 [facility] Thin prep Papanicolaou smear with manual screening 3 5-15 [facility] Absolute lymphocyte countOrd ered By: Jaz Castro on 08-25-2023 Lymphocytes Auto (Unsp spec) [#/Vol] 3.70 10*3/uL 0.83-4.51 [facility] Basophil percentageOrdered B y: Jaz Castro on 08-25-2023 Basophils/100 WBC (Bld) 0.6 % 0-1 [facility] Bilirubin [Mass/Vol] 0.40 mg/dL 0.20-1.00 [facility] Comment on above: For patients on eltr ombopag therapy, use of Dimension [place] TBIL is not recommended. Chloride [Moles/Vol] 105 mmol/L 98-107 [facility] Eosinophils/100 WBC (Bld) 2.1 % 0-5 [facility] Glucose [Mass/Vol] 91 mg/dL 74-106 [facility] Neutrophils (Bld) [#/Vol] 3.3 10*3/uL 2.0-7.7 [facility] Neutrophils/100 WBC (Bld) 40.6 % 47-70 [facility] Potassium [Moles/Vol] 4.0 mmol/L 3.5-5.1 [facility] Protein [Mass/Vol] 6.6 g/dL 6.4-8.2 [facility] Sodium [Moles/Vol] 138 mmol/L 136-145 [facility] WBC (Bld) [#/Vol] 8.1 10*3/uL 4.4-11.0 [facility] Blood erythrocytes count (nu mber/volume)Ordered By: Jaz Castro on 08-25-2023 RBC (Bld) [#/Vol] 3.93 10*6/uL 4.6-6.2 [facility] Blood hemoglobin measurement (mass/volume)Ordered By: Jaz Castro on 08-25-2023 Hemoglobin (Bld) [Mass/Vol] 12.5 g/dL 13.0-16.5 [facility] Blood lymphocytes/100 leukoc ytesOrdered By: Jaz Castro on 08-25-2023 Lymphocytes/100 WBC (Bld) 45.6 % 19-41 [facility] Blood monocytes/100 leukocyt esOrdered By: Jaz Castro on 08-25-2023 Monocytes/100 WBC (Bld) 10.4 % 0-10 [facility] Blood platelet mean volumeOr dered By: Jaz Castro on 08-25-2023 Platelet mean volume (Bld) [Entitic vol] 10.5 fL 6.2-12.0 [facility] Determination of erythrocyte mean corpuscular volume (MCV)Ordered By: Jaz Castro on 08-25-2023 MCV (RBC) [Entitic vol] 97.7 fL 80-94 [facility] Hematocrit Auto (Bld) [Volum e fraction]Ordered By: Jazmarco Castro on 08-25-2023 Hematocrit (Bld) [Volume fraction] 38.4 % 40-54 [facility] Laboratory - Chemistry and C hemistry - challengeOrdered By: Jazmarco Castro on 08-25-2023 ALP [Catalytic activity/Vol] 42 U/L 45-117 [facility] ALT [Catalytic activity/Vol] 69 U/L 16-61 [facility] CO2 [Moles/Vol] 26.0 mmol/L 21.0-32.0 [facility] Globulin (S) [Mass/Vol] 3.1 g/dL 2.2-4.2 [facility] Urea nitrogen/Creatinine [Mass ratio] 16.0 mg/mg 10-20 [facility] Laboratory - Hematology and Cell countsOrdered By: Jazmarco Castro on 08-25-2023 Erythrocyte distribution width (RBC) [Entitic vol] 45.2 fL 35.1-43.9 [facility] Erythrocyte distribution width (RBC) [Ratio] 12.5 % 11.6-14.6 [facility] Immature granulocytes/100 WBC (Bld) 0.700 % 0.0-0.9 [facility] Comment on above: IG% - Immature Granu locytes (promyelocytes, myelocytes and metamyelocytes) > 1% indicates that a LEFT SHIFT is Present. MCH (RBC) [Entitic mass] 31.8 pg 27.0-32.0 [facility] Nucleated RBC/100 WBC (Bld) [Ratio] 0 % 0-5 [facility] MCHC Auto (RBC) [Mass/Vol]Or dered By: Jazmarco Castro on 08-25-2023 MCHC (RBC) [Mass/Vol] 32.6 g/dL 32-36 [facility] No Panel InformationOrdered By: Jazmarco Castro on 08-25-2023 Estimated GFR (MDRD) Amer 61 mL/min >60 [facility] Comment on above: GFR Calc Estimated GFR (MDRD) Non-Af Amer 50 mL/min >60 [facility] Comment on above: Non- GFR Calc Platelets bldOrdered By: John Castro on 08-25-2023 Platelets (Bld) [#/Vol] 248 10*3/uL 150-450 [facility] Serum or plasma albumin [place] urement (mass/volume)Ordered By: Jaz Castro on 08-25-2023 Albumin [Mass/Vol] 3.5 g/dL 3.2-5.0 [facility] Serum or plasma albumin/glob ulin mass ratioOrdered By: Jaz Castro on 08-25-2023 Albumin/Globulin [Mass ratio] 1.1 {ratio} 0.9-2.4 [facility] Serum or plasma calcium [place] urement (mass/volume)Ordered By: Jaz Castro on 08-25-2023 Calcium [Mass/Vol] 8.4 mg/dL 8.5-10.1 [facility] Serum or plasma creatinine m easurement (mass/volume)Ordered By: Jaz Castro on 08-25-2023 Creatinine [Mass/Vol] 1.50 mg/dL 0.70-1.30 [facility] Comment on above: The validity of the calculated GFR & GFRAA in patients over 70 years has not been determined. Clinical correlation is essential. Serum or plasma urea nitroge n measurement (mass/volume)Ordered By: Jaz Castro on 08-25-2023 Urea nitrogen [Mass/Vol] 24 mg/dL 7-18 [facility] Thin prep Papanicolaou smear with manual screeningOrdered By: Jaz Castro on 08-25-2023 Thin prep Papanicolaou smear with manual screening 41 U/L 15-37 [facility] Thin prep Papanicolaou smear with manual screening 7 5-15 [facility] Laboratory - Microbiology an d Antimicrobial susceptibilityon 07-20-2023 SARS-CoV-2 (COVID-19) RNA JENNIE+probe Ql (Unsp spec) Not detected [facility] No Panel Informationon 07-20 POC Nasal Swab Influenza A,B Not detected [facility] POC Nasal Swab RSV Not detected [facility] Absolute lymphocyte countOrd ered By: Jaz Castro on 06-03-2023 Lymphocytes Auto (Unsp spec) [#/Vol] 2.62 10*3/uL 0.83-4.51 [facility] Basophil percentageOrdered B y: Jaz Castro on 06-03-2023 Basophils/100 WBC (Bld) 0.5 % 0-1 [facility] Bilirubin [Mass/Vol] 0.40 mg/dL 0.20-1.00 [facility] Comment on above: For patients on eltr ombopag therapy, use of Dimension [place] TBIL is not recommended. Chloride [Moles/Vol] 108 mmol/L 98-107 [facility] Eosinophils/100 WBC (Bld) 5.6 % 0-5 [facility] Glucose [Mass/Vol] 98 mg/dL 74-106 [facility] Neutrophils (Bld) [#/Vol] 2.2 10*3/uL 2.0-7.7 [facility] Neutrophils/100 WBC (Bld) 37.9 % 47-70 [facility] Potassium [Moles/Vol] 4.1 mmol/L 3.5-5.1 [facility] Protein [Mass/Vol] 7.1 g/dL 6.4-8.2 [facility] Sodium [Moles/Vol] 139 mmol/L 136-145 [facility] WBC (Bld) [#/Vol] 5.7 10*3/uL 4.4-11.0 [facility] Blood erythrocytes count (nu mber/volume)Ordered By: Jaz Castro on 06-03-2023 RBC (Bld) [#/Vol] 3.82 10*6/uL 4.6-6.2 [facility] Blood hemoglobin measurement (mass/volume)Ordered By: Jaz Castro on 06-03-2023 Hemoglobin (Bld) [Mass/Vol] 12.3 g/dL 13.0-16.5 [facility] Blood lymphocytes/100 leukoc ytesOrdered By: Jaz Castro on 06-03-2023 Lymphocytes/100 WBC (Bld) 46.0 % 19-41 [facility] Blood monocytes/100 leukocyt esOrdered By: Jaz Castro on 06-03-2023 Monocytes/100 WBC (Bld) 9.8 % 0-10 [facility] Blood platelet mean volumeOr dered By: Jaz Castro on 06-03-2023 Platelet mean volume (Bld) [Entitic vol] 10.2 fL 6.2-12.0 [facility] Determination of erythrocyte mean corpuscular volume (MCV)Ordered By: Jaz Castro on 06-03-2023 MCV (RBC) [Entitic vol] 93.7 fL 80-94 [facility] Hematocrit Auto (Bld) [Volum e fraction]Ordered By: [facility] Matthew on 06-03-2023 Hematocrit (Bld) [Volume fraction] 35.8 % 40-54 [facility] Laboratory - Chemistry and C hemistry - challengeOrdered By: Jaz Castro on 06-03-2023 ALP [Catalytic activity/Vol] 54 U/L 45-117 [facility] ALT [Catalytic activity/Vol] 43 U/L 16-61 [facility] CO2 [Moles/Vol] 27.0 mmol/L 21.0-32.0 [facility] Globulin (S) [Mass/Vol] 3.5 g/dL 2.2-4.2 [facility] Urea nitrogen/Creatinine [Mass ratio] 13.6 mg/mg 10-20 [facility] Laboratory - Hematology and Cell countsOrdered By: Jaz Castro on 06-03-2023 Erythrocyte distribution width (RBC) [Entitic vol] 42.4 fL 35.1-43.9 [facility] Erythrocyte distribution width (RBC) [Ratio] 12.4 % 11.6-14.6 [facility] Immature granulocytes/100 WBC (Bld) 0.200 % 0.0-0.9 [facility] Comment on above: IG% - Immature Granu locytes (promyelocytes, myelocytes and metamyelocytes) > 1% indicates that a LEFT SHIFT is Present. MCH (RBC) [Entitic mass] 32.2 pg 27.0-32.0 [facility] Nucleated RBC/100 WBC (Bld) [Ratio] 0 % 0-5 [facility] MCHC Auto (RBC) [Mass/Vol]Or dered By: Jaz Castro on 06-03-2023 MCHC (RBC) [Mass/Vol] 34.4 g/dL 32-36 [facility] No Panel InformationOrdered By: Jaz Castro on 06-03-2023 Estimated GFR (MDRD) Amer 59 mL/min >60 [facility] Comment on above: GFR Calc Estimated GFR (MDRD) Non-Af Amer 49 mL/min >60 [facility] Comment on above: Non- GFR Calc Platelets bldOrdered By: John Castro on 06-03-2023 Platelets (Bld) [#/Vol] 248 10*3/uL 150-450 [facility] Serum or plasma albumin [place] urement (mass/volume)Ordered By: Jaz Castro on 06-03-2023 Albumin [Mass/Vol] 3.6 g/dL 3.2-5.0 [facility] Serum or plasma albumin/glob ulin mass ratioOrdered By: Jaz Castro on 06-03-2023 Albumin/Globulin [Mass ratio] 1.0 {ratio} 0.9-2.4 [facility] Serum or plasma calcium [place] urement (mass/volume)Ordered By: Jaz Castro on 06-03-2023 Calcium [Mass/Vol] 8.6 mg/dL 8.5-10.1 [facility] Serum or plasma creatinine m easurement (mass/volume)Ordered By: Jaz Castro on 06-03-2023 Creatinine [Mass/Vol] 1.54 mg/dL 0.70-1.30 [facility] Comment on above: The validity of the calculated GFR & GFRAA in patients over 70 years has not been determined. Clinical correlation is essential. Serum or plasma urea nitroge n measurement (mass/volume)Ordered By: Jaz Castro on 06-03-2023 Urea nitrogen [Mass/Vol] 21 mg/dL 7-18 [facility] Thin prep Papanicolaou smear with manual screeningOrdered By: Jaz Castro on 06-03-2023 Thin prep Papanicolaou smear with manual screening 28 U/L 15-37 [facility] Thin prep Papanicolaou smear with manual screening 4 5-15 [facility] Absolute lymphocyte countOrd ered By: Dr. Castro on 03-02-2023 Lymphocytes Auto (Unsp spec) [#/Vol] 2.00 10*3/uL 0.83-4.51 [facility] Basophil percentageOrdered B y: Dr. Castro on 03-02-2023 Basophils/100 WBC (Bld) 0.1 % 0-1 [facility] Bilirubin [Mass/Vol] 0.30 mg/dL 0.20-1.00 [facility] Comment on above: For patients on eltr ombopag therapy, use of Dimension [place] TBIL is not recommended. Chloride [Moles/Vol] 110 mmol/L 98-107 [facility] Eosinophils/100 WBC (Bld) 0.0 % 0-5 [facility] Glucose [Mass/Vol] 110 mg/dL 74-106 [facility] Comment on above: Fasting Glucose resu lt from 100 to 125 mg/dL suggests IMPAIRED HOMEOSTASIS per A.D.A. criteria. Neutrophils (Bld) [#/Vol] 5.5 10*3/uL 2.0-7.7 [facility] Neutrophils/100 WBC (Bld) 66.9 % 47-70 [facility] Potassium [Moles/Vol] 3.8 mmol/L 3.5-5.1 [facility] Protein [Mass/Vol] 7.3 g/dL 6.4-8.2 [facility] Sodium [Moles/Vol] 139 mmol/L 136-145 [facility] WBC (Bld) [#/Vol] 8.2 10*3/uL 4.4-11.0 [facility] Blood erythrocytes count (nu mber/volume)Ordered By: Dr. Castro on 03-02-2023 RBC (Bld) [#/Vol] 3.91 10*6/uL 4.6-6.2 [facility] Blood hemoglobin measurement (mass/volume)Ordered By: Dr. Castro on 03-02-2023 Hemoglobin (Bld) [Mass/Vol] 12.7 g/dL 13.0-16.5 [facility] Blood lymphocytes/100 leukoc ytesOrdered By: Dr. Castro on 03-02-2023 Lymphocytes/100 WBC (Bld) 24.4 % 19-41 [facility] Blood monocytes/100 leukocyt esOrdered By: Dr. Castro on 03-02-2023 Monocytes/100 WBC (Bld) 8.2 % 0-10 [facility] Blood platelet mean volumeOr dered By: Dr. Castro on 03-02-2023 Platelet mean volume (Bld) [Entitic vol] 10.4 fL 6.2-12.0 [facility] Determination of erythrocyte mean corpuscular volume (MCV)Ordered By: Dr. Castro on 03-02-2023 MCV (RBC) [Entitic vol] 94.9 fL 80-94 [facility] Hematocrit Auto (Bld) [Volum e fraction]Ordered By: Dr. Castro on 03-02-2023 Hematocrit (Bld) [Volume fraction] 37.1 % 40-54 [facility] Laboratory - Chemistry and C hemistry - challengeOrdered By: Dr. Castro on 03-02-2023 ALP [Catalytic activity/Vol] 76 U/L 45-117 [facility] ALT [Catalytic activity/Vol] 39 U/L 16-61 [facility] CO2 [Moles/Vol] 26.0 mmol/L 21.0-32.0 [facility] Globulin (S) [Mass/Vol] 3.6 g/dL 2.2-4.2 [facility] Urea nitrogen/Creatinine [Mass ratio] 18.2 mg/mg 10-20 [facility] Laboratory - Hematology and Cell countsOrdered By: Dr. Castro on 03-02-2023 Erythrocyte distribution width (RBC) [Entitic vol] 43.0 fL 35.1-43.9 [facility] Erythrocyte distribution width (RBC) [Ratio] 12.4 % 11.6-14.6 [facility] Immature granulocytes/100 WBC (Bld) 0.400 % 0.0-0.9 [facility] Comment on above: IG% - Immature Granu locytes (promyelocytes, myelocytes and metamyelocytes) > 1% indicates that a LEFT SHIFT is Present. MCH (RBC) [Entitic mass] 32.5 pg 27.0-32.0 [facility] Nucleated RBC/100 WBC (Bld) [Ratio] 0 % 0-5 [facility] Auto (RBC) [Mass/Vol]Or dered By: Dr. Castro on 03-02-2023 MCHC (RBC) [Mass/Vol] 34.2 g/dL 32-36 [facility] No Panel InformationOrdered By: Dr. Castro on 03-02-2023 Estimated GFR (MDRD) Amer 67 mL/min >60 [facility] Comment on above: GFR Calc Estimated GFR (MDRD) Non-Af Amer 56 mL/min >60 [facility] Comment on above: Non- GFR Calc Platelets bldOrdered By: Dr. Castro on 03-02-2023 Platelets (Bld) [#/Vol] 263 10*3/uL 150-450 [facility] Serum or plasma albumin [place] urement (mass/volume)Ordered By: Dr. Castro on 03-02-2023 Albumin [Mass/Vol] 3.7 g/dL 3.2-5.0 [facility] Serum or plasma albumin/glob ulin mass ratioOrdered By: Dr. Castro on 03-02-2023 Albumin/Globulin [Mass ratio] 1.0 {ratio} 0.9-2.4 [facility] Serum or plasma calcium [place] urement (mass/volume)Ordered By: Dr. Castro on 03-02-2023 Calcium [Mass/Vol] 8.4 mg/dL 8.5-10.1 [facility] Serum or plasma creatinine m easurement (mass/volume)Ordered By: Dr. Castro on 03-02-2023 Creatinine [Mass/Vol] 1.37 mg/dL 0.70-1.30 [facility] Comment on above: The validity of the calculated GFR & GFRAA in patients over 70 years has not been determined. Clinical correlation is essential. Serum or plasma urea nitroge n measurement (mass/volume)Ordered By: Dr. Castro on 03-02-2023 Urea nitrogen [Mass/Vol] 25 mg/dL 7-18 [facility] Thin prep Papanicolaou smear with manual screeningOrdered By: Dr. Castro on 03-02-2023 Thin prep Papanicolaou smear with manual screening 28 U/L 15-37 [facility] Thin prep Papanicolaou smear with manual screening 3 5-15 [facility] Absolute lymphocyte countOrd ered By: Dr. Castro on 12-10-2022 Lymphocytes Auto (Unsp spec) [#/Vol] 1.50 10*3/uL 0.83-4.51 [facility] Basophil percentageOrdered B y: Dr. Castro on 12-10-2022 Basophils/100 WBC (Bld) 0.6 % 0-1 [facility] Bilirubin [Mass/Vol] 0.50 mg/dL 0.20-1.00 [facility] Comment on above: For patients on eltr ombopag therapy, use of Dimension [place] TBIL is not recommended. Chloride [Moles/Vol] 105 mmol/L 98-107 [facility] Eosinophils/100 WBC (Bld) 1.2 % 0-5 [facility] Glucose [Mass/Vol] 124 mg/dL 74-106 [facility] Comment on above: Fasting Glucose resu lt from 100 to 125 mg/dL suggests IMPAIRED HOMEOSTASIS per A.D.A. criteria. Neutrophils (Bld) [#/Vol] 2.9 10*3/uL 2.0-7.7 [facility] Neutrophils/100 WBC (Bld) 56.4 % 47-70 [facility] Potassium [Moles/Vol] 4.3 mmol/L 3.5-5.1 [facility] Protein [Mass/Vol] 7.4 g/dL 6.4-8.2 [facility] Sodium [Moles/Vol] 138 mmol/L 136-145 [facility] WBC (Bld) [#/Vol] 5.2 10*3/uL 4.4-11.0 [facility] Blood erythrocytes count (nu mber/volume)Ordered By: Dr. Castro on 12-10-2022 RBC (Bld) [#/Vol] 4.03 10*6/uL 4.6-6.2 [facility] Blood hemoglobin measurement (mass/volume)Ordered By: Dr. Castro on 12-10-2022 Hemoglobin (Bld) [Mass/Vol] 12.8 g/dL 13.0-16.5 [facility] Blood lymphocytes/100 leukoc ytesOrdered By: Dr. Castro on 12-10-2022 Lymphocytes/100 WBC (Bld) 29.0 % 19-41 [facility] Blood monocytes/100 leukocyt esOrdered By: Dr. Castro on 12-10-2022 Monocytes/100 WBC (Bld) 12.4 % 0-10 [facility] Blood platelet mean volumeOr dered By: Dr. Castro on 12-10-2022 Platelet mean volume (Bld) [Entitic vol] 10.4 fL 6.2-12.0 [facility] Determination of erythrocyte mean corpuscular volume (MCV)Ordered By: Dr. Castro on 12-10-2022 MCV (RBC) [Entitic vol] 94.8 fL 80-94 [facility] Hematocrit Auto (Bld) [Volum e fraction]Ordered By: Dr. Castro on 12-10-2022 Hematocrit (Bld) [Volume fraction] 38.2 % 40-54 [facility] Laboratory - Chemistry and C hemistry - challengeOrdered By: Dr. Castro on 12-10-2022 ALP [Catalytic activity/Vol] 63 U/L 45-117 [facility] ALT [Catalytic activity/Vol] 48 U/L 16-61 [facility] CO2 [Moles/Vol] 25.0 mmol/L 21.0-32.0 [facility] Globulin (S) [Mass/Vol] 3.5 g/dL 2.2-4.2 [facility] Urea nitrogen/Creatinine [Mass ratio] 15.0 mg/mg 10-20 [facility] Laboratory - Hematology and Cell countsOrdered By: Dr. Castro on 12-10-2022 Erythrocyte distribution width (RBC) [Entitic vol] 41.9 fL 35.1-43.9 [facility] Erythrocyte distribution width (RBC) [Ratio] 12.0 % 11.6-14.6 [facility] Immature granulocytes/100 WBC (Bld) 0.400 % 0.0-0.9 [facility] Comment on above: IG% - Immature Granu locytes (promyelocytes, myelocytes and metamyelocytes) > 1% indicates that a LEFT SHIFT is Present. MCH (RBC) [Entitic mass] 31.8 pg 27.0-32.0 [facility] Nucleated RBC/100 WBC (Bld) [[facility]] 0 % [facility] [Mass/Vol]Or dered By: Dr. Castro on 12-10-2022 MCHC (RBC) [Mass/Vol] 33.5 g/dL 32-36 [facility] No Panel InformationOrdered By: Dr. Castro on 12-10-2022 Estimated GFR (MDRD) Amer 62 mL/min >60 [facility] Comment on above: GFR Calc Estimated GFR (MDRD) Non-Af Amer 51 mL/min >60 [facility] Comment on above: Non- GFR Calc Platelets bldOrdered By: Dr. Castro on 12-10-2022 Platelets (Bld) [#/Vol] 274 10*3/uL 150-450 [facility] Serum or plasma albumin [place] urement (mass/volume)Ordered By: Dr. Castro on 12-10-2022 Albumin [Mass/Vol] 3.9 g/dL 3.2-5.0 [facility] Serum or plasma albumin/glob ulin mass ratioOrdered By: Dr. Castro on 12-10-2022 Albumin/Globulin [Mass ratio] 1.1 {ratio} 0.9-2.4 [facility] Serum or plasma calcium [place] urement (mass/volume)Ordered By: Dr. Castro on 12-10-2022 Calcium [Mass/Vol] 9.0 mg/dL 8.5-10.1 [facility] Serum or plasma creatinine m easurement (mass/volume)Ordered By: Dr. Castro on 12-10-2022 Creatinine [Mass/Vol] 1.47 mg/dL 0.70-1.30 [facility] Comment on above: The validity of the calculated GFR & GFRAA in patients over 70 years has not been determined. Clinical correlation is essential. Serum or plasma urea nitroge n measurement (mass/volume)Ordered By: Dr. Castro on 12-10-2022 Urea nitrogen [Mass/Vol] 22 mg/dL -18 [facility] Thin prep Papanicolaou smear with manual screeningOrdered By: Dr. Castro on 12-10-2022 Thin prep Papanicolaou smear with manual screening 33 U/L 15-37 [facility] Thin prep Papanicolaou smear with manual screening 8 5-15 [facility] Absolute lymphocyte countOrd ered By: Dr. Castro on 09-10-2022 Lymphocytes Auto (Unsp spec) [#/Vol] 1.86 10*3/uL 0.83-4.51 [facility] Basophil percentageOrdered B y: Dr. Castro on 09-10-2022 Basophils/100 WBC (Bld) 0.7 % 0-1 [facility] Bilirubin [Mass/Vol] 0.60 mg/dL 0.20-1.00 [facility] Comment on above: For patients on eltr ombopag therapy, use of Dimension [place] TBIL is not recommended. Chloride [Moles/Vol] 105 mmol/L 98-107 [facility] Eosinophils/100 WBC (Bld) 1.3 % 0-5 [facility] Glucose [Mass/Vol] 105 mg/dL 74-106 [facility] Comment on above: Fasting Glucose resu lt from 100 to 125 mg/dL suggests IMPAIRED HOMEOSTASIS per A.D.A. criteria. Neutrophils (Bld) [#/Vol] 3.5 10*3/uL 2.0-7.7 [facility] Neutrophils/100 WBC (Bld) 56.5 % 47-70 [facility] Potassium [Moles/Vol] 4.5 mmol/L 3.5-5.1 [facility] Protein [Mass/Vol] 7.5 g/dL 6.4-8.2 [facility] Sodium [Moles/Vol] 136 mmol/L 136-145 [facility] WBC (Bld) [#/Vol] 6.1 10*3/uL 4.4-11.0 [facility] Blood erythrocytes count (nu mber/volume)Ordered By: Dr. Castro on 09-10-2022 RBC (Bld) [#/Vol] 3.79 10*6/uL 4.6-6.2 [facility] Blood hemoglobin measurement (mass/volume)Ordered By: Dr. Castro on 09-10-2022 Hemoglobin (Bld) [Mass/Vol] 12.6 g/dL 13.0-16.5 [facility] Blood lymphocytes/100 leukoc ytesOrdered By: Dr. Castro on 09-10-2022 Lymphocytes/100 WBC (Bld) 30.5 % 19-41 [facility] Blood monocytes/100 leukocyt esOrdered By: Dr. Castro on 09-10-2022 Monocytes/100 WBC (Bld) 10.7 % 0-10 [facility] Blood platelet mean volumeOr dered By: Dr. Castro on 09-10-2022 Platelet mean volume (Bld) [Entitic vol] 10.2 fL 6.2-12.0 [facility] Determination of erythrocyte mean corpuscular volume (MCV)Ordered By: Dr. Castro on 09-10-2022 MCV (RBC) [Entitic vol] 94.5 fL 80-94 [facility] Hematocrit Auto (Bld) [Volum e fraction]Ordered By: Dr. Castro on 09-10-2022 Hematocrit (Bld) [Volume fraction] 35.8 % 40-54 [facility] Laboratory - Chemistry and C hemistry - challengeOrdered By: Dr. Castro on 09-10-2022 ALP [Catalytic activity/Vol] 79 U/L 45-117 [facility] ALT [Catalytic activity/Vol] 49 U/L 16-61 [facility] CO2 [Moles/Vol] 24.0 mmol/L 21.0-32.0 [facility] Globulin (S) [Mass/Vol] 3.6 g/dL 2.2-4.2 [facility] Urea nitrogen/Creatinine [Mass ratio] 15.4 mg/mg 10-20 [facility] Laboratory - Hematology and Cell countsOrdered By: Dr. Castro on 09-10-2022 Erythrocyte distribution width (RBC) [Entitic vol] 42.2 fL 35.1-43.9 [facility] Erythrocyte distribution width (RBC) [Ratio] 12.1 % 11.6-14.6 [facility] Immature granulocytes/100 WBC (Bld) 0.300 % 0.0-0.9 [facility] Comment on above: IG% - Immature Granu locytes (promyelocytes, myelocytes and metamyelocytes) > 1% indicates that a LEFT SHIFT is Present. MCH (RBC) [Entitic mass] 33.2 pg 27.0-32.0 [facility] Nucleated RBC/100 WBC (Bld) [Ratio] 0 % 0-5 [facility] MCHC Auto (RBC) [Mass/Vol]Or dered By: Dr. Castro on 09-10-2022 MCHC (RBC) [Mass/Vol] 35.2 g/dL 32-36 [facility] No Panel InformationOrdered By: Dr. Castro on 09-10-2022 Estimated GFR (MDRD) Amer 61 mL/min >60 [facility] Comment on above: GFR Calc Estimated GFR (MDRD) Non-Af Amer 51 mL/min >60 [facility] Comment on above: Non- GFR Calc Platelets bldOrdered By: Dr. Castro on 09-10-2022 Platelets (Bld) [#/Vol] 282 10*3/uL 150-450 [facility] Serum or plasma albumin [place] urement (mass/volume)Ordered By: Dr. Castro on 09-10-2022 Albumin [Mass/Vol] 3.9 g/dL 3.2-5.0 [facility] Serum or plasma albumin/glob ulin mass ratioOrdered By: Dr. Castro on 09-10-2022 Albumin/Globulin [Mass ratio] 1.1 {ratio} 0.9-2.4 [facility] Serum or plasma calcium [place] urement (mass/volume)Ordered By: Dr. Castro on 09-10-2022 Calcium [Mass/Vol] 9.2 mg/dL 8.5-10.1 [facility] Serum or plasma creatinine m easurement (mass/volume)Ordered By: Dr. Castro on 09-10-2022 Creatinine [Mass/Vol] 1.49 mg/dL 0.70-1.30 [facility] Comment on above: The validity of the calculated GFR & GFRAA in patients over 70 years has not been determined. Clinical correlation is essential. Serum or plasma urea nitroge n measurement (mass/volume)Ordered By: Dr. Castro on 09-10-2022 Urea nitrogen [Mass/Vol] 23 mg/dL 7-18 [facility] Thin prep Papanicolaou smear with manual screeningOrdered By: Dr. Castro on 09-10-2022 Thin prep Papanicolaou smear with manual screening 34 U/L 15-37 [facility] Thin prep Papanicolaou smear with manual screening 7 5-15 [facility] Absolute lymphocyte counton 06-25-2022 Lymphocytes Auto (Unsp spec) [#/Vol] 1.71 10*3/uL 0.83-4.51 [facility] Work Phone: Absolute reticulocyte counto n 06-25-2022 Reticulocytes (Bld) [#/Vol] 0.00 10*3/uL 0-5 [facility] Work Phone: Basophil percentageon 2021 Basophil percentage 3.5 mg/dL 2.5-4.9 [facility] Work Phone: Bilirubin [Mass/Vol] 0.60 mg/dL 0.20-1.00 [facility] Work Phone: Comment on above: For patients on eltr ombopag therapy, use of Dimension [place] TBIL is not recommended. Chloride [Moles/Vol] 107 mmol/L 98-107 [facility] Work Phone: Cholesterol [Mass/Vol] 171 mg/dL <200 [facility] Work Phone: Comment on above: <200 mg/dL Desirable 200-240 mg/dL Borderline >240 mg/dL High Risk Glucose [Mass/Vol] 101 mg/dL 74-106 [facility] Work Phone: Comment on above: Fasting Glucose resu lt from 100 to 125 mg/dL suggests IMPAIRED HOMEOSTASIS per A.D.A. criteria. Neutrophils (Bld) [#/Vol] 2.4 10*3/uL 2.0-7.7 [facility] Work Phone: Potassium [Moles/Vol] 4.8 mmol/L 3.5-5.1 [facility] Work Phone: Protein [Mass/Vol] 7.0 g/dL 6.4-8.2 [facility] Work Phone: [phone] Sodium [Moles/Vol] 135 mmol/L 136-145 [facility] Work Phone: [phone] Triglyceride [Mass/Vol] 128 mg/dL <199 [facility] Work Phone: Comment on above: The drugs N-Acetylcy steine and Metamizole may falsely depress this assay.Serum Triglycerides Reference Interval Normal <150 mg/dL Borderline high 150 - 199 mg/dL High 200 - 499 mg/dL Very High > or = 500 mg/dL WBC (Bld) [#/Vol] 4.7 10*3/uL 4.4-11.0 [facility] Work Phone: [phone] Blood erythrocytes count (nu mber/volume)on 06-25-2022 RBC (Bld) [#/Vol] 3.64 10*6/uL 4.6-6.2 [facility] Work Phone: [phone] Blood hemoglobin measurement (mass/volume)on 06-25-2022 Hemoglobin (Bld) [Mass/Vol] 11.9 g/dL 13.0-16.5 [facility] Work Phone: [phone] Blood platelet mean volumeon 06-25-2022 Platelet mean volume (Bld) [Entitic vol] 10.2 fL 6.2-12.0 [facility] Work Phone: [phone] Determination of erythrocyte mean corpuscular volume (MCV)on 06-25-2022 MCV (RBC) [Entitic vol] 96.4 fL 80-94 [facility] Work Phone: [phone] Direct bilirubinon Bilirubin.direct [Mass/Vol] 0.19 mg/dL 0.00-0.30 [facility] Work Phone: [phone] Hematocrit Auto (Bld) [Volum e fraction]on 06-25-2022 Hematocrit (Bld) [Volume fraction] 35.1 % 40-54 [facility] Work Phone: [phone] Laboratory - Chemistry and C hemistry - challengeon 06-25-2022 ALP [Catalytic activity/Vol] 66 U/L 45-117 [facility] Work Phone: ALT [Catalytic activity/Vol] 58 U/L 16-61 [facility] Work Phone: [phone] Cholesterol.total/Cho lesterol in HDL [Mass ratio] 2.10 {ratio} [facility] Work Phone: [phone] CO2 [Moles/Vol] 22.0 mmol/L 21.0-32.0 [facility] Work Phone: [phone] Globulin (S) [Mass/Vol] 3.2 g/dL 2.2-4.2 [facility] Work Phone: [phone] Urea nitrogen/Creatinine [Mass ratio] 12.8 mg/mg 10-20 [facility] Work Phone: [phone] Laboratory - Hematology and Cell countson 06-25-2022 Erythrocyte distribution width (RBC) [Entitic vol] 42.6 fL 35.1-43.9 [facility] Work Phone: [phone] Erythrocyte distribution width (RBC) [Ratio] 12.1 % 11.6-14.6 [facility] Work Phone: [phone] MCH (RBC) [Entitic mass] 32.7 pg 27.0-32.0 [facility] Work Phone: Nucleated RBC/100 WBC (Bld) [Ratio] 0 % 0-5 [facility] Work Phone: MCHC Auto (RBC) [Mass/Vol]on 06-25-2022 MCHC (RBC) [Mass/Vol] 33.9 g/dL 32-36 [facility] Work Phone: No Panel Informationon 06-25 Estimated GFR (MDRD) Amer 65 mL/min >60 [facility] Work Phone: Comment on above: GFR Calc Estimated GFR (MDRD) Non-Af Amer 54 mL/min >60 [facility] Work Phone: Comment on above: Non- GFR Calc Platelets bldon 06-25-2022 Platelets (Bld) [#/Vol] 248 10*3/uL 150-450 [facility] Work Phone: Segmented neutrophils/100 WB C Auto (Bld)on 06-25-2022 Segmented neutrophils/100 WBC (Bld) 50.6 % 47-70 [facility] Work Phone: Serum or plasma albumin [place] urement (mass/volume)on 06-25-2022 Albumin [Mass/Vol] 3.8 g/dL 3.2-5.0 [facility] Work Phone: Serum or plasma albumin/glob ulin mass ratioon 06-25-2022 Albumin/Globulin [Mass ratio] 1.2 {ratio} 0.9-2.4 [facility] Work Phone: Serum or plasma calcium [place] urement (mass/volume)on 06-25-2022 Calcium [Mass/Vol] 8.7 mg/dL 8.5-10.1 [facility] Work Phone: Serum or plasma cholesterol in HDL measurement (mass/volume)on 06-25-2022 Cholesterol in HDL [Mass/Vol] 83 mg/dL >40 [facility] Work Phone: Comment on above: The drugs N-Acetylcy steine and Metamizole may falsely depress this assay. Reference Range HDL <40 mg/dL Low HDL Cholesterol HDL >or= 60 mg/dL High HDL Cholesterol Serum or plasma cholesterol in VLDL measurement (mass/volume)on 06-25-2022 Cholesterol in VLDL [Mass/Vol] 26 mg/dL 5-40 [facility] Work Phone: Serum or plasma creatinine m easurement (mass/volume)on 06-25-2022 Creatinine [Mass/Vol] 1.41 mg/dL 0.70-1.30 [facility] Work Phone: Comment on above: The validity of the calculated GFR & GFRAA in patients over 70 years has not been determined. Clinical correlation is essential. Serum or plasma low density lipoprotein (LDL) cholesterol measurement (mass/volume)on 06-25-2022 Cholesterol in LDL [Mass/Vol] 62 mg/dL 0-130 [facility] Work Phone: Serum or plasma urea nitroge n measurement (mass/volume)on 06-25-2022 Urea nitrogen [Mass/Vol] 18 mg/dL 7-18 [facility] Work Phone: Serum or plasma uric acid me asurement (mass/volume)on 06-25-2022 Urate [Mass/Vol] 6.0 mg/dL 3.5-7.2 [facility] Work Phone: Comment on above: The drugs N-Acetylcy steine and Metamizole may falsely depress this assay. Thin prep Papanicolaou smear with manual screeningon 06-25-2022 Thin prep Papanicolaou smear with manual screening 45 U/L 15-37 [facility] Work Phone: Thin prep Papanicolaou smear with manual screening 6 5-15 [facility] Work Phone: Thin prep Papanicolaou smear with manual screening 253 U/L 87-241 [facility] Work Phone: Absolute lymphocyte counton 03-25-2022 Lymphocytes Auto (Unsp spec) [#/Vol] 1.66 10*3/uL 0.83-4.51 [facility] Work Phone: Basophil percentageon 2021 Basophils/100 WBC (Bld) 0.6 % 0-1 [facility] Work Phone: Bilirubin [Mass/Vol] 0.50 mg/dL 0.20-1.00 [facility] Work Phone: Comment on above: For patients on eltr ombopag therapy, use of Dimension [place] TBIL is not recommended. Chloride [Moles/Vol] 105 mmol/L 98-107 [facility] Work Phone: Eosinophils/100 WBC (Bld) 1.3 % 0-5 [facility] Work Phone: Glucose [Mass/Vol] 96 mg/dL 74-106 [facility] Work Phone: Neutrophils (Bld) [#/Vol] 2.2 10*3/uL 2.0-7.7 [facility] Work Phone: Neutrophils/100 WBC (Bld) 46.6 % 47-70 [facility] Work Phone: [phone] Potassium [Moles/Vol] 4.4 mmol/L 3.5-5.1 [facility] Work Phone: [phone] Protein [Mass/Vol] 7.5 g/dL 6.4-8.2 [facility] Work Phone: [phone] Sodium [Moles/Vol] 138 mmol/L 136-145 [facility] Work Phone: [phone] WBC (Bld) [#/Vol] 4.7 10*3/uL 4.4-11.0 [facility] Work Phone: [phone] Blood erythrocytes count (nu mber/volume)on 03-25-2022 RBC (Bld) [#/Vol] 3.84 10*6/uL 4.6-6.2 [facility] Work Phone: [phone] Blood hemoglobin measurement (mass/volume)on 03-25-2022 Hemoglobin (Bld) [Mass/Vol] 12.3 g/dL 13.0-16.5 [facility] Work Phone: Blood lymphocytes/100 leukoc yteson 03-25-2022 Lymphocytes/100 WBC (Bld) 35.3 % 19-41 [facility] Work Phone: [phone] Blood monocytes/100 leukocyt eson 03-25-2022 Monocytes/100 WBC (Bld) 16.0 % 0-10 [facility] Work Phone: Blood platelet mean volumeon 03-25-2022 Platelet mean volume (Bld) [Entitic vol] 10.2 fL 6.2-12.0 [facility] Work Phone: Determination of erythrocyte mean corpuscular volume (MCV)on 03-25-2022 MCV (RBC) [Entitic vol] 94.0 fL 80-94 [facility] Work Phone: [phone] Hematocrit Auto (Bld) [Volum e fraction]on 03-25-2022 Hematocrit (Bld) [Volume fraction] 36.1 % 40-54 [facility] Work Phone: [phone] Laboratory - Chemistry and C hemistry - challengeon 03-25-2022 ALP [Catalytic activity/Vol] 69 U/L 45-117 [facility] Work Phone: [phone] ALT [Catalytic activity/Vol] 63 U/L 16-61 [facility] Work Phone: [phone] CO2 [Moles/Vol] 24.0 mmol/L 21.0-32.0 [facility] Work Phone: [phone] Globulin (S) [Mass/Vol] 3.6 g/dL 2.2-4.2 [facility] Work Phone: [phone] Urea nitrogen/Creatinine [Mass ratio] 14.1 mg/mg 10-20 [facility] Work Phone: [phone] Laboratory - Hematology and Cell countson 03-25-2022 Erythrocyte distribution width (RBC) [Entitic vol] 42.2 fL 35.1-43.9 [facility] Work Phone: [phone] Erythrocyte distribution width (RBC) [Ratio] 12.2 % 11.6-14.6 [facility] Work Phone: [phone] Immature granulocytes/100 WBC (Bld) 0.200 % 0.0-0.9 [facility] Work Phone: [phone] Comment on above: IG% - Immature Granu locytes (promyelocytes, myelocytes and metamyelocytes) > 1% indicates that a LEFT SHIFT is Present. MCH (RBC) [Entitic mass] 32.0 pg 27.0-32.0 [facility] Work Phone: [phone] Nucleated RBC/100 WBC (Bld) [Ratio] 0 % 0-5 [facility] Work Phone: [phone] MCHC Auto (RBC) [Mass/Vol]on 03-25-2022 MCHC (RBC) [Mass/Vol] 34.1 g/dL 32-36 [facility] Work Phone: [phone] No Panel Informationon 03-25 Estimated GFR (MDRD) Amer 65 mL/min >60 [facility] Work Phone: [phone] Comment on above: GFR Calc Estimated GFR (MDRD) Non-Af Amer 54 mL/min >60 [facility] Work Phone: [phone] Comment on above: Non- GFR Calc Platelets bldon 03-25-2022 Platelets (Bld) [#/Vol] 249 10*3/uL 150-450 [facility] Work Phone: [phone] Serum or plasma albumin [place] urement (mass/volume)on 03-25-2022 Albumin [Mass/Vol] 3.9 g/dL 3.2-5.0 [facility] Work Phone: [phone] Serum or plasma albumin/glob ulin mass ratioon 03-25-2022 Albumin/Globulin [Mass ratio] 1.1 {ratio} 0.9-2.4 [facility] Work Phone: [phone] Serum or plasma calcium [place] urement (mass/volume)on 03-25-2022 Calcium [Mass/Vol] 8.8 mg/dL 8.5-10.1 [facility] Work Phone: [phone] Serum or plasma creatinine m easurement (mass/volume)on 03-25-2022 Creatinine [Mass/Vol] 1.42 mg/dL 0.70-1.30 [facility] Work Phone: Comment on above: The validity of the calculated GFR & GFRAA in patients over 70 years has not been determined. Clinical correlation is essential. Serum or plasma urea nitroge n measurement (mass/volume)on 03-25-2022 Urea nitrogen [Mass/Vol] 20 mg/dL 7-18 [facility] Work Phone: [phone] Thin prep Papanicolaou smear with manual screeningon 03-25-2022 Thin prep Papanicolaou smear with manual screening 46 U/L 15-37 [facility] Work Phone: [phone] Thin prep Papanicolaou smear with manual screening 9 5-15 [facility] Work Phone: Absolute lymphocyte counton 01-24-2022 Lymphocytes Auto (Unsp spec) [#/Vol] 1.70 10*3/uL 0.83-4.51 [facility] Work Phone: Basophil percentageon 2021 Basophils/100 WBC (Bld) 0.9 % 0-1 [facility] Work Phone: Bilirubin [Mass/Vol] 0.40 mg/dL 0.20-1.00 [facility] Work Phone: Comment on above: For patients on eltr ombopag therapy, use of Dimension [place] TBIL is not recommended. Chloride [Moles/Vol] 107 mmol/L 98-107 [facility] Work Phone: Eosinophils/100 WBC (Bld) 2.3 % 0-5 [facility] Work Phone: Glucose [Mass/Vol] 125 mg/dL 74-106 [facility] Work Phone: Comment on above: Fasting Glucose resu lt from 100 to 125 mg/dL suggests IMPAIRED HOMEOSTASIS per A.D.A. criteria. Neutrophils (Bld) [#/Vol] 2.0 10*3/uL 2.0-7.7 [facility] Work Phone: Neutrophils/100 WBC (Bld) 45.6 % 47-70 [facility] Work Phone: Potassium [Moles/Vol] 4.1 mmol/L 3.5-5.1 [facility] Work Phone: Protein [Mass/Vol] 7.1 g/dL 6.4-8.2 [facility] Work Phone: Sodium [Moles/Vol] 138 mmol/L 136-145 [facility] Work Phone: WBC (Bld) [#/Vol] 4.4 10*3/uL 4.4-11.0 [facility] Work Phone: Blood erythrocytes count (nu mber/volume)on 01-24-2022 RBC (Bld) [#/Vol] 3.65 10*6/uL 4.6-6.2 [facility] Work Phone: Blood hemoglobin measurement (mass/volume)on 01-24-2022 Hemoglobin (Bld) [Mass/Vol] 12.1 g/dL 13.0-16.5 [facility] Work Phone: Blood lymphocytes/100 leukoc yteson 01-24-2022 Lymphocytes/100 WBC (Bld) 38.9 % 19-41 [facility] Work Phone: [phone] Blood monocytes/100 leukocyt eson 01-24-2022 Monocytes/100 WBC (Bld) 12.1 % 0-10 [facility] Work Phone: Blood platelet mean volumeon 01-24-2022 Platelet mean volume (Bld) [Entitic vol] 10.1 fL 6.2-12.0 [facility] Work Phone: Determination of erythrocyte mean corpuscular volume (MCV)on 01-24-2022 MCV (RBC) [Entitic vol] 95.6 fL 80-94 [facility] Work Phone: Hematocrit Auto (Bld) [Volum e fraction]on 01-24-2022 Hematocrit (Bld) [Volume fraction] 34.9 % 40-54 [facility] Work Phone: Laboratory - Chemistry and C hemistry - challengeon 01-24-2022 ALP [Catalytic activity/Vol] 54 U/L 45-117 [facility] Work Phone: ALT [Catalytic activity/Vol] 41 U/L 16-61 [facility] Work Phone: [phone] CO2 [Moles/Vol] 27.0 mmol/L 21.0-32.0 [facility] Work Phone: Globulin (S) [Mass/Vol] 3.4 g/dL 2.2-4.2 [facility] Work Phone: Urea nitrogen/Creatinine [Mass ratio] 16.3 mg/mg 10-20 [facility] Work Phone: Laboratory - Hematology and Cell countson 01-24-2022 Erythrocyte distribution width (RBC) [Entitic vol] 44.7 fL 35.1-43.9 [facility] Work Phone: [phone] Erythrocyte distribution width (RBC) [Ratio] 12.7 % 11.6-14.6 [facility] Work Phone: [phone] Immature granulocytes/100 WBC (Bld) 0.200 % 0.0-0.9 [facility] Work Phone: [phone] Comment on above: IG% - Immature Granu locytes (promyelocytes, myelocytes and metamyelocytes) > 1% indicates that a LEFT SHIFT is Present. MCH (RBC) [Entitic mass] 33.2 pg 27.0-32.0 [facility] Work Phone: [phone] Nucleated RBC/100 WBC (Bld) [Ratio] 0 % 0-5 [facility] Work Phone: [phone] MCHC Auto (RBC) [Mass/Vol]on 01-24-2022 MCHC (RBC) [Mass/Vol] 34.7 g/dL 32-36 [facility] Work Phone: No Panel Informationon 01-24 Estimated GFR (MDRD) Amer 69 mL/min >60 [facility] Work Phone: Comment on above: GFR Calc Estimated GFR (MDRD) Non-Af Amer 57 mL/min >60 [facility] Work Phone: [phone] Comment on above: Non- GFR Calc Platelets bldon 01-24-2022 Platelets (Bld) [#/Vol] 254 10*3/uL 150-450 [facility] Work Phone: [phone] Serum or plasma albumin carolina urement (mass/volume)on 01-24-2022 Albumin [Mass/Vol] 3.7 g/dL 3.2-5.0 [facility] Work Phone: [phone] Serum or plasma albumin/glob ulin mass ratioon 01-24-2022 Albumin/Globulin [Mass ratio] 1.1 {ratio} 0.9-2.4 [facility] Work Phone: Serum or plasma calcium carolina urement (mass/volume)on 01-24-2022 Calcium [Mass/Vol] 9.0 mg/dL 8.5-10.1 [facility] Work Phone: Serum or plasma creatinine m easurement (mass/volume)on 01-24-2022 Creatinine [Mass/Vol] 1.35 mg/dL 0.70-1.30 [facility] Work Phone: Comment on above: The validity of the calculated GFR & GFRAA in patients over 70 years has not been determined. Clinical correlation is essential. Serum or plasma urea nitroge n measurement (mass/volume)on 01-24-2022 Urea nitrogen [Mass/Vol] 22 mg/dL 7-18 [facility] Work Phone: Thin prep Papanicolaou smear with manual screeningon 01-24-2022 Thin prep Papanicolaou smear with manual screening 33 U/L 15-37 [facility] Work Phone: Thin prep Papanicolaou smear with manual screening 4 5-15 [facility] Work Phone: ED PROV NOTEon 05-27-2020 ED PROV NOTE HNO ID: [id number] Author: Sierra Ryan Service: ? Author Type: ? Type: ED Provider Notes Filed: 05/29/2020 10:25 PM Note Text: [place] [address] [facility] INFORMATION MANAGEMENT EMERGENCY DEPARTMENT REPORT Patient: RONALD MELGARIG Cristina SIERRA RYAN PA-C [id number] M Status: DEP ER ED Date of Service: 05/27/20 CHIEF COMPLAINT: Thumb laceration. HISTORY OF PRESENT ILLNESS: 60-year-old male who presents to the emergency department with a laceration injury to his left thumb. He said he was trying to pry the back off a watch with a knife and slipped and cut his thumb. He is on Brilinta blood thinner and he could not get the bleeding to stop for over an hour, so he came in to get things checked out. MEDICAL HISTORY: Coronary artery disease, hypertension, and recent [place]. SURGICAL HISTORY: Heart stents and an appendectomy. ALLERGIES: He has allergy to lisinopril. MEDICATIONS: Home prescriptions are: 1. Oxycodone. 2. Gabapentin. 3. Marijuana. 4. Brilinta. 5. Baby aspirin. 6. Atorvastatin. 7. Metoprolol. 8. Amlodipine. SOCIAL HISTORY: He is . Denies alcohol. Previously a smoker. REVIEW OF SYSTEMS: Positive for some laceration with difficulty regaining hemostases. Remainder of review of systems is negative. PHYSICAL EXAMINATION: VITAL SIGNS: Temperature 97.8, pulse 91, respirations 20, blood pressure 156/74, and O2 saturation is 96% on room air. GENERAL: Well-nourished, well-developed 60-year-old male. He is awake, alert, cooperative, and pleasant. EXTREMITIES: Left upper extremity shows a 3 cm laceration on the palmar aspect of the left thumb. It is actively oozing blood. No evidence of obvious foreign bodies. He has good capillary refill to the digits. He is able to perform flexion and extension without difficulty. HOSPITAL COURSE: Thumb was digitally blocked with 1% lidocaine. I cleansed the wound with chlorhexidine and irrigated it with sterile saline. Some tourniquet was placed at the base of the thumb and then the wound was packed with a small strip of Gel-Foam. I placed a total of 6 simple interrupted stitches using 5-0 Ethilon with good wound reapproximation. The tourniquet was removed in less than 15 minutes. The wound has been monitored and bleeding seems to be well controlled at this time. IMPRESSION: Left thumb laceration, 3 cm. He states his tetanus is up to date. He is going to be discharged home with wound care instructions. Report#: Dict ID [id number] / Int ID [id number] 05/29/20 2222 SIERRA RYAN PA-C cc: SIERRA RYAN PA-C; KATIA HAYS D.O. << Signature on File>> Reported By: SIERRA RYAN PA-C Signed By: SIERRA RYAN PA-C Tests performed at: [facility] [address], [place] [address] [facility] EMERGENCY DEPARTMENT REPORTo n 05-27-2020 [place]ER[place]ENCY [place] [address] HEALTH INFORMATION MANAGEMENT EMERGENCY DEPARTMENT REPORT Patient: TAVARES MELGAR SIERRA RYAN PA-C [id number] M Status: DEP ER ED Date of Service: 05/27/20 CHIEF COMPLAINT: Thumb laceration. HISTORY OF PRESENT ILLNESS: 60-year-old male who presents to the emergency department with a laceration injury to his left thumb. He said he was trying to pry the back off a watch with a knife and slipped and cut his thumb. He is on Brilinta blood thinner and he could not get the bleeding to stop for over an hour, so he came in to get things checked out. MEDICAL HISTORY: Coronary artery disease, hypertension, and recent [place]. SURGICAL HISTORY: Heart stents and an appendectomy. ALLERGIES: He has allergy to lisinopril. MEDICATIONS: Home prescriptions are: 1. Oxycodone. 2. Gabapentin. 3. Marijuana. 4. Brilinta. 5. Baby aspirin. 6. Atorvastatin. 7. Metoprolol. 8. Amlodipine. SOCIAL HISTORY: He is . Denies alcohol. Previously a smoker. REVIEW OF SYSTEMS: Positive for some laceration with difficulty regaining hemostases. Remainder of review of systems is negative. PHYSICAL EXAMINATION: VITAL SIGNS: Temperature 97.8, pulse 91, respirations 20, blood pressure 156/74, and O2 saturation is 96% on room air. GENERAL: Well-nourished, well-developed 60-year-old male. He is awake, alert, cooperative, and pleasant. EXTREMITIES: Left upper extremity shows a 3 cm laceration on the palmar aspect of the left thumb. It is actively oozing blood. No evidence of obvious foreign bodies. He has good capillary refill to the digits. He is able to perform flexion and extension without difficulty. HOSPITAL COURSE: Thumb was digitally blocked with 1% lidocaine. I cleansed the wound with chlorhexidine and irrigated it with sterile saline. Some tourniquet was placed at the base of the thumb and then the wound was packed with a small strip of Gel-Foam. I placed a total of 6 simple interrupted stitches using 5-0 Ethilon with good wound reapproximation. The tourniquet was removed in less than 15 minutes. The wound has been monitored and bleeding seems to be well controlled at this time. IMPRESSION: Left thumb laceration, 3 cm. He states his tetanus is up to date. He is going to be discharged home with wound care instructions. Report#: Dict ID [id number] / Int ID [id number] 05/29/20 2222 SIERRA RYAN PA-C cc: SIERRA RYAN PA-C; KATIA HAYS D.O. << Signature on File>> Reported By: SIERRA RYAN PA-C Signed By: SIERRA RYAN PA-C Tests performed at: [place] [address] [facility] 04-06-2020 [facility] Telephone (AGSPINE3) TAVARES MELGAR ([id number]) 1960 [facility] Date Time Provider Department 04/06/20 SPENCER GRAY AGSPINE3 During your visit today, we recorded the following information about you: Vaughn Martinez 04/06/2020 2:47 PM Signed Reached out to Ella with [facility] to schedule SCS eval for trial. She will let me know once he is scheduled for his VV visit. Vaughn Martinez Maintenance Painter Apprentice to Dr. Spencer Gray [facility] [place] [phone] ext [phone] Vaughn Martinez 06/05/2020 9:06 AM Signed Spoke with Alma his the day of his SCS eval at [facility] he was having chest pains and was sent to the ER, he had a heart attack. 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 At this time they will not be proceeding with SCS. Vaughn Martinez Maintenance Painter Apprentice to Dr. Spencer Gray [facility] [place] [phone] ext [phone] Allergies As of Date: 04/06/2020 Noted Allergy Reaction LISINOPRIL 09/06/2013 3 - Cough Date Reviewed: 03/29/2020 Reviewed by: Sophia Ghosh - Fully Assessed Reason for Visit: External Referrals/resources [359] Prescriptions as of 04/06/2020 Sig: GABAPENTIN 600 MG TABLET Take 1 tablet by mouth three * DOCUSATE SODIUM 100 MG CAPSULE Take 1 capsule by mouth twice* Patient not taking: Reported on 10/17/2019 SILDENAFIL (PULMONARY HYPERTE* Take 20 mg by mouth as needed. LOSARTAN 100 MG-HYDROCHLOROTH* Take 1 tablet by mouth once d* AMLODIPINE 5 MG TABLET Take 5 mg by mouth once daily. POTASSIUM ORAL Take 10 mEq by mouth once moshe* MULTIVITAMIN ORAL Take by mouth once daily. SODIUM,POTASSIUM,MAG SULFATES* Take 1 Package by mouth as di* Patient not taking: Reported on 12/29/2019 Problem List As Of Date 04/06/2020 Noted Resolved Special screening for malignant neoplasms, colo*09/06/2013 Sebaceous cyst [L72.3] 05/28/2016 Encounter Status:Closed by VAUGHN MARTINEZ on 04/06/20 Normal [facility] PROGRESSon 03-29-2020 PROGRESS HNO ID: [id number] Author: Spencer Gray Service: ? Author Type: Physician Type: Progress Notes Filed: 03/30/2020 12:48 PM Note Text: VIRTUAL VISIT PROGRESS NOTE This is a virtual visit. It required patient-provider interaction for the medical decision making as documented below. Tavares Melgar is a 59 year old male seen for a SCS consult. He had surgery with Dr. Shepherd in August and his pain has never gotten better. His pain is located in the right hip and then into the leg and all the way to his foot. He will need to sit down and it will take about 10-15 min to the pain to decrease but his foot will be numb and cold for about 1 hr. He reports that the back pain that is associated with this prevent him from getting to sleep. He will then get a jose luis horse sensation int he foot. He is furloughed at this time but is concerned that he will not be able to work because of this pain that he has been having. He has been through SACHI and pT which was not helpful for his pain. There are no other surgical options at this time. HISTORY REVIEWED (electronic chart updated): PAST MEDICAL HISTORY Diagnosis Date - Carotid artery disease (HCC) - Emphysema lung (HCC) - Essential hypertension - Lumbar stenosis - SLAC (scapholunate advanced collapse) of wrist PAST SURGICAL HISTORY Procedure Laterality Date - APPENDECTOMY 1969 - BACK SURGERY HX 08/23/2019 L2-[address] Jannet Richter - CARPAL TUNNEL 2010 Bilateral - LAMINECTOMY,LUMBAR 1987 - REM LESION FACE,EAR,EYE 0.6-1CM Right 05/28/16 Exc. right ear lobe nick cyst - REPAIR ROTATOR CUFF,ACUTE Right 2012 decompression FAMILY HISTORY Problem Relation Age of Onset - Cancer Father Social History Tobacco Use - Smoking status: Current Every Day Smoker Packs/day: 0.50 Years: 30.00 Pack years: 15.00 - Smokeless tobacco: Never Used Substance Use Topics - Alcohol use: Yes Comment: Occasional - Drug use: No Current Outpatient Medications Medication Sig - gabapentin (NEURONTIN) 600 mg tablet Take 1 tablet by mouth three times daily for 30 days. - Losartan-Hydrochloroth iazide (HYZAAR) 100-12.5 mg per tablet Take 1 tablet by mouth once daily. - amLODIPine (NORVASC) 5 mg tablet Take 5 mg by mouth once daily. - POTASSIUM ORAL Take 10 mEq by mouth once daily. - MULTIVITAMIN ORAL Take by mouth once daily. - docusate sodium (COLACE) 100 mg capsule Take 1 capsule by mouth twice daily. (Patient not taking: Reported on 10/17/2019 ) - sildenafil (REVATIO) 20 mg tablet Take 20 mg by mouth as needed. - Sodium,Potassium,ANDMa g Sulfates (SUPREP) 17.5-3.13-1.6 gram SolR Take 1 Package by mouth as directed. (Patient not taking: Reported on 12/29/2019 ) No current facility-administered medications for this visit. ALLERGIES Allergen Reactions - Lisinopril Cough Review of Systems Eyes: Negative for blurred vision. Respiratory: Negative for shortness of breath. Cardiovascular: Negative for chest pain and leg swelling. Gastrointestinal: Negative for constipation, diarrhea, nausea and vomiting. Genitourinary: Negative for dysuria. Skin: Negative for itching. Neurological: Positive for tingling. Negative for dizziness, weakness and headaches. Endo/Heme/Allergies: Does not bruise/bleed easily. Psychiatric/Behavioral : Negative for depression and suicidal ideas. } PHYSICAL EXAMINATION: VIDEO EXAM: (if completed, performed via video enabled technology) GENERAL: alert and appropriate, in no distress, well-hydrated, well nourished and happy, smiling, interactive SKIN: no rash noted HEAD: normocephalic, no abnormality or lesion noted EYES: no injection and visual acuity is grossly normal EARS: external ears normal, no mastoid tenderness NOSE: external nose normal without rhinorrhea OROPHARYNX: moist mucus membranes, no tonsillar hypertrophy/exudate, uvula midline and pharynx non-erythematous, lips, teeth and gums are without obvious lesion RESPIRATORY: breathing non-labored and no grunting/flaring/retra ctions CHEST: equal chest rise with normal respiratory effort BACK: back normal in appearance, spine with FROM and ROM decreased because of pain NEUROLOGIC: Antalgic gait. Right foot strength appears decreased ASSESSMENT: (M96.1) Lumbar post-laminectomy syndrome (primary encounter diagnosis) (G89.29) Other chronic pain PLAN: Patient with chronic low back and leg pain after back surgery. He has exhausted all conservative option sat this point. We have discusion about the technology and MRI capabilities of the SCS system. 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 We will proceed with a trial of SCS, Nevro system because of his 3 seferino rating. Risks, benefits, and alternatives were discussed with the patient prior to the procedure. Patient to have psych clearance. There are no Patient Instructions on file for this visit. I spent more than 15 minutes [id number] with the patient and over half the time was devoted to counseling and/or coordination of care. Spencer Gray MD [facility] PROGRESS HNO ID: [id number] Author: Spencer Gray Service: ? Author Type: Physician Type: Progress Notes Filed: 03/30/2020 12:48 PM Note Text: Subjective HPI Review of Systems Eyes: Negative for blurred vision. Respiratory: Negative for shortness of breath. Cardiovascular: Negative for chest pain and leg swelling. Gastrointestinal: Negative for constipation, diarrhea, nausea and vomiting. Genitourinary: Negative for dysuria. Skin: Negative for itching. Neurological: Positive for tingling. Negative for dizziness, weakness and headaches. Endo/Heme/Allergies: Does not bruise/bleed easily. Psychiatric/Behavioral : Negative for depression and suicidal ideas. PAST MEDICAL HISTORY Diagnosis Date - Carotid artery disease (HCC) - Emphysema lung (HCC) - Essential hypertension - Lumbar stenosis - SLAC (scapholunate advanced collapse) of wrist PAST SURGICAL HISTORY Procedure Laterality Date - APPENDECTOMY 1969 - BACK SURGERY HX 08/23/2019 L2-[address] Jannet Richter - CARPAL TUNNEL 2011 Bilateral - LAMINECTOMY,LUMBAR 1987 - REM LESION FACE,EAR,EYE 0.6-1CM Right 05/28/16 Exc. right ear lobe nick cyst - REPAIR ROTATOR CUFF,ACUTE Right 2012 decompression FAMILY HISTORY Problem Relation Age of Onset - Cancer Father Social History Tobacco Use - Smoking status: Current Every Day Smoker Packs/day: 0.50 Years: 30.00 Pack years: 15.00 - Smokeless tobacco: Never Used Substance Use Topics - Alcohol use: Yes Comment: Occasional - Drug use: No Current Meds gabapentin (NEURONTIN) 600 mg tablet Take 1 tablet by mouth three times daily for 30 days. Losartan-Hydrochloroth iazide (HYZAAR) 100-12.5 mg per tablet Take 1 tablet by mouth once daily. amLODIPine (NORVASC) 5 mg tablet Take 5 mg by mouth once daily. POTASSIUM ORAL Take 10 mEq by mouth once daily. MULTIVITAMIN ORAL Take by mouth once daily. docusate sodium (COLACE) 100 mg capsule Take 1 capsule by mouth twice daily. sildenafil (REVATIO) 20 mg tablet Take 20 mg by mouth as needed. Sodium,Potassium,ANDMa g Sulfates (SUPREP) 17.5-3.13-1.6 gram SolR Take 1 Package by mouth as directed. Objective Ht 170.2 cm (5' 7) Wt 65.8 kg (145 lb) BMI 22.71 kg/m? Physical Exam Normal [facility] OBSOLETEon 03-01-2020 OBSOLETE Refill (AGSPINE2) TAVARES MELGAR ([id number]) 1960 M Date Time Provider Department 03/01/20 LYNN SINGH2 During your visit today, we recorded the following information about you: Sophia Christyherty 03/01/2020 10:57 AM Signed Patient left a message stating he needs a refill on his Gabapentin. Sophia Christyherty Allergies As of Date: 03/01/2020 Noted Allergy Reaction LISINOPRIL 09/06/2013 3 - Cough Date Reviewed: 02/16/2020 Reviewed by: Lynn Singh - Fully Assessed Reason for Visit: Refill Request [94] Visit Diagnosis:Lumbar radiculopathy [M54.16] Order(s):gabapentin (NEURONTIN) 600 mg tabletTake 1 tablet by mouth three times daily for 30 days.Disp: 90 tabletRfl: 0 Prescriptions as of 03/01/2020 Sig: GABAPENTIN 600 MG TABLET Take 1 tablet by mouth three * DOCUSATE SODIUM 100 MG CAPSULE Take 1 capsule by mouth twice* Patient not taking: Reported on 10/17/2019 SILDENAFIL (PULMONARY HYPERTE* Take 20 mg by mouth as needed. LOSARTAN 100 MG-HYDROCHLOROTH* Take 1 tablet by mouth once d* AMLODIPINE 5 MG TABLET Take 5 mg by mouth once daily. POTASSIUM ORAL Take 10 mEq by mouth once moshe* MULTIVITAMIN ORAL Take by mouth once daily. SODIUM,POTASSIUM,MAG SULFATES* Take 1 Package by mouth as di* Patient not taking: Reported on 12/29/2019 Problem List As Of Date 03/01/2020 Noted Resolved Special screening for malignant neoplasms, colo*09/06/2013 Sebaceous cyst [L72.3] 05/28/2016 Prescriptions ordered this encounter Disp Refills Start End GABAPENTIN 600 MG TABLET 90 t* 0 03/01/2020 03/31/2020 Route: ORAL Sig: Take 1 tablet by mouth three times daily for 30 days. Medications Discontinued During This Encounter gabapentin (NEURONTIN) 600 mg tablet 90 t* 0 12/12/2019 03/01/2020 Route: ORAL Sig: Take 1 tablet by mouth three times daily for 30 days. Disc: Reason for discontinue is not on file. Encounter Status:Closed by LYNN SINGH MD on 03/01/20 [facility] PROGRESSon 02-16-2020 PROGRESS HNO ID: [id number] Author: Lynn Singh Service: ? Author Type: Physician Type: Progress Notes Filed: 02/16/2020 8:16 AM Note Text: VIRTUAL VISIT PROGRESS NOTE This is a virtual visit. It required patient-provider interaction for the medical decision making as documented below. Telemedicine visit necessary due to Coronovirus pandemic? Patient is at home Tavares Melgar is a 59 year old male seen for follow up of low back pain after SACHI on 01/31 with out relief. He has continued with Dr Rodriguez and his HEP with minimal relief. Had no change with increase in Gabapentin. Pain with walking and states his foot goes cold/numb which now takes longer to resolve once sitting. Has seen surgeon who discussed possible fusion but patient does not want this. PDMP website checked and validated. All prescriptions have been APPROPRIATELY filled. No suspicious activity was identified. 02/16/2020 by Lynn Singh MD Opioids per PCP EMG 11/2019 No ongoing radiculopathy HISTORY REVIEWED (electronic chart updated): PAST MEDICAL HISTORY Diagnosis Date - Carotid artery disease (HCC) - Emphysema lung (HCC) - Essential hypertension - Lumbar stenosis - SLAC (scapholunate advanced collapse) of wrist PAST SURGICAL HISTORY Procedure Laterality Date - APPENDECTOMY 1970 - BACK SURGERY HX 08/23/2019 L2-[address] Jannet Richter - CARPAL TUNNEL 2010 Bilateral - LAMINECTOMY,LUMBAR 1987 - REM LESION FACE,EAR,EYE 0.6-1CM Right 05/28/16 Exc. right ear lobe nick cyst - REPAIR ROTATOR CUFF,ACUTE Right 2012 decompression FAMILY HISTORY Problem Relation Age of Onset - Cancer Father Social History Tobacco Use - Smoking status: Current Every Day Smoker Packs/day: 0.50 Years: 30.00 Pack years: 15.00 - Smokeless tobacco: Never Used Substance Use Topics - Alcohol use: Yes Comment: Occasional - Drug use: No Current Outpatient Medications Medication Sig - gabapentin (NEURONTIN) 600 mg tablet Take 1 tablet by mouth three times daily for 30 days. - sildenafil (REVATIO) 20 mg tablet Take 20 mg by mouth as needed. - Losartan-Hydrochloroth iazide (HYZAAR) 100-12.5 mg per tablet Take 1 tablet by mouth once daily. - amLODIPine (NORVASC) 5 mg tablet Take 5 mg by mouth once daily. - POTASSIUM ORAL Take 10 mEq by mouth once daily. - MULTIVITAMIN ORAL Take by mouth once daily. - docusate sodium (COLACE) 100 mg capsule Take 1 capsule by mouth twice daily. (Patient not taking: Reported on 10/17/2019 ) - Sodium,Potassium,ANDMa g Sulfates (SUPREP) 17.5-3.13-1.6 gram SolR Take 1 Package by mouth as directed. (Patient not taking: Reported on 12/29/2019 ) No current facility-administered medications for this visit. ALLERGIES Allergen Reactions - Lisinopril Cough REVIEW OF SYSTEMS: GENERAL: feeling well without fatigue, no recent change in weight RESPIRATORY: no cough, no wheezing or shortness of breath MUSCULOSKELETAL: low back pain as noted above NEURO: admits to paresthesia in the right leg and admits to weakness in the right foot PHYSICAL EXAMINATION: VIDEO EXAM: (if completed, performed via video enabled technology) GENERAL: alert and appropriate, in no distress, well-hydrated, well nourished and happy, smiling, interactive SKIN: no rash noted RESPIRATORY: breathing non-labored and no grunting/flaring/retra ctions BACK: ROM decreased because of pain EXTREMITIES: Mild decrease ROM, observed strength at least 4/5 NEUROLOGIC: gait normal, sensation grossly intact and no obvious deficit ASSESSMENT: (M54.16) Lumbar radiculopathy (primary encounter diagnosis) (Z98.890) S/P spinal surgery (M47.816) Lumbar spondylosis (M96.1) Lumbar post-laminectomy syndrome PLAN: ASSESSMENT/PLAN: He has had no relief with chiropractic/massage, medications or SACHI and does not want further surgery We discussed possible SCS which he is interested in Will have him follow up with Dr Gray for eval. 1. Lumbar radiculopathy - ICD9: 724.4, ICD10: M54.16 (primary diagnosis) 2. S/P spinal surgery - ICD9: V45.89, ICD10: Z98.890 3. Lumbar spondylosis - ICD9: 721.3, ICD10: M47.816 4. Lumbar post-laminectomy syndrome - ICD9: 722.83, ICD10: M96.1 [facility] C[facility] Telephone (AGSPHWG) TAVARES MELGAR ([id number]) 1960 Date Time Provider Department 02/03/20 RICHA FAJARDO BANNERPHWG During your visit today, we recorded the following information about you: Bola Patrick CMA 02/03/2020 8:56 AM Signed Called patient to follow up from 02/01/2020 procedure. Patient states that he is doing well and has no other questions or concerns at this time. Bola Patrick CMA February 03, 2020 8:56 AM Allergies As of Date: 02/03/2020 Noted Allergy Reaction LISINOPRIL 09/06/2013 3 - Cough Date Reviewed: 02/01/2020 Reviewed by: Bryan Adams - Fully Assessed Reason for Visit: Procedure Follow Up [1139] Prescriptions as of 02/03/2020 Sig: GABAPENTIN 600 MG TABLET Take 1 tablet by mouth three * DOCUSATE SODIUM 100 MG CAPSULE Take 1 capsule by mouth twice* Patient not taking: Reported on 10/17/2019 SILDENAFIL (PULMONARY HYPERTE* Take 20 mg by mouth as needed. LOSARTAN 100 MG-HYDROCHLOROTH* Take 1 tablet by mouth once d* AMLODIPINE 5 MG TABLET Take 5 mg by mouth once daily. POTASSIUM ORAL Take 10 mEq by mouth once moshe* MULTIVITAMIN ORAL Take by mouth once daily. SODIUM,POTASSIUM,MAG SULFATES* Take 1 Package by mouth as di* Patient not taking: Reported on 12/29/2019 Problem List As Of Date 02/03/2020 Noted Resolved Special screening for malignant neoplasms, colo*09/06/2013 Sebaceous cyst [L72.3] 05/28/2016 Encounter Status:Closed by DARNELLBOLA on 02/03/20 Normal [facility] OBSOLETEon 02-01-2020 OBSOLETE Procedure ([facility]SP[facility]) TAVARSE MELGAR ([id number]) 1960 M Date Time Provider Department 02/01/20 8:30 AM RICHA FAJARDO [facility] During your visit today, we recorded the following information about you: Pulse Respiration Blood pressure Weight 88/minute 16/minute 159/73 67.1 kg Height 1.702 m Richa Fajardo MD 02/01/2020 8:21 AM Signed The patient presents for a procedure and an attempt to diagnose and treat pain. Physical exam General: Alert and oriented ?3 Head-normocephalic; no masses or lesions notes Eyes-conjunctivae clear; sclera white Neck: supple; no thyromegaly CV: S1, S2; normal rate and rhythm; peripheral pulses palpable Lungs: CTA B Abdomen: nontender; BS + Musculoskeletal: pain Extremities-symmetrica l Neuro: CN II-XII grossly intact; sensation intact to touch; strength intact Psych: alert and oriented x 3; recent and remote memory as evidenced by face-to face discussion grossly intact Plan: Proceed as discussed in previous note Timeout was performed to verify patient name, , allergies and procedure being performed at 0804 Patient is aware of potential risks and benefits of this procedure. Patient wishes to proceed. Procedure start time: 805 Procedure end time: 810 Pre-and postprocedure diagnosis: Lumbar Radiculitis Procedure: Transforaminal epidural steroid injection on the right at the L5 and S1 levels under fluoroscopic guidance Performed by Richa Fajardo Complications: None Anesthesia: Local anesthetic Clinical note: The patient has a history of low back and right leg pain. The patient requests the procedure and an attempt to improve the pain. Procedure note: The patient was brought to the procedure room and placed in the prone position. Sterile prep and drape with ChloraPrep and sterile towels. 10 mL of half percent lidocaine were injected through a 27-gauge needle for local anesthesia. 22-gauge Sprotte needles were guided to the right L5 and S1 transforaminal epidural space. After negative aspiration, 1 ml of Omnipaque was injected through the needle to ensure proper needle placement. Then 2 mL of half percent lidocaine and 15 mg of dexamethasone were injected through the needles in divided doses. The needles were removed and the patient was transferred to recovery. Plan: The patient was instructed to call the clinic with any questions or concerns. The patient will have a follow-up appointment to discuss progress. Anita Abdalla LPN, HERNÁN 02/01/2020 8:21 AM Signed Subjective HPI Review of Systems Eyes: Negative for blurred vision. Respiratory: Negative for shortness of breath. Cardiovascular: Negative for leg swelling. Gastrointestinal: Negative for constipation, diarrhea, nausea and vomiting. Genitourinary: Negative for dysuria. Musculoskeletal: Positive for back pain. Negative for neck pain. Skin: Negative for itching. Neurological: Positive for weakness. Negative for dizziness, tingling and headaches. Endo/Heme/Allergies: Does not bruise/bleed easily. Psychiatric/Behavioral : Negative for depression and suicidal ideas. PAST MEDICAL HISTORY Diagnosis Date - Carotid artery disease (HCC) - Emphysema lung (HCC) - Essential hypertension - Lumbar stenosis - SLAC (scapholunate advanced collapse) of wrist PAST SURGICAL HISTORY Procedure Laterality Date - APPENDECTOMY 1969 - BACK SURGERY HX 08/23/2019 L2-[address] Jannet Richter - CARPAL TUNNEL 2011 Bilateral - LAMINECTOMY,LUMBAR 1987 - REM LESION FACE,EAR,EYE 0.6-1CM Right 05/28/16 Exc. right ear lobe nick cyst - REPAIR ROTATOR CUFF,ACUTE Right 2011 decompression FAMILY HISTORY Problem Relation Age of Onset - Cancer Father Social History Tobacco Use - Smoking status: Current Every Day Smoker Packs/day: 0.50 Years: 30.00 Pack years: 15.00 - Smokeless tobacco: Never Used Substance Use Topics - Alcohol use: Yes Comment: Occasional - Drug use: No Current Meds sildenafil (REVATIO) 20 mg tablet Take 20 mg by mouth as needed. Losartan-Hydrochloroth iazide (HYZAAR) 100-12.5 mg per tablet Take 1 tablet by mouth once daily. amLODIPine (NORVASC) 5 mg tablet Take 5 mg by mouth once daily. POTASSIUM ORAL Take 10 mEq by mouth once daily. MULTIVITAMIN ORAL Take by mouth once daily. gabapentin (NEURONTIN) 600 mg tablet Take 1 tablet by mouth three times daily for 30 days. docusate sodium (COLACE) 100 mg capsule Take 1 capsule by mouth twice daily. Sodium,Potassium,ANDMa g Sulfates (SUPREP) 17.5-3.13-1.6 gram SolR Take 1 Package by mouth as directed. Objective There were no vitals taken for this visit. Physical Exam Anita Abdalla LPN, LPN 02/01/2020 8:04 AM Signed Transportation Program Director's name Alma Are you on a blood thinner: no If yes, is a hold required: no Last dose of blood thinner: no INR Result today: no Do you require a Lovenox bridge: no Are you a diabetic: no Are you/or could you be : na Are you taking Xanax for the procedure: no Are you currently on an antibiotic: no HERNÁN Post LPN, LPN 02/01/2020 8:08 AM Signed Procedure: right l5 s1 ltr Patient was walked to procedure room . Patient?s procedure was performed in a [facility] procedure room. Pause completed at each level by provider to verify correct level and laterality placement. Pressure was applied to patient?s injection site(s) and bleeding was minimal. Patient had no complaint of shortness of breath, dizziness, headache, numbness, tingling, weakness or complications from procedure. Patient was assisted from the procedure table and walked to bay/exam room. Patient was advised a clinician will be to obtain another set of vitals. Time out has been performed by Dr. Jessica Abdalla LPN, LPN 02/01/2020 8:16 AM Signed PROCEDURE DISCHARGE INSTRUCTIONS 02/01/2020 Tavares Melgar 1960 Physician: Richa Fajardo MD Procedure: Epidural Steroid Injection: Lumbar (transforaminal/Interl aminar/Caudal) Post Procedure Instructions: If sedation not given, no driving for 3 hours after the procedure., If sedation given, no driving the day of the procedure., Rest the day of the procedure., You may resume normal activities the day after the procedure, as tolerated., Pain should gradually subside over the next 2-3 weeks., Apply cold compresses to injection site if needed., If medically acceptable, take over the counter anti-inflammatories such as ibuprofen or Aleve if needed for post procedure discomfort., No hot baths, hot tubs or hot compresses for 24 hours. and Increased pain the day after the procedure may occur. If you have any of the following signs or symptoms, please call our office at ? Fever and/or chills ? Swelling and/or drainage from injection site ? New pain that is different than your normal pain (other than soreness at the site of the procedure) ? Stiff neck ? Shortness of breath ? Severe increase in pain ? Motor dysfunctions, such as difficulty walking, bowel or bladder dysfunction and/or incontinence ? Headache that is severe, light sensitive or develops when changing positions (positional headache) ? Nausea and/or vomiting accompanied by headache that started 24-48 hours after the procedure If you have any emergent concerns, please call 911 or go to your local emergency room. Please also contact our office to let us know you will be seeking emergency care and why. Anita Abdalla LPN, HERNÁN 02/01/2020 8:17 AM Signed Dressing dry and intact. No drainage noted. The patient denies numbness, tingling, weakness, shortness of breath, dizziness, or headache. Pain level 3/10. Vital signs within normal limits. Patient given discharge instructions and escorted to transportation via ambulatory method. Patient left in good condition. Anita Abdalla LPN Referring Provider: RUBEN RODRIGUEZ [[id number]] Allergies As of Date: 02/01/2020 Noted Allergy Reaction LISINOPRIL 09/06/2013 3 - Cough Date Reviewed: 02/01/2020 Reviewed by: Champ (Hernán) HERNÁN Lewis - Fully Assessed Reason for Visit: Injections [199] Primary Visit Diagnosis:Lumbar radiculopathy [M54.16] Order(s):INJ TRANSFORAMINAL EPID ANES/STER LS SINGL [[id number]] Order #: [id number] INJ TRANSFRAM EPID ANES/STER LS MULTI [[id number]] Order #: [id number] [] Dexamethasone sodium phosphate (PF) 10 mg injection (DECADRON)Disp: Rfl: [] iohexol 900 mg IV injection (OMNIPAQUE 300)Disp: Rfl: [] lidocaine (PF) 5 mg/mL (0.5 %) 50 mg injection (XYLOCAINE)Disp: Rfl: Prescriptions as of 02/01/2020 Sig: SILDENAFIL (PULMONARY HYPERTE* Take 20 mg by mouth as needed. LOSARTAN 100 MG-HYDROCHLOROTH* Take 1 tablet by mouth once d* AMLODIPINE 5 MG TABLET Take 5 mg by mouth once daily. POTASSIUM ORAL Take 10 mEq by mouth once moshe* MULTIVITAMIN ORAL Take by mouth once daily. GABAPENTIN 600 MG TABLET Take 1 tablet by mouth three * DOCUSATE SODIUM 100 MG CAPSULE Take 1 capsule by mouth twice* Patient not taking: Reported on 10/17/2019 SODIUM,POTASSIUM,MAG SULFATES* Take 1 Package by mouth as di* Patient not taking: Reported on 12/29/2019 Problem List As Of Date 02/01/2020 Noted Resolved Special screening for malignant neoplasms, colo*09/06/2013 Sebaceous cyst [L72.3] 05/28/2016 Other instructions from your clinician: PROCEDURE DISCHARGE INSTRUCTIONS 02/01/2020 Tavares Melgar 1960 Physician: Richa Fajardo MD Procedure: Epidural Steroid Injection: Lumbar (transforaminal/Interl aminar/Caudal) Post Procedure Instructions: If sedation not given, no driving for 3 hours after the procedure., If sedation given, no driving the day of the procedure., Rest the day of the procedure., You may resume normal activities the day after the procedure, as tolerated., Pain should gradually subside over the next 2-3 weeks., Apply cold compresses to injection site if needed., If medically acceptable, take over the counter anti-inflammatories such as ibuprofen or Aleve if needed for post procedure discomfort., No hot baths, hot tubs or hot compresses for 24 hours. and Increased pain the day after the procedure may occur. If you have any of the following signs or symptoms, please call our office at ? Fever and/or chills ? Swelling and/or drainage from injection site ? New pain that is different than your normal pain (other than soreness at the site of the procedure) ? Stiff neck ? Shortness of breath ? Severe increase in pain ? Motor dysfunctions, such as difficulty walking, bowel or bladder dysfunction and/or incontinence ? Headache that is severe, light sensitive or develops when changing positions (positional headache) ? Nausea and/or vomiting accompanied by headache that started 24-48 hours after the procedure If you have any emergent concerns, please call 911 or go to your local emergency room. Please also contact our office to let us know you will be seeking emergency care and why. Visit Notes: >> Anita Abdalla LPN ThuFeb 01, 2020 8:03 AM Status: Signed Transportation Program Director's name Alma Are you on a blood thinner: no If yes, is a hold required: no Last dose of blood thinner: no INR Result today: no Do you require a Lovenox bridge: no Are you a diabetic: no Are you/or could you be : na Are you taking Xanax for the procedure: no Are you currently on an antibiotic: no Anita Abdalla LPN >> Champ Lewis LPN ThuFeb 01, 2020 8:08 AM Status: Signed Procedure: right l5 s1 ltr Patient was walked to procedure room . Patient?s procedure was performed in a [facility] procedure room. Pause completed at each level by provider to verify correct level and laterality placement. Pressure was applied to patient?s injection site(s) and bleeding was minimal. Patient had no complaint of shortness of breath, dizziness, headache, numbness, tingling, weakness or complications from procedure. Patient was assisted from the procedure table and walked to bay/exam room. Patient was advised a clinician will be to obtain another set of vitals. Time out has been performed by Dr. Fajardo >> Anita Abdalla LPN ThuFeb 01, 2020 8:16 AM Status: Signed Dressing dry and intact. No drainage noted. The patient denies numbness, tingling, weakness, shortness of breath, dizziness, or headache. Pain level 3/10. Vital signs within normal limits. Patient given discharge instructions and escorted to transportation via ambulatory method. Patient left in good condition. Anita Abdalla LPN Prescriptions ordered this encounter Disp Refills Start End DEXAMETHASONE SODIUM PHOSPHATE (PF) * 02/01/2020 02/01/2020 Route: OTHER IOHEXOL 300 MG IODINE/ML INTRAVENOUS* 02/01/2020 02/01/2020 Route: INTRATHEC. LIDOCAINE (PF) 5 MG/ML (0.5 %) INJEC* 02/01/2020 02/01/2020 Route: OTHER Encounter Status:Closed by RICHA FAJARDO MD on 02/01/20 Normal [facility] PROCEDUREon 02-01-2020 PROCEDURE HNO ID: [id number] Author: Richa Fajardo Service: ? Author Type: Physician Type: Procedures Filed: 02/01/2020 8:21 AM Note Text: The patient presents for a procedure and an attempt to diagnose and treat pain. Physical exam General: Alert and oriented ?3 Head-normocephalic; no masses or lesions notes Eyes-conjunctivae clear; sclera white Neck: supple; no thyromegaly CV: S1, S2; normal rate and rhythm; peripheral pulses palpable Lungs: CTA B Abdomen: nontender; BS + Musculoskeletal: pain Extremities-symmetrica l Neuro: CN II-XII grossly intact; sensation intact to touch; strength intact Psych: alert and oriented x 3; recent and remote memory as evidenced by face-to face discussion grossly intact Plan: Proceed as discussed in previous note Timeout was performed to verify patient name, , allergies and procedure being performed at 0804 Patient is aware of potential risks and benefits of this procedure. Patient wishes to proceed. Procedure start time: 805 Procedure end time: 810 Pre-and postprocedure diagnosis: Lumbar Radiculitis Procedure: Transforaminal epidural steroid injection on the right at the L5 and S1 levels under fluoroscopic guidance Performed by Richa Fajardo Complications: None Anesthesia: Local anesthetic Clinical note: The patient has a history of low back and right leg pain. The patient requests the procedure and an attempt to improve the pain. Procedure note: The patient was brought to the procedure room and placed in the prone position. Sterile prep and drape with ChloraPrep and sterile towels. 10 mL of half percent lidocaine were injected through a 27-gauge needle for local anesthesia. 22-gauge Sprotte needles were guided to the right L5 and S1 transforaminal epidural space. After negative aspiration, 1 ml of Omnipaque was injected through the needle to ensure proper needle placement. Then 2 mL of half percent lidocaine and 15 mg of dexamethasone were injected through the needles in divided doses. The needles were removed and the patient was transferred to recovery. Plan: The patient was instructed to call the clinic with any questions or concerns. The patient will have a follow-up appointment to discuss progress. Normal [facility] PROGRESSon 02-01-2020 PROGRESS HNO ID: [id number] Author: Anita Painter) HERNÁN Abdalla Service: ? Author Type: LICENSED NURSE Type: Progress Notes Filed: 02/01/2020 8:21 AM Note Text: Subjective HPI Review of Systems Eyes: Negative for blurred vision. Respiratory: Negative for shortness of breath. Cardiovascular: Negative for leg swelling. Gastrointestinal: Negative for constipation, diarrhea, nausea and vomiting. Genitourinary: Negative for dysuria. Musculoskeletal: Positive for back pain. Negative for neck pain. Skin: Negative for itching. Neurological: Positive for weakness. Negative for dizziness, tingling and headaches. Endo/Heme/Allergies: Does not bruise/bleed easily. Psychiatric/Behavioral : Negative for depression and suicidal ideas. PAST MEDICAL HISTORY Diagnosis Date - Carotid artery disease (HCC) - Emphysema lung (HCC) - Essential hypertension - Lumbar stenosis - SLAC (scapholunate advanced collapse) of wrist PAST SURGICAL HISTORY Procedure Laterality Date - APPENDECTOMY 1969 - BACK SURGERY HX 08/23/2019 L2-[address] Jannet Richter - CARPAL TUNNEL 2011 Bilateral - LAMINECTOMY,LUMBAR 1987 - REM LESION FACE,EAR,EYE 0.6-1CM Right 05/28/16 Exc. right ear lobe nick cyst - REPAIR ROTATOR CUFF,ACUTE Right 2012 decompression FAMILY HISTORY Problem Relation Age of Onset - Cancer Father Social History Tobacco Use - Smoking status: Current Every Day Smoker Packs/day: 0.50 Years: 30.00 Pack years: 15.00 - Smokeless tobacco: Never Used Substance Use Topics - Alcohol use: Yes Comment: Occasional - Drug use: No Current Meds sildenafil (REVATIO) 20 mg tablet Take 20 mg by mouth as needed. Losartan-Hydrochloroth iazide (HYZAAR) 100-12.5 mg per tablet Take 1 tablet by mouth once daily. amLODIPine (NORVASC) 5 mg tablet Take 5 mg by mouth once daily. POTASSIUM ORAL Take 10 mEq by mouth once daily. MULTIVITAMIN ORAL Take by mouth once daily. gabapentin (NEURONTIN) 600 mg tablet Take 1 tablet by mouth three times daily for 30 days. docusate sodium (COLACE) 100 mg capsule Take 1 capsule by mouth twice daily. Sodium,Potassium,ANDMa g Sulfates (SUPREP) 17.5-3.13-1.6 gram SolR Take 1 Package by mouth as directed. Objective There were no vitals taken for this visit. Physical Exam Normal [facility] CNOVon 01-24-2020 CNOV Office Visit ([facility]) TAVARES MELGAR ([id number]) 1960 M Date Time Provider Department 01/24/20 2:00 PM RUBEN RODRIGUEZ [facility] During your visit today, we recorded the following information about you: Pulse Blood pressure Weight Height 90/minute 138/76 67.1 kg 1.702 m Ruben Rodriguez DC 01/24/2020 3:16 PM Signed Chiropractor Progress/Procedure Note Tavares Melgar is a 59 year old male who presents for Chiropractic follow up for Low Back Pain (into right leg) 04/01 vpcy Have you noticed any improvement [...] Eyes: Negative for blurred vision and double vision. Respiratory: Negative for shortness of breath. Cardiovascular: Negative for chest pain and leg swelling. Gastrointestinal: Negative for nausea. Genitourinary: POS for dysuria. URGENCY Neurological: Negative for tingling, POS weakness and NEG headaches. RIGHT LEG Endo/Heme/Allergies: Does not bruise/bleed easily. Psychiatric/Behavioral : Negative for suicidal ideas and substance abuse. The patient is alert and oriented in no acute distress. Spinal segmental dysfunction: Hypomobility noted on motion palpation L5/S1 LMT Manual Therapy Note Date: January 24, 2020 Time: 1:56 PM Patient Name Tavares Melgar Date of 1960 Before manual therapy began, I explained to the patient to please communicate at any time that the pressure is too much or not enough along with any spots that may be painful. During the massage treatment the patient stated the pressure was just right and the tenderness that they were feeling was okay during the massage treatment I adjusted the pressure to how the patient would prefer it. During treatment I asked the patient am I getting the correct areas of concern. The patient's answer was yes. Patient was in prone position during treatment. Therapist performed 1 units of manual therapy to patient's lumbar spine. Patient had moderate/severe hypertonicity with R>L ,and moderate tenderness R=L. I used 3/5 pressure rate (Arriaga Scale) which was tolerated by patient; muscle hypertonicity released by 40%. Techniques used during treatment included Muscle stripping, trigger point therapy, myofascial release, neuro muscular, kneading to the following muscle groups to quadratus lumborum, erectors, paraspinals along iliac crest and transverse processes, into gluteus narayan, minimus, medius along with piriformis with moderate trigger points present in right lumbar erector and QL muscles. Patient demonstrated a positive response resulting in mild reduction in hypertonicity and spasms. Juliet Kirk LMT, CPT Did Patient tolerate the procedure well - Yes. Manual Therapy Time in: 2 Manual Therapy Time out: 2:15 I have confirmed and edited as necessary the HPI and ROS obtained by others. TREATMENTS: Therapeutic Exercises: 1 unit(s), 15 mins Manipulation therapy: 1-2 areas Distraction manipulation performed to the lumbar spine at L4/L5, L5/S1. Patient performed Cat/Cow exercise Patient responded well, instructed to call with problems or concerns. I personally performed treatments/procedures listed above. Time In: 132 Time Out: 238 IMPRESSION/PLAN: (M99.03) Somatic dysfunction of lumbar region (primary encounter diagnosis) (M47.816) Lumbar spondylosis (M54.16) Lumbar radiculopathy ANKUR Sol DC 01/24/2020 3:14 PM Signed Activity as tolerated Continue HEP Ice/Heat as needed Call if symptoms worsen Referring Provider: KATIA HAYS [[id number]] Allergies As of Date: 01/24/2020 Noted Allergy Reaction LISINOPRIL 09/06/2013 3 - Cough Date Reviewed: 01/24/2020 Reviewed by: Juliet (Therapist) Reagan - Fully Assessed Reason for Visit: Low Back Pain [126] Cmt: into right leg Primary Visit Diagnosis:Somatic dysfunction of lumbar region [M99.03] Other Visit Diagnoses:Lumbar spondylosis [M47.816] Lumbar radiculopathy [M54.16] Order(s):MANUAL FORCER MAKER,1+REGION [[id number]] Order #: [id number] THERAPEUTIC EXERCISES RE, EA 15 MIN. [[id number]] Order #: [id number] CHIROPRAC MANIP,SPINAL,1-2 REGIONS [[id number]] Order #: [id number] Prescriptions as of 01/24/2020 Sig: GABAPENTIN 600 MG TABLET Take 1 tablet by mouth three * DOCUSATE SODIUM 100 MG CAPSULE Take 1 capsule by mouth twice* Patient not taking: Reported on 10/17/2019 SILDENAFIL (PULMONARY HYPERTE* Take 20 mg by mouth as needed. LOSARTAN 100 MG-HYDROCHLOROTH* Take 1 tablet by mouth once d* AMLODIPINE 5 MG TABLET Take 5 mg by mouth once daily. POTASSIUM ORAL Take 10 mEq by mouth once moshe* MULTIVITAMIN ORAL Take by mouth once daily. SODIUM,POTASSIUM,MAG SULFATES* Take 1 Package by mouth as di* Patient not taking: Reported on 12/29/2019 Problem List As Of Date 01/24/2020 Noted Resolved Special screening for malignant neoplasms, colo*09/06/2013 Sebaceous cyst [L72.3] 05/28/2016 Other instructions from your clinician: Activity as tolerated Continue HEP Ice/Heat as needed Call if symptoms worsen Disposition: Return in about 2 weeks (around 02/07/2020). Follow-up and Disposition History Recorded Encounter Status:Closed by RUBEN RODRIGUEZ DC on 01/24/20 [facility] 01-20-2020 CNCO Letter Text Normal [facility] CNCOon 01-17-2020 CNCO Letter Text [facility] CNOVon 01-17-2020 CNOV Office Visit ([facility] G) TAVARES MELGAR ([id number]) 1960 M Date Time Provider Department 01/17/20 2:00 PM RUBEN RODRIGUEZ [facility] During your visit today, we recorded the following information about you: Pulse Blood pressure Weight 84/minute 140/80 67.1 kg Ruben Rodriguez DC 01/18/2020 9:41 AM Signed Chiropractor Progress/Procedure Note Tavares Melgar is a 59 year old male who presents for Chiropractic follow up for Low Back Pain 03/02 [facility] Have you noticed any improvement since your [...] Patient states there nothing Current pain level? 03/02 How low has your pain level been on the pain scale since your last visit? 01/30 How high has your pain level been on the pain scale since your last visit? 08/02. Since your last visit with Dr. Rodriguez have you had any Images or injections? none REVIEW OF SYSTEMS: Constitutional: Negative for fever and chills. Eyes: Negative for blurred vision and double vision. Respiratory: Negative for shortness of breath. Cardiovascular: Negative for chest pain and leg swelling. Gastrointestinal: Negative for nausea. Genitourinary: Negative for dysuria. Neurological: Negative for tingling, weakness and headaches. Endo/Heme/Allergies: Does not bruise/bleed easily. Psychiatric/Behavioral : Negative for suicidal ideas and substance abuse. The patient is alert and oriented in no acute distress. Right SLR positive at 30? reproduction of neural tension. Right slump test, sciatic distribution, positive free production of neural tension. Patient's describes symptoms along the L5-S1 dermatome. States numbness tingling pain traveling to the top of the foot and big toe little toe and up to the gastroc. Spinal segmental dysfunction: Hypomobility on motion palpation L4/L5 L5/S1 LMT Manual Therapy Note Date: January 17, 2020 Time: 2:05 PM Patient Name Tavares Melgar Date of 1960 Start Time: End Time: 222 Manual therapy note: Before manual therapy began, I explained to the patient to please communicate at any time that the pressure is too much or not enough along with any spots that may be painful. During the massage treatment the patient stated the pressure was just right and the tenderness that they were feeling was no tenderness during the massage treatment I adjusted the pressure to how the patient would prefer it. During treatment I asked the patient am I getting the correct areas of concern. The patients answer was yes Patient was in prone position during treatment. Therapist performed 1 units of manual therapy to patient's lumbar spine. Patient had moderate hypertonicity with R=L ,and no tenderness was c ommunicated. I used 2-3*/5 pressure rate based off of the Arriaga Scale, which was tolerated by pateint, muscle hypertonicity released by 30%. Techniques used during treatment included Muscle stripping, silicone cupping therapy (which included leaving the cups on for up to 2 minutes maximum and gliding the cups across muscle groups and trigger points helping to release the hypertonicity in the muscle groups) myofascial release, kneading to quadratus lumborum, erectors, paraspinals along iliac crest and transverse processes Juliet Loaiza LMT Patient tolerated the procedure well Y I have confirmed and edited as necessary the HPI and ROS obtained by others. TREATMENTS: NeuroMuscular Re-Education: 1 unit(s), Area: lumbar, Time: 8 mins Therapeutic Exercises: 1 unit(s), 15 mins Manipulation therapy: 1-2 areas Performed therapeutic exercises with patient by performing ROM assessment, pin and stretching, PNF stretching techniques to the affected areas. Distraction manipulation performed to the lumbar spine at L4/L5, L5/S1. Prior to the application of RockTape, I explained the contraindications and cautions to the patient. I also described how to care for the RockTape while at home and offered the patient a handout of instructions. Patient responded well, instructed to call with problems or concerns. I personally performed treatments/procedures listed above. Time In: 159 Time Out: 308 IMPRESSION/PLAN: (M99.03) Somatic dysfunction of lumbar region (primary encounter diagnosis) (M47.816) Lumbar spondylosis (M54.16) Lumbar radiculopathy PLAN: 1.) Activity: As tolerated and Discussed activity modifications 2.) Massage therapy: see manual therapy noite 3.) resident care associate: Discussed with patient the etiology of his ongoing symptoms is likely radicular in nature specific to the L5-S1 dermatome. Plan is to have the patient follow-up with Dr. Fajardo for transforaminal epidural steroid injection specific to the right side at L5 and S1. We will continue manager wound care on a weekly basis consisting of manual therapy, ART, instrument assisted soft tissue mobilization, and distraction manipulation. 4.) Duration: Follow up in 1 week 5.) Interventions: none at this time 6.) Patient will call with any questions, concerns, or neurologic changes. ANKUR Sol DC 01/18/2020 9:37 AM Signed Activity as tolerated Continue HEP Ice/Heat as needed Call if symptoms worsen Referring Provider: KATIA HAYS [[id number]] Allergies As of Date: 01/17/2020 Noted Allergy Reaction LISINOPRIL 09/06/2013 3 - Cough Date Reviewed: 01/17/2020 Reviewed by: Juliet Loaiza LMT - Fully Assessed Reason for Visit: Low Back Pain [126] Primary Visit Diagnosis:Somatic dysfunction of lumbar region [M99.03] Other Visit Diagnoses:Lumbar spondylosis [M47.816] Lumbar radiculopathy [M54.16] Order(s):THERAPEUTIC EXERCISES RE, EA 15 MIN. [[id number]] Order #: [id number] NEUROMUSCULAR REEDUCATION [[id number]] Order #: [id number] MANUAL FORCER MAKER,1+REGION [[id number]] Order #: [id number] CHIROPRAC MANIP,SPINAL,1-2 REGIONS [[id number]] Order #: [id number] PRE-CERT ORDER (AG) [[id number]] Order #: [id number]: 1 Prescriptions as of 01/17/2020 Sig: GABAPENTIN 600 MG TABLET Take 1 tablet by mouth three * DOCUSATE SODIUM 100 MG CAPSULE Take 1 capsule by mouth twice* Patient not taking: Reported on 10/17/2019 SILDENAFIL (PULMONARY HYPERTE* Take 20 mg by mouth as needed. LOSARTAN 100 MG-HYDROCHLOROTH* Take 1 tablet by mouth once d* AMLODIPINE 5 MG TABLET Take 5 mg by mouth once daily. POTASSIUM ORAL Take 10 mEq by mouth once moshe* MULTIVITAMIN ORAL Take by mouth once daily. SODIUM,POTASSIUM,MAG SULFATES* Take 1 Package by mouth as di* Patient not taking: Reported on 12/29/2019 Problem List As Of Date 01/17/2020 Noted Resolved Special screening for malignant neoplasms, colo*09/06/2013 Sebaceous cyst [L72.3] 05/28/2016 Other instructions from your clinician: Activity as tolerated Continue HEP Ice/Heat as needed Call if symptoms worsen Disposition: Return in about 2 weeks (around 01/31/2020). Follow-up and Disposition History Recorded Encounter Status:[facility] TAVARES MELGAR ([id number]) 1960 M Date Time Provider Department 01/10/20 1:00 PM RUBEN RODRIGUEZ [facility] During your visit today, we recorded the following information about you: Pulse Blood pressure Weight Height 81/minute 136/79 67.1 kg 1.702 m Ruben Rodriguez DC 01/13/2020 8:29 AM Signed Chiropractor Progress/Procedure Note Tavares Melgar is a 59 year old male who presents for Chiropractic follow up for Low Back Pain and Right Lower Extremity Pain AB 01/30 vpcy Have you noticed any improvement since [...] activity at this time Current pain level? 01/30 How low has your pain level been on the pain scale since your last visit? 01/30 How high has your pain level been on the pain scale since your last visit? 08/02. Since your last visit with Dr. Rodriguez have you had any Images or injections? none REVIEW OF SYSTEMS: Constitutional: Negative for fever and chills. Eyes: Negative for blurred vision and double vision. Respiratory: Negative for shortness of breath. Cardiovascular: Negative for chest pain and leg swelling. Gastrointestinal: Negative for nausea. Genitourinary: Negative for dysuria. Neurological: Negative for tingling, weakness and headaches. Endo/Heme/Allergies: Does not bruise/bleed easily. Psychiatric/Behavioral : Negative for suicidal ideas and substance abuse. The patient is alert and oriented in no acute distress. Spinal segmental dysfunction: Hypermobile motion palpation L4/L5 L5 S1 LMT Manual Therapy Note Date: January 10, 2020 Time: 1:39 PM Patient Name Tavares Melgar Date of 1960 Manual Therapy Note: The patient was placed in the prone position. Performed 1 units of manual therapy to bilateral lumbar regions. Symptomatic with severe hypertonicity was palpated in bilateral latissimus dorsi, lumbar erector spinae, muscles surrounding bilateral SI joints, and bilateral QL. These muscles felt dense, rigid, ropy, and inelastic R>L. There was mild to no hypersensitivity during palpation of the above mentioned areas. The patient was able to tolerate 3/5 pressure rate (referring to the Arriaga Pressure Rate Scale) in the above mentioned areas. Myofascial release, ischemic pressure, sustained pressure, digital compression, cross fibre friction, deep stripping, and effleurage were applied to the above mentioned having overall slow response resulting in significant reduction in hypertonicity. Ebony Segal LMT Before manual therapy was performed, I explained to the patient to communicate at any time if the pressure was causing discomfort past their tolerance level. During the session, the patient stated the pressure was okay and the hypersensitivity they were experiencing was tolerable. The patient did not request reduction in pressure rate during the session. The patient reported a moderate in muscle tension after manual therapy was performed. Ebony Segal LMT Manual Therapy Time in: 1:10 Manual Therapy Time out: 125 I have confirmed and edited as necessary the HPI and ROS obtained by others. TREATMENTS: NeuroMuscular Re-Education: 1 unit(s), Area: lumbar, Time: 8 mins Therapeutic Exercises: 1 unit(s), 15 mins Manipulation therapy: 1-2 areas Distraction manipulation performed to the lumbar spine at L4/L5, L5/S1. RockTape application to the bilateral lumbar erectors. Performed therapeutic exercises with patient by performing ROM assessment, pin and stretching, PNF stretching techniques to the affected areas. Patient responded well, instructed to call with problems or concerns. I personally performed treatments/procedures listed above. Time In: 1245 Time Out: 200 IMPRESSION/PLAN: (M99.03) Somatic dysfunction of lumbar region (primary encounter diagnosis) (M47.816) Lumbar spondylosis (M54.16) Lumbar radiculopathy ANKUR Sol DC 01/13/2020 8:27 AM Signed Activity as tolerated Continue HEP Ice/Heat as needed Call if symptoms worsen Referring Provider: KATIA HAYS [[id number]] Allergies As of Date: 01/10/2020 Noted Allergy Reaction LISINOPRIL 09/06/2013 3 - Cough Date Reviewed: 01/10/2020 Reviewed by: Ebony (Therapist) Philipp - Fully Assessed Reason for Visit: Low Back Pain [126] Right Lower Extremity Pain [130] Primary Visit Diagnosis:Somatic dysfunction of lumbar region [M99.03] Other Visit Diagnoses:Lumbar spondylosis [M47.816] Lumbar radiculopathy [M54.16] Order(s):THERAPEUTIC EXERCISES RE, EA 15 MIN. [[id number]] Order #: [id number] MANUAL FORCER MAKER,1+REGION [[id number]] Order #: [id number] CHIROPRAC MANIP,SPINAL,1-2 REGIONS [[id number]] Order #: [id number] NEUROMUSCULAR REEDUCATION [[id number]] Order #: [id number] Prescriptions as of 01/10/2020 Sig: GABAPENTIN 600 MG TABLET Take 1 tablet by mouth three * TIZANIDINE 4 MG TABLET Take 1 tablet by mouth every * Patient not taking: Reported on 12/29/2019 DOCUSATE SODIUM 100 MG CAPSULE Take 1 capsule by mouth twice* Patient not taking: Reported on 10/17/2019 SILDENAFIL (PULMONARY HYPERTE* Take 20 mg by mouth as needed. LOSARTAN 100 MG-HYDROCHLOROTH* Take 1 tablet by mouth once d* AMLODIPINE 5 MG TABLET Take 5 mg by mouth once daily. POTASSIUM ORAL Take 10 mEq by mouth once moshe* MULTIVITAMIN ORAL Take by mouth once daily. SODIUM,POTASSIUM,MAG SULFATES* Take 1 Package by mouth as di* Patient not taking: Reported on 12/29/2019 Problem List As Of Date 01/10/2020 Noted Resolved Special screening for malignant neoplasms, colo*09/06/2013 Sebaceous cyst [L72.3] 05/28/2016 Other instructions from your clinician: Activity as tolerated Continue HEP Ice/Heat as needed Call if symptoms worsen Disposition: Return in about 2 weeks (around 01/24/2020). Follow-up and Disposition History Recorded Encounter Status:Closed by RUBEN RODRIGUEZ DC on 01/13/20 [facility] [place] 12-29-2019 [facility] Office Visit ([facility] ) TAVARES MELGAR ([id number]) 1960 M Date Time Provider Department 12/29/19 1:00 PM BRYAN ADAMS During your visit today, we recorded the following information about you: Pulse Respiration Blood pressure Weight 83/minute 16/minute 144/82 67.1 kg Height 1.702 m Bryan Adams MD 02/01/2020 4:25 PM Signed NEUROSURGERY FOLLOW UP OFFICE NOTE Bryan Adams MD Date of visit: December 29, 2019 Patient Name: Mr.Craig Cristina Melgar Date of : 1960 Current Age: [age] year old Sex: male MRN/E# [id number] Last Office Visit: 11/09/2019 DIAGNOSIS: Lumbar disc herniation; s/p spinal surgery Chief Complaint: Patient presents with: Follow Up: EMG follow up SUBJECTIVE: Tavares Melgar is a 59 year old left-handed male presenting with spouse. Mr. Melgar is here today for follow up. His surgical history includes decompressive bilateral laminectomy, foraminotomy L2-L4 on 08/23/[address] Richter and [place] [address] Cortes. At his first post op visit on 09/05/19 he was seen by Milana Irby APRN. CNP where he was doing well overall. He had only been walking for short distances, so he was unable to determine how successful the surgery was. His incision was dry and intact, without signs or symptoms of infection. Physical therapy was recommended and ordered at that time. ? At his second post op visit on 10/17/19, he was seen by Dr. Richter and he had completed physical therapy and had noticed no improvement in his low back pain. He stated his pain was the same as it was before surgery. He had complaints of low back pain into his right hip, continuing down his right posterior thigh. His pain was worse with walking and going up stairs, it was better when sitting. A MRI was ordered, to evaluate his symptoms. ? At his most recent visit on 11/09/2019, he complained of constant lower back pain, radiating to right hip and right leg to toes with numbness to right foot with no improvement since surgery. He stated he felt slightly weaker in his right leg. An EMG of his lower extremity was ordered. Today, he continues to have lower back pain radiating to right hip AND right leg to toes with numbness to right foot. He is here for evaluation and plan of care. Symptoms: lower back pain that radiates into his right hip, down his posterior thigh ? ? PREVIOUS CONSERVATIVE TREATMENTS: Physical therapy Muscle Relaxants ? PREVIOUS SURGERY: SURGERY #1: Decompressive bilateral laminectomy, foraminotomy L2 - L4 on 08/23/[address] Richter ? ? SURGERY #2: [place]bar [place] [address] Cortes Smoker: yes Diabetic: no Anticoagulants: no Occupation: [employer] PAIN EVALUATION 12/29/2019 1257 Pain Level: 3 Pain Location: Back-Lower Lower back pain radiates down right leg Description: Aching Duration Units: Years Frequency: Continuous Intervention: ? nothing helps with pain PAST MEDICAL HISTORY Diagnosis Date - Carotid artery disease (HCC) - Emphysema lung (HCC) - Essential hypertension - Lumbar stenosis - SLAC (scapholunate advanced collapse) of wrist PAST SURGICAL HISTORY Procedure Laterality Date - APPENDECTOMY 1969 - BACK SURGERY HX 08/23/2019 L2-[address] Jannet Richter - CARPAL TUNNEL 2011 Bilateral - LAMINECTOMY,LUMBAR 1987 - REM LESION FACE,EAR,EYE 0.6-1CM Right 05/28/16 Exc. right ear lobe nick cyst - REPAIR ROTATOR CUFF,ACUTE Right 2012 decompression FAMILY HISTORY Problem Relation Age of Onset - Cancer Father ALLERGIES Allergen Reactions - Lisinopril Cough Current Outpatient Medications Medication Sig Dispense Refill - gabapentin (NEURONTIN) 600 mg tablet Take 1 tablet by mouth three times daily for 30 days. 90 tablet 0 - Losartan-Hydrochloroth iazide (HYZAAR) 100-12.5 mg per tablet Take 1 tablet by mouth once daily. - amLODIPine (NORVASC) 5 mg tablet Take 5 mg by mouth once daily. - POTASSIUM ORAL Take 10 mEq by mouth once daily. - MULTIVITAMIN ORAL Take by mouth once daily. - tiZANidine (ZANAFLEX) 4 mg tablet Take 1 tablet by mouth every 8 hours as needed (spasms, pain). (Patient not taking: Reported on 12/29/2019 ) 90 tablet 0 - docusate sodium (COLACE) 100 mg capsule Take 1 capsule by mouth twice daily. (Patient not taking: Reported on 10/17/2019 ) - sildenafil (REVATIO) 20 mg tablet Take 20 mg by mouth as needed. - Sodium,Potassium,ANDMa g Sulfates (SUPREP) 17.5-3.13-1.6 gram SolR Take 1 Package by mouth as directed. (Patient not taking: Reported on 12/29/2019 ) 2 Package 0 No current facility-administered medications for this visit. REVIEW OF SYSTEMS Review of Systems Constitutional: Negative for chills, diaphoresis and fever. Respiratory: Negative for cough, shortness of breath and wheezing. Gastrointestinal: Negative for constipation, diarrhea and nausea. Genitourinary: Negative for difficulty urinating, frequency and urgency. Musculoskeletal: Negative for back pain, gait problem and neck pain. Neurological: Negative for dizziness, weakness and numbness. OBJECTIVE: BP 144/82 Pulse 83 Resp 16 Ht 5' 7 (1.70m) Wt 148 lb (67.1kg) SpO2 98% BMI 23.17 kg/(m2). Physical Exam Neurological: Reflex Scores: Patellar reflexes are 2+ on the right side and 2+ on the left side. Psychiatric: His speech is normal. Neurological Exam Mental Status Awake, alert and oriented to person, place and time. Recent and remote memory are intact. Speech is normal. Language is fluent with no aphasia. Attention and concentration are normal. Motor Right Left Hip flexion 4 5 Knee extension 4 5 Plantarflexion 5 5 Dorsiflexion 5 5 Toe extension 5 5 Sensory Light touch is normal in upper and lower extremities. Reflexes Right Left Patellar 2+ 2+ Right pathological reflexes: Ankle clonus absent. Left pathological reflexes: Ankle clonus absent. Gait Normal casual, toe, heel and tandem gait. Romberg is absent. Data Review EMG on 12/16/2019: IMAGING STUDIES: no recent images. Personal review of medical records: I reviewed with the patient, history, physical exam, the images and the chart. ASSESSMENT/PLAN 1. S/P spinal surgery 2. Chronic right-sided low back pain with right-sided sciatica Follows up with persistent symptoms post L2 to L4 laminectomy. MRI shows bilateral foraminal stenosis, worse in the right at L3 4 and L4 5. Continues to have right leg pain and numbness, symptoms are worsened by standing and walking with right leg giving out. X-rays demonstrate no instability. EMG nerve conduction do not demonstrate any radiculopathy or peripheral neuropathy. Recommend continue to follow with pain management team he is currently undergoing chiropractic manipulations. We discussed further possibility of further surgery that would require a fusion. He does not want to pursue surgical intervention at this time and will continue working with pain management team. Follow up on an as-needed basis if symptoms do not improve. Bryan Adams MD This note was partially generated using Cloud Direct voice recognition system, and there may be some incorrect words, spellings, and punctuation that were not noted in checking the note before saving. Bryan Adams MD 12/29/2019 1:45 PM Signed Should remain on reduced work hours schedule for at least 4 weeks. Further reassessment by pain management team. Referring Provider: BRYAN ADAMS [[id number]] Allergies As of Date: 12/29/2019 Noted Allergy Reaction LISINOPRIL 09/06/2013 3 - Cough Date Reviewed: 12/29/2019 Reviewed by: Bryan Adams - Fully Assessed Reason for Visit: Follow Up [171] Cmt: EMG follow up Reason For Visit History Recorded Primary Visit Diagnosis:S/P spinal surgery [Z98.890] Other Visit Diagnosis:Chronic right-sided low back pain with right-sided sciatica [M54.41, G89.29] Prescriptions as of 12/29/2019 Sig: GABAPENTIN 600 MG TABLET Take 1 tablet by mouth three * LOSARTAN 100 MG-HYDROCHLOROTH* Take 1 tablet by mouth once d* AMLODIPINE 5 MG TABLET Take 5 mg by mouth once daily. POTASSIUM ORAL Take 10 mEq by mouth once moshe* MULTIVITAMIN ORAL Take by mouth once daily. TIZANIDINE 4 MG TABLET Take 1 tablet by mouth every * Patient not taking: Reported on 12/29/2019 DOCUSATE SODIUM 100 MG CAPSULE Take 1 capsule by mouth twice* Patient not taking: Reported on 10/17/2019 SILDENAFIL (PULMONARY HYPERTE* Take 20 mg by mouth as needed. SODIUM,POTASSIUM,MAG SULFATES* Take 1 Package by mouth as di* Patient not taking: Reported on 12/29/2019 Problem List As Of Date 12/29/2019 Noted Resolved Special screening for malignant neoplasms, colo*09/06/2013 Sebaceous cyst [L72.3] 05/28/2016 Other instructions from your clinician: Should remain on reduced work hours schedule for at least 4 weeks. Further reassessment by pain management team. Disposition: Return in about 1 month (around 01/27/2020), or if symptoms worsen or fail to improve. Follow-up and Disposition History Recorded Encounter Status:Closed by BRYAN ADAMS on 02/01/20 [facility] PROGRESSon 12-29-2019 PROGRESS HNO ID: [id number] Author: Bryan Adams Service: ? Author Type: Physician Type: Progress Notes Filed: 02/01/2020 4:25 PM Note Text: NEUROSURGERY FOLLOW UP OFFICE NOTE Bryan Adams MD Date of visit: December 29, 2019 Patient Name: Mr.Craig Cristina Melgar Date of : 1960 Current Age: [age] year old Sex: male MRN/E# [id number] Last Office Visit: 11/09/2019 DIAGNOSIS: Lumbar disc herniation; s/p spinal surgery Chief Complaint: Patient presents with: Follow Up: EMG follow up SUBJECTIVE: Tavares Melgar is a 59 year old left-handed male presenting with spouse. Mr. Melgar is here today for follow up. His surgical history includes decompressive bilateral laminectomy, foraminotomy L2-L4 on 08/23/[address] Richter and a [place] [address] Cortes. At his first post op visit on 09/05/19 he was seen by Milana Irby APRN. CNP where he was doing well overall. He had only been walking for short distances, so he was unable to determine how successful the surgery was. His incision was dry and intact, without signs or symptoms of infection. Physical therapy was recommended and ordered at that time. ? At his second post op visit on 10/17/19, he was seen by Dr. Richter and he had completed physical therapy and had noticed no improvement in his low back pain. He stated his pain was the same as it was before surgery. He had complaints of low back pain into his right hip, continuing down his right posterior thigh. His pain was worse with walking and going up stairs, it was better when sitting. A MRI was ordered, to evaluate his symptoms. ? At his most recent visit on 11/09/2019, he complained of constant lower back pain, radiating to right hip and right leg to toes with numbness to right foot with no improvement since surgery. He stated he felt slightly weaker in his right leg. An EMG of his lower extremity was ordered. Today, he continues to have lower back pain radiating to right hip AND right leg to toes with numbness to right foot. He is here for evaluation and plan of care. Symptoms: lower back pain that radiates into his right hip, down his posterior thigh ? ? PREVIOUS CONSERVATIVE TREATMENTS: Physical therapy Muscle Relaxants ? PREVIOUS SURGERY: SURGERY #1: Decompressive bilateral laminectomy, foraminotomy L2 - L4 on 08/23/[address] Richter ? ? SURGERY #2: [place]bar [place] [address] Cortes Smoker: yes Diabetic: no Anticoagulants: no Occupation: [employer] PAIN EVALUATION 12/29/2019 1257 Pain Level: 3 Pain Location: Back-Lower Lower back pain radiates down right leg Description: Aching Duration Units: Years Frequency: Continuous Intervention: ? nothing helps with pain PAST MEDICAL HISTORY Diagnosis Date - Carotid artery disease (HCC) - Emphysema lung (HCC) - Essential hypertension - Lumbar stenosis - SLAC (scapholunate advanced collapse) of wrist PAST SURGICAL HISTORY Procedure Laterality Date - APPENDECTOMY 1969 - BACK SURGERY HX 08/23/2019 L2-[address] Jannet Richter - CARPAL TUNNEL 2011 Bilateral - LAMINECTOMY,LUMBAR 1987 - REM LESION FACE,EAR,EYE 0.6-1CM Right 05/28/16 Exc. right ear lobe nick cyst - REPAIR ROTATOR CUFF,ACUTE Right 2012 decompression FAMILY HISTORY Problem Relation Age of Onset - Cancer Father ALLERGIES Allergen Reactions - Lisinopril Cough Current Outpatient Medications Medication Sig Dispense Refill - gabapentin (NEURONTIN) 600 mg tablet Take 1 tablet by mouth three times daily for 30 days. 90 tablet 0 - Losartan-Hydrochloroth iazide (HYZAAR) 100-12.5 mg per tablet Take 1 tablet by mouth once daily. - amLODIPine (NORVASC) 5 mg tablet Take 5 mg by mouth once daily. - POTASSIUM ORAL Take 10 mEq by mouth once daily. - MULTIVITAMIN ORAL Take by mouth once daily. - tiZANidine (ZANAFLEX) 4 mg tablet Take 1 tablet by mouth every 8 hours as needed (spasms, pain). (Patient not taking: Reported on 12/29/2019 ) 90 tablet 0 - docusate sodium (COLACE) 100 mg capsule Take 1 capsule by mouth twice daily. (Patient not taking: Reported on 10/17/2019 ) - sildenafil (REVATIO) 20 mg tablet Take 20 mg by mouth as needed. - Sodium,Potassium,ANDMa g Sulfates (SUPREP) 17.5-3.13-1.6 gram SolR Take 1 Package by mouth as directed. (Patient not taking: Reported on 12/29/2019 ) 2 Package 0 No current facility-administered medications for this visit. REVIEW OF SYSTEMS Review of Systems Constitutional: Negative for chills, diaphoresis and fever. Respiratory: Negative for cough, shortness of breath and wheezing. Gastrointestinal: Negative for constipation, diarrhea and nausea. Genitourinary: Negative for difficulty urinating, frequency and urgency. Musculoskeletal: Negative for back pain, gait problem and neck pain. Neurological: Negative for dizziness, weakness and numbness. OBJECTIVE: BP 144/82 Pulse 83 Resp 16 Ht 5' 7 (1.70m) Wt 148 lb (67.1kg) SpO2 98% BMI 23.17 kg/(m2). Physical Exam Neurological: Reflex Scores: Patellar reflexes are 2+ on the right side and 2+ on the left side. Psychiatric: His speech is normal. Neurological Exam Mental Status Awake, alert and oriented to person, place and time. Recent and remote memory are intact. Speech is normal. Language is fluent with no aphasia. Attention and concentration are normal. Motor Right Left Hip flexion 4 5 Knee extension 4 5 Plantarflexion 5 5 Dorsiflexion 5 5 Toe extension 5 5 Sensory Light touch is normal in upper and lower extremities. Reflexes Right Left Patellar 2+ 2+ Right pathological reflexes: Ankle clonus absent. Left pathological reflexes: Ankle clonus absent. Gait Normal casual, toe, heel and tandem gait. Romberg is absent. Data Review EMG on 12/16/2019: IMAGING STUDIES: no recent images. Personal review of medical records: I reviewed with the patient, history, physical exam, the images and the chart. ASSESSMENT/PLAN 1. S/P spinal surgery 2. Chronic right-sided low back pain with right-sided sciatica Follows up with persistent symptoms post L2 to L4 laminectomy. MRI shows bilateral foraminal stenosis, worse in the right at L3 4 and L4 5. Continues to have right leg pain and numbness, symptoms are worsened by standing and walking with right leg giving out. X-rays demonstrate no instability. EMG nerve conduction do not demonstrate any radiculopathy or peripheral neuropathy. Recommend continue to follow with pain management team he is currently undergoing chiropractic manipulations. We discussed further possibility of further surgery that would require a fusion. He does not want to pursue surgical intervention at this time and will continue working with pain management team. Follow up on an as-needed basis if symptoms do not improve. Bryan Adams MD This note was partially generated using Cloud Direct voice recognition system, and there may be some incorrect words, spellings, and punctuation that were not noted in checking the note before saving. Normal [facility] CNOVon 12-26-2019 CNOV Office Visit (AGSPINE3) TAVARES MELGAR ([id number]) 1960 M Date Time Provider Department 12/26/19 2:00 PM RUBEN RODRIGUEZ AGSPINE3 During your visit today, we recorded the following information about you: Pulse Blood pressure Weight Height 86/minute 137/76 67.1 kg 1.702 m Ruben Rodriguez DC 12/27/2019 9:08 AM Signed Chiropractor Progress/Procedure Note Tavares Melgar is a 59 year old male who presents for Chiropractic follow up for Low Back Pain (into right leg) 01/02 vpcy Have you noticed any improvement since your last visit? Not much has changed since last visit Have you done any home exercises that Dr. Rodriguez gave you? 3 times per day What is your response to the home exercises? Doesn't notice any changes What aggravates your pain? walking What makes your pain better? Rest, repositioning Current pain level? 01/30 How low has [...] Eyes: Negative for blurred vision and double vision. Respiratory: Negative for shortness of breath. Cardiovascular: Negative for chest pain and leg swelling. Gastrointestinal: Negative for nausea. Genitourinary: POS for dysuria. URGENCY Neurological: POS for tingling, NEG weakness and headaches. RIGHT FOOT Endo/Heme/Allergies: Does not bruise/bleed easily. Psychiatric/Behavioral : Negative for suicidal ideas and substance abuse. The patient is alert and oriented in no acute distress. Patient continues to present with right SLR positive at 35? right slump test, sciatic distribution positive for reproduction of neural tension. LMT Manual Therapy Note Date: December 26, 2019 Time: 2:05 PM Patient Name Tavares Melgar Date of 1960 Before manual therapy began, I explained to the patient to please communicate at any time that the pressure is too much or not enough along with any spots that may be painful. During the massage treatment the patient stated the pressure was just right and the tenderness that they were feeling was okay during the massage treatment I adjusted the pressure to how the patient would prefer it. During treatment I asked the patient am I getting the correct areas of concern. The patient's answer was yes. Patient was in prone position during treatment. Therapist performed 1 units of manual therapy to patient's lumbar spine. Patient had severe hypertonicity with R=L ,and moderate tenderness R=L. I used 3/5 pressure rate (Arriaga Scale) which was tolerated by patient; muscle hypertonicity released by 35%. Techniques used during treatment included Muscle stripping, trigger point therapy, myofascial release, neuro muscular, kneading to the following muscle groups to quadratus lumborum, erectors, paraspinals along iliac crest and transverse processes, into gluteus narayan, minimus, medius along with piriformis with moderate trigger points present in bilateral erectors muscles. Patient demonstrated a positive response resulting in moderate reduction in hypertonicity and spasms. Juliet Kirk LMT, CPT Did Patient tolerate the procedure well - Yes. Manual Therapy Time in: 2:05 Manual Therapy Time out: 2:20 I have confirmed and edited as necessary the HPI and ROS obtained by others. TREATMENTS: Therapeutic Exercises: 2 unit(s), 25 mins Patient performed nerve root flossing right lower extremity and both the standing in the seated position. Also performed nerve root flossing with patient the supine position performed in the distal intermediate and proximal locations. Patient also introduced to 90/90 exercise to help with hip mobility and gluteal stretching. Patient responded well, instructed to call with problems or concerns. I personally performed treatments/procedures listed above. Time In: 203 Time Out: 254 IMPRESSION/PLAN: (M47.816) Lumbar spondylosis (primary encounter diagnosis) (M54.16) Lumbar radiculopathy ANKUR Sol DC 12/27/2019 9:03 AM Signed Activity as tolerated Continue HEP Ice/Heat as needed Call if symptoms worsen Referring Provider: KATIA HAYS [[id number]] Allergies As of Date: 12/26/2019 Noted Allergy Reaction LISINOPRIL 09/06/2013 3 - Cough Date Reviewed: 12/26/2019 Reviewed by: Juliet (Therapist) Reagan - Fully Assessed Reason for Visit: Low Back Pain [126] Cmt: into right leg Primary Visit Diagnosis:Lumbar spondylosis [M47.816] Other Visit Diagnosis:Lumbar radiculopathy [M54.16] Order(s):MANUAL FORCER MAKER,1+REGION [[id number]] Order #: [id number] THERAPEUTIC EXERCISES RE, EA 15 MIN. [[id number]] Order #: [id number]: 2 Prescriptions as of 12/26/2019 Sig: GABAPENTIN 600 MG TABLET Take 1 tablet by mouth three * TIZANIDINE 4 MG TABLET Take 1 tablet by mouth every * DOCUSATE SODIUM 100 MG CAPSULE Take 1 capsule by mouth twice* Patient not taking: Reported on 10/17/2019 SILDENAFIL (PULMONARY HYPERTE* Take 20 mg by mouth as needed. LOSARTAN 100 MG-HYDROCHLOROTH* Take 1 tablet by mouth once d* AMLODIPINE 5 MG TABLET Take 5 mg by mouth once daily. POTASSIUM ORAL Take 10 mEq by mouth once moshe* MULTIVITAMIN ORAL Take by mouth once daily. SODIUM,POTASSIUM,MAG SULFATES* Take 1 Package by mouth as di* Problem List As Of Date 12/26/2019 Noted Resolved Special screening for malignant neoplasms, colo*09/06/2013 Sebaceous cyst [L72.3] 05/28/2016 Other instructions from your clinician: Activity as tolerated Continue HEP Ice/Heat as needed Call if symptoms worsen Disposition: Return in about 2 weeks (around 01/09/2020). Follow-up and Disposition History Recorded Encounter Status:Closed by RUBEN RODRIGUEZ DC on 12/27/19 [facility] CNOVon 12-22-2019 CNOV Office Visit (AGSPHW G) TAVARES MELGAR ([id number]) 1960 M Date Time Provider Department 12/22/19 1:00 PM RUBEN RODRIGUEZ AGSPHWG During your visit today, we recorded the following information about you: Pulse Blood pressure Weight Height 80/minute 159/85 67.1 kg 1.702 m Ruben Rodriguez DC 12/22/2019 1:40 PM Signed Tavares Melgar is a 59 year old male who presents today with complaints of low back pain and right radiating leg pain. He describes the pain as being sharp, burning, aching and shooting and rates the pain as a 3/10. The pain began several years ago as a result of unknown however after having low back surgery on August his pain has increased. The pain is exacerbated by walking and sitting for long periods. Previous treatments have included prescription NSAIDs, ice, heat, activity modification, rest and Physical therapy. He complains of radiation to the the right leg. He reports numbness, tingling or electric shocks in right foot. He denies popping, clicking, catching, grinding, or instability. He reports bowel or bladder urgency, difficulty with walking and muscle weakness in right leg. MRI taken in October. Dr. Singh is referring provider. Nurse review after 10 visits. Pain Intensity 2 - The pain is moderate at the moment Personal Care (Washing/Dressing) 1 - I can look after myself normally but it causes extra pain Lifting 2 - Pain prevents me from lifting heavy weights off the floor, but I can manage if conveniently positioned (e.g. on a table) Walking 4 - Pain prevents me from walking more than 100 yards Sitting 2 - Pain prevents me from sitting more than 1 hour Standing 1 - I can stand as long as I want but it gives me extra pain Sleeping 2 - Even when I take medication I have less than 6 hours of sleep Sex Life 4 - My sex life is nearly absent because of pain Social Life 4 - Pain has restricted my social life to home Traveling 2 - Pain is bad but I manage journeys over 2 hours Total Score 48 Interpretation 41% - 60% - severe disability MEDICATIONS: Current Outpatient Medications Medication Sig - gabapentin (NEURONTIN) 600 mg tablet Take 1 tablet by mouth three times daily for 30 days. - tiZANidine (ZANAFLEX) 4 mg tablet Take 1 tablet by mouth every 8 hours as needed (spasms, pain). - docusate sodium (COLACE) 100 mg capsule Take 1 capsule by mouth twice daily. (Patient not taking: Reported on 10/17/2019 ) - sildenafil (REVATIO) 20 mg tablet Take 20 mg by mouth as needed. - Losartan-Hydrochloroth iazide (HYZAAR) 100-12.5 mg per tablet Take 1 tablet by mouth once daily. - amLODIPine (NORVASC) 5 mg tablet Take 5 mg by mouth once daily. - POTASSIUM ORAL Take 10 mEq by mouth once daily. - MULTIVITAMIN ORAL Take by mouth once daily. - Sodium,Potassium,ANDMa g Sulfates (SUPREP) 17.5-3.13-1.6 gram SolR Take 1 Package by mouth as directed. No current facility-administered medications for this visit. REVIEW OF SYSTEMS: Constitutional: Negative for fever and chills. Eyes: Negative for blurred vision and double vision. Respiratory: Negative for shortness of breath. Cardiovascular: Negative for chest pain and leg swelling. Gastrointestinal: Negative for nausea. Genitourinary: Negative for dysuria. Neurological: POS for tingling, POS weakness and NEG headaches. RIGHT LEG Endo/Heme/Allergies: Does not bruise/bleed easily. Psychiatric/Behavioral : Negative for suicidal ideas and substance abuse. OBSERVATION/PHYSICAL EXAM: AANDOx3 Antalgic: Flexed Bilateral DTR: 2/4 to UE and LE MOTOR : 5/5 to upper extremity and lower extremity SENSORY: Pin prick/light touch intact RANGE OF MOTION: Decreased active range of motion lumbar flexion and extension HEEL WALK: WNL TOE WALK: WNL ORTHO FACET JOINT LOADING NEGATIVE BILATERALLY. SI JOINT PROVOCATION TESTS INCLUDING THIGH THRUST, ILIAC COMPRESSION, SACRAL COMPRESSION AND GAENSLEN'S TEST POSITIVE REPRODUCTION OF LOW BACK PAIN. RIGHT SLUMP TEST RIGHT SLR POSITIVE AT 35? SITE DISTRIBUTION POSITIVE REPRODUCTION OF NEURAL TENSION. INCREASES IN HYPERTONICITY PALPATED AT THE BILATERAL LUMBAR ERECTOR SPINAE. LEG LENGTH: N/A wnl PERIPHERAL PULSES: Palpable PERIPHERAL EDEMA: Visually noted be within normal limits Segmental dysfunction : Hypomobility noted on motion palpation L4/L5 L5/S1 IMPRESSION AND PLAN: (M47.816) Lumbar spondylosis (primary encounter diagnosis) (M54.16) Lumbar radiculopathy Office Visit on 12/22/19 - THERAPEUTIC EXERCISES RE, EA 15 MIN. Treatment: Therapeutic Exercises: 1 unit(s), Patient introduced to nerve root flossing right lower extremity. Patient demonstrated ability to perform the exercises pain-free and correctly. We're able to answer any questions, concerns patient had regarding home exercises. Patient was provided handout with visual aid of all home exercises. Patient responded well, instructed to call with problems or concerns. Time In: 1PM Time Out: 130 PLAN: 1.) Activity: As tolerated and Discussed activity modifications 2.) Massage therapy: Patient will follow-up with massage therapist next patient visit to address ongoing myofascial symptoms 3.) resident care associate: Discussed with patient the etiology of his ongoing symptoms is likely neural tension. Plans begin manager wound care consisting of spinal manipulation specific to distraction manipulation, ART, instrument assisted soft tissue mobilization, massage therapy, corrective exercises. 4.) Duration: Follow up in 1 week 5.) Interventions: none at this time 6.) Patient will call with any questions, concerns, or neurologic changes. ANKUR Sol DC 12/22/2019 1:37 PM Signed Activity as tolerated Continue HEP Ice/Heat as needed Call if symptoms worsen Referring Provider: KATIA HAYS [[id number]] Allergies As of Date: 12/22/2019 Noted Allergy Reaction LISINOPRIL 09/06/2013 3 - Cough Date Reviewed: 12/22/2019 Reviewed by: Juliet (Therapist) Reagan - Fully Assessed Reason for Visit: Low Back Pain [126] Cmt: into right leg Primary Visit Diagnosis:Lumbar spondylosis [M47.816] Other Visit Diagnosis:Lumbar radiculopathy [M54.16] Order(s):THERAPEUTIC EXERCISES RE, EA 15 MIN. [[id number]] Order #: [id number] Prescriptions as of 12/22/2019 Sig: GABAPENTIN 600 MG TABLET Take 1 tablet by mouth three * TIZANIDINE 4 MG TABLET Take 1 tablet by mouth every * DOCUSATE SODIUM 100 MG CAPSULE Take 1 capsule by mouth twice* Patient not taking: Reported on 10/17/2019 SILDENAFIL (PULMONARY HYPERTE* Take 20 mg by mouth as needed. LOSARTAN 100 MG-HYDROCHLOROTH* Take 1 tablet by mouth once d* AMLODIPINE 5 MG TABLET Take 5 mg by mouth once daily. POTASSIUM ORAL Take 10 mEq by mouth once moshe* MULTIVITAMIN ORAL Take by mouth once daily. SODIUM,POTASSIUM,MAG SULFATES* Take 1 Package by mouth as di* Problem List As Of Date 12/22/2019 Noted Resolved Special screening for malignant neoplasms, colo*09/06/2013 Sebaceous cyst [L72.3] 05/28/2016 Other instructions from your clinician: Activity as tolerated Continue HEP Ice/Heat as needed Call if symptoms worsen Disposition: Return in about 1 week (around 12/29/2019). Follow-up and Disposition History Recorded Questionnaire: AG SPINE PAIN OSWESTRY QUESTIONNAIRE Pain Intensity -> 2 - The pain is moderate at the moment Personal Care (Washing/Dressing) -> 1 - I can look after myself normally but it causes extra pain Lifting -> 2 - Pain prevents me from lifting heavy weights off the floor, but I can manage if conveniently positioned (e.g. on a table) Walking -> 4 - Pain prevents me from walking more than 100 yards Sitting -> 2 - Pain prevents me from sitting more than 1 hour Standing -> 1 - I can stand as long as I want but it gives me extra pain Sleeping -> 2 - Even when I take medication I have less than 6 hours of sleep Sex Life -> 4 - My sex life is nearly absent because of pain Social Life -> 4 - Pain has restricted my social life to home Traveling -> 2 - Pain is bad but I manage journeys over 2 hours Total Score -> 48 Interpretation -> 41% - 60% - severe disability Encounter Status:Closed by RUBEN RODRIGUEZ DC on 12/22/19 [facility] PROGRESSon 12-22-2019 PROGRESS HNO ID: [id number] Author: Ruben Rodriguez Service: ? Author Type: Chiropractor Type: Progress Notes Filed: 12/22/2019 1:40 PM Note Text: Tavares Melgar is a 59 year old male who presents today with complaints of low back pain and right radiating leg pain. He describes the pain as being sharp, burning, aching and shooting and rates the pain as a 3/10. The pain began several years ago as a result of unknown however after having low back surgery on August his pain has increased. The pain is exacerbated by walking and sitting for long periods. Previous treatments have included prescription NSAIDs, ice, heat, activity modification, rest and Physical therapy. He complains of radiation to the the right leg. He reports numbness, tingling or electric shocks in right foot. He denies popping, clicking, catching, grinding, or instability. He reports bowel or bladder urgency, difficulty with walking and muscle weakness in right leg. MRI taken in October. Dr. Singh is referring provider. Nurse review after 10 visits. Pain Intensity 2 - The pain is moderate at the moment Personal Care (Washing/Dressing) 1 - I can look after myself normally but it causes extra pain Lifting 2 - Pain prevents me from lifting heavy weights off the floor, but I can manage if conveniently positioned (e.g. on a table) Walking 4 - Pain prevents me from walking more than 100 yards Sitting 2 - Pain prevents me from sitting more than 1 hour Standing 1 - I can stand as long as I want but it gives me extra pain Sleeping 2 - Even when I take medication I have less than 6 hours of sleep Sex Life 4 - My sex life is nearly absent because of pain Social Life 4 - Pain has restricted my social life to home Traveling 2 - Pain is bad but I manage journeys over 2 hours Total Score 48 Interpretation 41% - 60% - severe disability MEDICATIONS: Current Outpatient Medications Medication Sig - gabapentin (NEURONTIN) 600 mg tablet Take 1 tablet by mouth three times daily for 30 days. - tiZANidine (ZANAFLEX) 4 mg tablet Take 1 tablet by mouth every 8 hours as needed (spasms, pain). - docusate sodium (COLACE) 100 mg capsule Take 1 capsule by mouth twice daily. (Patient not taking: Reported on 10/17/2019 ) - sildenafil (REVATIO) 20 mg tablet Take 20 mg by mouth as needed. - Losartan-Hydrochloroth iazide (HYZAAR) 100-12.5 mg per tablet Take 1 tablet by mouth once daily. - amLODIPine (NORVASC) 5 mg tablet Take 5 mg by mouth once daily. - POTASSIUM ORAL Take 10 mEq by mouth once daily. - MULTIVITAMIN ORAL Take by mouth once daily. - Sodium,Potassium,ANDMa g Sulfates (SUPREP) 17.5-3.13-1.6 gram SolR Take 1 Package by mouth as directed. No current facility-administered medications for this visit. REVIEW OF SYSTEMS: Constitutional: Negative for fever and chills. Eyes: Negative for blurred vision and double vision. Respiratory: Negative for shortness of breath. Cardiovascular: Negative for chest pain and leg swelling. Gastrointestinal: Negative for nausea. Genitourinary: Negative for dysuria. Neurological: POS for tingling, POS weakness and NEG headaches. RIGHT LEG Endo/Heme/Allergies: Does not bruise/bleed easily. Psychiatric/Behavioral : Negative for suicidal ideas and substance abuse. OBSERVATION/PHYSICAL EXAM: AANDOx3 Antalgic: Flexed Bilateral DTR: 2/4 to UE and LE MOTOR : 5/5 to upper extremity and lower extremity SENSORY: Pin prick/light touch intact RANGE OF MOTION: Decreased active range of motion lumbar flexion and extension HEEL WALK: WNL TOE WALK: WNL ORTHO FACET JOINT LOADING NEGATIVE BILATERALLY. SI JOINT PROVOCATION TESTS INCLUDING THIGH THRUST, ILIAC COMPRESSION, SACRAL COMPRESSION AND GAENSLEN'S TEST POSITIVE REPRODUCTION OF LOW BACK PAIN. RIGHT SLUMP TEST RIGHT SLR POSITIVE AT 35? SITE DISTRIBUTION POSITIVE REPRODUCTION OF NEURAL TENSION. INCREASES IN HYPERTONICITY PALPATED AT THE BILATERAL LUMBAR ERECTOR SPINAE. LEG LENGTH: N/A wnl PERIPHERAL PULSES: Palpable PERIPHERAL EDEMA: Visually noted be within normal limits Segmental dysfunction : Hypomobility noted on motion palpation L4/L5 L5/S1 IMPRESSION AND PLAN: (M47.816) Lumbar spondylosis (primary encounter diagnosis) (M54.16) Lumbar radiculopathy Office Visit on 12/22/19 - THERAPEUTIC EXERCISES RE, EA 15 MIN. Treatment: Therapeutic Exercises: 1 unit(s), Patient introduced to nerve root flossing right lower extremity. Patient demonstrated ability to perform the exercises pain-free and correctly. We're able to answer any questions, concerns patient had regarding home exercises. Patient was provided handout with visual aid of all home exercises. Patient responded well, instructed to call with problems or concerns. Time In: 1PM Time Out: 130 PLAN: 1.) Activity: As tolerated and Discussed activity modifications 2.) Massage therapy: Patient will follow-up with massage therapist next patient visit to address ongoing myofascial symptoms 3.) resident care associate: Discussed with patient the etiology of his ongoing symptoms is likely neural tension. Plans begin manager wound care consisting of spinal manipulation specific to distraction manipulation, ART, instrument assisted soft tissue mobilization, massage therapy, corrective exercises. 4.) Duration: Follow up in 1 week 5.) Interventions: none at this time 6.) Patient will call with any questions, concerns, or neurologic changes. [facility] TAVARES MELGAR ([id number]) 1960 M Date Time Provider Department 12/12/19 1:30 PM LYNN SINGH During your visit today, we recorded the following information about you: Pulse Blood pressure Weight Height 80/minute 171/80 67.1 kg 1.702 m Babar Ray CMA 12/12/2019 1:15 PM Signed Review of Systems Constitutional: Negative for fatigue. Negative for fever. Negative for night sweats. Negative for weight gain. Negative for weight loss. HEENT: Negative for difficulty swallowing, Negative for headache, Negative for hearing loss, Negative for hoarseness, Negative for vision loss, Negative for glaucoma, and Negative for cataracts. Negative for blurred vision. Cardiovascular: Negative for chest pain. Negative for leg swelling. Negative for palpitations. Negative for tachycardia. Respiratory: Negative for cough. ?Negative for shortness of breath. Gastrointestinal: Negative for constipation, Negative for diarrhea, Negative for nausea, Negative for vomiting. Negative for heartburn. Negative for loss of appetite. Negative for blood in stool. Negative for loss of control with bowel movement. Genitourinary: Negative for difficulty with urination, Negative for frequent urination, Negative for blood in urine, Negative for urinary incontinence, loss of control with urination. Endocrine/Hematoligic: Negative for bruising/bleeding easily. Negative for swollen lymph nodes. Psychiatric/Behavioral : Negative for depression, Negative for suicidal thoughts, Negative for insomnia, Negative for behavior changes, Negative for stress, Negative for nervousness. Musculoskeletal: Negative for joint pain, Negative for joint swelling, Negative for joint stiffness, Positive for restriction of joint movement, Negative for muscle weakness. Neurological: Negative for headaches. Negative for memory loss, Negative for seizures, Negative for numbness in extremities, Negative for incoordination, Negative for gait disturbance. Skin: Negative for rash, Negative for changes in moles, Negative for itching. ROS entered by:SOUMYA Greene MD 12/12/2019 2:07 PM Signed Patient Name: Tavares Melgar Patient : 1960 Patient Age: [age] year old CC: Patient presents with: New Patient Low Back Pain SUBJECTIVE Patient presents complaining of a many year history of low back pain. He had decompressive bilateral laminectomy, foraminotomy L2 - L4 on 08/23/[address] Richter?and [place]amine[place] [address] Cortes. States he had no improvement after surgery in August. The patient describes the pain as 3-9/10 tingling, sharp. The patient reports that it gradually developed and has progressively become more severe. He has numbness, tingling, and mild weakness radiating into the right lower extremity to the toes and pain to left hip. The patient has tried PT-last done 3 months ago, heat, ice, and surgery without relief. Pain is worse with standing, walking and prolonged sitting. The patient denies any bowel or bladder dysfunction. The patient denies any chest pain or chest tightness. The constitutional, musculoskeletal, and neurological review of systems was negative unless otherwise noted. The patient's past medical history, allergies, medication list, social history, and family medical history were documented, updated, and reviewed in the chart. PDMP website checked and validated. All prescriptions have been APPROPRIATELY filled. No suspicious activity was identified. 12/12/2019 by Lynn Singh MD Gabapentin and oxycodone per PCP. 10/2019 XR FINDINGS: There is no fracture. ?No significant subluxation or change in alignment with flexion or extension. There is advanced degenerative disc disease at L4-L5 with loss of disc height and endplate osteophyte formation. There is moderate degenerative disc disease at L2-L3 and L3-L4. There is multilevel facet arthritis. ?Multilevel laminectomy defects. Fairly prominent atherosclerotic calcification of the abdominal aorta. Minimal rightward convex scoliotic curvature the lumbar spine. 10/2019 MRI reviewed Nursing Notes: Babar Ray CMA 12/12/2019 1:15 PM Signed Review of Systems Constitutional: Negative for fatigue. Negative for fever. Negative for night sweats. Negative for weight gain. Negative for weight loss. HEENT: Negative for difficulty swallowing, Negative for headache, Negative for hearing loss, Negative for hoarseness, Negative for vision loss, Negative for glaucoma, and Negative for cataracts. Negative for blurred vision. Cardiovascular: Negative for chest pain. Negative for leg swelling. Negative for palpitations. Negative for tachycardia. Respiratory: Negative for cough. ?Negative for shortness of breath. Gastrointestinal: Negative for constipation, Negative for diarrhea, Negative for nausea, Negative for vomiting. Negative for heartburn. Negative for loss of appetite. Negative for blood in stool. Negative for loss of control with bowel movement. Genitourinary: Negative for difficulty with urination, Negative for frequent urination, Negative for blood in urine, Negative for urinary incontinence, loss of control with urination. Endocrine/Hematoligic: Negative for bruising/bleeding easily. Negative for swollen lymph nodes. Psychiatric/Behavioral : Negative for depression, Negative for suicidal thoughts, Negative for insomnia, Negative for behavior changes, Negative for stress, Negative for nervousness. Musculoskeletal: Negative for joint pain, Negative for joint swelling, Negative for joint stiffness, Positive for restriction of joint movement, Negative for muscle weakness. Neurological: Negative for headaches. Negative for memory loss, Negative for seizures, Negative for numbness in extremities, Negative for incoordination, Negative for gait disturbance. Skin: Negative for rash, Negative for changes in moles, Negative for itching. ROS entered by:Babar Ray CMA Greenlight Questionnaire GREENLIGHT Completed Date 12/12/2019 Opioid Risk Tool Opiod Risk Tool Date Completed 12/12/2019 ALLERGIES Allergen Reactions - Lisinopril Cough Current Outpatient Medications Medication Sig Dispense Refill - sildenafil (REVATIO) 20 mg tablet Take 20 mg by mouth as needed. - Losartan-Hydrochloroth iazide (HYZAAR) 100-12.5 mg per tablet Take 1 tablet by mouth once daily. - amLODIPine (NORVASC) 5 mg tablet Take 5 mg by mouth once daily. - POTASSIUM ORAL Take 10 mEq by mouth once daily. - MULTIVITAMIN ORAL Take by mouth once daily. - Sodium,Potassium,ANDMa g Sulfates (SUPREP) 17.5-3.13-1.6 gram SolR Take 1 Package by mouth as directed. 2 Package 0 - gabapentin (NEURONTIN) 600 mg tablet Take 1 tablet by mouth three times daily for 30 days. 90 tablet 0 - tiZANidine (ZANAFLEX) 4 mg tablet Take 1 tablet by mouth every 8 hours as needed (spasms, pain). 90 tablet 0 - docusate sodium (COLACE) 100 mg capsule Take 1 capsule by mouth twice daily. (Patient not taking: Reported on 10/17/2019 ) No current facility-administered medications for this visit. ACTIVE PROBLEM LIST Special Screening for Malignant Neoplasms, Colon Sebaceous Cyst Social History Tobacco Use - Smoking status: Current Every Day Smoker Packs/day: 0.50 Years: 30.00 Pack years: 15.00 - Smokeless tobacco: Never Used Substance Use Topics - Alcohol use: Yes Comment: Occasional - Drug use: No Family History Problem Relation Age of Onset - Cancer Father OBJECTIVE Vitals: BP 171/80 Pulse 80 Ht 170.2 cm (5' 7) Wt 67.1 kg (148 lb) BMI 23.18 kg/m? General: Alert, cooperative, well appearing, and in no apparent distress. Musculoskeletal: The patient's gait is normal Back: Inspection of the back demonstrates there is no obvious deformity or misalignment. There is bony tenderness along the lumbar vertebrae, none along the sacroiliac joints. There is BL paraspinal muscle tenderness. Range of motion testing demonstrates reduced flexion, extension, side bending and rotation of the back. Pain with extension Strength is 5/5 in the lower extremity bilaterally, mild decrease to right DF. DTR's are 2+/4 in the lower extremity bilaterally. Sensation is decreased to right L5 and S1 dermatomes There is a negative straight leg raise and femoral stretch test. There is normal internal and external rotation of the hip. The piriformis has normal flexibility and is non-tender. Hip: Inspection of the bilateral hip demonstrates there is no obvious deformity or effusion. The bilateral hip is stable without evidence of dislocation. There is full flexion, extension, internal and external rotation of the hip bilaterally. Strength is 5/5 in the hip bilaterally. There is no pain with resisted motion. There is no tenderness to palpation along the greater trochanteric bursa. There is no tenderness to palpation over the ASIS or AIIS. There is no tenderness to palpation over the anterior aspect of the hip. Skin: The skin is without jaundice. It is intact without pathologic lesions, erythema, vesicles, discharge or rash. Palpitation of the skin is normal without induration, subcutaneous nodules or tightening. Extremities: This is no clubbing, cyanosis or edema. Peripheral pulses are 2+. Return for EMG. I have confirmed and edited as necessary, the PFSH and ROS obtained by others. ASSESSMENT/PLAN: 1. Lumbar radiculopathy - ICD9: 724.4, ICD10: M54.16 (primary diagnosis) We discussed the natural history of this condition, differential diagnoses, and treatment options. Guidelines for activity were given. We discussed options for treatment including conservative care, medications with side effects and injections with risks and benefits. Increase gabapentin to 600mg TID, add tizanidine PRN Start with Dr Rodriguez Will get EMG set up that surgeon had wanted as well, if ongoing damage on EMG or continued pain will consider SACHI - GABAPENTIN 600 MG TABLET - TIZANIDINE 4 MG TABLET - CONSULT TO CHIROPRACTOR - PRE-CERT ORDER (AG) 2. Screening for depression - ICD9: V79.0, ICD10: Z13.31 [facility] Medical screen for anxiety, depression and opioid risk assessment completed today. The patient is stable and I do not believe that a referral for psychological consultation is indicated at this time. - PSYCL/NRPSYCL TST ELEC PLATFORM AUTO RESULT 3. S/P spinal surgery - ICD9: V45.89, ICD10: Z98.890 Follow up with surgeon - CONSULT TO CHIROPRACTOR 4. Lumbar spondylosis - ICD9: 721.3, ICD10: M47.816 MD Lynn Mitchell MD 12/12/2019 2:06 PM Signed How to Avoid Re-injury Recovering from low back pain requires first and foremost that further irritation or injury to the spine is avoided. This will create an environment conducive to healing. The most common source of strain to the low back occurs when bending. It is important to learn to hinge from the hips without bending forward at the waist. What follows are some examples of correct and incorrect technique when performing common activities of daily life (ADL). The hip hinge Learning to hinge your trunk from your hips is crucial for avoiding repetitive strain to your lower back or neck. The figure here shows with a stick on your back how it is possible to keep the spine upright by hinging from the hips as you bend your knees. In contrast, if you bend at the waist the spine flexes forward putting the low back and neck in potentially harmful positions. Getting out of a chair The gutierrez to avoiding strain to your spine when rising from a chair or sitting down is to squat up or down using your hips or knees. Stooping forward from the waist should be avoided. A trick to make this simpler is to scoot towards the edge of your chair so that you are perching and move your feet back under your thighs before sitting up. ARTICLE IN PRESS t o take care of your back Brushing teeth A foot stool will make it much easier to keep your back upright. Even when you bend forward to rinse your brush or mouth bend from the hips not the waist. A trick to make this simpler is to keep your chest lifted up while you bend forward. Driving A gutierrez to back and neck saving posture when driving is to allow the car seat?s curve to support your lumbar spine?s natural forward curve. A simple trick to encourage this is to increase the lumbar support in the car seat or to sit on small wedge cushion which is higher in the back than the front. IN PRESS Lifting The most important aspect of lifting is to keep your spine upright by hinging from the hips and knees. Even if the object is awkwardly placed so that it is not directly in front of you the gutierrez is to keep your chest lifted in front while maintaining your lumbar spine?s natural forward curve. Two other gutierrez points which will save you from irritating your back are (1) to avoid lifting during the first half hour of the day, and (2) to avoid lifting immediately after sitting for a prolonged amount of time. Referring Provider: KATIA HAYS [[id number]] Allergies As of Date: 12/12/2019 Noted Allergy Reaction LISINOPRIL 09/06/2013 3 - Cough Date Reviewed: 12/12/2019 Reviewed by: Lynn Singh - Fully Assessed Reason for Visit: New Patient [172] Low Back Pain [126] Primary Visit Diagnosis:Lumbar radiculopathy [M54.16] Other Visit Diagnoses:Screening for depression [Z13.31] S/P spinal surgery [Z98.890] Lumbar spondylosis [M47.816] Order(s):PSYCL/NRPSYCL TST ELEC PLATFORM AUTO RESULT [[id number]] Order #: [id number] gabapentin (NEURONTIN) 600 mg tabletTake 1 tablet by mouth three times daily for 30 days.Disp: 90 tabletRfl: 0 tiZANidine (ZANAFLEX) 4 mg tabletTake 1 tablet by mouth every 8 hours as needed (spasms, pain).Disp: 90 tabletRfl: 0 CONSULT TO CHIROPRACTOR [[id number]] Order #: [id number]: 1 FUTURE PRE-CERT ORDER () [[id number]] Order #: [id number]: 1 Prescriptions as of 12/12/2019 Sig: SILDENAFIL (PULMONARY HYPERTE* Take 20 mg by mouth as needed. LOSARTAN 100 MG-HYDROCHLOROTH* Take 1 tablet by mouth once d* AMLODIPINE 5 MG TABLET Take 5 mg by mouth once daily. POTASSIUM ORAL Take 10 mEq by mouth once moshe* MULTIVITAMIN ORAL Take by mouth once daily. SODIUM,POTASSIUM,MAG SULFATES* Take 1 Package by mouth as di* GABAPENTIN 600 MG TABLET Take 1 tablet by mouth three * TIZANIDINE 4 MG TABLET Take 1 tablet by mouth every * DOCUSATE SODIUM 100 MG CAPSULE Take 1 capsule by mouth twice* Patient not taking: Reported on 10/17/2019 Problem List As Of Date 12/12/2019 Noted Resolved Special screening for malignant neoplasms, colo*09/06/2013 Sebaceous cyst [L72.3] 05/28/2016 Other instructions from your clinician: How to Avoid Re-injury Recovering from low back pain requires first and foremost that further irritation or injury to the spine is avoided. This will create an environment conducive to healing. The most common source of strain to the low back occurs when bending. It is important to learn to hinge from the hips without bending forward at the waist. What follows are some examples of correct and incorrect technique when performing common activities of daily life (ADL). The hip hinge Learning to hinge your trunk from your hips is crucial for avoiding repetitive strain to your lower back or neck. The figure here shows with a stick on your back how it is possible to keep the spine upright by hinging from the hips as you bend your knees. In contrast, if you bend at the waist the spine flexes forward putting the low back and neck in potentially harmful positions. Getting out of a chair The gutierrez to avoiding strain to your spine when rising from a chair or sitting down is to squat up or down using your hips or knees. Stooping forward from the waist should be avoided. A trick to make this simpler is to scoot towards the edge of your chair so that you are perching and move your feet back under your thighs before sitting up. ARTICLE IN PRESS t o take care of your back Brushing teeth A foot stool will make it much easier to keep your back upright. Even when you bend forward to rinse your brush or mouth bend from the hips not the waist. A trick to make this simpler is to keep your chest lifted up while you bend forward. Driving A gutierrez to back and neck saving posture when driving is to allow the car seat?s curve to support your lumbar spine?s natural forward curve. A simple trick to encourage this is to increase the lumbar support in the car seat or to sit on small wedge cushion which is higher in the back than the front. IN PRESS Lifting The most important aspect of lifting is to keep your spine upright by hinging from the hips and knees. Even if the object is awkwardly placed so that it is not directly in front of you the gutierrez is to keep your chest lifted in front while maintaining your lumbar spine?s natural forward curve. Two other gutierrez points which will save you from irritating your back are (1) to avoid lifting during the first half hour of the day, and (2) to avoid lifting immediately after sitting for a prolonged amount of time. Visit Notes: >> Babar (Soumya) Flor Mon Dec 12, 2019 1:14 PM Status: Signed Review of Systems Constitutional: Negative for fatigue. Negative for fever. Negative for night sweats. Negative for weight gain. Negative for weight loss. HEENT: Negative for difficulty swallowing, Negative for headache, Negative for hearing loss, Negative for hoarseness, Negative for vision loss, Negative for glaucoma, and Negative for cataracts. Negative for blurred vision. Cardiovascular: Negative for chest pain. Negative for leg swelling. Negative for palpitations. Negative for tachycardia. Respiratory: Negative for cough. ?Negative for shortness of breath. Gastrointestinal: Negative for constipation, Negative for diarrhea, Negative for nausea, Negative for vomiting. Negative for heartburn. Negative for loss of appetite. Negative for blood in stool. Negative for loss of control with bowel movement. Genitourinary: Negative for difficulty with urination, Negative for frequent urination, Negative for blood in urine, Negative for urinary incontinence, loss of control with urination. Endocrine/Hematoligic: Negative for bruising/bleeding easily. Negative for swollen lymph nodes. Psychiatric/Behavioral : Negative for depression, Negative for suicidal thoughts, Negative for insomnia, Negative for behavior changes, Negative for stress, Negative for nervousness. Musculoskeletal: Negative for joint pain, Negative for joint swelling, Negative for joint stiffness, Positive for restriction of joint movement, Negative for muscle weakness. Neurological: Negative for headaches. Negative for memory loss, Negative for seizures, Negative for numbness in extremities, Negative for incoordination, Negative for gait disturbance. Skin: Negative for rash, Negative for changes in moles, Negative for itching. ROS entered by:Babar Ray CMA Prescriptions ordered this encounter Disp Refills Start End GABAPENTIN 600 MG TABLET 90 t* 0 12/12/2019 01/11/2020 Route: ORAL Sig: Take 1 tablet by mouth three times daily for 30 days. TIZANIDINE 4 MG TABLET 90 t* 0 12/12/2019 01/11/2020 Route: ORAL Sig: Take 1 tablet by mouth every 8 hours as needed (spasms, pain). Medications Discontinued During This Encounter gabapentin (NEURONTIN) 400 mg capsule 90 c* 0 11/10/2019 12/12/2019 Route: ORAL Sig: Take 1 capsule by mouth three times daily for 30 days. Disc: Reason for discontinue is not on file. cyclobenzaprine (FLEXERIL) 10 mg tab* 40 t* 0 09/05/2019 12/12/2019 Route: ORAL Sig: Take 1 tablet by mouth three times daily. Disc: Reason for discontinue is not on file. Disposition: Return for EMG. Follow-up and Disposition History Recorded Encounter Status:Closed by LYNN SINGH MD on 12/12/19 [facility] PROGRESSon 12-12-2019 PROGRESS HNO ID: [id number] Author: Lynn Singh Service: ? Author Type: Physician Type: Progress Notes Filed: 12/12/2019 2:07 PM Note Text: Patient Name: Tavares Melgar Patient : 1960 Patient Age: [age] year old CC: Patient presents with: New Patient Low Back Pain SUBJECTIVE Patient presents complaining of a many year history of low back pain. He had decompressive bilateral laminectomy, foraminotomy L2 - L4 on 08/23/[address] Richter?and [place]amine[place] [address] Cortes. States he had no improvement after surgery in August. The patient describes the pain as 3-9/10 tingling, sharp. The patient reports that it gradually developed and has progressively become more severe. He has numbness, tingling, and mild weakness radiating into the right lower extremity to the toes and pain to left hip. The patient has tried PT-last done 3 months ago, heat, ice, and surgery without relief. Pain is worse with standing, walking and prolonged sitting. The patient denies any bowel or bladder dysfunction. The patient denies any chest pain or chest tightness. The constitutional, musculoskeletal, and neurological review of systems was negative unless otherwise noted. The patient's past medical history, allergies, medication list, social history, and family medical history were documented, updated, and reviewed in the chart. PDMP website checked and validated. All prescriptions have been APPROPRIATELY filled. No suspicious activity was identified. 12/12/2019 by Lynn Singh MD Gabapentin and oxycodone per PCP. 10/2019 XR FINDINGS: There is no fracture. ?No significant subluxation or change in alignment with flexion or extension. There is advanced degenerative disc disease at L4-L5 with loss of disc height and endplate osteophyte formation. There is moderate degenerative disc disease at L2-L3 and L3-L4. There is multilevel facet arthritis. ?Multilevel laminectomy defects. Fairly prominent atherosclerotic calcification of the abdominal aorta. Minimal rightward convex scoliotic curvature the lumbar spine. 10/2019 MRI reviewed Nursing Notes: Babar Ray CMA 12/12/2019 1:15 PM Signed Review of Systems Constitutional: Negative for fatigue. Negative for fever. Negative for night sweats. Negative for weight gain. Negative for weight loss. HEENT: Negative for difficulty swallowing, Negative for headache, Negative for hearing loss, Negative for hoarseness, Negative for vision loss, Negative for glaucoma, and Negative for cataracts. Negative for blurred vision. Cardiovascular: Negative for chest pain. Negative for leg swelling. Negative for palpitations. Negative for tachycardia. Respiratory: Negative for cough. ?Negative for shortness of breath. Gastrointestinal: Negative for constipation, Negative for diarrhea, Negative for nausea, Negative for vomiting. Negative for heartburn. Negative for loss of appetite. Negative for blood in stool. Negative for loss of control with bowel movement. Genitourinary: Negative for difficulty with urination, Negative for frequent urination, Negative for blood in urine, Negative for urinary incontinence, loss of control with urination. Endocrine/Hematoligic: Negative for bruising/bleeding easily. Negative for swollen lymph nodes. Psychiatric/Behavioral : Negative for depression, Negative for suicidal thoughts, Negative for insomnia, Negative for behavior changes, Negative for stress, Negative for nervousness. Musculoskeletal: Negative for joint pain, Negative for joint swelling, Negative for joint stiffness, Positive for restriction of joint movement, Negative for muscle weakness. Neurological: Negative for headaches. Negative for memory loss, Negative for seizures, Negative for numbness in extremities, Negative for incoordination, Negative for gait disturbance. Skin: Negative for rash, Negative for changes in moles, Negative for itching. ROS entered by:Babar Ray CMA Greenlight Questionnaire GREENLIGHT Completed Date 12/12/2019 Opioid Risk Tool Opiod Risk Tool Date Completed 12/12/2019 ALLERGIES Allergen Reactions - Lisinopril Cough Current Outpatient Medications Medication Sig Dispense Refill - sildenafil (REVATIO) 20 mg tablet Take 20 mg by mouth as needed. - Losartan-Hydrochloroth iazide (HYZAAR) 100-12.5 mg per tablet Take 1 tablet by mouth once daily. - amLODIPine (NORVASC) 5 mg tablet Take 5 mg by mouth once daily. - POTASSIUM ORAL Take 10 mEq by mouth once daily. - MULTIVITAMIN ORAL Take by mouth once daily. - Sodium,Potassium,ANDMa g Sulfates (SUPREP) 17.5-3.13-1.6 gram SolR Take 1 Package by mouth as directed. 2 Package 0 - gabapentin (NEURONTIN) 600 mg tablet Take 1 tablet by mouth three times daily for 30 days. 90 tablet 0 - tiZANidine (ZANAFLEX) 4 mg tablet Take 1 tablet by mouth every 8 hours as needed (spasms, pain). 90 tablet 0 - docusate sodium (COLACE) 100 mg capsule Take 1 capsule by mouth twice daily. (Patient not taking: Reported on 10/17/2019 ) No current facility-administered medications for this visit. ACTIVE PROBLEM LIST Special Screening for Malignant Neoplasms, Colon Sebaceous Cyst Social History Tobacco Use - Smoking status: Current Every Day Smoker Packs/day: 0.50 Years: 30.00 Pack years: 15.00 - Smokeless tobacco: Never Used Substance Use Topics - Alcohol use: Yes Comment: Occasional - Drug use: No Family History Problem Relation Age of Onset - Cancer Father OBJECTIVE Vitals: BP 171/80 Pulse 80 Ht 170.2 cm (5' 7) Wt 67.1 kg (148 lb) BMI 23.18 kg/m? General: Alert, cooperative, well appearing, and in no apparent distress. Musculoskeletal: The patient's gait is normal Back: Inspection of the back demonstrates there is no obvious deformity or misalignment. There is bony tenderness along the lumbar vertebrae, none along the sacroiliac joints. There is BL paraspinal muscle tenderness. Range of motion testing demonstrates reduced flexion, extension, side bending and rotation of the back. Pain with extension Strength is 5/5 in the lower extremity bilaterally, mild decrease to right DF. DTR's are 2+/4 in the lower extremity bilaterally. Sensation is decreased to right L5 and S1 dermatomes There is a negative straight leg raise and femoral stretch test. There is normal internal and external rotation of the hip. The piriformis has normal flexibility and is non-tender. Hip: Inspection of the bilateral hip demonstrates there is no obvious deformity or effusion. The bilateral hip is stable without evidence of dislocation. There is full flexion, extension, internal and external rotation of the hip bilaterally. Strength is 5/5 in the hip bilaterally. There is no pain with resisted motion. There is no tenderness to palpation along the greater trochanteric bursa. There is no tenderness to palpation over the ASIS or AIIS. There is no tenderness to palpation over the anterior aspect of the hip. Skin: The skin is without jaundice. It is intact without pathologic lesions, erythema, vesicles, discharge or rash. Palpitation of the skin is normal without induration, subcutaneous nodules or tightening. Extremities: This is no clubbing, cyanosis or edema. Peripheral pulses are 2+. Return for EMG. I have confirmed and edited as necessary, the PFSH and ROS obtained by others. ASSESSMENT/PLAN: 1. Lumbar radiculopathy - ICD9: 724.4, ICD10: M54.16 (primary diagnosis) We discussed the natural history of this condition, differential diagnoses, and treatment options. Guidelines for activity were given. We discussed options for treatment including conservative care, medications with side effects and injections with risks and benefits. Increase gabapentin to 600mg TID, add tizanidine PRN Start with Dr Rodriguez Will get EMG set up that surgeon had wanted as well, if ongoing damage on EMG or continued pain will consider SACHI - GABAPENTIN 600 MG TABLET - TIZANIDINE 4 MG TABLET - CONSULT TO CHIROPRACTOR - PRE-CERT ORDER (AG) 2. Screening for depression - ICD9: V79.0, ICD10: Z13.31 Located Within [facility] screen for anxiety, depression and opioid risk assessment completed today. The patient is stable and I do not believe that a referral for psychological consultation is indicated at this time. - PSYCL/NRPSYCL TST ELEC PLATFORM AUTO RESULT 3. S/P spinal surgery - ICD9: V45.89, ICD10: Z98.890 Follow up with surgeon - CONSULT TO CHIROPRACTOR 4. Lumbar spondylosis - ICD9: 721.3, ICD10: M47.816 Lynn Singh MD [facility] OBSOLETEon 11-10-2019 OBSOLETE Refill (SAEED) TAVARES MELGAR ([id number]) 1960 M Date Time Provider Department 11/10/19 BRYAN ADAMS During your visit today, we recorded the following information about you: Allergies As of Date: 11/10/2019 Noted Allergy Reaction LISINOPRIL 09/06/2013 3 - Cough Date Reviewed: 11/09/2019 Reviewed by: Virgen Rushing - Fully Assessed Reason for Visit: Refill Request [94] Primary Visit Diagnosis:S/P spinal surgery [Z98.890] Other Visit Diagnosis:Lumbar spondylosis [M47.816] Order(s):gabapentin (NEURONTIN) 400 mg capsuleTake 1 capsule by mouth three times daily for 30 days.Disp: 90 capsuleRfl: 0 Prescriptions as of 11/10/2019 Sig: GABAPENTIN 400 MG CAPSULE Take 1 capsule by mouth three* CYCLOBENZAPRINE 10 MG TABLET Take 1 tablet by mouth three * DOCUSATE SODIUM 100 MG CAPSULE Take 1 capsule by mouth twice* Patient not taking: Reported on 10/17/2019 SILDENAFIL (PULMONARY HYPERTE* Take 20 mg by mouth as needed. LOSARTAN 100 MG-HYDROCHLOROTH* Take 1 tablet by mouth once d* AMLODIPINE 5 MG TABLET Take 5 mg by mouth once daily. POTASSIUM ORAL Take 10 mEq by mouth once moshe* MULTIVITAMIN ORAL Take by mouth once daily. SODIUM,POTASSIUM,MAG SULFATES* Take 1 Package by mouth as di* Problem List As Of Date 11/10/2019 Noted Resolved Special screening for malignant neoplasms, colo*09/06/2013 Sebaceous cyst [L72.3] 05/28/2016 Prescriptions ordered this encounter Disp Refills Start End GABAPENTIN 400 MG CAPSULE 90 c* 0 11/10/2019 12/10/2019 Route: ORAL Sig: Take 1 capsule by mouth three times daily for 30 days. Medications Discontinued During This Encounter gabapentin (NEURONTIN) 400 mg capsule 11/10/2019 Class: Historical Med Route: ORAL Sig: Take 400 mg by mouth every 12 hours. Disc: Reason for discontinue is not on file. Encounter Status:Closed by MILANA IRBY on 11/10/19 Normal [facility] CNCOon 11-09-2019 CNCO Letter Text Letter Text Letter Text [facility] CNOVon 11-09-2019 CNOV Office Visit (SAEED ) TAVARES MELGAR ([id number]) 1960 M Date Time Provider Department 11/09/19 1:30 PM BRYAN ADAMS During your visit today, we recorded the following information about you: Pulse Respiration Blood pressure Weight 101/minute 16/minute 157/86 67.1 kg Height 1.702 m Bryan Adams MD 11/22/2019 1:34 PM Signed NEUROSURGERY CONSULT NOTE Bryan Adams MD Date of visit: November 09, 2019 Patient Name: Mr.Craig Cristina Melgar Date of : 1960 Current Age: [age] year old Sex: male MRN/E# [id number] Last Office Visit: 10/17/2019 Chief Complaint: Patient presents with: Follow Up: follow up to discuss MRI HISTORY OF PRESENT ILLNESS : Tavares Melgar is a 59 year old left-handed male with a hx of decompressive bilateral laminectomy, foraminotomy L2 - L4 on 08/23/[address] Richter and [place] [address] Cortes who presents today for a follow up visit with imaging. ? At his first post op visit on 09/05/19 he was seen by Milana Irby APRN. CNP where he was doing well overall. He had only been walking for short distances, so he was unable to determine how successful the surgery was. His incision was dry and intact, without signs or symptoms of infection. Physical therapy was recommended and ordered at that time. At his second post op visit on 10/17/19, he was seen by Dr. Richter and he had completed physical therapy and had noticed no improvement in his low back pain. He stated his pain was the same as it was before surgery. He had complaints of low back pain into his right hip, continuing down his right posterior thigh. His pain was worse with walking and going up stairs, it was better when sitting. A MRI was ordered, to evaluate his symptoms. Since his last visit, he complains of constant lower back pain, radiating to right hip and right leg to toes with numbness to right foot with no improvement since surgery. He states he actual feels slightly weaker to right leg. He is here for evaluation and plan of care. Symptoms: lower back pain that radiates into his right hip, down his posterior thigh PREVIOUS CONSERVATIVE TREATMENTS: Physical therapy Muscle Relaxants PREVIOUS SURGERY: SURGERY #1: Decompressive bilateral laminectomy, foraminotomy L2 - L4 on 08/23/[address] Richter SURGERY #2: [place] [address] Cortes Smoker: yes Diabetic: no Anticoagulants: no Occupation: [employer] med PAIN EVALUATION 11/09/2019 1331 Pain Level: 3 Pain Location: Leg-Right lower back and right leg pain Description: Burning;Spasm;Sharp Duration Units: Months Frequency: Continuous Intervention: Medication PAST MEDICAL HISTORY Diagnosis Date - Carotid artery disease (HCC) - Emphysema lung (HCC) - Essential hypertension - Lumbar stenosis - SLAC (scapholunate advanced collapse) of wrist PAST SURGICAL HISTORY Procedure Laterality Date - APPENDECTOMY 1969 - CARPAL TUNNEL 2010 Bilateral - LAMINECTOMY,LUMBAR 1987 - REM LESION FACE,EAR,EYE 0.6-1CM Right 05/28/16 Exc. right ear lobe nick cyst - REPAIR ROTATOR CUFF,ACUTE Right 2012 decompression FAMILY HISTORY Problem Relation Age of Onset - Cancer Father ALLERGIES Allergen Reactions - Lisinopril Cough Current Outpatient Medications Medication Sig Dispense Refill - cyclobenzaprine (FLEXERIL) 10 mg tablet Take 1 tablet by mouth three times daily. 40 tablet 0 - gabapentin (NEURONTIN) 400 mg capsule Take 400 mg by mouth every 12 hours. - Losartan-Hydrochloroth iazide (HYZAAR) 100-12.5 mg per tablet Take 1 tablet by mouth once daily. - amLODIPine (NORVASC) 5 mg tablet Take 5 mg by mouth once daily. - POTASSIUM ORAL Take 10 mEq by mouth once daily. - MULTIVITAMIN ORAL Take by mouth once daily. - Sodium,Potassium,ANDMa g Sulfates (SUPREP) 17.5-3.13-1.6 gram SolR Take 1 Package by mouth as directed. 2 Package 0 - docusate sodium (COLACE) 100 mg capsule Take 1 capsule by mouth twice daily. (Patient not taking: Reported on 10/17/2019 ) - sildenafil (REVATIO) 20 mg tablet Take 20 mg by mouth as needed. No current facility-administered medications for this visit. REVIEW OF SYSTEMS Review of Systems OBJECTIVE: BP 157/86 Pulse 101 Resp 16 Ht 5' 7 (1.70m) Wt 148 lb (67.1kg) SpO2 97% BMI 23.17 kg/(m2). Physical Exam Neurological: Reflex Scores: Tricep reflexes are 2+ on the right side and 2+ on the left side. Bicep reflexes are 2+ on the right side and 2+ on the left side. Patellar reflexes are 2+ on the right side and 2+ on the left side. Psychiatric: His speech is normal. Neurological Exam Mental Status Awake, alert and oriented to person, place and time. Recent and remote memory are intact. Speech is normal. Language is fluent with no aphasia. Attention and concentration are normal. Motor Right Left Elbow flexion 5 5 Elbow extension 5 5 Wrist extension 5 5 Finger flexion 5 5 Finger abduction 5 5 Hip flexion 5 5 Knee extension 5 5 Plantarflexion 5 5 Dorsiflexion 5 5 Toe extension 5 5 Sensory Sensation is intact to light touch, pinprick, vibration and proprioception in all four extremities.Light touch abnormality: Right foot numbness. Reflexes Right Left Biceps 2+ 2+ Triceps 2+ 2+ Patellar 2+ 2+ Right pathological reflexes: Birgit's absent. Ankle clonus absent. Left pathological reflexes: Birgit's absent. Ankle clonus absent. Gait Normal casual, toe, heel and tandem gait. Romberg is absent. Data Review IMAGING STUDIES: MRI lumbar performed on 10/26/19. Findings were noted as: Personal review of medical records: I reviewed with the patient, history, physical exam, the images and the chart. ASSESSMENT/PLAN 1. S/P spinal surgery 59-year-old gentleman, status post L2 to L4 laminectomy by Dr. Richter, with persistent right leg pain as well as new right leg weakness postoperatively. An MRI was completed and shows postoperative changes with no new disc herniation or nerve impingement. This is something that has potential to improve over time. To further investigate this, we will arrange EMG nerve conduction studies. To better control his pain, I am sending a referral to pain management team for consideration of potential epidural steroid injections. I also suggested increase in the dose of gabapentin to 300 mg 3 times per day, this dose can be increased to 600 mg per day gradually, increasing the dose by 300 mg every 3-4 days. We will see the patient in follow-up after EMG nerve conduction studies have been completed, approximately 4 weeks' time. In the interim, he could be released to work with no physical limitations. The main limitation for performing his work duties is pain. X-rays of lower back are arranged today to rule out instability. - XR LUMBAR MOTION 4V AP/LAT/ FLEX/EXT; Future - EMG(NEURO/NI); Future - CONSULT TO PAIN MGT; Future 2. Lumbar disc herniation with radiculopathy - XR LUMBAR MOTION 4V AP/LAT/ FLEX/EXT; Future - EMG(NEURO/NI); Future - CONSULT TO PAIN MGT; Future Bryan Adams MD This note was partially generated using Cloud Direct voice recognition system, and there may be some incorrect words, spellings, and punctuation that were not noted in checking the note before saving. Bryan Adams MD 11/09/2019 2:23 PM Addendum Increase gabapentin to 300 mg three times per day. Can gradually increase the dose to 600 mg per day, titrate slowly every 3-4 days as tolerated Will organize EMG/NCSs Referral to pain management in [place] Lori Moran RN 12/13/2019 12:46 PM Signed Addended by: LORI MORAN RN on: 12/13/2019 12:46 PM Modules accepted: Orders Referring Provider: JANNET RICHTER [[id number]] Allergies As of Date: 11/09/2019 Noted Allergy Reaction LISINOPRIL 09/06/2013 3 - Cough Date Reviewed: 11/09/2019 Reviewed by: Virgen Rushing - Fully Assessed Reason for Visit: Follow Up [171] Cmt: follow up to discuss MRI Primary Visit Diagnosis:S/P spinal surgery [Z98.890] Other Visit Diagnosis:Lumbar disc herniation with radiculopathy [M51.16] Order(s):XR LUMBAR MOTION 4V AP/LAT/ FLEX/EXT [0617807] Order #: [id number] FUTURE CONSULT TO PAIN MGT [20000228] Order #: [id number]: 1 FUTURE EMG(NEURO/NI) [20110221] Order #: [id number]: 1 FUTURE Prescriptions as of 11/09/2019 Sig: X CYCLOBENZAPRINE 10 MG TABLET Take 1 tablet by mouth three * X GABAPENTIN 400 MG CAPSULE Take 400 mg by mouth every 12* LOSARTAN 100 MG-HYDROCHLOROTH* Take 1 tablet by mouth once d* AMLODIPINE 5 MG TABLET Take 5 mg by mouth once daily. POTASSIUM ORAL Take 10 mEq by mouth once moshe* MULTIVITAMIN ORAL Take by mouth once daily. SODIUM,POTASSIUM,MAG SULFATES* Take 1 Package by mouth as di* DOCUSATE SODIUM 100 MG CAPSULE Take 1 capsule by mouth twice* Patient not taking: Reported on 10/17/2019 SILDENAFIL (PULMONARY HYPERTE* Take 20 mg by mouth as needed. Problem List As Of Date 11/09/2019 Noted Resolved Special screening for malignant neoplasms, colo*09/06/2013 Sebaceous cyst [L72.3] 05/28/2016 Other instructions from your clinician: Increase gabapentin to 300 mg three times per day. Can gradually increase the dose to 600 mg per day, titrate slowly every 3-4 days as tolerated Will organize EMG/NCSs Referral to pain management in [place] Disposition: Return in about 4 weeks (around 12/07/2019), or after EMG/NCSs. Follow-up and Disposition History Recorded Encounter Status:Closed by BRYAN ADAMS on 11/22/19 [facility] PROGRESSon 11-09-2019 PROGRESS HNO ID: [id number] Author: Bryan Adams Service: ? Author Type: Physician Type: Progress Notes Filed: 11/22/2019 1:34 PM Note Text: NEUROSURGERY CONSULT NOTE Bryan Adams MD Date of visit: November 09, 2019 Patient Name: Mr.Craig Cristina Melgar Date of : 1960 Current Age: [age] year old Sex: male MRN/E# [id number] Last Office Visit: 10/17/2019 Chief Complaint: Patient presents with: Follow Up: follow up to discuss MRI HISTORY OF PRESENT ILLNESS : Tavares Melgar is a 59 year old left-handed male with a hx of decompressive bilateral laminectomy, foraminotomy L2 - L4 on 08/23/[address] Richter and [place] [address] Cortes who presents today for a follow up visit with imaging. ? At his first post op visit on 09/05/19 he was seen by Milana Irby APRN. CNP where he was doing well overall. He had only been walking for short distances, so he was unable to determine how successful the surgery was. His incision was dry and intact, without signs or symptoms of infection. Physical therapy was recommended and ordered at that time. At his second post op visit on 10/17/19, he was seen by Dr. Richter and he had completed physical therapy and had noticed no improvement in his low back pain. He stated his pain was the same as it was before surgery. He had complaints of low back pain into his right hip, continuing down his right posterior thigh. His pain was worse with walking and going up stairs, it was better when sitting. A MRI was ordered, to evaluate his symptoms. Since his last visit, he complains of constant lower back pain, radiating to right hip and right leg to toes with numbness to right foot with no improvement since surgery. He states he actual feels slightly weaker to right leg. He is here for evaluation and plan of care. Symptoms: lower back pain that radiates into his right hip, down his posterior thigh PREVIOUS CONSERVATIVE TREATMENTS: Physical therapy Muscle Relaxants PREVIOUS SURGERY: SURGERY #1: Decompressive bilateral laminectomy, foraminotomy L2 - L4 on 08/23/[address] Richter SURGERY #2: [place] [address] Cortes Smoker: yes Diabetic: no Anticoagulants: no Occupation: [employer] PAIN EVALUATION 11/09/2019 1331 Pain Level: 3 Pain Location: Leg-Right lower back and right leg pain Description: Burning;Spasm;Sharp Duration Units: Months Frequency: Continuous Intervention: Medication PAST MEDICAL HISTORY Diagnosis Date - Carotid artery disease (HCC) - Emphysema lung (HCC) - Essential hypertension - Lumbar stenosis - SLAC (scapholunate advanced collapse) of wrist PAST SURGICAL HISTORY Procedure Laterality Date - APPENDECTOMY 1969 - CARPAL TUNNEL 2010 Bilateral - LAMINECTOMY,LUMBAR 1987 - REM LESION FACE,EAR,EYE 0.6-1CM Right 05/28/16 Exc. right ear lobe nick cyst - REPAIR ROTATOR CUFF,ACUTE Right 2012 decompression FAMILY HISTORY Problem Relation Age of Onset - Cancer Father ALLERGIES Allergen Reactions - Lisinopril Cough Current Outpatient Medications Medication Sig Dispense Refill - cyclobenzaprine (FLEXERIL) 10 mg tablet Take 1 tablet by mouth three times daily. 40 tablet 0 - gabapentin (NEURONTIN) 400 mg capsule Take 400 mg by mouth every 12 hours. - Losartan-Hydrochloroth iazide (HYZAAR) 100-12.5 mg per tablet Take 1 tablet by mouth once daily. - amLODIPine (NORVASC) 5 mg tablet Take 5 mg by mouth once daily. - POTASSIUM ORAL Take 10 mEq by mouth once daily. - MULTIVITAMIN ORAL Take by mouth once daily. - Sodium,Potassium,ANDMa g Sulfates (SUPREP) 17.5-3.13-1.6 gram SolR Take 1 Package by mouth as directed. 2 Package 0 - docusate sodium (COLACE) 100 mg capsule Take 1 capsule by mouth twice daily. (Patient not taking: Reported on 10/17/2019 ) - sildenafil (REVATIO) 20 mg tablet Take 20 mg by mouth as needed. No current facility-administered medications for this visit. REVIEW OF SYSTEMS Review of Systems OBJECTIVE: BP 157/86 Pulse 101 Resp 16 Ht 5' 7 (1.70m) Wt 148 lb (67.1kg) SpO2 97% BMI 23.17 kg/(m2). Physical Exam Neurological: Reflex Scores: Tricep reflexes are 2+ on the right side and 2+ on the left side. Bicep reflexes are 2+ on the right side and 2+ on the left side. Patellar reflexes are 2+ on the right side and 2+ on the left side. Psychiatric: His speech is normal. Neurological Exam Mental Status Awake, alert and oriented to person, place and time. Recent and remote memory are intact. Speech is normal. Language is fluent with no aphasia. Attention and concentration are normal. Motor Right Left Elbow flexion 5 5 Elbow extension 5 5 Wrist extension 5 5 Finger flexion 5 5 Finger abduction 5 5 Hip flexion 5 5 Knee extension 5 5 Plantarflexion 5 5 Dorsiflexion 5 5 Toe extension 5 5 Sensory Sensation is intact to light touch, pinprick, vibration and proprioception in all four extremities.Light touch abnormality: Right foot numbness. Reflexes Right Left Biceps 2+ 2+ Triceps 2+ 2+ Patellar 2+ 2+ Right pathological reflexes: Birgit's absent. Ankle clonus absent. Left pathological reflexes: Birgit's absent. Ankle clonus absent. Gait Normal casual, toe, heel and tandem gait. Romberg is absent. Data Review IMAGING STUDIES: MRI lumbar performed on 10/26/19. Findings were noted as: Personal review of medical records: I reviewed with the patient, history, physical exam, the images and the chart. ASSESSMENT/PLAN 1. S/P spinal surgery 59-year-old gentleman, status post L2 to L4 laminectomy by Dr. Richter, with persistent right leg pain as well as new right leg weakness postoperatively. An MRI was completed and shows postoperative changes with no new disc herniation or nerve impingement. This is something that has potential to improve over time. To further investigate this, we will arrange EMG nerve conduction studies. To better control his pain, I am sending a referral to pain management team for consideration of potential epidural steroid injections. I also suggested increase in the dose of gabapentin to 300 mg 3 times per day, this dose can be increased to 600 mg per day gradually, increasing the dose by 300 mg every 3-4 days. We will see the patient in follow-up after EMG nerve conduction studies have been completed, approximately 4 weeks' time. In the interim, he could be released to work with no physical limitations. The main limitation for performing his work duties is pain. X-rays of lower back are arranged today to rule out instability. - XR LUMBAR MOTION 4V AP/LAT/ FLEX/EXT; Future - EMG(NEURO/NI); Future - CONSULT TO PAIN MGT; Future 2. Lumbar disc herniation with radiculopathy - XR LUMBAR MOTION 4V AP/LAT/ FLEX/EXT; Future - EMG(NEURO/NI); Future - CONSULT TO PAIN MGT; Future Bryan Adams MD This note was partially generated using Cloud [employer] voice recognition system, and there may be some incorrect words, spellings, and punctuation that were not noted in checking the note before saving. Normal [facility] XR LUMBAR 4V AP/LAT/ FLEX/EX Ton 11-09-2019 XR LUMBAR 4V AP/LAT/ FLEX/EXT * * *Final Report* * * DATE OF EXAM: Nov 09 2019 3:11PM [id number] - XR LUMBAR 4V AP/LAT/ FLEX/EXT / PROCEDURE REASON: multiple diagnoses * * * * Physician Interpretation * * * * EXAM TITLE: LUMBAR SPINE, 4 VIEWS DATE: 11/09/2019 COMPARISON: Lumbar spine MRI 10/26/2019 CLINICAL INDICATION/HISTORY: The patient presents with low back pain and right lower extremity pain. Lumbar spondylosis. History of prior lumbar surgery TECHNIQUE: AP, neutral lateral, flexion lateral, and extension lateral films lumbar spine FINDINGS: There is no fracture. No significant subluxation or change in alignment with flexion or extension. There is advanced degenerative disc disease at L4-L5 with loss of disc height and endplate osteophyte formation. There is moderate degenerative disc disease at L2-L3 and L3-L4. There is multilevel facet arthritis. Multilevel laminectomy defects. Fairly prominent atherosclerotic calcification of the abdominal aorta. Minimal rightward convex scoliotic curvature the lumbar spine. IMPRESSION: No acute findings radiographically. Postoperative and degenerative changes as noted, including severe degenerative disc disease L4-5. Details above. House Supervisor: PSCB Transcribe Date/Time: Nov 15 2019 2:08P Dictated by : PAULO PRINCE MD This examination was interpreted and the report reviewed and electronically signed by: PAULO PRINCE MD on Nov 15 2019 2:12PM EST Normal [facility] MR-Spine Lumbar (Routine) IM PORTon 10-26-2019 MR-Spine Lumbar (Routine) IMPORT Images were obtained outside of [facility] [id number] Normal [facility] CNOVon 10-17-2019 CNOV Office Visit (NUAGAK ) TAVARES MELGAR ([id number]) 1960 M Date Time Provider Department 10/17/19 9:00 AM JANNET RICHTER During your visit today, we recorded the following information about you: Pulse Respiration Blood pressure Weight 89/minute 16/minute 159/93 66.7 kg Height 1.702 m Jannet Richter MD PHd 10/17/2019 9:30 AM Signed OUTPATIENT ADULT NEUROSURGICAL FOLLOWUP Dear Tavares Fernandez presented for follow up in the adult neurosurgery clinic on 10/17/2019 for his 2nd post op visit following a decompressive bilateral laminectomy, foraminotomy L2 - L4 on 08/23/2019. Although his history is well known to you, please allow me to reiterate it for the purpose of my medical record. Informant: History obtained from patient. Pre Surgical Complaint: lower back pain that radiates into his right hip, down his posterior thigh, stopping at his ankle, with numbness in the top of his right foot History of Present Illness : Tavares Melgar is a 59 year old left-handed male with a hx of decompressive bilateral laminectomy, foraminotomy L2 - L4 on 08/23/2019 [place] [address] Cortes who presents today for his 2nd post op visit. At his first post op visit on 09/05/19 he was seen by Milana Irby APRN. CNP where he was doing well overall. He had only been walking for short distances, so he was unable to determine how successful the surgery was. His incision was dry and intact, without signs or symptoms of infection. Physical therapy was recommended and ordered at that time. Since his last visit, he completed PT with no improvement with lower back pain. Pain the same since prior to surgery. pAin to lower back to right hip and posterior leg to knee. Pain is worse with walking AND stairs and better sitting. He is here for evaluation and plan of care. Past Medical and Surgical History: PAST MEDICAL HISTORY Diagnosis Date - Carotid artery disease (HCC) - Emphysema lung (HCC) - Essential hypertension - Lumbar stenosis - SLAC (scapholunate advanced collapse) of wrist PAST SURGICAL HISTORY Procedure Laterality Date - APPENDECTOMY 1969 - CARPAL TUNNEL 2010 Bilateral - LAMINECTOMY,LUMBAR 1987 - REM LESION FACE,EAR,EYE 0.6-1CM Right 05/28/16 Exc. right ear lobe nick cyst - REPAIR ROTATOR CUFF,ACUTE Right 2012 decompression Current Outpatient Medications: Current Outpatient Medications on File Prior to Visit Medication Sig - cyclobenzaprine (FLEXERIL) 10 mg tablet Take 1 tablet by mouth three times daily. - docusate sodium (COLACE) 100 mg capsule Take 1 capsule by mouth twice daily. - gabapentin (NEURONTIN) 400 mg capsule Take 400 mg by mouth every 12 hours. - sildenafil (REVATIO) 20 mg tablet Take 20 mg by mouth as needed. - Losartan-Hydrochloroth iazide (HYZAAR) 100-12.5 mg per tablet Take 1 tablet by mouth once daily. - amLODIPine (NORVASC) 5 mg tablet Take 5 mg by mouth once daily. - POTASSIUM ORAL Take 10 mEq by mouth once daily. - MULTIVITAMIN ORAL Take by mouth once daily. - Sodium,Potassium,ANDMa g Sulfates (SUPREP) 17.5-3.13-1.6 gram SolR Take 1 Package by mouth as directed. No current facility-administered medications on file prior to visit. ALLERGIES Allergen Reactions - Lisinopril Cough REVIEW OF SYSTEMS Review of Systems Constitutional: Negative for chills, diaphoresis and fever. Respiratory: Negative for cough, shortness of breath and wheezing. Gastrointestinal: Negative for constipation, diarrhea and nausea. Genitourinary: Negative for difficulty urinating, frequency and urgency. Musculoskeletal: Negative for back pain, gait problem and neck pain. Neurological: Negative for dizziness, weakness and numbness. OBJECTIVE: There were no vitals taken for this visit. Physical Exam Constitutional: He is oriented to person, place, and time and well-developed, well-nourished, and in no distress. HENT: Head: Normocephalic. Eyes: Pupils are equal, round, and reactive to light. Neck: Normal range of motion. Pulmonary/Chest: Effort normal. Abdominal: Soft. Musculoskeletal: Normal range of motion. Neurological: He is alert and oriented to person, place, and time. Gait normal. Reflex Scores: Patellar reflexes are 2+ on the right side and 2+ on the left side. Skin: Skin is warm and dry. Psychiatric: His speech is normal. Affect normal. Neurological Exam Mental Status Alert. Recent and remote memory are intact. Speech is normal. Language is fluent with no aphasia. Attention and concentration are normal. Cranial Nerves CN III, IV, : Pupils equal round and reactive to light bilaterally. Motor Right Left Hip flexion 5 5 Knee extension 5 5 Plantarflexion 5 5 Dorsiflexion 5 5 Toe extension 5 5 Sensory Light touch abnormality: Left leg decreased sensation. Reflexes Right Left Patellar 2+ 2+ Right pathological reflexes: Ankle clonus absent. Left pathological reflexes: Ankle clonus absent. Gait Normal casual, toe, heel and tandem gait. Normal gait. Romberg is absent. MEDICAL DECISION MAKING DATA REVIEW: None Jannet Richter MD PHd [facility] STAFF PHYSICIAN NOTE OF PERSONAL INVOLVEMENT IN CARE I have reviewed the history AND physical obtained and documented by the nurse and I personally participated in the gutierrez components. I have discussed the case and management of the patient's care. The following comments revise or confirm relevant gutierrez components of the note. IMPRESSION In summary, Tavares Melgar is a 59 year old man status post L2 L4 laminectomy for symptoms concerning for neurogenic claudication. Of concern however, he still endorses the same symptoms without any significant improvement versus presurgical status. As such, I would like to obtain an MRI to reevaluate his lumbar spine. I would like for him to visit me once this is complete. I answered all question in detail, and patient voiced understanding, agreement and appreciation of the diagnosis, options and recommendations discussed. TREATMENT OPTIONS AND RISKS: I have discussed the management options and there respective risks and benefits with the patient. Greater than 50% of the clinic visit was spent in direct inmk-ib-[id number] time counseling patient/coordinating care for total time spent of 30 minutes. Thank you for the opportunity to participate in Tavares Melgar's care. If I can answer any additional questions, I would be pleased to do so. Sincerely, CC: These final recommendations will be communicated back to the requesting physician/primary care physician by way of shared medical record Referring Provider: KATIA HAYS [[id number]] Allergies As of Date: 10/17/2019 Noted Allergy Reaction LISINOPRIL 09/06/2013 3 - Cough Date Reviewed: 10/17/2019 Reviewed by: Virgen Rushing - Fully Assessed Reason for Visit: Follow Up [171] Cmt: Post Op Primary Visit Diagnosis:Lumbar spondylosis [M47.816] Other Visit Diagnoses:S/P spinal surgery [Z98.890] Chronic right-sided low back pain, unspecified whether sciatica present [M54.5, G89.29] Order(s):MRI LUMBAR SPINE WO DIONON [[id number]] Order #: [id number] FUTURE Prescriptions as of 10/17/2019 Sig: CYCLOBENZAPRINE 10 MG TABLET Take 1 tablet by mouth three * GABAPENTIN 400 MG CAPSULE Take 400 mg by mouth every 12* LOSARTAN 100 MG-HYDROCHLOROTH* Take 1 tablet by mouth once d* AMLODIPINE 5 MG TABLET Take 5 mg by mouth once daily. POTASSIUM ORAL Take 10 mEq by mouth once moshe* MULTIVITAMIN ORAL Take by mouth once daily. SODIUM,POTASSIUM,MAG SULFATES* Take 1 Package by mouth as di* DOCUSATE SODIUM 100 MG CAPSULE Take 1 capsule by mouth twice* Patient not taking: Reported on 10/17/2019 SILDENAFIL (ANTIHYPERTENSIVE)* Take 20 mg by mouth as needed. Problem List As Of Date 10/17/2019 Noted Resolved Special screening for malignant neoplasms, colo*09/06/2013 Sebaceous cyst [L72.3] 05/28/2016 Follow-up and Disposition History Recorded Encounter Status:Closed by ELIOT WHITE, JANNET PHD on 10/17/19 [facility] PROGRESSon 10-17-2019 PROGRESS HNO ID: [id number] Author: Jannet Richter Service: ? Author Type: Physician Type: Progress Notes Filed: 10/17/2019 9:30 AM Note Text: OUTPATIENT ADULT NEUROSURGICAL FOLLOWUP Dear Dr. Katia Hays, Tavares Melgar presented for follow up in the adult neurosurgery clinic on 10/17/2019 for his 2nd post op visit following a decompressive bilateral laminectomy, foraminotomy L2 - L4 on 08/23/2019. Although his history is well known to you, please allow me to reiterate it for the purpose of my medical record. Informant: History obtained from patient. Pre Surgical Complaint: lower back pain that radiates into his right hip, down his posterior thigh, stopping at his ankle, with numbness in the top of his right foot History of Present Illness : Tavares Melgar is a 59 year old left-handed male with a hx of decompressive bilateral laminectomy, foraminotomy L2 - L4 on 08/23/2019 and [place] [address] Cortes who presents today for his 2nd post op visit. At his first post op visit on 09/05/19 he was seen by Milana Irby APRN. CNP where he was doing well overall. He had only been walking for short distances, so he was unable to determine how successful the surgery was. His incision was dry and intact, without signs or symptoms of infection. Physical therapy was recommended and ordered at that time. Since his last visit, he completed PT with no improvement with lower back pain. Pain the same since prior to surgery. pAin to lower back to right hip and posterior leg to knee. Pain is worse with walking AND stairs and better sitting. He is here for evaluation and plan of care. Past Medical and Surgical History: PAST MEDICAL HISTORY Diagnosis Date - Carotid artery disease (HCC) - Emphysema lung (HCC) - Essential hypertension - Lumbar stenosis - SLAC (scapholunate advanced collapse) of wrist PAST SURGICAL HISTORY Procedure Laterality Date - APPENDECTOMY 1969 - CARPAL TUNNEL 2010 Bilateral - LAMINECTOMY,LUMBAR 1987 - REM LESION FACE,EAR,EYE 0.6-1CM Right 05/28/16 Exc. right ear lobe nick cyst - REPAIR ROTATOR CUFF,ACUTE Right 2012 decompression Current Outpatient Medications: Current Outpatient Medications on File Prior to Visit Medication Sig - cyclobenzaprine (FLEXERIL) 10 mg tablet Take 1 tablet by mouth three times daily. - docusate sodium (COLACE) 100 mg capsule Take 1 capsule by mouth twice daily. - gabapentin (NEURONTIN) 400 mg capsule Take 400 mg by mouth every 12 hours. - sildenafil (REVATIO) 20 mg tablet Take 20 mg by mouth as needed. - Losartan-Hydrochloroth iazide (HYZAAR) 100-12.5 mg per tablet Take 1 tablet by mouth once daily. - amLODIPine (NORVASC) 5 mg tablet Take 5 mg by mouth once daily. - POTASSIUM ORAL Take 10 mEq by mouth once daily. - MULTIVITAMIN ORAL Take by mouth once daily. - Sodium,Potassium,ANDMa g Sulfates (SUPREP) 17.5-3.13-1.6 gram SolR Take 1 Package by mouth as directed. No current facility-administered medications on file prior to visit. ALLERGIES Allergen Reactions - Lisinopril Cough REVIEW OF SYSTEMS Review of Systems Constitutional: Negative for chills, diaphoresis and fever. Respiratory: Negative for cough, shortness of breath and wheezing. Gastrointestinal: Negative for constipation, diarrhea and nausea. Genitourinary: Negative for difficulty urinating, frequency and urgency. Musculoskeletal: Negative for back pain, gait problem and neck pain. Neurological: Negative for dizziness, weakness and numbness. OBJECTIVE: There were no vitals taken for this visit. Physical Exam Constitutional: He is oriented to person, place, and time and well-developed, well-nourished, and in no distress. HENT: Head: Normocephalic. Eyes: Pupils are equal, round, and reactive to light. Neck: Normal range of motion. Pulmonary/Chest: Effort normal. Abdominal: Soft. Musculoskeletal: Normal range of motion. Neurological: He is alert and oriented to person, place, and time. Gait normal. Reflex Scores: Patellar reflexes are 2+ on the right side and 2+ on the left side. Skin: Skin is warm and dry. Psychiatric: His speech is normal. Affect normal. Neurological Exam Mental Status Alert. Recent and remote memory are intact. Speech is normal. Language is fluent with no aphasia. Attention and concentration are normal. Cranial Nerves CN III, IV, : Pupils equal round and reactive to light bilaterally. Motor Right Left Hip flexion 5 5 Knee extension 5 5 Plantarflexion 5 5 Dorsiflexion 5 5 Toe extension 5 5 Sensory Light touch abnormality: Left leg decreased sensation. Reflexes Right Left Patellar 2+ 2+ Right pathological reflexes: Ankle clonus absent. Left pathological reflexes: Ankle clonus absent. Gait Normal casual, toe, heel and tandem gait. Normal gait. Romberg is absent. MEDICAL DECISION MAKING DATA REVIEW: None Jannet Richter MD PHd [facility] STAFF PHYSICIAN NOTE OF PERSONAL INVOLVEMENT IN CARE I have reviewed the history AND physical obtained and documented by the nurse and I personally participated in the gutierrez components. I have discussed the case and management of the patient's care. The following comments revise or confirm relevant gutierrez components of the note. IMPRESSION In summary, Tavares Melgar is a 59 year old man status post L2 L4 laminectomy for symptoms concerning for neurogenic claudication. Of concern however, he still endorses the same symptoms without any significant improvement versus presurgical status. As such, I would like to obtain an MRI to reevaluate his lumbar spine. I would like for him to visit me once this is complete. I answered all question in detail, and patient voiced understanding, agreement and appreciation of the diagnosis, options and recommendations discussed. TREATMENT OPTIONS AND RISKS: I have discussed the management options and there respective risks and benefits with the patient. Greater than 50% of the clinic visit was spent in direct [id number]-[id number]-cztf time counseling patient/coordinating care for total time spent of 30 minutes. Thank you for the opportunity to participate in Tavares Melgar's care. If I can answer any additional questions, I would be pleased to do so. Sincerely, CC: These final recommendations will be communicated back to the requesting physician/primary care physician by way of shared medical record Normal [facility] CNOVon 09-05-2019 CNOV Office Visit (NUAGAK ) TAVARES MELGAR ([id number]) 1960 M Date Time Provider Department 09/05/19 9:30 AM MILANA IRBY (CANDY COOKER HELPER.[facility] During your visit today, we recorded the following information about you: Milana Irby APRN.CNP 09/05/2019 11:18 AM Signed NEUROSURGERY POST-OP NOTE Jannet Richter MD, PhD Milana Irby APRN [facility] Date of visit: September 05, 2019 Patient Name: Mr.Craig Cristina Melgar Date of : 1960 Current Age: [age] year old Sex: male MRN/E# [id number] Last Office Visit: 08/08/2019 SURGERY: Decompressive bilateral laminectomy, foraminotomy L2 - L4 on 08/23/2019 Pre-Surgical Symptoms: lower back pain that radiates into his right hip, down his posterior thigh, stopping at his ankle, with numbness in the top of his right foot Tavares Melgar is having his 2 week post operative visit. Patient feels that surgery has been helpful. He reports that he has not yet walked far enough to determine the success of surgery. He has been walking inside his house or outside for only short distances. Incision: Dry and intact, without redness Current Outpatient Medications Medication Sig Dispense Refill - cyclobenzaprine (FLEXERIL) 10 mg tablet Take 1 tablet by mouth three times daily. 40 tablet 0 - docusate sodium (COLACE) 100 mg capsule Take 1 capsule by mouth twice daily. - gabapentin (NEURONTIN) 400 mg capsule Take 400 mg by mouth every 12 hours. - sildenafil (REVATIO) 20 mg tablet Take 20 mg by mouth as needed. - Losartan-Hydrochloroth iazide (HYZAAR) 100-12.5 mg per tablet Take 1 tablet by mouth once daily. - amLODIPine (NORVASC) 5 mg tablet Take 5 mg by mouth once daily. - POTASSIUM ORAL Take 10 mEq by mouth once daily. - MULTIVITAMIN ORAL Take by mouth once daily. - Sodium,Potassium,ANDMa g Sulfates (SUPREP) 17.5-3.13-1.6 gram SolR Take 1 Package by mouth as directed. 2 Package 0 No current facility-administered medications for this visit. Review of Systems Constitutional: Negative for activity change, chills, diaphoresis and fever. HENT: Negative. Respiratory: Negative for chest tightness and shortness of breath. Cardiovascular: Negative for chest pain and leg swelling. Gastrointestinal: Negative. Genitourinary: Negative for difficulty urinating. Musculoskeletal: Positive for back pain. Neurological: Negative for dizziness, weakness, light-headedness and headaches. Psychiatric/Behavioral : Negative. PHYSICAL EXAM: Well-nourished, well-developed male, in no apparent distress AANDO x 4, speech clear VANN readily. WOUND ASSESSMENT: Incision healing, Well approximated incision, Non-reddened IMP: Tavares Melgar is a 59 year old male who is 2 weeks post op L2-L5 decompression. He feels better, but wants to be able to walk longer distances before he knows the overall improvement. PLAN: 1. Imaging: No imaging. 2. Physical Therapy for post op evaluate and treat 3. Refilled oxycodone-acetaminophe n 5-325 MG; #28; 1 po Q 6 hours PRN post op pain starting 09/08/2019, no refill. Cyclobenzaprine 10 MG tablet; take 1 tablet by mouth TID prn pain/muscle spasms 4. Continue to mobilize as tolerated. Lumbar brace for comfort (as he is doing). 5. Follow up with Dr. Richter in 6 weeks. Discussed above with patient who verbalizes understanding and agreement with plan. All questions were answered with patient's verbalized satisfaction with responses. Milana Irby, BONNIE, INDUSTRIAL HYGIENIST Neurosurgery Nurse Practitioner Referring Provider: KATIA HAYS [[id number]] Allergies As of Date: 09/05/2019 Noted Allergy Reaction LISINOPRIL 09/06/2013 3 - Cough Date Reviewed: 09/05/2019 Reviewed by: Milana Anderson (Bonnie.Trolley Operator) Surekha - Fully Assessed Reason for Visit: Post-Op Visit [1236] Cmt: L2-5 decompression 08/23/2019 Primary Visit Diagnosis:Lumbar spondylosis [M47.816] Other Visit Diagnosis:S/P spinal surgery [Z98.890] Order(s):CONSULT TO PHYSICAL THERAPY [5415] Order #: [id number]: 1 FUTURE [START ON 09/08/2019] oxyCODONE-acetaminophe n (PERCOCET) 5-325 mg tabletTake 1 tablet by mouth every 6 hours as needed for Pain for up to 7 days.Disp: 28 tabletRfl: 0 cyclobenzaprine (FLEXERIL) 10 mg tabletTake 1 tablet by mouth three times daily.Disp: 40 tabletRfl: 0 Prescriptions as of 09/05/2019 Sig: OXYCODONE-ACETAMINOPHE N 5 MG-* Take 1 tablet by mouth every * CYCLOBENZAPRINE 10 MG TABLET Take 1 tablet by mouth three * DOCUSATE SODIUM 100 MG CAPSULE Take 1 capsule by mouth twice* GABAPENTIN 400 MG CAPSULE Take 400 mg by mouth every 12* SILDENAFIL (ANTIHYPERTENSIVE)* Take 20 mg by mouth as needed. LOSARTAN 100 MG-HYDROCHLOROTH* Take 1 tablet by mouth once d* AMLODIPINE 5 MG TABLET Take 5 mg by mouth once daily. POTASSIUM ORAL Take 10 mEq by mouth once moshe* MULTIVITAMIN ORAL Take by mouth once daily. SODIUM,POTASSIUM,MAG SULFATES* Take 1 Package by mouth as di* Problem List As Of Date 09/05/2019 Noted Resolved Special screening for malignant neoplasms, colo*INVALID FOR* Sebaceous cyst [L72.3] INVALID FOR* Prescriptions ordered this encounter Disp Refills Start End OXYCODONE-ACETAMINOPHE N 5 MG-325 MG * 28 t* 0 09/08/2019 09/15/2019 Class: Print RX Route: ORAL Sig: Take 1 tablet by mouth every 6 hours as needed for Pain for up to 7 days. CYCLOBENZAPRINE 10 MG TABLET 40 t* 0 09/05/2019 Route: ORAL Sig: Take 1 tablet by mouth three times daily. Medications Discontinued During This Encounter oxyCODONE-acetaminophe n (PERCOCET) 5* 28 t* 0 09/01/2019 09/05/2019 Class: Print RX Route: ORAL Sig: Take 1 tablet by mouth every 6 hours as needed for Pain for up to 7 days. Disc: Reason for discontinue is not on file. cyclobenzaprine (FLEXERIL) 10 mg tab* 40 t* 0 08/24/2019 09/05/2019 Class: Print RX Route: ORAL Sig: Take 1 tablet by mouth three times daily. Disc: Reason for discontinue is not on file. Disposition: Return in about 6 weeks (around 10/17/2019) for with Dr. Richter for 2 month post op. Follow-up and Disposition History Recorded Encounter Status:Closed by MILANA IRBY on 09/05/19 [facility] PROGRESSon 09-05-2019 PROGRESS HNO ID: [id number] Author: Milana Anderson (Study Lead.Trolley Operator) Surekha Service: ? Author Type: Nurse Practitioner Type: Progress Notes Filed: 09/05/2019 11:18 AM Note Text: NEUROSURGERY POST-OP NOTE Jannet Richter MD, PhD Milana Irby, CANDY COOKER HELPER, [facility] Date of visit: September 05, 2019 Patient Name: Mr.Craig Cristina Melgar Date of : 1960 Current Age: [age] year old Sex: male MRN/E# [id number] Last Office Visit: 08/08/2019 SURGERY: Decompressive bilateral laminectomy, foraminotomy L2 - L4 on 08/23/2019 Pre-Surgical Symptoms: lower back pain that radiates into his right hip, down his posterior thigh, stopping at his ankle, with numbness in the top of his right foot Tavares Melgar is having his 2 week post operative visit. Patient feels that surgery has been helpful. He reports that he has not yet walked far enough to determine the success of surgery. He has been walking inside his house or outside for only short distances. Incision: Dry and intact, without redness Current Outpatient Medications Medication Sig Dispense Refill - cyclobenzaprine (FLEXERIL) 10 mg tablet Take 1 tablet by mouth three times daily. 40 tablet 0 - docusate sodium (COLACE) 100 mg capsule Take 1 capsule by mouth twice daily. - gabapentin (NEURONTIN) 400 mg capsule Take 400 mg by mouth every 12 hours. - sildenafil (REVATIO) 20 mg tablet Take 20 mg by mouth as needed. - Losartan-Hydrochloroth iazide (HYZAAR) 100-12.5 mg per tablet Take 1 tablet by mouth once daily. - amLODIPine (NORVASC) 5 mg tablet Take 5 mg by mouth once daily. - POTASSIUM ORAL Take 10 mEq by mouth once daily. - MULTIVITAMIN ORAL Take by mouth once daily. - Sodium,Potassium,ANDMa g Sulfates (SUPREP) 17.5-3.13-1.6 gram SolR Take 1 Package by mouth as directed. 2 Package 0 No current facility-administered medications for this visit. Review of Systems Constitutional: Negative for activity change, chills, diaphoresis and fever. HENT: Negative. Respiratory: Negative for chest tightness and shortness of breath. Cardiovascular: Negative for chest pain and leg swelling. Gastrointestinal: Negative. Genitourinary: Negative for difficulty urinating. Musculoskeletal: Positive for back pain. Neurological: Negative for dizziness, weakness, light-headedness and headaches. Psychiatric/Behavioral : Negative. PHYSICAL EXAM: Well-nourished, well-developed male, in no apparent distress AANDO x 4, speech clear VANN readily. WOUND ASSESSMENT: Incision healing, Well approximated incision, Non-reddened IMP: Tavares Melgar is a 59 year old male who is 2 weeks post op L2-L5 decompression. He feels better, but wants to be able to walk longer distances before he knows the overall improvement. PLAN: 1. Imaging: No imaging. 2. Physical Therapy for post op evaluate and treat 3. Refilled oxycodone-acetaminophe n 5-325 MG; #28; 1 po Q 6 hours PRN post op pain starting 09/08/2019, no refill. Cyclobenzaprine 10 MG tablet; take 1 tablet by mouth TID prn pain/muscle spasms 4. Continue to mobilize as tolerated. Lumbar brace for comfort (as he is doing). 5. Follow up with Dr. Richter in 6 weeks. Discussed above with patient who verbalizes understanding and agreement with plan. All questions were answered with patient's verbalized satisfaction with responses. Milana Irby APRN, INDUSTRIAL HYGIENIST Neurosurgery Nurse Practitioner [facility] OBSOLETEon 09-01-2019 OBSOLETE Refill (NUAGAK) COLINTAVARES MOSQUERA ([id number]) 1960 M Date Time Provider Department 09/01/19 JANNET RICHTER During your visit today, we recorded the following information about you: Lori Moran RN 09/01/2019 11:03 AM Signed Patient called requesting Rx refill for Percocet. Patient had surgery with Dr. Richter on 08-23-2019: Lumbar 2-4 laminectomy AND decompression. Patient last percocet end date was 08-31-2019. Lori Moran RN Allergies As of Date: 09/01/2019 Noted Allergy Reaction LISINOPRIL 09/06/2013 3 - Cough Date Reviewed: 08/24/2019 Reviewed by: Livia AnayaRn) ARELI Dumont - Fully Assessed Reason for Visit: Refill Request [94] Primary Visit Diagnosis:S/P spinal surgery [Z98.890] Order(s):oxyCODONE-harmony taminophen (PERCOCET) 5-325 mg tabletTake 1 tablet by mouth every 6 hours as needed for Pain for up to 7 days.Disp: 28 tabletRfl: 0 Prescriptions as of 09/01/2019 Sig: OXYCODONE-ACETAMINOPHE N 5 MG-* Take 1 tablet by mouth every * CYCLOBENZAPRINE 10 MG TABLET Take 1 tablet by mouth three * DOCUSATE SODIUM 100 MG CAPSULE Take 1 capsule by mouth twice* GABAPENTIN 400 MG CAPSULE Take 400 mg by mouth every 12* SILDENAFIL (ANTIHYPERTENSIVE)* Take 20 mg by mouth as needed. LOSARTAN 100 MG-HYDROCHLOROTH* Take 1 tablet by mouth once d* AMLODIPINE 5 MG TABLET Take 5 mg by mouth once daily. POTASSIUM ORAL Take 10 mEq by mouth once moshe* MULTIVITAMIN ORAL Take by mouth once daily. SODIUM,POTASSIUM,MAG SULFATES* Take 1 Package by mouth as di* Problem List As Of Date 09/01/2019 Noted Resolved Special screening for malignant neoplasms, colo*INVALID FOR* Sebaceous cyst [L72.3] INVALID FOR* Prescriptions ordered this encounter Disp Refills Start End OXYCODONE-ACETAMINOPHE N 5 MG-325 MG * 28 t* 0 09/01/2019 09/08/2019 Class: Print RX Route: ORAL Sig: Take 1 tablet by mouth every 6 hours as needed for Pain for up to 7 days. Encounter Status:Closed by MILANA IRBY on 09/01/19 Normal [facility] Basic Panelon 08-24-2019 Creatinine [Mass/Vol] 0.99 mg/dL Normal 0.67-1.17 [facility] Comment on above: Performed By: #### P 8 #### [facility] [address] [place], [place] [address] Glucose [Mass/Vol] 141 mg/dL High 70-99 [facility] Comment on above: Performed By: #### P 8 #### [facility] [address] [place], [place] [address] Anion gap [Moles/Vol] 14 mmol/L Normal 8-16 [facility] Comment on above: Performed By: #### P 8 #### [address] [address] Calcium [Mass/Vol] 8.5 mg/dL Normal 8.5-10.1 [facility] Comment on above: Performed By: #### P 8 #### [address] [address] CO2 [Moles/Vol] 25 mmol/L Normal 21-32 [facility] Comment on above: Performed By: #### P 8 #### [address] [address] Urea nitrogen [Mass/Vol] 22 mg/dL High 7-18 [facility] Comment on above: Performed By: #### P 8 #### [facility] [address] [place], [place] [address] Chloride [Moles/Vol] 104 mmol/L Normal 98-107 [facility] Comment on above: Performed By: #### P 8 #### [facility] [address] [place], [place] [address] Potassium [Moles/Vol] 4.2 mmol/L Normal 3.5-5.1 [facility] Comment on above: Performed By: #### P 8 #### [address] [address] Sodium [Moles/Vol] 139 mmol/L Normal 136-145 [facility] Comment on above: Performed By: #### P 8 #### [facility] [address] [place] [id number] HISTORY PHYSICALon 9 HISTORY PHYSICAL HNO ID: [id number] Author: Denny Hernandez Service: Hospital Medicine Author Type: Physician Type: HANDP Filed: 08/24/2019 1:28 AM Note Text: DEPARTMENT OF HOSPITAL MEDICINE INITIAL CONSULT SERVICE DATE: 08/24/2019 SERVICE TIME: 1:09 AM Primary Care Physician: Katia Hays, DO NIGHT AND WEEKEND COVERAGE: From 7am - 7pm, please call [phone] After 7pm, please call cross cover pager #[phone] REASON FOR CONSULT: Medical management REQUESTING PHYSICIAN: Dr. Gerber Subjective CHIEF COMPLAINT: Back pain s/p L2-L4 laminectomy. HPI: This is a 59 year old male who presents for elective lumbar laminectomy. He is post op day 1. Sound was consulted for medical management. He noted mild pain. No nausea or vomiting. No chest pain. Back pain still there, but he described it as sore. Is the Patient Experiencing Pain: No: 0 on a scale of 0 to 10 PAST MEDICAL HISTORY Diagnosis Date - Carotid artery disease (HCC) - Emphysema lung (HCC) - Essential hypertension - Lumbar stenosis - SLAC (scapholunate advanced collapse) of wrist PAST SURGICAL HISTORY Procedure Laterality Date - APPENDECTOMY 1969 - CARPAL TUNNEL 2010 Bilateral - LAMINECTOMY,LUMBAR 1987 - REM LESION FACE,EAR,EYE 0.6-1CM Right 05/28/16 Exc. right ear lobe nick cyst - REPAIR ROTATOR CUFF,ACUTE Right 2012 decompression FAMILY HISTORY Problem Relation Age of Onset - Cancer Father Social History Tobacco Use - Smoking status: Current Every Day Smoker Packs/day: 0.50 Years: 30.00 Pack years: 15.00 - Smokeless tobacco: Never Used Substance Use Topics - Alcohol use: Yes Comment: Occasional - Drug use: No MEDICATIONS: Reviewed Medications Prior to Admission: gabapentin (NEURONTIN) 400 mg capsule Take 400 mg by mouth every 12 hours. Disp: Rfl: 08/22/2019 at Unknown time oxyCODONE IR (ROXICODONE) 5 mg immediate release tablet Take 5 mg by mouth four times daily as needed. Disp: Rfl: 08/22/2019 at Unknown time sildenafil (REVATIO) 20 mg tablet Take 20 mg by mouth as needed. Disp: Rfl: Losartan-Hydrochloroth iazide (HYZAAR) 100-12.5 mg per tablet Take 1 tablet by mouth once daily. Disp: Rfl: 08/22/2019 at Unknown time amLODIPine (NORVASC) 5 mg tablet Take 5 mg by mouth once daily. Disp: Rfl: 08/23/2019 at 0500 POTASSIUM ORAL Take 10 mEq by mouth once daily. Disp: Rfl: 08/23/2019 at 0500 MULTIVITAMIN ORAL Take by mouth once daily. Disp: Rfl: Past Week at Unknown time Sodium,Potassium,ANDMa g Sulfates (SUPREP) 17.5-3.13-1.6 gram SolR Take 1 Package by mouth as directed. Disp: 2 Package Rfl: 0 08/23/2019 at 0500 Current Facility-Administered Medications Medication Dose Route Frequency - amLODIPine 5 mg tab(s) (NORVASC) 5 mg ORAL DAILY - lactated ringers infusion 75 mL/hr INTRAVENOUS CONTINUOUS - ceFAZolin iv piggyback 1 g in D5W (iso-osmotic) 50 mL (ANCEF) 1 g INTRAVENOUS q 8 HR - acetaminophen 325-650 mg tab(s) (TYLENOL) 325-650 mg ORAL q 4 H PRN - oxyCODONE-acetaminophe n 5-325 mg 1-2 tablet (PERCOCET) 1-2 tablet ORAL q 4 H PRN - morphine 4 mg injection 4 mg INTRAVENOUS q 2 H PRN - cyclobenzaprine 10 mg tab(s) (FLEXERIL) 10 mg ORAL TID - ondansetron 4 mg tab(s) (ZOFRAN) 4 mg ORAL q 6 H PRN Or - ondansetron (PF) 4 mg injection (ZOFRAN) 4 mg INTRAVENOUS q 6 H PRN - docusate sodium 100 mg cap(s) (COLACE) 100 mg ORAL BID - polyethylene glycol 3350 17 g packet (MIRALAX, GLYCOLAX) 17 g ORAL DAILY PRN - potassium chloride 10 mEq tablet (K-TAB) 10 mEq ORAL DAILY - gabapentin (NEURONTIN) cap(s) 400 mg 400 mg ORAL AT BEDTIME - nicotine 14 mg/24 hr 1 Patch (NICODERM) 1 Patch TRANSDERMAL DAILY And - nicotine -- REMOVE patch OTHER DAILY And - nicotine - verify patch OTHER q 8 H - losartan 100 mg tab(s) (COZAAR) 100 mg ORAL DAILY And - Hydrochlorothiazide 12.5 mg 12.5 mg ORAL DAILY - melatonin 3 mg tab(s) 3 mg ORAL DAILY (8 PM) . 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 No rashes or lesions. HEAD/SINUSES: No significant findings EYES: PERRLA, EOMI EARS: External ears normal, canals clear NOSE: Nares normal. Septum midline. OROPHARYNX: Lips, mucosa, and tongue normal. Teeth and gums normal. Oropharynx normal. NECK: No jugulovenous distention, No carotid bruits, Carotid pulse normal contour, Supple BACK: Back symmetric, Normal curvature, ROM normal, No CVAT. LUNGS: Lungs clear to auscultation, Good diaphragmatic excursion CARDIAC: Normal S1 and S2; no rubs, murmurs, or gallops ABDOMEN: Abdomen soft, non-tender, BS normal, No masses or organomegaly EXTREMITIES: Extremities normal, no deformities, edema, clubbing or skin discoloration. Good capillary refill., No ulcers NEURO:no focal neuro deficit PULSES: 2+ radial, 2+ carotid Lines, Drains, and Airways Line Peripheral 08/23/19 0948 Left Antecubital 20 Gauge less than 1 day Peripheral 08/23/19 1145 Assessment Short Left Wrist 18 Gauge less than 1 day Drain Drain/Tube 08/23/19 1349 Assessment Hemovac Posterior Back Drain #1 less than 1 day Indwelling Urinary Catheter 08/23/19 1145 Assessment Lopez 16 Fr less than 1 day DATA: Diagnostic tests reviewed for today's visit: Impression/Recommendat ions 1. Hypertension essential: On home meds Continue to monitor Continue current medication On losartan and HCTZ. 2. Tobacco abuse: Nicotine patch Daily 3. Insomnia: Added melatonin 4. L2-L4 Laminectomy: Drain intact Minimal blood fluid in drain Continue to monitor PT/OT Pain control Management per ortho. Anticoagulation per ortho when cleared. VTE PROPHYLAXIS: Other Disposition: Home Plan of care discussed with: Patient SIGNATURE: Denny Hernandez MD PATIENT NAME: Tavares Melgar DATE: August 24, 2019 TIME: 1:09 AM PAGER/CONTACT #: Normal [facility] HIV Screenon 08-24-2019 HIV Screen Nonreactive Normal Nonreactive [facility] Comment on above: Performed By: #### A PTT #### [place] [address] Hemogramon 08-24-2019 Erythrocyte distribution width (RBC) [Ratio] 12.5 % Normal 11.6-14.4 [facility] Comment on above: Performed By: #### C BC1 #### [place] [address] Hematocrit (Bld) [Volume fraction] 33.1 % Low 40.1-51.0 [facility] Comment on above: Performed By: #### C BC1 #### [place] [address] Hemoglobin (Bld) [Mass/Vol] 11.5 g/dL Low 13.7-17.5 [facility] Comment on above: Performed By: #### C BC1 #### [place] [address] MCH (RBC) [Entitic mass] 32.7 pg High 25.7-32.2 [facility] Comment on above: Performed By: #### C BC1 #### [place] [address] MCHC (RBC) [Mass/Vol] 34.7 % Normal 32.3-36.5 [facility] Comment on above: Performed By: #### C BC1 #### [place] [address] MCV (RBC) [Entitic vol] 94.0 fL Normal 83.2-95.6 [facility] Comment on above: Performed By: #### C BC1 #### [facility] [address] [place] [address] Platelet mean volume (Bld) [Entitic vol] 9.9 fL Normal 8.7-12.0 [facility] Comment on above: Performed By: #### C BC1 #### [facility] [address] [place], [place] [address] Platelets (Bld) [#/Vol] 245 thou/cmm Normal 141-365 [facility] Comment on above: Performed By: #### C BC1 #### [facility] [address] [place] [address] RBC (Bld) [#/Vol] 3.52 mil/cmm Low 4.63-6.08 [facility] Comment on above: Performed By: #### C BC1 #### [place] [address] RDW SD 43.0 fl Normal 36.1-45.8 [facility] Comment on above: Performed By: #### C BC1 #### [facility] [address] [place] [address] WBC (Bld) [#/Vol] 12.71 thou/cmm High 4.23-9.07 [facility] Comment on above: Performed By: #### C BC1 #### [place] [address] Hep. B Core Ab IgMon 019 HB Core Ab IgM Negative Normal Negative [facility] Comment on above: Performed By: #### A PTT #### [facility] [address] [place] [address] Hep. B Surface Agon 08-24-20 19 Hep.B Surface Ag Negative Normal Negative [facility] Comment on above: Performed By: #### A PTT #### [place] [address] Hepatitis C Antibodyon 08-24 Hepatitis C Ab Negative Normal Negative [facility] Comment on above: Performed By: #### A PTT #### [address] [place], [place] [address] MDRD GFRon 08-24-2019 GFR/1.73 sq M predicted among non-blacks MDRD (S/P/Bld) [Vol rate/Area] mL/min/{1.73_m2} Normal >60mL/min/1.7 3m2 [facility] Comment on above: Result Comment: If t he patient is , multiply the result by 1.210. Performed By: #### G FR #### [facility] [address] [place], [place] [address] PROGRESSon 08-24-2019 PROGRESS HNO ID: [id number] Author: Sarina Collier Service: Hospital Medicine Author Type: Physician Type: Progress Notes Filed: 08/24/2019 2:53 PM Note Text: DEPARTMENT OF HOSPITAL MEDICINE PROGRESS NOTE SERVICE DATE: 08/24/2019 SERVICE TIME: 11:38 AM Hospital Medicine/Primary Attending: Sarina Collier, DO NIGHT AND WEEKEND COVERAGE: After 7pm, please call cross cover pager #[phone] Subjective INTERVAL HPI: Patient seen and examined. Feelinng well today. Pain controlled. Muscle relaxer helped a lot. No CP or SOB, passing gas. MEDICATIONS: Reviewed Objective PHYSICAL EXAM: BP 120/63 Pulse 69 Temp (Src) 97.9 (Oral) Resp 16 SpO2 97% O2 Therapy: Room Air Physical Exam Performed Constitutional - Vitals as above, not in acute distress Resp - Clear to auscultate both sides, no wheezes, crackles or rales, no labored breathing CVS- RRR. No murmur, gallop or rub, pulse 2+ GI - NTND, bowel sounds normally heard, no mass palpable ROLL EDGE STITCHER HAND- cranial nerves 2 to 12 grossly intact, no focal motor or sensory deficits noted, speech normal/ Psych- A ANDO x 3, mood normal Skin- Normal tugor, no ulcers or rashes, drain in place Lines, Drains, and Airways Line Peripheral 08/23/19 0948 Left Antecubital 20 Gauge 1 day Peripheral 08/23/19 1145 Assessment Short Left Wrist 18 Gauge less than 1 day Drain Drain/Tube 08/23/19 1349 Assessment Hemovac Posterior Back Drain #1 less than 1 day Reviewed lines, drains, AND airways. Need to be continued yes DATA: Diagnostic tests reviewed for today's visit: Most recent labs and imaging results. Assessment/Plan #Hypertension essential: On home meds Continue to monitor Continue current medication On losartan and HCTZ. ? #Tobacco abuse: Nicotine patch Daily ? # Insomnia: Added melatonin ? # L2-L4 Laminectomy: Drain intact Minimal blood fluid in drain Continue to monitor PT/OT Pain control Management per ortho. Medication and Non-Pharmacologic VTE Prophylaxis/Anticoagul ants 08/23/191744 vte pharmacologic prophylaxis contraindicated (nd,de) 08/23/191744 pneumatic compression stockings (nd,de) 08/23/191744 activity - mobilize patient ([place], [place]) VTE Prophylaxis: VTE prophylaxis appropriate Disposition: Home Plan of care discussed with: Patient SIGNATURE: Sarina Collier DO PATIENT NAME: Tavares Melgar DATE: August 24, 2019 TIME: 11:38 AM PAGER/CONTACT #: etx [phone] [facility] PROGRESS HNO ID: [id number] Author: Mela Urrutia Service: Pain Management Author Type: Physician Type: Progress Notes Filed: 08/24/2019 8:20 AM Note Text: Tavares Melgar [id number] 1960 PAIN MANAGEMENT TEAM PAIN DIAGNOSIS: Lumbar 3/4 Lami and Decompression, Lumbar stenosis/spondylosis Pain Description: pt slept ok; pain score 5- mostly at incision; wants to go home later today INTERVAL HPI: SUBJECTIVE: HPI: This is a 59 year old male with hx prior lumbar laminectomy 1988 underwent 08/23 L3-4 lami/decompression due to advanced spondylosis with disc degeneration causing moderate/severe canal and foraminal stenosis with radiculopathy. Prior to admission patient was taking oxycodone 5 mg 2-3 tabs daily and Neurontin 400 mg at bedtime by his PCP. 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 He worked yesterday. He lives with his . He smokes half pack per day he drinks a few beers daily he denies marijuana or any other illicit meds. Review of [place] Automated RX Reporting System shows Summary Total Prescriptions: 11 Total Prescribers: 1 Total Pharmacies: 1 Fill Date ID Written Drug Qty Days Prescriber Rx # Pharmacy Refill Daily Dose * Pymt Type APPLICATION DEVELOPMENT LIAISON 07/08/2019 1 07/08/2019 Oxycodone Hcl 5 MG Tablet 112.00 28 Ma Butch [id number] [facility] ([id number]) 0 30.00 [facility] [place] 06/06/2019 1 06/06/2019 Oxycodone Hcl 5 MG Tablet 112.00 28 Ma Butch [id number] [facility] ([id number]) 0 30.00 [facility] [place] 03/22/2019 1 07/15/2018 Gabapentin 400 MG Capsule 180.00 90 Ma [facility] [id number] [facility] ([id number]) 2 [facility] [place] 03/21/2019 1 03/21/2019 Oxycodone Hcl 5 MG Tablet 112.00 28 Ma [facility] [id number] [facility] ([id number]) 0 30.00 [facility] [place] 03/09/2019 1 03/09/2019 Oxycodone Hcl 5 MG Tablet 28.00 7 Ma Butch [id number] [facility] (5563) 0 30.00 [facility] Comm [facility] 01/19/2019 1 01/19/2019 Oxycodone Hcl 5 MG Tablet 12.00 3 Ma Butch [id number] [facility] ([id number]) 0 30.00 [facility] Comm [facility] 12/28/2018 1 12/28/2018 Tramadol Hcl 50 MG Tablet 60.00 30 Ma Butch [id number] [facility] ([id number]) 0 10.00 [facility] [place] 12/14/2018 1 12/14/2018 Tramadol Hcl 50 MG Tablet 15.00 15 Ma Butch [id number] [facility] (5563) 0 5.00 [facility] Comm [facility] 10/25/2018 1 07/15/2018 Gabapentin 400 MG Capsule 180.00 90 Ma Butch [id number] [facility] (5563) 1 [facility] [place] 07/15/2018 1 07/15/2018 Gabapentin 400 MG Capsule 180.00 90 Ma [facility] [id number] [facility] (5563) 0 [facility] [place] 11/03/2017 1 02/02/2017 Gabapentin 400 MG Capsule 180.00 90 Ma [facility]ch [id number] [facility] (5563) 2 [place] MEDICATIONS Current Facility-Administered Medications Medication Dose Route Frequency Provider Last Rate Last Dose - melatonin 3 mg tab(s) 3 mg ORAL DAILY (8 PM) Denny Hernandez 3 mg at 08/24/19 0134 - amLODIPine 5 mg tab(s) (NORVASC) 5 mg ORAL DAILY [place] ([facility]) Herraiz - lactated ringers infusion 75 mL/hr INTRAVENOUS CONTINUOUS [place] ([facility]) Herraiz 75 mL/hr at 08/24/19 0146 75 mL/hr at 08/24/19 0146 - acetaminophen 325-650 mg tab(s) (TYLENOL) 325-650 mg ORAL q 4 H PRN [place] ([facility]) Herraiz - oxyCODONE-acetaminophe n 5-325 mg 1-2 tablet (PERCOCET) 1-2 tablet ORAL q 4 H PRN [place] ([facility]) Herraiz 2 tablet at 08/24/19 0559 - morphine 4 mg injection 4 mg INTRAVENOUS q 2 H PRN [place] ([facility]) Herraiz - cyclobenzaprine 10 mg tab(s) (FLEXERIL) 10 mg ORAL TID [place] ([facility]) Herraiz 10 mg at 08/24/19 0624 - ondansetron 4 mg tab(s) (ZOFRAN) 4 mg ORAL q 6 H PRN [place] ([facility]) [place] Or - ondansetron (PF) 4 mg injection (ZOFRAN) 4 mg INTRAVENOUS q 6 H PRN [place] ([facility]) Herraiz - docusate sodium 100 mg cap(s) (COLACE) 100 mg ORAL BID [place] ([facility]) Herraiz 100 mg at 08/23/192234 - polyethylene glycol 3350 17 g packet (MIRALAX, GLYCOLAX) 17 g ORAL DAILY PRN [place] ([facility]) Herraiz - potassium chloride 10 mEq tablet (K-TAB) 10 mEq ORAL DAILY [place] ([facility]) Herraiz - gabapentin (NEURONTIN) cap(s) 400 mg 400 mg ORAL AT BEDTIME Mela K Scantling 400 mg at 08/23/19 2236 - nicotine 14 mg/24 hr 1 Patch (NICODERM) 1 Patch TRANSDERMAL DAILY Mela K Scantling 1 Patch at 08/24/19 0043 And - nicotine -- REMOVE patch OTHER DAILY Mela K Scantling And - nicotine - verify patch OTHER q 8 H Mela K Scantling - losartan 100 mg tab(s) (COZAAR) 100 mg ORAL DAILY [place] ([facility]) Herraiz And - Hydrochlorothiazide 12.5 mg 12.5 mg ORAL DAILY [facility] Medications Prior to Admission: gabapentin (NEURONTIN) 400 mg capsule Take 400 mg by mouth every 12 hours. Disp: Rfl: 08/22/2019 at Unknown time oxyCODONE IR (ROXICODONE) 5 mg immediate release tablet Take 5 mg by mouth four times daily as needed. Disp: Rfl: 08/22/2019 at Unknown time sildenafil (REVATIO) 20 mg tablet Take 20 mg by mouth as needed. Disp: Rfl: Losartan-Hydrochloroth iazide (HYZAAR) 100-12.5 mg per tablet Take 1 tablet by mouth once daily. Disp: Rfl: 08/22/2019 at Unknown time amLODIPine (NORVASC) 5 mg tablet Take 5 mg by mouth once daily. Disp: Rfl: 08/23/2019 at 0500 POTASSIUM ORAL Take 10 mEq by mouth once daily. Disp: Rfl: 08/23/2019 at 0500 MULTIVITAMIN ORAL Take by mouth once daily. Disp: Rfl: Past Week at Unknown time Sodium,Potassium,ANDMa g Sulfates (SUPREP) 17.5-3.13-1.6 gram SolR Take 1 Package by mouth as directed. Disp: 2 Package Rfl: 0 08/23/2019 at 0500 PAST MEDICAL HISTORY PAST MEDICAL HISTORY Diagnosis Date - Carotid artery disease (HCC) - Emphysema lung (HCC) - Essential hypertension - Lumbar stenosis - SLAC (scapholunate advanced collapse) of wrist PAST SURGICAL HISTORY PAST SURGICAL HISTORY Procedure Laterality Date - APPENDECTOMY 1969 - CARPAL TUNNEL 2011 Bilateral - LAMINECTOMY,LUMBAR 1987 - REM LESION FACE,EAR,EYE 0.6-1CM Right 05/28/16 Exc. right ear lobe nick cyst - REPAIR ROTATOR CUFF,ACUTE Right 2011 decompression ALLERGIES Allergen Reactions - Lisinopril Cough FAMILY HISTORY Problem Relation Age of Onset - Cancer Father Social History Tobacco Use - Smoking status: Current Every Day Smoker Packs/day: 0.50 Years: 30.00 Pack years: 15.00 - Smokeless tobacco: Never Used Substance Use Topics - Alcohol use: Yes Comment: Occasional - Drug use: No Social History Social History Narrative Not on file REVIEW OF SYSTEMS: all of the following reviewed and negative except as noted below: GENERAL: no fever, chills, sweats, weight loss, fatigue, generalized weakness HEENT: no headache, vision changes, eye discomfort, hearing change, ear discomfort, sinus pain, nasal discharge or congestion, oral lesions, soreness, dental problem NECK: no adenopathy, discomfort, change in ROM CHEST: no shortness of breath, dyspnea on exertion, wheezing, cough, sputum production or chest pain HEART: no chest pain, palpitations, syncope ABDOMEN: no nausea, vomiting, constipation, diarrhea, abdominal pain : no dysuria, urgency, frequency, history of stones, incontinence NEURO: no confusion or alteration in consciousness, slurred speech, seizure, focal weakness;see HPI EXTREMITIES: no new pain, edema, change in ROM HEME: no new adenopathy, bruises, petechiae PSYCH: no depression, anxiety, agitation PAIN PSYCHIATRIC EXAM: GENERAL: alert, oriented to person, place, time JUDGMENT AND INSIGHT: intact APPEARANCE: neatly groomed DEMEANOR: coooperative, not hostile, mistrustful, preoccupied, or demanding ACTIVITY: normal, not hyperactive or hypoactive, no tremors, tics EYE CONTACT: normal SPEECH: normal, rate, volume, articulation, coherence, spontaneity MOOD: normal, without overt sadness, grief, anxiety, appropriate to situation IDEATION: deferred MEMORY: intact OBJECTIVE PHYSICAL EXAMINATION: see below for new or abnormal findings BP 144/72 Pulse 67 Temp (Src) 97.5 (Oral) Resp 16 SpO2 97% O2 Therapy: Room Air GENERAL: well nourished and developed; no acute distress; alert and oriented x 3; intact judgement and insight HEENT: no evidence of trauma; cranial nerves intact; eyes clear EOMI; no hearing deficits apparent; nasal passages unremarkable; throat and mucous membranes clear NECK: supple without lymphadenopathy; no JVD; no thyromegaly CHEST: clear bilaterally to auscultation; normal chest movement; no rales or rhonchi HEART: regular rate and rhythm, normal S1 and S2, no murmurs, clicks, rubs, or gallops ABDOMEN: soft; nondistended; bowel sounds present; no hepatomegaly; no splenomegaly; no tenderness EXTREMITIES: no evidence of clubbing; no cyanosis; no deformity; no joint effusion; no edema NEURO: cranial nerves intact; no focal deficits; no confusion; no tremor; sensorium normal +drain; motor 5/5 SKIN: no rash; no skin breakdown; no decubitus lesions HEME: no bruising; no adenopathy PSYCH: no evidence of depression; no anxiety; no agitation; no apparent hallucinations DATA: Diagnostic tests reviewed: Most recent labs and imaging results. CBC: Recent Labs 08/24/19141 WBC 12.71* RBC 3.52* HB 11.5* HCT 33.1* PLT 245 MCV 94.0 MCH 32.7* MPV 9.9 RDW 12.5 CMP: Recent Labs 08/24/19141 NA 139 K 4.2 CHLOR 104 CO2 25 BUN 22* CREAT 0.99 GLUC 141* CA 8.5 ANION 14 Heme: No results for input(s): RETICP, ABSRETIC, LD, ROZINA, FE, TIBC, TRANSFERSAT in the last 24 hours. TOX SCREEN No results found for: UAMPP, UBARPP, BENZO, COCAINEMETUR, UOPIPP, UPCPPP, UALCH3, UTHC ACTIVE PROBLEM LIST Special Screening for Malignant Neoplasms, Colon Sebaceous Cyst Diet Orders Placed This Encounter DIET HEART HEALTHY LAST BOWEL MOVEMENT Prior to Admission Opiate Status Continuous and Dependent Outpatient Pain Management: No. Rx at D/C: Yes Rx on chart: No OARRS: 07/08 Oxycodone 5mg # 112 (28ds), 03/22 Neurontin 400mg # 180 (90ds) Pain Regimen/Notes (Opiate use last 24 hrs): Neurontin 400mg x one Percocet 5/325 one x one PLAN: S/p L3-4 Lami and Decompression, Lumbar stenosis/spondylosis 08/23 Opiate dependent prior to admission. Patient used oxycodone 5 mg few tabs daily Percocet 5/325 one to 2 tabs by mouth every 4 hours when necessary Morphine 2-4 mg IV every 3 hours when necessary breakthrough pain Senna S twice a day Per patient request, NicoDerm patch 14 mg daily Continue home regimen gabapentin 400 mg at at bedtime Percocet Rx placed in chart Follow-up PCP after discharge Mela Urrutia MD [facility] THERAPY NTon 08-24-2019 THERAPY NT HNO ID: [id number] Author: Hue Mary Service: Physical Therapy Author Type: Physical Therapist Type: Therapy (PT/OT/Speech/Resp) Filed: 08/24/2019 11:04 AM Note Text: Physical Therapy Evaluation SERVICE DATE: 08/24/2019 SERVICE TIME: 1030 to 1054 ROOM: [id number] Recommended Discharge Disposition: Home PT Recommendations to Nursing: Ambulate with device;To bathroom;In halls;Transfer to/from chair;OOB for Meals;With assist of 1 person Device: Wheeled Walker PT 6 Clicks Score: 18 Precautions/Activity Restrictions: Spine ASSESSMENT : This patient was admitted for back surgery due to radiculopathy, has the past medical history of previous back surgeries but are not impacting current functional level, as well as the social factors complicating the discharge of has steps to enter home and a supportive who can assist. This patient is below baseline functioning of walking without a device, he can walk with the walker safely and walk short distances with out the device. After physical therapy session and instruction he is safe for home wit hno additional acute physical therapy needs. Patient Disposition at Start of Session: OOB in Chair Patient Disposition at End of Session: OOB in Chair Tolerated Full Session Physical Therapy Problem List: Education Deficit;Safety Deficits;Functional Mobility Impairment Patient /Caregiver Goals: Go Home Goals for Plan of Care: Able to perform HEP with: Independent(spine safety and progressive walking at home) Rolling with: Independent Transfer supine to/from sit with: Independent Transfer sit to/from stand with: Independent Ambulate with: Independent Distance: 50 Device: Wheeled Walker Ambulate up and down steps with: Independent Number of steps: 4 Device: Rail Rehab Potential: Excellent PLAN: Treatment Frequency (times per week): Discontinue Therapy Services Reasons Therapy Services Discontinued: Goals met Current admission Treatment Interventions: Education;Strengthenin g;Functional Mobility Training;Balance Training Plan of Care developed with: Patient TREATMENT INTERVENTIONS: Therapy Diagnosis: General symptoms and signs-other Interventions Provided: Evaluation;Gait Training (66652) $ Evaluation-Low (96108) Billed Units: 1 unit History and examination of body systems see assessment section above. This patient?s clinical presentation is stable. The patient required a low complexity evaluation. Gait Training (07532) Treatment Minutes: 10 1 unit Skilled Intervention(s): Instruction in use of equipment, cues for sequence and pattern with the walker. Educated on good walking posture, progressive walking at home, when to use the walker and how to progress off of the walker when his balance is steady, does not feel dizzy and is not reaching for eternal support if he is not using it as he could do this for short distances in his hospital room. Educated on stair safety to climb 1 at time to avoid tripping. Total Timed Code Treatment Minutes: 10 Total Treatment Time (minutes): 24 SUBJECTIVE: Current Hospital Course: Chart reviewed; lumbar L3-4 lami Patient Report: Patient is feeling better than before surgery and is hoping to go home today. Home Environment Patient Lives With: Spouse Assistance Available: 24 Hour Entry To Home: Stairs;With Rail Number Of Stairs Into Home: 3 Equipment Owned: Wheeled Walker Prior Functional Level: Within Functional Limits Prior Functional Level Comments: Pain in right leg when walking over 50 ft OBJECTIVE: CURRENT FUNCTIONAL STATUS: Current Functional Mobility Assist Level Additional Information Rolling Contact Guard Assistance Supine to Sit Contact Guard Assistance Sit to Supine Contact Guard Assistance Scooting Sit to Stand Contact Guard Assistance Stand to Sit Contact Guard Assistance Bed to Chair Toilet/Commode Gait Contact Guard Assistance Gait Device: Wheeled Walker Gait Distance (feet): 120 x 2 Stairs Contact Guard Assistance Stairs Device: Rail Number of Stairs: 4 Curb Step Car Transfer General Gait Deviations: Vale decreased Range of Motion: WFL Strength: WFL JH-HLM: 7: Walk 25 feet or more Please see discipline specific clinical documentation flowsheet for complete details for this therapy evaluation/treatment. SIGNATURE: Hue Mary PT PATIENT NAME: Tavares Melgar DATE: August 24, 2019 TIME: 10:58 AM [facility] ABO/Rh Confirmationon 2018 ABO group Nom (Bld) A Normal [facility] Comment on above: Performed By: #### A MITUL #### [place] [address] RH Type Positive Normal [facility] Comment on above: Performed By: #### A MITUL #### [place] [address] ANES Calvin 08-23-2019 ANES POST HNO ID: [id number] Author: Paulo Karimi Service: Anesthesiology Author Type: Physician Type: Anesthesia PostOp Filed: 08/23/2019 6:13 PM Note Text: POST ANESTHESIA EVALUATION NOTE SERVICE DATE: 08/23/2019 SERVICE TIME: 6:13 PM : 1960 Vitals: 08/23/19 0927 08/23/19 1443 08/23/19 1600 08/23/19 1743 Temp: 37 ?C (98.6 ?F) 36.2 ?C (97.2 ?F) 36.5 ?C (97.7 ?F) 36.5 ?C (97.7 ?F) 08/23/19 1630 08/23/19 1645 08/23/19 1700 08/23/19 174 BP: 131/76 153/84 141/73 144/81 08/23/19 1630 08/23/19 1645 08/23/19 1700 08/23/19 174 Pulse: 94 97 85 88 08/23/19 1630 08/23/19 1645 08/23/19 1700 08/23/19 174 Resp: 16 19 14 16 08/23/19 1630 08/23/19 1645 08/23/19 1700 08/23/19 174 SpO2: 99% 99% 99% 99% Validated Vital Signs: Yes POST ANES STATUS: No apparent anesthetic complications. The patient is appropriately hydrated with stable respiratory and cardiovascular status. Patient has safe and adequate airway control. The patient has appropriate pain relief and no significant post operative nausea or vomiting. The patient has achieved baseline mental status. Intra-Operative Events: No Significant Anesthesia Events Further assessment by Anesthesia Service: None Other Remarks: SIGNATURE: Paulo Karimi MD PATIENT NAME: Tavares Melgar DATE: August 23, 2019 TIME: 6:13 PM PAGER/CONTACT #: [facility] ANES PREOPon 08-23-2019 ANES PREOP HNO ID: [id number] Author: Saul Witt Service: Anesthesiology Author Type: Physician Type: Anesthesia PreOp Filed: 08/23/2019 10:45 AM Note Text: ANESTHESIOLOGY DAY OF SURGERY NOTE SERVICE DATE: 08/23/2019 SERVICE TIME: 10:44 AM : 1960 Procedure(s) (LRB): LUMBAR 3-4 LAMINECTOMY AND DECOMPRESSION (N/A) Surgeon(s): Jannet Richter Estimated body mass index is 22.4 kg/m? as calculated from the following: Height as of 08/08/19: 170.2 cm (5' 7). Weight as of 08/08/19: 64.9 kg (143 lb). Most recent hematocrit and potassium results: No results found for this basename: HCT,HEMATOCRIT,K,POTAS SIUM ANES DOS/PREOP NOTE: Vitals: 08/23/19 0927 BP: 153/73 Pulse: 88 Resp: 18 Temp: 37 ?C (98.6 ?F) SpO2: 99% ACTIVE PROBLEM LIST Special Screening for Malignant Neoplasms, Colon Sebaceous Cyst PAST MEDICAL HISTORY Diagnosis Date - Carotid artery disease (HCC) - Emphysema lung (HCC) - Essential hypertension - Lumbar stenosis - SLAC (scapholunate advanced collapse) of wrist PAST SURGICAL HISTORY Procedure Laterality Date - APPENDECTOMY 1969 - CARPAL TUNNEL 2010 Bilateral - LAMINECTOMY,LUMBAR 1987 - REM LESION FACE,EAR,EYE 0.6-1CM Right 05/28/16 Exc. right ear lobe nick cyst - REPAIR ROTATOR CUFF,ACUTE Right 2012 decompression FAMILY HISTORY Problem Relation Age of Onset - Cancer Father Social History: Social History Tobacco Use - Smoking status: Current Every Day Smoker Packs/day: 0.50 Years: 30.00 Pack years: 15.00 - Smokeless tobacco: Never Used Substance Use Topics - Alcohol use: Yes Comment: Occasional - Drug use: No No current facility-administered medications on file prior to encounter. Current Outpatient Medications on File Prior to Encounter: gabapentin (NEURONTIN) 400 mg capsule Take 400 mg by mouth every 12 hours. oxyCODONE IR (ROXICODONE) 5 mg immediate release tablet Take 5 mg by mouth four times daily as needed. sildenafil (REVATIO) 20 mg tablet Take 20 mg by mouth as needed. Losartan-Hydrochloroth iazide (HYZAAR) 100-12.5 mg per tablet Take 1 tablet by mouth once daily. amLODIPine (NORVASC) 5 mg tablet Take 5 mg by mouth once daily. POTASSIUM ORAL Take 10 mEq by mouth once daily. MULTIVITAMIN ORAL Take by mouth once daily. Sodium,Potassium,ANDMa g Sulfates (SUPREP) 17.5-3.13-1.6 gram SolR Take 1 Package by mouth as directed. No current facility-administered medications for this encounter. Allergies: ALLERGIES Allergen Reactions - Lisinopril Cough DOS EXAM: Adequate NPO status: Yes Anesthetic risks, benefits, alternatives, personnel and consent discussed: Yes Patient agrees to proceed: Yes Previous Anesthesia: No history of adverse event. Airway Assessment: MP 1; Neck ROM: Full ROM without neurologic symptoms; Airway Evaluation: No significant abnormalities Symptoms of Sleep Apnea: Hypertension, Age over 50 (59 year old) and Male gender Dentition: Teeth intact Additional Physical Exam: Lungs: Patient health status unchanged since recent history and physical. See history and physical for exam findings. Cardiac: Patient health status unchanged since recent history and physical. See history and physical for exam findings. Additional Pertinent Findings: N/A Blood Products: Not anticipated for this procedure. Anesthetic Plan: General, Standard ASA Monitors Pain Management Plan: Parenteral or Oral ASA Class: 2 Other Medical Problems: None Chronic Beta Anton medication administered within 24 hours: N/A I have interviewed and examined the patient. I have reviewed the medical record and/or the pre-anesthesia evaluation, pertinent labs, and test results. Significant changes in the patient's condition since the History and Physical, not otherwise documented in primary service progress notes: No This contains updated information obtained within 48 hours of Surgery/Procedure. SIGNATURE: Saul Mazariegos MD PATIENT NAME: Tavares Melgar DATE: August 23, 2019 TIME: 10:44 AM CSN: [id number] Normal [facility] Activated PTTon 08-23-2019 aPTT Coag (Bld) [Time] 28.0 s Normal 23.0-32.4 [facility] Comment on above: Result Comment: Unfr actionated Heparin Therapeutic Ranges: Standard Heparin Nomogram: 53 to 78 seconds (anti-Xa level of 0.3 to 0.7 U/mL) Low Dose/ACS Nomogram: 49 to 67 seconds (anti-Xa level of 0.2 to 0.5 U/mL) Stroke Treatment Nomogram: 49 to 67 seconds (anti-Xa level of 0.2 to 0.5 U/mL) Note: The APTT therapeutic range has been determined for the current lot of laboratory APTT reagent in use throughout the [facility]. Performed By: #### A PTT #### [place] [address] CONSULTon 08-23-2019 CONSULT HNO ID: [id number] Author: Mela Urrutia Service: Pain Management Author Type: Physician Type: Consults Filed: 08/23/2019 5:33 PM Note Text: Tavares Melgar [id number] 1960 PAIN MANAGEMENT TEAM PAIN DIAGNOSIS: Lumbar 3/4 Lami and Decompression, Lumbar stenosis/spondylosis Pain Description: Patient seen in PACU, resting comfortably. Complaint some pain at incision site and drain site. Describes pain as a soreness; no radicular symptoms INTERVAL HPI: SUBJECTIVE: HPI: This is a 59 year old male with hx prior lumbar laminectomy 1988 underwent 08/23 L3-4 lami/decompression due to advanced spondylosis with disc degeneration causing moderate/severe canal and foraminal stenosis with radiculopathy. Prior to admission patient was taking oxycodone 5 mg 2-3 tabs daily and Neurontin 400 mg at bedtime by his PCP. 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 He worked yesterday. He lives with his . He smokes half pack per day he drinks a few beers daily he denies marijuana or any other illicit meds. Review of [place] Automated RX Reporting System shows Summary Total Prescriptions: 11 Total Prescribers: 1 Total Pharmacies: 1 Narcotics* ?(excluding buprenorphine) Current Qty: 0 Current MME/day: 0.00 30 Day Avg MME/day: 12.00 Sedatives* Current Qty: 0 Current LME/day: 0.00 30 Day Avg LME/day: 0.00 Buprenorphine* Current Qty: 0 Current mg/day: 0.00 30 Day Avg mg/day: 0.00 Rx Data Total Prescriptions: 11 ?? PRESCRIPTIONS Total Prescriptions: 11 Total Private Pay: 0 Fill Date ID Written Drug Qty Days Prescriber Rx # Pharmacy Refill Daily Dose * Pymt Type APPLICATION DEVELOPMENT LIAISON 07/08/2019 1 07/08/2019 Oxycodone Hcl 5 MG Tablet 112.00 28 Ma Butch [id number] [facility] ([id number]) 0 30.00 MME [facility] [place] 06/06/2019 1 06/06/2019 Oxycodone Hcl 5 MG Tablet 112.00 28 Ma Butch [id number] [facility] (5571) 0 30.00 [facility] [place] 03/22/2019 1 07/15/2018 Gabapentin 400 MG Capsule 180.00 90 Ma Butch [id number] [facility] ([id number]) 2 [facility] [place] 03/21/2019 1 03/21/2019 Oxycodone Hcl 5 MG Tablet 112.00 28 Ma Butch [id number] [facility] (5563) 0 30.00 MME Comm [facility] 03/09/2019 1 03/09/2019 Oxycodone Hcl 5 MG Tablet 28.00 7 Ma Butch [id number] [facility] (5563) 0 30.00 MME Comm [facility] 01/19/2019 1 01/19/2019 Oxycodone Hcl 5 MG Tablet 12.00 3 Ma Butch [id number] [facility] (5563) 0 30.00 MME Comm [facility] 12/28/2018 1 12/28/2018 Tramadol Hcl 50 MG Tablet 60.00 30 Ma Butch [id number] [facility] (5563) 0 10.00 MME Comm [facility] 12/14/2018 1 12/14/2018 Tramadol Hcl 50 MG Tablet 15.00 15 Ma Butch [id number] [facility] (5563) 0 5.00 MME Comm [facility] 10/25/2018 1 07/15/2018 Gabapentin 400 MG Capsule 180.00 90 Ma Butch [id number] [facility] (5563) 1 Comm [facility] 07/15/2018 1 07/15/2018 Gabapentin 400 MG Capsule 180.00 90 Ma Butch [id number] [facility] (5563) 0 Comm [facility] 11/03/2017 1 02/02/2017 Gabapentin 400 MG Capsule 180.00 90 Ma Butch [id number] [facility] (5563) 2 Comm [facility] MEDICATIONS Current Facility-Administered Medications Medication Dose Route Frequency Provider Last Rate Last Dose - lactated ringers infusion 125 mL/hr INTRAVENOUS CONTINUOUS Saul Reneeioccdougie - meperidine (PF) 12.5 mg injection (DEMEROL) 12.5 mg INTRAVENOUS q 10 MIN PRN Saul Reneeioccio - ipratropium-albuterol 3 mL nebulizer solution (DUONEB) 3 mL INHALATION PRN Saul Witt - fentaNYL 50 mcg/mL 50 mcg injection (SUBLIMAZE) 50 mcg INTRAVENOUS q 5 MIN PRN Saul Witt - HYDROmorphone HCl 0.5 mg injection (DILAUDID) 0.5 mg INTRAVENOUS q 10 MIN PRN Saul Witt Medications Prior to Admission: gabapentin (NEURONTIN) 400 mg capsule Take 400 mg by mouth every 12 hours. Disp: Rfl: 08/22/2019 at Unknown time oxyCODONE IR (ROXICODONE) 5 mg immediate release tablet Take 5 mg by mouth four times daily as needed. Disp: Rfl: 08/22/2019 at Unknown time sildenafil (REVATIO) 20 mg tablet Take 20 mg by mouth as needed. Disp: Rfl: Losartan-Hydrochloroth iazide (HYZAAR) 100-12.5 mg per tablet Take 1 tablet by mouth once daily. Disp: Rfl: 08/22/2019 at Unknown time amLODIPine (NORVASC) 5 mg tablet Take 5 mg by mouth once daily. Disp: Rfl: 08/23/2019 at 0500 POTASSIUM ORAL Take 10 mEq by mouth once daily. Disp: Rfl: 08/23/2019 at 0500 MULTIVITAMIN ORAL Take by mouth once daily. Disp: Rfl: Past Week at Unknown time Sodium,Potassium,ANDMa g Sulfates (SUPREP) 17.5-3.13-1.6 gram SolR Take 1 Package by mouth as directed. Disp: 2 Package Rfl: 0 08/23/2019 at 0500 PAST MEDICAL HISTORY PAST MEDICAL HISTORY Diagnosis Date - Carotid artery disease (HCC) - Emphysema lung (HCC) - Essential hypertension - Lumbar stenosis - SLAC (scapholunate advanced collapse) of wrist PAST SURGICAL HISTORY PAST SURGICAL HISTORY Procedure Laterality Date - APPENDECTOMY 1969 - CARPAL TUNNEL 2010 Bilateral - LAMINECTOMY,LUMBAR 1987 - REM LESION FACE,EAR,EYE 0.6-1CM Right 05/28/16 Exc. right ear lobe nick cyst - REPAIR ROTATOR CUFF,ACUTE Right 2011 decompression ALLERGIES Allergen Reactions - Lisinopril Cough FAMILY HISTORY Problem Relation Age of Onset - Cancer Father Social History Tobacco Use - Smoking status: Current Every Day Smoker Packs/day: 0.50 Years: 30.00 Pack years: 15.00 - Smokeless tobacco: Never Used Substance Use Topics - Alcohol use: Yes Comment: Occasional - Drug use: No Social History Social History Narrative Not on file REVIEW OF SYSTEMS: all of the following reviewed and negative except as noted below: GENERAL: no fever, chills, sweats, weight loss, fatigue, generalized weakness HEENT: no headache, vision changes, eye discomfort, hearing change, ear discomfort, sinus pain, nasal discharge or congestion, oral lesions, soreness, dental problem NECK: no adenopathy, discomfort, change in ROM CHEST: no shortness of breath, dyspnea on exertion, wheezing, cough, sputum production or chest pain HEART: no chest pain, palpitations, syncope ABDOMEN: no nausea, vomiting, constipation, diarrhea, abdominal pain : no dysuria, urgency, frequency, history of stones, incontinence NEURO: no confusion or alteration in consciousness, slurred speech, seizure, focal weakness;see HPI EXTREMITIES: no new pain, edema, change in ROM HEME: no new adenopathy, bruises, petechiae PSYCH: no depression, anxiety, agitation PAIN PSYCHIATRIC EXAM: GENERAL: alert, oriented to person, place, time JUDGMENT AND INSIGHT: intact APPEARANCE: neatly groomed DEMEANOR: coooperative, not hostile, mistrustful, preoccupied, or demanding ACTIVITY: normal, not hyperactive or hypoactive, no tremors, tics EYE CONTACT: normal SPEECH: normal, rate, volume, articulation, coherence, spontaneity MOOD: normal, without overt sadness, grief, anxiety, appropriate to situation IDEATION: deferred MEMORY: intact OBJECTIVE PHYSICAL EXAMINATION: see below for new or abnormal findings BP 123/74 Pulse 80 Temp 97.2 Resp 17 SpO2 97% O2 Therapy: Nasal Cannula, Liters: 3 GENERAL: well nourished and developed; no acute distress; alert and oriented x 3; intact judgement and insight HEENT: no evidence of trauma; cranial nerves intact; eyes clear EOMI; no hearing deficits apparent; nasal passages unremarkable; throat and mucous membranes clear NECK: supple without lymphadenopathy; no JVD; no thyromegaly CHEST: clear bilaterally to auscultation; normal chest movement; no rales or rhonchi HEART: regular rate and rhythm, normal S1 and S2, no murmurs, clicks, rubs, or gallops ABDOMEN: soft; nondistended; bowel sounds present; no hepatomegaly; no splenomegaly; no tenderness EXTREMITIES: no evidence of clubbing; no cyanosis; no deformity; no joint effusion; no edema NEURO: cranial nerves intact; no focal deficits; no confusion; no tremor; sensorium normal +drain; motor 5/5 SKIN: no rash; no skin breakdown; no decubitus lesions HEME: no bruising; no adenopathy PSYCH: no evidence of depression; no anxiety; no agitation; no apparent hallucinations DATA: Diagnostic tests reviewed: Most recent labs and imaging results. CBC: No results for input(s): WBC, RBC, HB, HCT, PLT, MCV, MCH, MPV, RDW in the last 24 hours. CMP: No results for input(s): NA, K, CHLOR, CO2, BUN, CREAT, GLUC, TPROT, CA, MG, ALBUMIN, TBILI, ALKPHOS, ALT, AST, ANION in the last 24 hours. Heme: No results for input(s): RETICP, ABSRETIC, LD, ROZINA, FE, TIBC, TRANSFERSAT in the last 24 hours. TOX SCREEN No results found for: UAMPP, UBARPP, BENZO, COCAINEMETUR, UOPIPP, UPCPPP, UALCH3, UTHC ACTIVE PROBLEM LIST Special Screening for Malignant Neoplasms, Colon Sebaceous Cyst Diet No diet orders placed this encounter LAST BOWEL MOVEMENT Prior to Admission Opiate Status Continuous and Dependent Outpatient Pain Management: No. Rx at D/C: Yes Rx on chart: No OARRS: 07/08 Oxycodone 5mg # 112 (28ds), 03/22 Neurontin 400mg # 180 (90ds) Pain Regimen/Notes (Opiate use last 24 hrs): None in PACU PLAN: S/p Lumbar 3/4 Lami and Decompression, Lumbar stenosis/spondylosis Opiate dependent prior to admission. Patient used oxycodone 5 mg few tabs daily Percocet 5/325 one to 2 tabs by mouth every 4 hours when necessary Morphine 2-4 mg IV every 3 hours when necessary breakthrough pain Senna S twice a day Per patient request, NicoDerm patch 14 mg daily Continue home regimen gabapentin 400 mg at at bedtime We will reevaluate in the morning. Patient goal home soon. Will provide oxycodone prescription at discharge Follow-up PCP after discharge Thank you for this consult Mela Urrutia MD [facility] NURSING PROGon 08-23-2019 NURSING PROG HNO ID: [id number] Author: Melly (Rn) ARELI Bearden Service: Nursing Author Type: Registered Nurse Type: Nursing Progress Note Filed: 08/23/2019 5:03 PM Note Text: Pain management At Bedside For Evaluation. Patient Denies Pain At This Time [facility] OPERATIVE NOon 08-23-2019 OPERATIVE NO HNO ID: [id number] Author: Jannet Richter Service: Neurosurgery Author Type: Physician Type: Operative Report Filed: 08/25/2019 12:56 PM Note Text: [facility] - Operative Report TAVARES MELGAR : 1960 AGE: 59. SEX: M PATIENT TYPE: A [facility]: [facility] LOCATION: [id number] ATTENDING PHYSICIAN: JANNET RICHTER CSN NUMBER: [id number] DATE OF SURGERY/PROCEDURE: 08/23/2019 INCISION/PROCEDURE START TIME: 12:17 PM INCISION CLOSE/PROCEDURE END TIME: 2:32 PM PREOPERATIVE DIAGNOSIS: Symptomatic spinal stenosis, L2 through L4. POSTOPERATIVE DIAGNOSIS: Symptomatic spinal stenosis, L2 through L4. SURGEON: Jannet Richter M.D., PhD SURVEY COMPILER: No Additional Staff SURGERY/PROCEDURE: Decompressive bilateral laminectomy, foraminotomy, L2 through L4. ANESTHESIA: General endotracheal anesthesia. ESTIMATED BLOOD LOSS: Less than 100 cc. FINDINGS: Severe ligamentum hypertrophy with lateral recess canal stenosis, L2 through L4. DRAINS: Perforated JAY. COMPLICATIONS: None. DISPOSITION: Stable to the PACU. INDICATION FOR PROCEDURE: The patient is a 59-year-old gentleman who presented with signs and symptoms and radiographic evidence of severe lumbar stenosis. Given his progression of symptoms recently as well as his MRI, it was determined that the patient would benefit from the aforementioned procedure. SURGICAL RISKS: The patient was apprised of all objectives, benefits, risks, and potential complications of the procedure including, but not limited to worsening of current status, possible need for further procedure, risk of infection, headache, CSF leak, possible injury resulting in paralysis, hemorrhage, stroke, loss of language function, coma, and even . No assurance was given as to whether symptoms would improve following the procedure. Informed consent was obtained and secured in the chart after the patient voiced understanding of these risks and decided to proceed with the operation. DESCRIPTION OF PROCEDURE: The patient was transferred to the operating room. He was given preoperative IV antibiotics. He was subsequently sedated and intubated without difficulty by Anesthesia Service. Eyes were taped shut and a Shira Hugger was placed over the upper body to maintain control of core body temperature. The patient was positioned prone on a Darnell table with a Ed frame with all pressure points carefully padded. Operative technique. After a formal time-out, the patient was prepped and draped in standard sterile fashion. C-arm fluoroscopy was draped and brought into the operative field and an L2 through L4 level was identified. Local anesthetic was infiltrated along the line of skin incision, which was subsequently opened sharply with a scalpel. Further dissection was carried down in a subperiosteal fashion over the posterior bony elements of L2 through L4. The space was then again confirmed using fluoroscopy and then a final radiology attending confirmation by Dr. Daniel. Once this confirmation was made, then full-thickness laminectomy was carried out from L2 through L4 using a combination of Leksell rongeurs and high-speed drills. This revealed a significantly hypertrophied layer of ligamentum flavum. In addition, a note was made of the hypertrophy and facet arthropathy bilaterally at L2 through L4. Using blunt dissection, we were able to penetrate the ligamentum flavum and then using a combination of Kerrison rongeurs, the ligamentum flavum was excised carefully paying exquisite attention to attempt not to injure the underlying dura. Once the ligamentum flavum was excised, the dura appeared to be extremely well decompressed. We then carried out our decompression laterally into the foramina using combination of various sized Kerrison rongeurs. This decompressed the foramina bilaterally. Once this was done, both the dura and the foramen appeared to be adequately decompressed. A [place] elevator was able to be passed without significant obstruction in the lateral foramen bilaterally. After which, we then copiously irrigated, placed vancomycin powder and an epidural drain. The skin and the subcutaneous tissue were closed in a stepwise fashion as well as the musculature using combination of Vicryl sutures. The skin was then approximated using 4-0 Monocryl in a subcuticular fashion after which Exofin was applied to the clean wound. Lastly, a sterile dressing was placed over the wound. At the end the procedure, all sponge count, needle counts, and instrument counts were correct x2. The patient tolerated the procedure well without any complications. Jannet Richter M.D., PhD KO:[id number] /[id number] Normal [facility] Protimeon 08-23-2019 INR Coag (PPP) [Relative time] 0.93 {INR} Normal 0.90-1.30 [facility] Comment on above: Result Comment: Radha min K Antagonist (VKA) Therapeutic Range: INR 2 to 3 (Target INR of 2.5) Note: For patients treated with VKA drugs, such as warfarin, the [place] [employer] 2012 Guideline recommends a therapeutic INR range of 2 to 3 (target INR of 2.5). This recommendation includes high-risk patients with antiphospholipid syndrome with previous arterial or venous thromboembolism, current-generation mechanical or bioprosthetic aortic heart valve replacement. Note: Patients with mechanical aortic valve replacement and additional risk factors for thromboembolic events (atrial fibrillation, previous thromboembolism, LV dysfunction, hypercoagulable conditions) or an older generation mechanical AVR (i.e., ball in-Cage) or any mechanical MVR should have a INR therapeutic range of 2.5 to 3.5 target INR of 3). Alex GH, et al. Chest 2012; 141:7S-47S Eleni RICO et al. [facility] 2017; 70: 252-289 Performed By: #### P T #### [place] [address] PT Coag (PPP) [Time] 10.1 s Normal 9.7-13.0 [facility] Comment on above: Performed By: #### P T #### [place] [address] Rapid HIV Ab.on 08-23-2019 P24 Antigen NON-REACTIVE Normal [facility] Comment on above: Result Comment: A te st result that is reactive for HIV-1 p24 antigen in the absence of reactivity for HIV-1 or HIV-2 antibodies may indicate an acute HIV-1 infection. Performed By: #### R HIV #### [place] [address] Rapid HIV Ab NON-REACTIVE Normal [facility] Comment on above: Result Comment: A no n-reactive result indicates that HIV-1 and/or HIV-2 antibodies have not been detected. However, it does not preclude previous exposure or infection with either HIV-1 and/or HIV-2. Performed By: #### R HIV #### [place] [address] Type and Screenon 08-23-2019 ABO group Nom (Bld) A Normal [facility] Comment on above: Performed By: #### T &S #### [facility] [address] [address] Comment See Below Normal [facility] Comment on above: Result Comment: Scre en &/or Xmatch expires in 3 days at 12 midnight. Redraw patient at that time. Performed By: #### T &S #### [facility] [address] [address] RH Type Positive Normal [facility] Comment on above: Performed By: #### T &S #### [facility] [address] [address] XR CHEST 2V FRONTAL/LATon XR CHEST 2V FRONTAL/LAT * * *Final Report* * * DATE OF EXAM: Aug 23 2019 9:14AM [id number] - XR CHEST 2V FRONTAL/LAT / PROCEDURE REASON: Preoperative assessment * * * * Physician Interpretation * * * * EXAMINATION: CHEST RADIOGRAPH (2 VIEW FRONTAL & LATERAL) CLINICAL HISTORY: Preoperative assessment MQ: XC2_5 Comparison: None RESULT: Lines, tubes, and devices: None. Lungs and pleura: No consolidation. No lung mass. No pleural effusion. Cardiomediastinal silhouette: Normal cardiomediastinal silhouette. Other: . IMPRESSION: No acute radiographic abnormality. House Supervisor: BRITTNEY Transcribe Date/Time: Aug 23 2019 10:36A Dictated by : EVARISTO GERMAN MD This examination was interpreted and the report reviewed and electronically signed by: EVARISTO GERMAN MD on Aug 23 2019 10:38AM EST Normal [facility] XR VERIFY LEVEL [id number] 08-23-2019 XR VERIFY LEVEL L-SPINE-NB * * *Final Report* * * DATE OF EXAM: Aug 23 2019 12:35PM [id number] - XR VERIFY LEVEL L-SPINE-NB / PROCEDURE REASON: LUMBAR LAMINECTOMY * * * * Physician Interpretation * * * * XR VERIFY LEVEL L-SPINE-NB HISTORY: 59 years old Clinical information: LUMBAR LAMINECTOMY LUMBAR 3-4 LAMINECTOMY AND DECOMPRESSION, LUMBAR SPINE LEVEL VERIFICATION TECHNIQUE: Images: XR VERIFY LEVEL L-SPINE-NB Comparison: 05/04/2019 MRI from an outside center. RESULT/ impression: Surgical instruments are positioned dorsal at the L2-3 level. This information was communicated to the surgeon Dr. Dumont via the surgical nurse Sarah on 08/23/2019 at 1240 hours House Supervisor: BRITTNEY Transcribe Date/Time: Aug 23 2019 12:39P Dictated by : JACK BRIGHT MD This examination was interpreted and the report reviewed and electronically signed by: JACK BRIGHT MD on Aug 23 2019 12:41PM EST Normal [facility] NURSING PROGon 08-22-2019 NURSING PROG HNO ID: [id number] Author: Debbie (Rn) ARELI Ayers Service: ? Author Type: Registered Nurse Type: Nursing Progress Note Filed: 08/22/2019 10:45 AM Note Text: Verified with Dr Richter's office that CXR and PT/PTT to be done day of surgery Normal [facility] HOSPon 08-12-2019 HOSP Patient:Tavares Melgar MRN: Height:5' 7(1.702 m) Weight:143 lb (64.864 kg) Outpatient Medications as of 08/23/19: gabapentin (NEURONTIN) 400 mg capsule oxyCODONE IR (ROXICODONE) 5 mg immediate release tablet sildenafil (REVATIO) 20 mg tablet Losartan-Hydrochloroth iazide (HYZAAR) 100-12.5 mg per tablet amLODIPine (NORVASC) 5 mg tablet POTASSIUM ORAL MULTIVITAMIN ORAL Sodium,Potassium,ANDMa g Sulfates (SUPREP) 17.5-3.13-1.6 gram SolR Admission/Clinic Administered Medications as of 08/23/19: Patient has no admission medications. Problem List: Special screening for malignant neoplasms, colon [Z12.11] Sebaceous cyst [L72.3] Allergies: Lisinopril Date Verified: 08/23/19 Lab Values No results within the last 30 days for the following basenames: K,HCT Progress Notes ([facility]): Jannet Richter MD PHd 08/08/2019 9:38 AM Signed OUTPATIENT ADULT NEUROSURGICAL CONSULTATION Dear Tavares Fernandez Cristina Melgar presented for follow up in the adult neurosurgery clinic on 08/08/2019 for the problem of lumbar radiculopathy. Although his history is well known to you, please allow me to reiterate it for the purpose of my medical record. Informant: History obtained from patient. Chief Complaint: Back pain History of Present Illness : Tavares Melgar is a 59 year old left-handed male with [place] [address] Cortes who presents today for a new patient evaluation. Today he has complaints of lower back pain that radiates into his right hip, down his posterior thigh, stopping at his ankle, with numbness in the top of his right foot. He states due to these symptoms he is frequently having to stop when walking. He states these symptoms have been ongoing for 4-5 months with no acute event causing them. He has tried physical therapy (most recent date: 2 months ago), opioids, and oral steroids without relief. He does endorse smoking .5 pk/day. His imaging reveals lumbar spondylosis with disc degeneration worse at L3-4 causing moderate to severe canal and foraminal stenosis. He is here for evaluation and plan of care. Past Medical and Surgical History: No past medical history on file. PAST SURGICAL HISTORY Procedure Laterality Date - APPENDECTOMY 1969 - CARPAL TUNNEL 2011 Bilateral - LAMINECTOMY,LUMBAR 1987 - REM LESION FACE,EAR,EYE 0.6-1CM Right 05/28/16 Exc. right ear lobe nick cyst - REPAIR ROTATOR CUFF,ACUTE 2012 decompression Current Outpatient Medications: Current Outpatient Medications on File Prior to Visit: Losartan-Hydrochloroth iazide (HYZAAR) 100-12.5 mg per tablet Take 1 tablet by mouth once daily. amLODIPine (NORVASC) 5 mg tablet Take 5 mg by mouth once daily. POTASSIUM ORAL Take by mouth once daily. MULTIVITAMIN ORAL Take by mouth once daily. Sodium,Potassium,ANDMa g Sulfates (SUPREP) 17.5-3.13-1.6 gram SolR Take 1 Package by mouth as directed. No current facility-administered medications on file prior to visit. ALLERGIES Allergen Reactions - Lisinopril Cough REVIEW OF SYSTEMS Review of Systems Constitutional: Negative for chills, fatigue and fever. HENT: Negative for congestion, ear discharge, ear pain and sinus pressure. Eyes: Negative for discharge and itching. Respiratory: Negative for cough, shortness of breath and wheezing. Cardiovascular: Negative for chest pain, palpitations and leg swelling. Gastrointestinal: Negative for constipation, diarrhea and nausea. Endocrine: Negative for cold intolerance and heat intolerance. Genitourinary: Negative for difficulty urinating, frequency and urgency. Musculoskeletal: Positive for back pain and gait problem. Negative for neck pain. Skin: Negative for rash and wound. Allergic/Immunologic: Negative for environmental allergies and food allergies. Neurological: Positive for weakness and numbness. Negative for dizziness. Hematological: Does not bruise/bleed easily. Psychiatric/Behavioral : Negative for agitation. The patient is not nervous/anxious. OBJECTIVE: BP 147/85 Pulse 83 Resp 17 Ht 5' 7 (1.70m) Wt 143 lb (64.9kg) SpO2 97% BMI 22.39 kg/(m2). Physical Exam Constitutional: He is oriented to person, place, and time and well-developed, well-nourished, and in no distress. HENT: Head: Normocephalic. Eyes: Pupils are equal, round, and reactive to light. Neck: Normal range of motion. Pulmonary/Chest: Effort normal. Neurological: He is alert and oriented to person, place, and time. Reflex Scores: Patellar reflexes are 1+ on the right side and 1+ on the left side. Skin: Skin is warm and dry. Psychiatric: His speech is normal. Affect normal. Neurological Exam Mental Status Alert. Recent and remote memory are intact. Speech is normal. Language is fluent with no aphasia. Attention and concentration are normal. Cranial Nerves CN III, IV, : Pupils equal round and reactive to light bilaterally. Motor Right Left Hip flexion 5 5 Knee flexion 5 5 Knee extension 5 5 Plantarflexion 4 5 Dorsiflexion 4 5 Reflexes Right Left Patellar 1+ 1+ Right pathological reflexes: Ankle clonus absent. Left pathological reflexes: Ankle clonus absent. Gait Casual gait is normal including stance, stride, and arm swing. Normal toe walking. Normal heel walking. Tandem gait abnormality: Patient unable to perform tandem gait. Frequently taking steps out for balance.. MEDICAL DECISION MAKING DATA REVIEW: See HPI. Jannet Richter MD PHd [facility] STAFF PHYSICIAN NOTE OF PERSONAL INVOLVEMENT IN CARE I have reviewed the history AND physical obtained and documented by the nurse and I personally participated in the gutierrez components. I have discussed the case and management of the patient's care. The following comments revise or confirm relevant gutierrez components of the note. IMPRESSION In summary, Tavares Melgar is a 59 year old man with symptomatic lumbar spondylosis with right lower extremity radiculopathy secondary to moderately severe lumbar stenosis at L3-4. As such we discussed his diagnosis as well as operative and nonoperative management. Given the degree of stenosis as well as his clinical symptoms, I think he would be a good candidate for decompression at this level. We discussed this in detail and he provided his written consent for the procedure. I answered all question in detail, and patient voiced understanding, agreement and appreciation of the diagnosis, options and recommendations discussed. TREATMENT OPTIONS AND RISKS: I have discussed the management options and there respective risks and benefits with the patient. Greater than 50% of the clinic visit was spent in direct [id number] time counseling patient/coordinating care for total time spent of 30 minutes. Thank you for the opportunity to participate in Tavares Melgar's care. If I can answer any additional questions, I would be pleased to do so. Sincerely, CC: These final recommendations will be communicated back to the requesting physician/primary care physician by way of shared medical record Previous Version [facility] CNCOon 08-11-2019 CNCO Letter Text [facility] CNOVon 08-08-2019 CNOV Office Visit ([facility] ) TAVARES MELGAR ([id number]) 1960 M Date Time Provider Department 08/08/19 9:00 AM JANNET RICHTER During your visit today, we recorded the following information about you: Pulse Respiration Blood pressure Weight 83/minute 17/minute 147/85 64.9 kg Height 1.702 m Jannet Richter MD PHd 08/08/2019 9:38 AM Signed OUTPATIENT ADULT NEUROSURGICAL CONSULTATION Dear Dr. Katia Hays, Tavares Melgar presented for follow up in the adult neurosurgery clinic on 08/08/2019 for the problem of lumbar radiculopathy. Although his history is well known to you, please allow me to reiterate it for the purpose of my medical record. Informant: History obtained from patient. Chief Complaint: Back pain History of Present Illness : Tavares Melgar is a 59 year old left-handed male with a hx [place] [address] Cortes who presents today for a new patient evaluation. Today he has complaints of lower back pain that radiates into his right hip, down his posterior thigh, stopping at his ankle, with numbness in the top of his right foot. He states due to these symptoms he is frequently having to stop when walking. He states these symptoms have been ongoing for 4-5 months with no acute event causing them. He has tried physical therapy (most recent date: 2 months ago), opioids, and oral steroids without relief. He does endorse smoking .5 pk/day. His imaging reveals lumbar spondylosis with disc degeneration worse at L3-4 causing moderate to severe canal and foraminal stenosis. He is here for evaluation and plan of care. Past Medical and Surgical History: No past medical history on file. PAST SURGICAL HISTORY Procedure Laterality Date - APPENDECTOMY 1969 - CARPAL TUNNEL 2010 Bilateral - LAMINECTOMY,LUMBAR 1987 - REM LESION FACE,EAR,EYE 0.6-1CM Right 05/28/16 Exc. right ear lobe nick cyst - REPAIR ROTATOR CUFF,ACUTE 2012 decompression Current Outpatient Medications: Current Outpatient Medications on File Prior to Visit: Losartan-Hydrochloroth iazide (HYZAAR) 100-12.5 mg per tablet Take 1 tablet by mouth once daily. amLODIPine (NORVASC) 5 mg tablet Take 5 mg by mouth once daily. POTASSIUM ORAL Take by mouth once daily. MULTIVITAMIN ORAL Take by mouth once daily. Sodium,Potassium,ANDMa g Sulfates (SUPREP) 17.5-3.13-1.6 gram SolR Take 1 Package by mouth as directed. No current facility-administered medications on file prior to visit. ALLERGIES Allergen Reactions - Lisinopril Cough REVIEW OF SYSTEMS Review of Systems Constitutional: Negative for chills, fatigue and fever. HENT: Negative for congestion, ear discharge, ear pain and sinus pressure. Eyes: Negative for discharge and itching. Respiratory: Negative for cough, shortness of breath and wheezing. Cardiovascular: Negative for chest pain, palpitations and leg swelling. Gastrointestinal: Negative for constipation, diarrhea and nausea. Endocrine: Negative for cold intolerance and heat intolerance. Genitourinary: Negative for difficulty urinating, frequency and urgency. Musculoskeletal: Positive for back pain and gait problem. Negative for neck pain. Skin: Negative for rash and wound. Allergic/Immunologic: Negative for environmental allergies and food allergies. Neurological: Positive for weakness and numbness. Negative for dizziness. Hematological: Does not bruise/bleed easily. Psychiatric/Behavioral : Negative for agitation. The patient is not nervous/anxious. OBJECTIVE: BP 147/85 Pulse 83 Resp 17 Ht 5' 7 (1.70m) Wt 143 lb (64.9kg) SpO2 97% BMI 22.39 kg/(m2). Physical Exam Constitutional: He is oriented to person, place, and time and well-developed, well-nourished, and in no distress. HENT: Head: Normocephalic. Eyes: Pupils are equal, round, and reactive to light. Neck: Normal range of motion. Pulmonary/Chest: Effort normal. Neurological: He is alert and oriented to person, place, and time. Reflex Scores: Patellar reflexes are 1+ on the right side and 1+ on the left side. Skin: Skin is warm and dry. Psychiatric: His speech is normal. Affect normal. Neurological Exam Mental Status Alert. Recent and remote memory are intact. Speech is normal. Language is fluent with no aphasia. Attention and concentration are normal. Cranial Nerves CN III, IV, : Pupils equal round and reactive to light bilaterally. Motor Right Left Hip flexion 5 5 Knee flexion 5 5 Knee extension 5 5 Plantarflexion 4 5 Dorsiflexion 4 5 Reflexes Right Left Patellar 1+ 1+ Right pathological reflexes: Ankle clonus absent. Left pathological reflexes: Ankle clonus absent. Gait Casual gait is normal including stance, stride, and arm swing. Normal toe walking. Normal heel walking. Tandem gait abnormality: Patient unable to perform tandem gait. Frequently taking steps out for balance.. MEDICAL DECISION MAKING DATA REVIEW: See HPI. Jannet Richter MD PHd [facility] STAFF PHYSICIAN NOTE OF PERSONAL INVOLVEMENT IN CARE I have reviewed the history AND physical obtained and documented by the nurse and I personally participated in the gutierrez components. I have discussed the case and management of the patient's care. The following comments revise or confirm relevant gutierrez components of the note. IMPRESSION In summary, Tavares Melgar is a 59 year old man with symptomatic lumbar spondylosis with right lower extremity radiculopathy secondary to moderately severe lumbar stenosis at L3-4. As such we discussed his diagnosis as well as operative and nonoperative management. Given the degree of stenosis as well as his clinical symptoms, I think he would be a good candidate for decompression at this level. We discussed this in detail and he provided his written consent for the procedure. I answered all question in detail, and patient voiced understanding, agreement and appreciation of the diagnosis, options and recommendations discussed. TREATMENT OPTIONS AND RISKS: I have discussed the management options and there respective risks and benefits with the patient. Greater than 50% of the clinic visit was spent in direct [id number] time counseling patient/coordinating care for total time spent of 30 minutes. Thank you for the opportunity to participate in Tavares Melgar's care. If I can answer any additional questions, I would be pleased to do so. Sincerely, CC: These final recommendations will be communicated back to the requesting physician/primary care physician by way of shared medical record Referring Provider: SELF [[id number]] Allergies As of Date: 08/08/2019 Noted Allergy Reaction LISINOPRIL 09/06/2013 3 - Cough Date Reviewed: 08/08/2019 Reviewed by: Jannet Richter - Fully Assessed Reason for Visit: New Patient Evaluation [154] Cmt: low back pain Primary Visit Diagnosis:Radiculopath y, lumbar region [M54.16] Other Visit Diagnoses:Neurogenic claudication due to lumbar spinal stenosis [M48.062] Pre-op testing [Z01.818] Order(s):CONSULT TO PRE-SURGICAL TESTING (AG) [4140021] Order #: [id number]: 1 HANDP FOR SURGERY [X2570ZBC] Order #: [id number] CBC [SQCBC] Order #: [id number] FUTURE TYPE + SCREEN [SQTSCR] Order #: [id number] FUTURE BASIC METABOLIC PNL [SQBMP] Order #: [id number] FUTURE UA CHEMSTRIP ONLY [SQUA] Order #: [id number] FUTURE PROTHROMBIN TIME/PT [SQPT] Order #: [id number] FUTURE ACTIVATED PTT [SQPTT] Order #: [id number] FUTURE XR CHEST 2V FRONTAL/LAT [6163173] Order #: [id number] FUTURE ECG COMPLETE [ECG01] Order #: [id number] FUTURE ceFAZolin (ANCEF) 2 gram/100 mL in dextrose (iso-osmotic)Inject 100 mL intravenously one time only for 1 dose. To be given within one hour of incision.Disp: 1 BagRfl: 0 Prescriptions as of 08/08/2019 Sig: LOSARTAN 100 MG-HYDROCHLOROTH* Take 1 tablet by mouth once d* AMLODIPINE 5 MG TABLET Take 5 mg by mouth once daily. POTASSIUM ORAL Take by mouth once daily. MULTIVITAMIN ORAL Take by mouth once daily. CEFAZOLIN 2 GRAM/100 ML IN DE* Inject 100 mL intravenously o* SODIUM,POTASSIUM,MAG SULFATES* Take 1 Package by mouth as di* Patient not taking: Reported on 08/08/2019 Problem List As Of Date 08/08/2019 Noted Resolved Special screening for malignant neoplasms, colo*INVALID FOR* Sebaceous cyst [L72.3] INVALID FOR* Prescriptions ordered this encounter Disp Refills Start End CEFAZOLIN 2 GRAM/100 ML IN DEXTROSE(* 1 Bag 0 08/08/2019 08/08/2019 Class: In Office Route: INTRAVENOUS Sig: Inject 100 mL intravenously one time only for 1 dose. To be given within one hour of incision. Cosign accepted by JANNET RICHTER MD PHD[[id number]] on 08/08/2019 9:38 AM Encounter Status:Closed by JANNET RICHTER MD PHD on 08/08/19 [facility] PROGRESSon 08-08-2019 PROGRESS HNO ID: [id number] Author: Jannet Richter Service: ? Author Type: Physician Type: Progress Notes Filed: 08/08/2019 9:38 AM Note Text: OUTPATIENT ADULT NEUROSURGICAL CONSULTATION Dear Dr. Katia Hays, Tavares Melgar presented for follow up in the adult neurosurgery clinic on 08/08/2019 for the problem of lumbar radiculopathy. Although his history is well known to you, please allow me to reiterate it for the purpose of my medical record. Informant: History obtained from patient. Chief Complaint: Back pain History of Present Illness : Tavares Melgar is a 59 year old left-handed male with a [place] [address] Cortes who presents today for a new patient evaluation. Today he has complaints of lower back pain that radiates into his right hip, down his posterior thigh, stopping at his ankle, with numbness in the top of his right foot. He states due to these symptoms he is frequently having to stop when walking. He states these symptoms have been ongoing for 4-5 months with no acute event causing them. He has tried physical therapy (most recent date: 2 months ago), opioids, and oral steroids without relief. He does endorse smoking .5 pk/day. His imaging reveals lumbar spondylosis with disc degeneration worse at L3-4 causing moderate to severe canal and foraminal stenosis. He is here for evaluation and plan of care. Past Medical and Surgical History: No past medical history on file. PAST SURGICAL HISTORY Procedure Laterality Date - APPENDECTOMY 1969 - CARPAL TUNNEL 2010 Bilateral - LAMINECTOMY,LUMBAR 1987 - REM LESION FACE,EAR,EYE 0.6-1CM Right 05/28/16 Exc. right ear lobe nick cyst - REPAIR ROTATOR CUFF,ACUTE 2012 decompression Current Outpatient Medications: Current Outpatient Medications on File Prior to Visit: Losartan-Hydrochloroth iazide (HYZAAR) 100-12.5 mg per tablet Take 1 tablet by mouth once daily. amLODIPine (NORVASC) 5 mg tablet Take 5 mg by mouth once daily. POTASSIUM ORAL Take by mouth once daily. MULTIVITAMIN ORAL Take by mouth once daily. Sodium,Potassium,ANDMa g Sulfates (SUPREP) 17.5-3.13-1.6 gram SolR Take 1 Package by mouth as directed. No current facility-administered medications on file prior to visit. ALLERGIES Allergen Reactions - Lisinopril Cough REVIEW OF SYSTEMS Review of Systems Constitutional: Negative for chills, fatigue and fever. HENT: Negative for congestion, ear discharge, ear pain and sinus pressure. Eyes: Negative for discharge and itching. Respiratory: Negative for cough, shortness of breath and wheezing. Cardiovascular: Negative for chest pain, palpitations and leg swelling. Gastrointestinal: Negative for constipation, diarrhea and nausea. Endocrine: Negative for cold intolerance and heat intolerance. Genitourinary: Negative for difficulty urinating, frequency and urgency. Musculoskeletal: Positive for back pain and gait problem. Negative for neck pain. Skin: Negative for rash and wound. Allergic/Immunologic: Negative for environmental allergies and food allergies. Neurological: Positive for weakness and numbness. Negative for dizziness. Hematological: Does not bruise/bleed easily. Psychiatric/Behavioral : Negative for agitation. The patient is not nervous/anxious. OBJECTIVE: BP 147/85 Pulse 83 Resp 17 Ht 5' 7 (1.70m) Wt 143 lb (64.9kg) SpO2 97% BMI 22.39 kg/(m2). Physical Exam Constitutional: He is oriented to person, place, and time and well-developed, well-nourished, and in no distress. HENT: Head: Normocephalic. Eyes: Pupils are equal, round, and reactive to light. Neck: Normal range of motion. Pulmonary/Chest: Effort normal. Neurological: He is alert and oriented to person, place, and time. Reflex Scores: Patellar reflexes are 1+ on the right side and 1+ on the left side. Skin: Skin is warm and dry. Psychiatric: His speech is normal. Affect normal. Neurological Exam Mental Status Alert. Recent and remote memory are intact. Speech is normal. Language is fluent with no aphasia. Attention and concentration are normal. Cranial Nerves CN III, IV, : Pupils equal round and reactive to light bilaterally. Motor Right Left Hip flexion 5 5 Knee flexion 5 5 Knee extension 5 5 Plantarflexion 4 5 Dorsiflexion 4 5 Reflexes Right Left Patellar 1+ 1+ Right pathological reflexes: Ankle clonus absent. Left pathological reflexes: Ankle clonus absent. Gait Casual gait is normal including stance, stride, and arm swing. Normal toe walking. Normal heel walking. Tandem gait abnormality: Patient unable to perform tandem gait. Frequently taking steps out for balance.. MEDICAL DECISION MAKING DATA REVIEW: See HPI. Jannet Richter MD PHd [facility] STAFF PHYSICIAN NOTE OF PERSONAL INVOLVEMENT IN CARE I have reviewed the history AND physical obtained and documented by the nurse and I personally participated in the gutierrez components. I have discussed the case and management of the patient's care. The following comments revise or confirm relevant gutierrez components of the note. IMPRESSION In summary, Tavares Melgar is a 59 year old man with symptomatic lumbar spondylosis with right lower extremity radiculopathy secondary to moderately severe lumbar stenosis at L3-4. As such we discussed his diagnosis as well as operative and nonoperative management. Given the degree of stenosis as well as his clinical symptoms, I think he would be a good candidate for decompression at this level. We discussed this in detail and he provided his written consent for the procedure. I answered all question in detail, and patient voiced understanding, agreement and appreciation of the diagnosis, options and recommendations discussed. TREATMENT OPTIONS AND RISKS: I have discussed the management options and there respective risks and benefits with the patient. Greater than 50% of the clinic visit was spent in direct [id number] time counseling patient/coordinating care for total time spent of 30 minutes. Thank you for the opportunity to participate in Tavares Melgar's care. If I can answer any additional questions, I would be pleased to do so. Sincerely, CC: These final recommendations will be communicated back to the requesting physician/primary care physician by way of shared medical record Normal [facility] Vital Signs Date Time Vital Sign Value Performing Clinician Altaf givens 12-12-2024 15:50-0500 Diastolic Blood Pressure Non-Invasive 75 mm[Hg] BETSY LÓPEZ MD [facility] 12-12-2024 15:50-0500 Heart rate 82 /min BETSY LÓPEZ MD [facility] 12-12-2024 15:50-0500 Systolic Blood Pressure Non-Invasive 136 mm[Hg] BETSY LÓPEZ MD [facility] 12-12-2024 15:24-0500 Diastolic Blood Pressure Non-Invasive 72 mm[Hg] BETSY LÓPEZ MD [facility] 12-12-2024 15:24-0500 Heart rate 82 /min BETSY LÓPEZ MD [facility] 12-12-2024 15:24-0500 Systolic Blood Pressure Non-Invasive 146 mm[Hg] BETSY LÓPEZ MD [facility] 12-12-2024 14:50-0500 Diastolic Blood Pressure Non-Invasive 74 mm[Hg] BETSY LÓPEZ MD [facility] 12-12-2024 14:50-0500 Heart rate 86 /min BETSY LÓPEZ MD [facility] 12-12-2024 14:50-0500 Systolic Blood Pressure Non-Invasive 111 mm[Hg] BETSY LÓPEZ MD [facility] 12-12-2024 13:50-0500 Respiratory rate 16 /min BETSY LÓPEZ MD [facility] 12-12-2024 13:35-0500 Respiratory rate 16 /min BETSY LÓPEZ MD [facility] 12-12-2024 13:22-0500 Heart rate 74 /min BETSY LÓPEZ MD [facility] 12-12-2024 13:22-0500 Respiratory rate 16 /min BETSY LÓPEZ MD [facility] 12-12-2024 13:03-0500 Heart rate 54 /min BETSY LÓPEZ MD [facility] 12-12-2024 12:55-0500 Heart rate 82 /min BETSY LÓPEZ MD [facility] 12-12-2024 12:50-0500 Heart rate 77 /min BETSY LÓPEZ MD [facility] 12-12-2024 09:21-0500 Body height 165.1 cm BETSY LÓPEZ MD [facility] 12-12-2024 09:21-0500 Body temperature 95.9 [degF] BETSY LÓPEZ MD [facility] 12-12-2024 09:21-0500 Body weight 71.1 kg BETSY LÓPEZ MD [facility] 12-12-2024 09:21-0500 Heart rate 74 /min BETSY LÓPEZ MD [facility] 03-29-2024 17:28-0400 Body temperature 96.9 [degF] [facility] 03-29-2024 17:28-0400 Diastolic blood pressure 71 mm[Hg] [facility] 03-29-2024 17:28-0400 Heart rate 74 /min [facility] 03-29-2024 17:28-0400 Respiratory rate 19 /min [facility] 03-29-2024 17:28-0400 SaO2% (BldA) [Mass fraction] 99 % [facility] 03-29-2024 17:28-0400 Systolic blood pressure 128 mm[Hg] [facility] 03-29-2024 16:13-0400 Body height 170.18 cm [facility] 03-29-2024 16:13-0400 Body mass index (BMI) [Ratio] 24.8 kg/m2 [facility] 03-29-2024 16:13-0400 Body weight 72.07 kg [facility] 02-22-2024 00:16-0400 Body mass index (BMI) [Ratio] 25.2 kg/m2 [facility] 02-22-2024 00:16-0400 Body weight 73.25 kg [facility] 01-22-2024 00:15-0500 Body mass index (BMI) [Ratio] 25.2 kg/m2 [facility] 01-22-2024 00:15-0500 Body weight 73.25 kg [facility] 01-18-2024 08:53-0500 Body height 170.18 cm [facility] 01-18-2024 08:53-0500 Body mass index (BMI) [Ratio] 25.2 kg/m2 [facility] 01-18-2024 08:53-0500 Body weight 73.25 kg [facility] 11-18-2023 14:06-0500 Body height 170.[address] Katia Hays Work Phone: [facility] 11-18-2023 14:06-0500 Body mass index (BMI) [Ratio] 26.2 kg/m2 Dr. Katia Hays Work Phone: [facility] 11-18-2023 14:06-0500 Body weight 75.[address] Katia Hays Work Phone: [facility] 11-18-2023 13:10-0500 Diastolic blood pressure 70 mm[Hg] Dr. Katia Hays Work Phone: [facility] 11-18-2023 13:10-0500 Heart rate 69 /min Dr. Katia Hays Work Phone: [facility] 11-18-2023 13:10-0500 SaO2% (BldA) [Mass fraction] 97 % Dr. Katia Hays Work Phone: [facility] 11-18-2023 13:10-0500 Systolic blood pressure 110 mm[Hg] Dr. Katia Hays Work Phone: [facility] 08-09-2023 08:39-0400 Body height 167.[address] Katia Hays Work Phone: [facility] 08-09-2023 08:39-0400 Body mass index (BMI) [Ratio] 24.8 kg/m2 Dr. Katia Hays Work Phone: [facility] 08-09-2023 08:39-0400 Body weight 69.[address] Katia Hays Work Phone: [facility] 08-09-2023 08:39-0400 Diastolic blood pressure 78 mm[Hg] Dr. Katia Hays Work Phone: [facility] 08-09-2023 08:39-0400 Heart rate 79 /min Dr. Katia Hays Work Phone: [facility] 08-09-2023 08:39-0400 SaO2% (BldA) [Mass fraction] 93 % Dr. Katia Hays Work Phone: [facility] 08-09-2023 08:39-0400 Systolic blood pressure 133 mm[Hg] Dr. Katia Hays Work Phone: [facility] 07-20-2023 11:03-0400 Body mass index (BMI) [Ratio] 25.8 kg/m2 Dr. Katia Hays Work Phone: [facility] 07-20-2023 11:03-0400 Body temperature 97.6 [degF] Dr. Katia Hays Work Phone: [facility] 07-20-2023 11:03-0400 Body weight 72.[address] Katia Hays Work Phone: [facility] 07-20-2023 11:03-0400 Diastolic blood pressure 86 mm[Hg] Dr. Katia Hays Work Phone: [facility] 07-20-2023 11:03-0400 Heart rate 69 /min Dr. Katia Hays Work Phone: [facility] 07-20-2023 11:03-0400 Respiratory rate 16 /min Dr. Katia Hays Work Phone: [facility] 07-20-2023 11:03-0400 SaO2% (BldA) [Mass fraction] 94 % Dr. Katia Hays Work Phone: [facility] 07-20-2023 11:03-0400 Systolic blood pressure 141 mm[Hg] Dr. Katia Hays Work Phone: [facility] 02-27-2023 10:47-0400 Body temperature 97.7 [degF] Dr. Katia Hays Work Phone: [facility] 02-27-2023 10:47-0400 Diastolic blood pressure 74 mm[Hg] Dr. Katia Hays Work Phone: [facility] 02-27-2023 10:47-0400 Heart rate 70 /min Dr. Katia Hays Work Phone: [facility] 02-27-2023 10:47-0400 Respiratory rate 14 /min Dr. Katia Hays Work Phone: [facility] 02-27-2023 10:47-0400 SaO2% (BldA) [Mass fraction] 91 % Dr. Katia Hays Work Phone: [facility] 02-27-2023 10:47-0400 Systolic blood pressure 126 mm[Hg] Dr. Katia Hays Work Phone: [facility] Encounters Encounter Date Encounter Type Care Provider Facility Start: 05-02-2025 ambulatory Katia Hays Facility: [facility] Start: 12-12-2024 End: 12-12-2024 ambulatory BETSY LÓPEZ MD Facility:A Start: 12-12-2024 End: 12-12-2024 SAME DAY STAY BETSY LÓPEZ MD [facility] Start: 11-24-2024 End: 11-24-2024 ambulatory Katia Hays Facility:[facility] Start: 11-10-2024 End: 11-10-2024 ambulatory Katia Lis Facility:[facility] Start: 07-22-2024 End: 07-22-2024 ambulatory [facility] Facility:[facility] Start: 05-19-2024 End: 05-19-2024 ambulatory [facility] Facility:[facility] Start: 05-05-2024 End: 05-05-2024 ambulatory Matt Stubbs Facility:[facility] Start: 05-02-2024 End: 05-03-2024 ambulatory JOAQUIN JACK MD Facility:A Start: 04-29-2024 End: 04-29-2024 ambulatory Katia Lis Facility:[facility] Start: 04-02-2024 ambulatory Joaquin Jack Facility :[facility] Start: 03-31-2024 End: 03-31-2024 ambulatory Matt Stubbs Facility:[facility] Start: 03-29-2024 End: 03-29-2024 Emergency department patient visit [facility]-Emergency Department Work Phone: Start: 03-17-2024 ambulatory [facility] Facility: [facility] Start: 03-02-2024 End: 03-02-2024 ambulatory [facility] Work Phone: Start: 03-02-2024 End: 03-02-2024 Patient encounter procedure [facility]-Pulmonary Services/Neurology Work Phone: Start: 03-02-2024 End: 03-02-2024 ambulatory Joaquin Escamilla Facility:[facility] Start: 02-24-2024 End: 03-22-2024 ambulatory Katia Hays [facility] Work Phone: Start: 02-24-2024 End: 03-22-2024 Discharged Recurring [facility]-Pulmonary Rehab Work Phone: Start: 02-24-2024 Registered Recurring [facility] Work Phone: Start: 02-19-2024 End: 02-21-2024 [facility] Start: 02-19-2024 End: 02-21-2024 Discharged Recurring [facility]-Pulmonary Rehab Work Phone: Start: 01-22-2024 Registered Recurring [facility] Re[facility] Work Phone: Start: 01-20-2024 End: 01-21-2024 Discharged Recurring [facility]-Pulmonary Rehab Work Phone: Start: 01-20-2024 End: 01-21-2024 [facility] Start: 01-20-2024 End: 01-20-2024 Patient encounter procedure [facility]-Laboratory Work Phone: Start: 01-20-2024 End: 01-20-2024 ambulatory Katia Hays Facility:[facility] Start: 12-23-2023 End: 12-23-[address] Katia Hays Work Phone: [facility] Work Phone: Start: 12-23-2023 End: 12-23-[address] Katia Hays Work Phone: [facility]-Pulmonary Rehab Work Phone: Start: 11-25-[address] Katia Hays Work Phone: [facility]-Pulmonary Rehab Work Phone: Start: 11-20-2023 End: 11-20-[address] Katia Hays Work Phone: [facility] Work Phone: Start: 11-20-2023 End: 11-20-[address] [facility] Start: 11-18-2023 End: 11-18-[address] Katia Hays Work Phone: [facility] Work Phone: Start: 11-18-2023 End: 11-18-[address] Katia Hays Work Phone: [facility]-Pulmonary Rehab Work Phone: Start: 09-11-2023 End: 09-14-2023 Evaluation and management of inpatient ROXANA CEDILLO MD Facility:A Start: 09-10-2023 Non-patient / Non-visit Dr. Katia Hays Work Phone: [facility] Start: 09-09-2023 End: 09-09-[address] Katia Hays Work Phone: [facility] Work Phone: Start: 09-09-2023 End: 09-09-[address] [facility] Work [facility] Start: 09-04-[address] Katia reich Work Phone: [facility] Start: 08-25-2023 End: 08-25-[address] [facility] Start: 08-10-2023 End: 08-10-[address] Katia Hays Work Phone: [facility] Work Phone: Start: 08-10-2023 End: 08-10-[address] Katia Hays Work Phone: [facility] Work Phone: Start: 08-09-2023 End: 08-09-[address] Katia Hays Work Phone: [facility] Work Phone: Start: 07-20-2023 End: 07-20-[address] Katia Hays Work Phone: [facility] Work Phone: Start: 06-03-2023 End: 06-03-[address] Katia Hays Work Phone: [facility] Work Phone: Start: 06-03-2023 End: 06-03-[address] [facility] Start: 03-02-2023 End: 03-02-[address] Katia Hays Work Phone: [facility] Work Phone: Start: 03-02-2023 End: 03-02-[address] Katia Hays Work Phone: [facility]-Laboratory Start: 02-27-2023 End: 02-27-[address] Katia Hays Work Phone: [facility] Work Phone: Start: 02-27-2023 End: 02-27-[address] [facility] Start: 02-27-2023 End: 02-27-[address] Katia Hays Work Phone: [facility] Start: 02-03-2023 End: 02-03-2023 ambulatory [facility] Work Phone: Start: 02-03-2023 End: 02-03-2023 Patient encounter procedure [facility]-Outpatient Bone Densitometry Start: 01-22-2023 End: 01-22-2023 ambulatory [facility] Work Phone: Start: 01-22-2023 End: 01-22-2023 Patient encounter procedure [facility]-Nuclear Medicine, [facility] Start: 12-10-2022 End: 12-10-2022 ambulatory [facility] Work Phone: Start: 12-10-2022 End: 12-10-2022 Patient encounter procedure [facility]-Laboratory Start: 10-06-2022 End: 10-06-2022 ambulatory [facility] Work Phone: Start: 10-06-2022 End: 10-06-2022 Patient encounter procedure [facility]-Cardiovascular Services Start: 09-10-2022 End: 09-10-2022 ambulatory [facility] Work Phone: Start: 09-10-2022 End: 09-10-2022 Patient encounter procedure [facility]-Laboratory Start: 08-15-2022 End: 08-15-2022 ambulatory [facility] Work Phone: Start: 08-15-2022 End: 08-15-2022 [facility] Start: 06-25-2022 Registered Referred [facility] Start: 06-25-2022 End: 06-25-2022 Patient encounter procedure [facility]-Laboratory Start: 03-25-2022 End: 03-25-2022 Patient encounter procedure [facility]Laboratory Start: 01-24-2022 End: 01-24-2022 Patient encounter procedure [facility]Laboratory Start: 05-27-2020 End: 05-27-2020 Subsequent hospital visit by physician Provider [facility] Comment on above: FINGER LAC - ON BLOO D THINNERS Procedures Date Procedure Procedure Detail Performing Clinician Start: 03-29-2024 X-ray of both feet Start: 09-14-2023 Cardiac catheterization BETSY LÓPEZ MD Comment on above: 1. Left ventricle: S ystolic function is normal. The estimated ejection fraction is 55-60%. 2. Left main: Distal vessel lesion: There is a 50% stenosis, at the bifurcation. 3. LAD: Ostial lesion: There is a 50% stenosis. IMPRESSIONS: 1. The study demonstrates moderate coronary artery disease, predominantly involving the left main and LAD, status post stent placement. No stent restenosis. 2. Severe COPD and is apoor OHS candidate. Start: 08-10-2023 Plain chest X-ray Dr. Maira Hays Work Phone: Start: 02-27-2023 Plain chest X-ray Dr. Maira Hays Work Phone: Start: 02-03-2023 Dual energy X-ray absorptiometry Start: 01-22-2023 Radionuclide whole b debi bone study Start: 08-15-2022 X-ray of chest posteroanterior view Start: 08-15-2022 Radiography of thora cic spine Start: 04-18-2020 Percutaneous translu shawn coronary angioplasty BETSY LÓPEZ MD Comment on above: Percutaneous interve ntion on the 99% stenosis in the mid right coronary. Balloon angioplasty. Stent placement. Percutaneous intervention on the 70% stenosis in the proximal right coronary. Stent placement. Balloon angioplasty. Start: 08-23-2019 Back structure, excl uding neck (body structure) BETSY LÓPEZ MD Comment on above: back surgery Start: 08-23-2019 Antibody screen Comment on above: Performed By: #### T &S #### [place] [id number] Start: 11-23-2012 Arthroscopy of shoulder BETSY LÓPEZ MD Comment on above: right Appendectomy BETSY LÓPEZ MD Cardiac catheterization AMI LÓPEZ MD Carpal tunnel syndro me (disorder) BETSY LÓPEZ MD Comment on above: bilateral Colonoscopy BETSY LÓPEZ MD Femoral-femoral flavia ry vascular bypass BETSY LÓPEZ MD Comment on above: Right Open Common Fe moral Artery Endarectomy with Patch and Right iliac angioplasty and stent placement History of placement of stent for coronary artery disease History of coronary artery stent placement Dr. Katia Hays Work Phone: Plan of Treatment Date Care Activity Detail Author Start: 03-29-2024 [facility] Patient Education ED Fracture, Foot [facility] Work Phone: Patient referral [facility] Work Phone: Immunizations Immunization Date Immunization Notes Care Provider [facility] 10-08-2023 influenza, injectabl e, quadrivalent, preservative free Dr. Katia Hays Work Phone: [facility] 10-13-2022 influenza, injectabl e, quadrivalent, preservative free Dr. Katia Hays Work Phone: [facility] 10-13-2022 influenza, seasonal, injectable [facility] 10-14-2021 influenza, injectabl e, quadrivalent, preservative free Dr. Katia Hays Work Phone: [facility] 10-14-2021 influenza, seasonal, injectable [facility] 09-27-2020 influenza, injectabl e, quadrivalent, preservative free Dr. Katia Hays Work Phone: [facility] 09-27-2020 influenza, seasonal, injectable [facility] 09-13-2019 influenza, injectabl e, quadrivalent, preservative free Dr. Katia Hays Work Phone: [facility] 09-13-2019 influenza, seasonal, injectable [facility] 09-22-2018 influenza, injectabl e, quadrivalent, preservative free Dr. Katia Hays Work Phone: [facility] 09-22-2018 influenza, seasonal, injectable [facility] 09-07-2017 influenza, injectabl e, quadrivalent, preservative free Dr. Katia Hays Work Phone: [facility] 09-07-2017 influenza, seasonal, injectable [facility] 09-08-2016 influenza, injectabl e, quadrivalent, preservative free Dr. Katia Hays Work Phone: [facility] 09-08-2016 influenza, seasonal, injectable [facility] 08-28-2015 influenza, injectabl e, quadrivalent, preservative free Dr. Katia Hays Work Phone: [facility] 08-28-2015 influenza, seasonal, injectable [facility] 08-23-2014 influenza, injectabl e, quadrivalent, preservative free Dr. Katia Hays Work Phone: [facility] 08-23-2014 influenza, seasonal, injectable [facility] 09-24-2013 tetanus and diphther ia toxoids, adsorbed, preservative free, for adult use (2 Lf of tetanus toxoid and 2 Lf of diphtheria toxoid) [facility] 09-22-2013 Influenza virus vaccine [facility] Payers Date Payer Category Payer Unknown [id number] 2024 Medicare [id number] 2023 Self-pay [id number] 2023 Unknown [id number] 1959 Unknown [id number] 2.16.8 [id number] 1959 Unknown [id number] 2.16.8 [id number] 1959 Unknown [id number] 2.16.8 [id number] Unknown [id number] Unknown [id number] 2.16.8 [id number] Unknown [id number] 2.16.8 [id number] Unknown [id number] 2.16.8 40.1.332054.3.579.2.462 Unknown [id number] 2.16.8 40.1.281656.3.579.2.462 Unknown [id number] 2.16.8 40.1.183853.3.579.2.462 Unknown [id number] 2.16.8 40.1.722013.3.579.2.462 Unknown [id number] 2.16.8 40.1.649870.3.579.2.462 Unknown [id number] 2.16.8 40.1.098464.3.579.2.462 Unknown [id number] 2.16.8 40.1.889005.3.579.2.462 Unknown [id number] 2.16.8 40.1.541158.3.579.2.462 Unknown [id number] 2.16.8 40.1.083250.3.579.2.462 Unknown [id number] 2.16.8 40.1.055320.3.579.2.462 Unknown [id number] 2.16.8 40.1.425098.3.579.2.462 Unknown [id number] 2.16.8 40.1.168815.3.579.2.462 Unknown [id number] 2.16.8 40.1.821136.3.579.2.462 Unknown [id number] 2.16.8 40.1.809584.3.579.2.462 Unknown [id number] 2.16.8 40.1.147071.3.579.2.462 Unknown [id number] 2.16.8 [id number] Social History Date Type Detail [facility] Sex Assigned At Not on file [facility] Start: 11-17-2021 End: 03-29-2024 Tobacco smoking status NHIS Unknown if ever smoked [facility] Start: 1960 Sex Assigned At Male [facility] Start: 08-24-2020 Tobacco smoking status Ex-smoker (fi nding) [facility] Sexual Orientation [facility] Start: 12-31-2005 Sex Male (finding) [facility] Functional Status Date Assessment Result Facility 12-12-2024 Functional Status Repositions self [facility] 12-12-2024 Functional Status [facility] 12-12-2024 Functional Status Maintained [facility] Mental Status Date Assessment Result Facility 12-12-2024 Mental Status Oriented [facility] 12-12-2024 Mental Status [facility] Clinical Notes 09-10-2023 to 12-12-2024 Note Date & Type Note Facility 12-12-2024 Hospital Discharge instructions Patient Education 12/12/2024 17:04:04 3- Peripheral angioplasty//stent 12/2019 (CUSTOM) PERIPHERAL ANGIOPLASTY/STENTING Discharge Instructions This information has been developed to provide you with written guidelines to supplement the verbal instructions your doctor has reviewed with you. It is very important that you follow any additional instructions your doctor has provided. Home instructions: An adult must stay with you overnight. Relax for 24 hours, keeping legs elevated. Drink plenty of fluids to flush out your kidneys. Resume your regular diet. Keep a bandage on the insertion site for 48 hours. Avoid strenuous exercise of lifting anything over 10 pounds, no bending, twisting, squatting, crawling, or sesexual activity for at least 2 days. Do not take a bath or shower for at least [address] not [address] for 2 days. Discomfort, swelling and bruising are expected at the incision site. Watch the groin area where the catheter was inserted for such things as, but not limited to: redness, swelling, pus or red streaks running down the leg. If any concerns, notify our office at . If bleeding is noted through the bandage: Lie flat and apply pressure for 10 to 15 minutes. If the bleeding does not stop, or if your foot feels numb, cold or turns blue, go to the Emergency Department immediately. If you do not have an arranged appointment, please call the office upon discharge at and make an appointment to see the doctor in 2 weeks. If you have concern after regular office hours, you can reach the doctor by calling . Follow all instructions given to you by your doctor 12/12/2024 17:00:39 Moderate Conscious Sedation, Adult, Care After Moderate Conscious Sedation, Adult, Care After These instructions provide you with information about caring for yourself after your procedure. Your health care provider may also give you more specific instructions. Your treatment has been planned according to current medical practices, but problems sometimes occur. Call your health care provider if you have any problems or questions after your procedure. What can I expect after the procedure? After your procedure, it is common: To feel sleepy for several hours. To feel clumsy and have poor balance for several hours. To have poor judgment for several hours. To vomit if you eat too soon. Follow these instructions at home: For at least 24 hours after the procedure: Do not: ?Participate in activities where you could fall or become injured. ?Drive. ?Use heavy machinery. ?Drink alcohol. ?Take sleeping pills or medicines that cause drowsiness. ?Make important decisions or sign legal documents. ?Take care of children on your own. Rest. Eating and drinking Follow the diet recommended by your health care provider. If you vomit: ?Drink water, juice, or soup when you can drink without vomiting. ?Make sure you have little or no nausea before eating solid foods. General instructions Have a responsible adult stay with you until you are awake and alert. Take qxdo-xit-vixvoxt and prescription medicines only as told by your health care provider. If you smoke, do not smoke without supervision. Keep all follow-up visits as told by your health care provider. This is important. Contact a health care provider if: You keep feeling nauseous or you keep vomiting. You feel light-headed. You develop a rash. You have a fever. Get help right away if: You have trouble breathing. This information is not intended to replace advice given to you by your health care provider. Make sure you discuss any questions you have with your health care provider. Document Released: 08/30/2014 Document Revised: 10/22/2018 Document Reviewed: 02/28/2017 TasteBook Patient Education 2020 Studyplaces. Follow Up Care 11/30/2024 14:43:21 With:BETSY LÓPEZ MD, [facility], Surgery, Vascular Surgeons Address: [address] [place] [address] [place] [id number] When: Unknown [facility] 12-12-2024 Summary of episode note Discharge Instructions Thank you for allowing [facility] to assist you with your healthcare needs. The following is important discharge information regarding your hospital visit. Your Care Team KATIA HAYS DO Your Diagnosis Aortoiliac occlusive disease Hypertension PAD (peripheral artery disease) Hyperlipidemia What to do next Scheduled Follow-Up Appointments Appointment Type When With Where Contact Information StatusCV OV 05/05/2025 09:45 AM OSCART [facility] Up Appointments Follow Up with BETSY LÓPEZ MD, [facility], Surgery, Vascular Surgeons Where:[address] [place] [id number] The Following Activity and Diet Have Been Ordered for You Discharge Activity - Ordered -- Lifting Restricted less than 10 pounds May Shower No bending, twisting, crawling or squatt Sexual [place] Restricted, No driving x 2 days, 12/12/24 13:02:00 EST Discharge Diet - Ordered -- No changes were made to your diet during your hospital stay. Please resume your pre hospitalization diet on discharge., 12/12/24 13:02:00 EST The Following Equipment Has Been Ordered for You Discharge Home Equipment Discharge Wound Care - Ordered -- Dressing Type: Bioclusive drsg, Leave dressing on for 48hours. Then keep site clean and dry. Report any drainage, reddness, swelling to Dr. López immediately, 12/12/24 13:02:00 EST Allergies lisinopril Dry cough Medications Please ask your primary doctor or pharmacist before taking any other medication not listed, including over the counter drugs, herbal medications, vitamins and or supplements as they may interact with your home medications. What How Much When Instructions Last Dose Unchanged adalimumab (Humira Pen 40 mg/ 0.4 mL subcutaneous kit) 0.4 Milliliter Subcutaneous Every other week Unchanged amLODIPine (amLODIPine 10 mg oral tablet) 1 tab(s) by mouth Once a day Unchanged budesonide-formoterol (Symbicort 160 mcg-4.5 mcg/ inh Inhaler) 2 puff(s) by inhalation Two (2) times a day Unchanged carvedilol (carvedilol 25 mg oral tablet) 1 tab(s) by mouth Two (2) times a day Unchanged clopidogrel (clopidogrel 75 mg oral tablet) 1 tab(s) by mouth Once a day Unchanged esomeprazole (esomeprazole 40 mg oral delayed release capsule) 1 cap by mouth Once a day Unchanged gabapentin (gabapentin 600 mg oral tablet) 1 tab(s) by mouth Three (3) times a day Unchanged hydroxychloroquine (hydroxychloroquine 200 mg oral tablet) 1 tab(s) by mouth Two (2) times a day Unchanged losartan (losartan 100 mg oral tablet) 1 tab(s) by mouth Once a day Unchanged nitroGLYcerin (Nitrostat 0.4 mg sublingual tablet) 1 tab(s) under the tongue Every 5 minutes as needed for Chest pain Duration: 30 Days Unchanged oxyCODONE (oxyCODONE 5 mg oral tablet ( IMMEDIATE release )) 1 tab(s) by mouth Every 6 hours as needed for as needed for pain Unchanged potassium chloride (potassium chloride 10 mEq oral capsule, extended release) 1 cap by mouth Once a day Unchanged rosuvastatin (rosuvastatin 40 mg oral tablet) 1 tab(s) by mouth Every day Please take this list to your next doctor s visit. Bring all medications you take, including over the counter medications, herbals and other supplements with you to your doctor s visit. Patients and families are reminded to discard old lists and to update any records with all medication providers or retail pharmacies. Education Materials PERIPHERAL ANGIOPLASTY/STENTING Discharge Instructions This information has been developed to provide you with written guidelines to supplement the verbal instructions your doctor has reviewed with you. It is very important that you follow any additional instructions your doctor has provided. Home instructions: An adult must stay with you overnight. Relax for 24 hours, keeping legs elevated. Drink plenty of fluids to flush out your kidneys. Resume your regular diet. Keep a bandage on the insertion site for 48 hours. Avoid strenuous exercise of lifting anything over 10 pounds, no bending, twisting, squatting, crawling, or sesexual activity for at least 2 days. Do not take a bath or shower for at least [address] not [address] for 2 days. Discomfort, swelling and bruising are expected at the incision site. Watch the groin area where the catheter was inserted for such things as, but not limited to: redness, swelling, pus or red streaks running down the leg. If any concerns, notify our office at . If bleeding is noted through the bandage: Lie flat and apply pressure for 10 to 15 minutes. If the bleeding does not stop, or if your foot feels numb, cold or turns blue, go to the Emergency Department immediately. If you do not have an arranged appointment, please call the office upon discharge at and make an appointment to see the doctor in 2 weeks. If you have concern after regular office hours, you can reach the doctor by calling . Follow all instructions given to you by your doctor Moderate Conscious Sedation, Adult, Care After These instructions provide you with information about caring for yourself after your procedure. Your health care provider may also give you more specific instructions. Your treatment has been planned according to current medical practices, but problems sometimes occur. Call your health care provider if you have any problems or questions after your procedure. What can I expect after the procedure? After your procedure, it is common: To feel sleepy for several hours. To feel clumsy and have poor balance for several hours. To have poor judgment for several hours. To vomit if you eat too soon. Follow these instructions at home: For at least 24 hours after the procedure: Do not: ? Participate in activities where you could fall or become injured. ? Drive. ? Use heavy machinery. ? Drink alcohol. ? Take sleeping pills or medicines that cause drowsiness. ? Make important decisions or sign legal documents. ? Take care of children on your own. Rest. Eating and drinking Follow the diet recommended by your health care provider. If you vomit: ? Drink water, juice, or soup when you can drink without vomiting. ? Make sure you have little or no nausea before eating solid foods. General instructions Have a responsible adult stay with you until you are awake and alert. Take lypl-vnm-pnglceo and prescription medicines only as told by your health care provider. If you smoke, do not smoke without supervision. Keep all follow-up visits as told by your health care provider. This is important. Contact a health care provider if: You keep feeling nauseous or you keep vomiting. You feel light-headed. You develop a rash. You have a fever. Get help right away if: You have trouble breathing. This information is not intended to replace advice given to you by your health care provider. Make sure you discuss any questions you have with your health care provider. Document Released: 08/30/2014 Document Revised: 10/22/2018 Document Reviewed: 02/28/2017 TasteBook Patient Education 2020 Studyplaces. Additional Information VACCINATE! IT SAVES LIVES! Members of the community who have not yet received the COVID-19 vaccine and would like to receive it can visit one of [facility] vaccine clinics. There are many vaccine clinic locations within the [facility]. For locations and available times, please visit https://gettheshot.coronavirus.[place]i [place].gov/. It is important to note that some COVID mobile vaccine clinics are held outdoors and may be canceled in rainy or stormy conditions. To learn more about pediatric vaccinations (ages 5-11), we invite you to visit the [facility] webpage. https://www.[facility].org/pag es/4254-Yhhgg-Cdyhnerhxmb-Frequent fq-Rsemq-Pqwecdqfr.html To learn more about the COVID-19 vaccine, we invite you to visit the CDC website for a list of frequently asked questions.https://www.cdc.gov/rylie navirus/2019-ncov/vaccines/faq.htm david [employer] [employer] Patient Portal Access Instructions: Stay connected with your healthcare team and access your personal medical information anytime with the [employer] Patient Portal. Please follow the directions below to create your [employer] account: 1.Access the email account you provided upon registration to the hospital/physician office.2.Look for an invitation email from [facility].3.Open the email and access the invitation link: Accept Invitation to [facility].4.Fill in the required chau to create your account. To access your account, visit [email or web address]. Click the blue button labeled Access Patient Portal and then log in with the username and password that you created in the steps above. You will be able to view your test results, lab results, a summary of your visits, upcoming appointments and more. There is also a convenient messaging option where you can send secure messages to your provider. In addition, you will have the ability to download any documents or summaries to your computer and/or send the information securely to a physician. Remember that your healthcare information is confidential, so carefully consider who you will allow to register on the [facility] Patient Portal for access to your information. You can also access the [facility] [employer] Patient Portal on the [facility] josefa. Simply click on Patient Portal and then log into your account. If you would like to receive a full copy of your medical records, please contact the [facility] Medical Records Department by calling [phone], Thursday through Thursday between 8 a.m. and 4:30 p.m. HOW TO SAFELY DISPOSE OF PRESCRIPTION MEDICATIONS Please use one of the following methods to safely dispose of your unused medications. 1.Use a drug disposal kit: the drug disposal pouch allows you to safely discard your old and unused drugs. Ask your nurse to give you one when you are discharged.2.Visit a local take-back location: Many local pharmacies and police departments have programs that collect old and unwanted prescription drugs. Call your local pharmacy or go to http://bit.[employer]/4K4Ja1y to find one close to you.3.Make use of household items: Use cat litter or old coffee grounds to dispose medications if other options are not available. Mix your drugs with these household products, seal them in an airtight container and throw it into the garbage. Call [facility]: [phone] to be sure your drugs can be disposed of in this way. Some medicines may require a different approach.4.Never flush your medications down the toilet. IF YOU HAVE BEEN PRESCRIBED AN OPIOID FOR PAIN If you have been prescribed an opioid (such as hydrocodone, oxycodone or morphine), it is critical to understand the possible side effects and risks of opioid pain medications. Even when taken as directed, opioids can have several side effects including: Tolerance, meaning you might need to take more of a medication for the same pain relief. Nausea, vomiting and/or constipation. Sleepiness, dizziness, dry mouth, confusion, depression or itching. Physical dependence, meaning you have withdrawal symptoms when a medication is stopped, can develop within a few days. KNOW YOUR RESPONSIBILITIES It is important to know exactly how much and how often to take the opioid pain medications you are prescribed. Never take opioids in higher amounts or more often than prescribed. Do not combine opioids with alcohol or other drugs that cause drowsiness, such as benzodiazepines, also known as benzos, including diazepam and alprazolam, muscle relaxants or sleep aids. Never sell or share prescription opioids. This is illegal. Store opioids in a secure place and out of reach of others (including children, family, friends and visitors). The last page of this document has been signed and retained as a CHART COPY. Signatures Patient Education Materials 3- Peripheral angioplasty//stent 12/2019 (CUSTOM) Moderate Conscious Sedation, Adult, Care After Medication Leaflets My discharge plan and instructions have been reviewed and explained to me and I,TAVARES MELGAR understand my current condition and have read and understand these discharge instructions. I have received a written copy of the plan/instructions. If I have questions, I am aware that I should contact my doctor. Patient/Target Protection Specialist Signature: Date/Time: Relationship to Patient: ___ Witness Name/Signature: Date/Time: [facility] 12-12-2024 Note Exam Date Time Procedure Performing Provider Status 12/12/24 2:02 PM IR Arteriogram Extremity Bilateral Low er Modified [id number] ORIGINAL Images acquired, not reported on this accession number. [id number] Discharge summary Author Thai Ocampo [facility] March 29, 2024 5:04pm Note Date/Time March 29, 2024 4:46pm [facility] Medical Records Department [address] [place] [address] Emergency Department Summary 03/29/24 MR#: [id number] Acct: [id number] Name: TAVARES MELGAR Rep #:[id number] 4 : 1960 63 From: Thai Shepherd PCP: Dr. Katia Hays, Status:PRE ER Location: ED HPI History of Present Illness Chief Complaint: Lower Extremity Injury [facility] Medical History (Updated 03/29/24 @ 16:[address] Thai Ocampo, ) Atherosclerosis of [place] coronary artery of [place] heart without angina pectoris Contact with and (suspected) exposure to other viral communicable diseases HTN (hypertension) Wheezing Home Medications potassium chloride 8 mEq tablet,extended release 8 meq PO DAILY 09/24/13 [History Last Taken Unknown] multivitamin with folic acid 400 mcg tablet 1 tab PO DAILY 10/04/13 [History Last Taken Unknown] amlodipine 5 mg tablet 5 mg PO DAILY 06/22/18 [History Last Taken Unknown] losartan 100 mg-hydrochlorothiazide 12.5 mg tablet 1 tab PO DAILY 06/22/18 [History Last Taken Unknown] adalimumab 40 mg/0.4 mL subcutaneous pen kit (Humira(CF) Pen) mg subcut 08/09/23[History Last Taken Unknown] albuterol sulfate 90 mcg/actuation aerosol inhaler (Ventolin HFA) 2 puff inhalation Q6H PRN shortness of breath or wheezing #8.5 grams 08/09/23 [Rx Last Taken Unknown] benzonatate 200 mg capsule 200 mg PO TID PRN cough #20 caps 08/09/23 [Rx Last Taken Unknown] carvedilol 25 mg tablet mg PO 08/09/23 [History Last Taken Unknown] clopidogrel 75 mg tablet mg PO 08/09/23 [History Last Taken Unknown] esomeprazole magnesium 40 mg capsule,delayed release mg PO 08/09/23 [History Last Taken Unknown] gabapentin 600 mg tablet mg PO 08/09/23 [History Last Taken Unknown] hydroxychloroquine 200 mg tablet mg PO 08/09/23 [History Last Taken Unknown] oxycodone 5 mg tablet mg PO 08/09/23 [History Last Taken Unknown] rosuvastatin 10 mg tablet mg PO 08/09/23 [History Last Taken Unknown] oxycodone 5 mg capsule 5 mg PO Q8H PRN pain 3 days #12 caps 03/29/24 [Rx Last Taken Unknown] Allergy/AdvReac Type Severity Reaction Status Date / Time lisinopril Allergy Other Verified 08/09/23 08:37 Family History (Updated 08/09/23 @ 08:52 by Sunny Yang FLASK FITTER, FLASK FITTER-C) Father Cancer Prostate Surgical History (Updated 08/09/23 @ 08:51 by Sunny Yang NP, FLASK FITTER-C) H/O endarterectomy History of carpal tunnel release History of coronary artery stent placement Hx of shoulder surgery Social History (Updated 08/09/23 @ 08:53 by Sunny Yang NP, FLASK FITTER-C) Smoking Status: Former smoker alcohol intake: current Alcohol type: beer EXAM Physical Exam Const Vital Signs: 03/29/24 16:13 Temperature 96.9 F L Temperature Source Temporal Pulse Rate 74 Respiratory Rate 19 H Blood Pressure 128/71 H Blood Pressure Mean 90 Pulse Ox 99 [facility] Narrative Medical decision making narrative: HISTORY OF PRESENT ILLNESS: 63-year-old male presents with right foot pain. Notes he tripped suffered mechanical fall and injured his right foot. He further states REVIEW OF SYSTEMS: Pertinent positives: Right foot pain Pertinent negatives: Numbness, tingling PHYSICAL EXAM: Nursing triage notes reviewed, Vital signs reviewed Constitutional: please see mdm HENT: MMM Eyes: Pupils equal round and reactive to light, Extraocular muscles intact Neck: No stridor, no JVD, full neck ROM Lungs: Clear to auscultation, No wheezing or rales. No increased work of breathing, no conversational dyspnea, no accessory muscle use, no nasal flaring. No respiratory distress noted Heart: Regular rate and rhythm, No murmurs, No rubs and No gallops, 2+ distal pulses (radial, femoral, posterior tibial) in all extremities Abdomen: Soft, there is no tenderness, rigidity, rebound or guarding, no obviousperitoneal signs, no palpable pulsatile abdominal masses, no auscultated abdominal bruit : No CVAT Extremities: No edema Neuro: Intact sensation L1-S1 dermatomal distributions. Intact 5/5 strength inhip flexion (T12-L3). Knee extension (L2-L4). Ankle dorsiflexion (L4-L5). Ankle plantar flexion (S1). Great toe extension (L5). 2+ patellar and AchillesDTRs. Skin: No evidence of open fracture MEDICAL DECISION MAKING: Chief Complaint: Foot pain External records reviewed: Imaging reviewed: Recent Manzo imaging of the involved extremity Factors affecting care: CAD, carotid artery stenosis status post carotid endarterectomy MDM Narrative: Patient was initially hemodynamically stable, afebrile and nontoxic-appearing. Right lower extremity is neurovascular intact. TTP over lateral right foot. X-ray was read reviewed myself and showed evidence of 5th metatarsal fracture. Patient placed in a short leg splint. He was made nonweightbearing. Given crutches. He is encouraged follow with orthopedic surgery. Strict return precautions were discussed. The patient and/or family, caregivers express understanding. The patient and/orfamily, caregivers agrees with the plan. Shared decision making: I will have a discussion with the patient and or visitors regarding risk/benefits of further testing or admission. They will be made aware of of the risk/benefits inherent in this decision they will be given the opportunity to voice understanding. Total critical care time today provided was at least 0 minutes. This excludes separately billable procedures. Critical care time (if documented) is secondary to the patient having high probability of clinically significant/life threatening deterioration in the patient's condition which required my urgent intervention. Impression: 1. Foot pain 2. Fifth metatarsal fracture Dispo: Discharge This note was generated with Cloud Direct dictation software. It may contain incorrectwords, spelling, and punctuation that were not noted in review of the chart prior to signing. Radiography Diagnostic Testing: Clinical Impression(s) from Imaging Studies Foot X-Ray 03/29/24 16:21 IMPRESSION: Minimally displaced fracture through the fifth metatarsal. Electronically Signed: Boby Mena MD at 16:36 EDT , Discharge Plan Triage Chief Complaint: Lower Extremity Injury ED Provider: Thai Ocampo Dx/Rx/DC Orders Clinical Impression: Metatarsal bone fracture Instructions: ED Fracture, Foot Prescriptions: New oxycodone 5 mg capsule 5 mg PO Q8H PRN (Reason: pain) 3 Days Qty: 12 0RF No Action Humira(CF) Pen 40 mg/0.4 mL pen injector kit subcut Patient Comments: INJECT 1 SYRINGErSUBCUTANEOUSLY EVERYtOTHER WEEK clopidogrel 75 mg tablet PO Patient Comments: TAKE 1 TABLET BY MOUTHCONCE DAILY, REPLACES BRILINTA AND ASPIRIN oxycodone 5 mg tablet PO Patient Comments: TAKE 1 TABLET BY MOUTHiFOUR TIMES A DAY NEEDED FOR SEVERE PAIN gabapentin 600 mg tablet PO Patient Comments: TAKE 1 TABLET BY MOUTH 3CTIMES A DAY esomeprazole magnesium 40 mg capsule,delayed release(DR/EC) PO Patient Comments: TAKE 1 CAPSULE BY MOUTHCONCE DAILY rosuvastatin 10 mg tablet PO Patient Comments: TAKE 1 TABLET BY MOUTHEONCE DAILY carvedilol 25 mg tablet PO Patient Comments: TAKE 1 TABLET BY MOUTH 2CTIMES A DAY hydroxychloroquine 200 mg tablet PO Patient Comments: TAKE 1 TABLET BY MOUTH 2ITIMES A DAY benzonatate 200 mg capsule 200 mg PO TID PRN (Reason: cough) Qty: 20 0RF albuterol sulfate [Ventolin HFA] 90 mcg/actuation HFA aerosol inhaler 2 puff inhalation Q6H PRN (Reason: shortness of breath or wheezing) Qty: 8.5 0RF multivitamin with folic acid 1 TABLET tablet 1 tab PO DAILY potassium chloride 8 MEQ tablet extended release 8 meq PO DAILY Patient Comments: UNSURE OF DOSE amlodipine 5 mg tablet 5 mg PO DAILY losartan-hydrochlorothiazide 100-12.5 mg tablet 1 tab PO DAILY Stand Alone Forms: ED Work / School Excuse Primary Care Provider: Katia Hays Referrals: Katia Hays DO [Primary Care Provider] - Activity Restrictions/Additional Instructions: Thank you for trusting us with your care today! You are diagnosed with a foot fracture. Please maintain your splint is much as possible throughout the day. Please use crutches and do not bear weight on the involved extremity Please take Tylenol (2 pills, 650 mg), every 6 hours as needed for pain and fever control. If the above regimen does not control your pain please take oxycodone and ibuprofen (2 pills, 400 mg) as needed for breakthrough pain Please return to the emergency department if your symptoms change or worsen. Specifically develop numbness, tingling, loss sensation if your pain is not controlled by the above regimen. Please follow with orthopedic surgery (Dr. Gann) for further outpatient evaluation and management. Disposition Disposition: Home, Self Care What to do if you have Problems For any increased pain, shortness of breath, bleeding, nausea or vomiting, chestpain, or any unexpected problems, contact your Primary Care Provider. Call [facility] ([phone]) or report to the closest Emergency Room. Call 911 if necessary. 03/29/24 1704 <Electronically signed by Thai Ocampo DO> Cosigner Signature (if applicable): CC: Dr. Katia Hays DO ~ Signed [facility] Work Phone: [phone] Procedure [facility] Evaluation + Plan note Future Appointments Appointment Date:05/05/2025 09:45:00 AM Scheduled Provider:DRISS ARROYO Location:[facility] Appointment Type:CV OV Future Scheduled Tests Laboratory* Basic Metabolic Panel 11/11/24 * Lipid Profile 11/11/24 * Lipid Profile 01/01/24 * Complete Metabolic Panel 01/01/24 * N-Terminal proBNP 11/11/24 Rad[address]* [address] Low Dose Lung Cancer Screening (LDCT) 05/06/24 [facility] Evaluation noteNo assessment information available [facility] Work Phone: Evaluation note* Diagnosis Onset Date Resolution Status Acute bronchitis acute Cough acute [facility] Work Phone: Evaluation note* Diagnosis Onset Date Resolution Status Contact with and (suspected) exposure to other viral communicable diseases acute Wheezing acute Cough chronic Cough chronic [facility] Work Phone: Evaluation note* Diagnosis Onset Date Resolution Status Cough chronic [facility] Work Phone: Hospital course Narrative No data available for this section [facility] Hospital Discharge instructions Additional Instructions Thank you for trusting us with your care today! You are diagnosed with a foot fracture. Please maintain your splint is much as possible throughout the day. Please use crutches and do not bear weight on the involved extremity Please take Tylenol (2 pills, 650 mg), every 6 hours as needed for pain and fever control. If the above regimen does not control your pain please take oxycodone and ibuprofen (2 pills, 400 mg) as needed for breakthrough pain Please return to the emergency department if your symptoms change or worsen. Specifically develop numbness, tingling, loss sensation if your pain is not controlled by the above regimen. Please follow with orthopedic surgery (Dr. Gann) for further outpatient evaluation and management.[facility] Work Phone: Summary Purpose Family History No Family History Records Found Relationship Condition Age at Onset Recorded Date/T king father Malignant neoplasm Unknown Advance Directives No Advanced Directives Records Found Advance Directive Response Recorded Date/ Time Advance Directives No September 7:15am Living Will No October 04 013 7:15am Power of Senior Technical Recruiter No October 04, 2013 7:15am Advance Directive Response Recorded Date/ Time Advance Directives No September 6:15am Living Will No October 04, 013 6:15am Power of Senior Technical Recruiter No October 04, 2013 6:15am Advance Directive Response Recorded Date/ Time Advance Directives on File No Dece2022 1:10pm Advance Directives No September 6:15am Living Will No November 18, 2 023 1:10pm Power of Senior Technical Recruiter No November 18, 2023 1:10pm Advance Directive Response Recorded Date/ Time Advance Directives No September 6:15am Living Will No November 18, 2 023 1:10pm Power of Senior Technical Recruiter No November 18, 2023 1:10pm Advance Directives on File No Decem 2022 1:10pm Advance Directive Response Recorded Date/ Time Advance Directives No September 7:15am Living Will No November 18, 2 023 2:10pm Power of Senior Technical Recruiter No November 18, 2023 2:10pm Advance Directives on File No Decem 2022 2:10pm Advance Directive Response Recorded Date/ Time Advance Directives No September 7:15am Living Will No November 18, 2 023 2:10pm Power of Senior Technical Recruiter No November 18, 2023 2:10pm Advance Directive Response Recorded Date/ Time Advance Directives No September 7:15am Living Will No March 29, 2024 4: 58pm Power of Senior Technical Recruiter No March 29, 2024 4:58pm Procedure Findings Note HNO ID: [id number] Author: Nara Gerber MD Service: Orthopaedic Surgery Author Type: Resident Type: Brief Op Note Filed: 08/23/2019 5:14 PM Note Text: BRIEF OPERATIVE / PROCEDURE NOTE LOG ID: [id number] SURGERY/PROCEDURE DATE: 08/23/2019 INCISION/PROCEDURE START TIME: 12:17 PM INCISION CLOSE/PROCEDURE END TIME: 2:32 PM SURGEON(S)/PROCEDURALIST(S) AND SURVEY COMPILER(S): Surgeon(s) and Role: * Jannet Richter - Primary * Paulo Gerber MD - Resident - Assisting No Additional Staff SURGERY/PROCEDURE(S): L2-4 laminectomy and decrompression ANESTHESIA: General FINDINGS: See dictated op note ESTIMATED BLOOD LOSS: 200 mls SPECIMENS: None COMPLICATIONS: None PRE-OP/PRE-PROCEDURE DIAGNOSIS: Neurogenic claudication [M48.062] POST-OP/POST-PROCEDURE DIAGNOSIS: Neurogenic claudication [M48.062] SIGNATURE: Paulo Gerber MD PATIENT NAME: Tavares Melgar DATE: August 23, 2019 TIME: 5:14 PM PAGER/CONTACT #: Note HNO ID: [id number] Author: Maira Rodriguez Service: ? Author Type: Chiropractor Type: Progress Notes Filed: 12/27/2019 9:08 AM Note Text: Chiropractor Progress/Procedure Note Tavares Melgar is a 59 year old male who [...] pain better? Rest, repositioning Current pain level? 3/10 How low has your pain level been [...] (more content not included)... Note HNO ID: [id number] Author: Maira Rodriguez Service: ? Author Type: Chiropractor Type: Progress Notes Filed: 01/13/2020 8:29 AM Note Text: Chiropractor Progress/Procedure Note Tavares Melgar is a 59 year old male who presents for Chiropractic follow up for Low Back Pain and Right Lower Extremity Pain AB 01/30 vpcy Have you noticed any improvement since [...] (more content not included)... Note HNO ID: [id number] Author: Maira Rodriguez Service: ? Author Type: Chiropractor Type: Progress Notes Filed: 01/18/2020 9:41 AM Note Text: Chiropractor Progress/Procedure Note Tavares Melgar is a 59 year old male who presents for Chiropractic follow up for Low Back Pain 03/02 VPCY [place] Have you noticed any improvement [...] visit? 10. Since your last visit with D (more content not included)... Note HNO ID: [id number] Author: Maira Rodriguez Service: ? Author Type: Chiropractor Type: Progress Notes Filed: 01/24/2020 3:16 PM Note Text: Chiropractor Progress/Procedure Note Tavares Melgar is a 59 year old male who [...] your pain better? rest Current pain level? 10 How low has [...] (more content not included)... Note HNO ID: [id number] Author: Tyra Gambino Service: Neurosurgery Author Type: Nurse Practitioner Type: Discharge Summary Filed: 08/24/2019 1:02 PM Note Text: DISCHARGE SUMMARY PATIENT NAME: Tavares Melgar ADMISSION DATE: 08/23/2019 DISCHARGE DATE: 08/24/2019 Attending Physician: Jannet Richter Code Status: Not on file Highest [...] not included)... Hospital Course Note HNO ID: [id number] Author: Tyra Shaikh) Maki Service: Neurosurgery Author Type: Nurse Practitioner Type: Discharge Summary Filed: 08/24/2019 1:02 PM Note Text: DISCHARGE SUMMARY PATIENT NAME: Tavares Melgar ADMISSION DATE: 08/23/2019 DISCHARGE DATE: 08/24/2019 Attending Physician: Jnanet Richter Code Status: Not on file Highest [...] Drain removed Op (more content not included)... Chief Complaint and Reason for Visit Chief Complaint Rheumatoid arthritis without rheumatoid factor, mu Chief Complaint LABS PRE DR. VISIT Chief Complaint LABS PRE DR. VISIT XRAYSPINE/RIBS Chief Complaint LABS PRE DR. 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 Reason for Visit Acute bronchitis Cough Chief Complaint CHEST CONGESTION, CO UGH EORDER- cough Reason for Visit Acute bronchitis Cough Chief Complaint COUGH X 2 WKS COUGH/SHORT OF BREATH EORDER Reason for Visit Contact with and (martinez spected) exposure to other viral communicable diseases Wheezing Cough Cough Chief Complaint COUGH X 2 WKS COUGH/SHORT OF BREATH EORDER ANNUAL LABS EMPHYSEMA EMPHYSEMA Reason for Visit Contact with and (martinez spected) exposure to other viral communicable diseases Wheezing Cough Cough Chief Complaint COUGH/SHORT OF BREAT H EORDER ANNUAL LABS EMPHYSEMA EMPHYSEMA Chronic Obstructive Pulmonary Disease (COPD) Reason for Visit Cough Chief Complaint COUGH/SHORT OF BREAT H EORDER ANNUAL LABS EMPHYSEMA EMPHYSEMA Chronic Obstructive Pulmonary Disease (COPD) COPD Reason for Visit Cough Chief Complaint ANNUAL LABS EMPHYSEMA EMPHYSEMA Chronic Obstructive Pulmonary Disease (COPD) COPD Chief Complaint Chronic Obstructive Pulmonary Disease (COPD) COPD COPD Chief Complaint Chronic Obstructive Pulmonary Disease (COPD) COPD COPD COPD Chief Complaint Chronic Obstructive Pulmonary Disease (COPD) COPD COPD COPD COPD COPD Chief Complaint COPD COPD COPD COPD COPD Chief Complaint COPD COPD COPD COPD COPD LOWER EXT Additional Source Comments (unrecognized sect ion and content) No Status Records FoundNo Status Records FoundNo Status Records FoundNo Status Records FoundNo Status Records FoundNo Status Records FoundNo Status Records Found INFORMATION SOURCE (unrecogn ized section and content) DATE CREATED AUTHOR 04/07/2020 [facility] DATE CREATED AUTHOR AUTHOR'S ORGANIZ ATION 06/15/2020 [facility] DATE CREATED AUTHOR AUTHOR'S ORGANIZ ATION 06/15/2020 [facility] DATE CREATED AUTHOR AUTHOR'S ORGANIZ ATION 10/30/2020 [facility] DATE CREATED AUTHOR AUTHOR'S ORGANIZ ATION 05/02/2024 [facility] ([place]) DATE CREATED AUTHOR AUTHOR'S ORGANIZ ATION 12/21/2024 [facility] DATE CREATED AUTHOR AUTHOR'S ORGANIZ ATION 12/27/2024 [facility] Source Comments (unrecognize d section and content) In the event this informatio n is protected by the Federal Confidentiality of Alcohol and Drug Abuse Patient Records regulations: The Federal rules restrict any use of the information to criminally investigate or prosecute any alcohol or drug abuse patient.[facility] Goals (unrecognized section and content) Goals may be documented in a n alternate sectionGoals may be documented in an alternate sectionGoals may be documented in an alternate sectionGoals may be documented in an alternate sectionGoals may be documented in an alternate sectionGoals may be documented in an alternate sectionGoals may be documented in an alternate sectionGoals may be documented in an alternate sectionGoals may be documented in an alternate sectionGoals may be documented in an alternate sectionGoals may be documented in an alternate sectionGoals may be documented in an alternate sectionGoals may be documented in an alternate sectionGoals may be documented in an alternate sectionGoals may be documented in an alternate sectionGoals may be documented in an alternate sectionGoals may be documented in an alternate sectionGoals may be documented in an alternate sectionGoals may be documented in an alternate sectionGoals may be documented in an alternate sectionGoals may be documented in an alternate sectionGoals may be documented in an alternate section No data available for this section Care Teams (unrecognized sec tion and content) Team Status: Active Member Role Status Dates Dr. Katia Hays DO Family Provider Active Dr. Katia Hays DO Primary Care Provider Active Team Status: Inactive Member Role Status Dates Dr. Katia Hays DO Primary Care Provider Active Dr. Jaz Castro MD Attending Provider, Referring Provider Active Team Status: Inactive Member Role Status Dates Dr. Katia Hays DO Primary Care Provider Active BETSY LÓPEZ MD Attending Provider, Referring Provid er Active Team Status: Inactive Member Role Status Dates Dr. Katia Hays DO Primary Care Provider, Attendin g Provider Active Team Status: Inactive Member Role Status Dates Dr. Katia Hays DO Primary Care Prov ider, Attending Provider, Referring Provider Active Team Status: Inactive Member Role Status Dates Dr. Katia Hays DO Primary Care Provider, Referrin g Provider Active Ruben MAHAN, PA Attending Provider Active Team Status: Active Member Role Status Dates Dr. Katia Hays DO Primary Care Provider Active Dr. Jaz Castro MD Attending Provider, Referring Provider Active Team Status: Inactive Member Role Status Dates Dr. Katia Hays DO Primary Care Provider Active Ruben MAHAN, PA Attending Provider, Referring Prov ider Active Team Status: Inactive Member Role Status Dates Dr. Katia Hays DO Primary Care Provider, Referrin g Provider Active Cristino MAHAN, PA Attending Provider Active Team Status: Inactive Member Role Status Dates Dr. Katia Hays DO Primary Care Provider, Referrin g Provider Active Sunny Yang FLASK FITTER, FLASK FITTER-C Attending Provider Active Team Status: Inactive Member Role Status Dates Dr. Katia Lis , DO Primary Care Provider Active Sunny Yang FLASK FITTER, FLASK FITTER-C Attending Provider, Referring Pro vider Active Team Status: Active Member Role Status Dates Dr. Katia Hays , DO Primary Care Prov ider, Referring Provider, Other Provider Active Dr. Bautista Hudson , DO Attending Provider Active Team Status: Active Member Role Status Dates Dr. Katia Hays , DO Primary Care Provider Active Health Risk Assessment Attending Provider, Referring P rovider Active Team Status: Inactive Member Role Status Dates Dr. Katia Hays , DO Primary Care Provider Active Dr. Joaquin Jack MD Attending Provider, Referring Provider Active Team Status: Active Member Role Status Dates Dr. Katia Hays , DO Primary Care Provider Active Dr. Joaquin Jack MD Attending Provider, Referring Provider Active Team Status: Active Member Role Status Dates Dr. Katia Hays DO Primary Care Provider Active SHEELA REZA Attending Provider, Referring Pr ovider Active Team Status: Inactive Member Role Status Dates Dr. Katia Hays DO Primary Care Provider Active SHEELA REZA Attending Provider, Referring Pr ovider Active Team Status: Inactive Member Role Status Dates Dr. Katia Hays , Primary Care Provider Active Dr. Joaquin Jack MD Attending Provider, Referring Provider Active Out of Town Doctor Active Team Status: Inactive Member Role Status Dates Dr. Katia Hays DO Primary Care Provider Active Dr. Thai Ocampo , DO Emergency Provider Active FOR RECORDS PERTAINING TO PATIENTS WHO ARE [...] BE BASED ON THE PRIMARY CLINICAL RECORDS. [employer] provides no warranty or guarantee of the accuracy or completeness of information in this document.
[2025-04-26 07:29] LABS: Absolute Lymphocyte Count 2.29 X10^3/uL (0.83-4.51); Absolute Neutrophil Count 1.6 X10^3/uL (2.0-7.7); Basophil# 0.04 X10^3/uL; Basophil% 0.9 % (0-1); Eosinophil# 0.14 X10^3/uL; Hematocrit 34.7 % (40-54); Hemoglobin 12.1 g/dL (13.0-16.5); Lymphocyte # 2.29 X10^3/ul (0.83-4.51); Lymphocyte % 49.1 % (19-41); Mean Corp Hgb Conc 34.9 g/dL (32-36); Mean Corpuscular Hgb 31.8 pg (27.0-32.0); Mean Corpuscular Volume 91.1 fL (80-94); Mean Platelet Vol. 9.9 fl (6.2-12.0); Monocyte# 0.55 X10^3/uL; Monocyte% 11.8 % (0-10); NRBC Flagged by Analyzer 0 % (0-5); Neutrophil # 1.63 X10^3/uL (2.7-7.7); Platelet Count 240 K/mm3 (150-450); RBC Distribution Width CV 11.9 % (11.6-14.6); RBC Distribution Width SD 39.8 fl (35.1-43.9); Red Blood Count 3.81 M/mm3 (4.6-6.2); White Blood Count 4.7 K/mm3 (4.4-11.0)
[2025-04-26 07:56] LABS: ALB/GLOB Ratio 1.6 RATIO (0.9-2.4); AST(SGOT) 55 U/L (<=37); Alanine Aminotransfer ALT/SGPT 46 U/L (<=46); Albumin, Serum 4.2 g/dL (3.4-4.8); Alkaline Phosphatase 66 U/L (40-129); Anion Gap 11 (5-15); BUN 18 mg/dL (4-19); BUN/Creat Ratio 11.9 RATIO (10-20); Carbon Dioxide 21.5 mmol/L (21.0-32.0); Chloride 104 mmol/L (98-108); Cholesterol 156 mg/dL (<=200); Creatinine, Serum 1.53 mg/dL (0.70-1.20); EST Glomerular Filtration Rate 50 (>60); Globulin 2.7 g/dL (2.2-4.2); Glucose 104 mg/dL (70-99); High Density Lipoprotein 84 mg/dL; Low Density Lipoprotein Calc. 57 mg/dL; Potassium 5.1 mmol/L (3.3-5.1); Pro- Brain NATRIURETIC PEPTIDE 73 pg/mL (<=900); Protein, Total 6.9 g/dL (5.9-8.4); Sodium Level 136 mmol/L (133-145); Total Bilirubin 0.33 mg/dL (0.00-1.30); Triglycerides 76 mg/dL; Very Low Density Lipoprotein 15 mg/dL (5-40); cholesterol:hdl ratio screen 1.86
== END | disposition home or self-care (01) ==
LOC: LAB 06:58
PROVIDERS: PCP Family Medicine; Referring Provider Internal Medicine Interventional Cardiology; Visit Provider Internal Medicine Interventional Cardiology
DX: M06.09 Rheumatoid arthritis without rheumatoid factor, multiple sites (principal); Z79.899 Other long term (current) drug therapy; I25.10 Atherosclerotic heart disease of native coronary artery without angina pectoris; E78.5 Hyperlipidemia, unspecified; I73.9 Peripheral vascular disease, unspecified
CPT/HCPCS: 36415; 80053; 80061; 83880; 85025

== ENCOUNTER → 2025-06-15 | Outpatient (CLI) | payer OTHER, SELFPAY ==
[2024-03-30 08:32] VITALS: BMI 25.2
--- NOTE | 2025-06-15 10:55 | RAD_ITS ---
PROCEDURE: HAND MIN 3 VIEWS 06/15/2025 REASON FOR EXAM: SWELLING OF FINGERS TECHNIQUE: HAND MIN 3 VIEWS COMPARISON: None. FINDINGS: No evidence of acute fracture or dislocation. Severe degenerative changes of the wrist. Mild degenerative changes of the interphalangeal joints. Mild diffuse soft tissue swelling. RAD/Hand Min 3 Views IMPRESSION: Osteoarthrosis. Mild diffuse soft tissue swelling. Reading Location: [id number]
== END | disposition home or self-care (01) ==
LOC: RAD 10:36
PROVIDERS: PCP Family Medicine; Referring Provider Family Medicine; Visit Provider Family Medicine
DX: M79.89 Other specified soft tissue disorders (principal)
CPT/HCPCS: 73130

== ENCOUNTER → 2025-07-03 | Outpatient (CLI) | payer OTHER, SELFPAY ==
[2025-06-29 11:15] VITALS: BMI 25.2
--- NOTE | 2025-07-03 10:56 | MRI_ITS ---
PROCEDURE: UPPER EXT NO JOINT W/WO CONT 07/03/2025 REASON FOR EXAM: SWELLING AND PAIN TECHNIQUE: T1, T2, postcontrast T1 fat-sat UPPER EXT NO JOINT W/WO CONT CONTRAST: 14 cc Clariscan COMPARISON: None FINDINGS: There is a complex ganglion of the 5th flexor tendon at the proximal phalanx, measuring 2.3 x 2.5 by 2.3 cm with minimal peripheral contrast enhancement. There is fluid distention of the tendon sheaths of the 2nd-5th flexor tendons in the palm with a 2.5 by 1.8 by 1.8 cm fluid collection with minimal peripheral enhancement. There is fluid distention of the 1st flexor tendon in the palm with moderate tenosynovitis. The flexor tendons appear intact. There is a peripherally enhancing effusion noted at the 5th carpometacarpal articulation. There are erosions in the proximal portion of the hamate with mild postcontrast enhancement. There is no occult fracture. The extensor tendons appear intact. Muscular structures appear intact. MRI/Upper Ext No Joint W/WO Cont IMPRESSION: There is a complex ganglion of the 5th flexor tendon at the proximal phalanx, m easuring 2.3 x 2.5 by 2.3 cm with minimal peripheral contrast enhancement. There is fluid distention of the tendon sheaths of the 2nd-5th flexor tendons i n the palm with a 2.5 by 1.8 by 1.8 cm fluid collection with minimal peripheral enhancement. There is fluid distention of the 1st flexor tendon in the palm with moderate te nosynovitis. There is a peripherally enhancing effusion noted at the 5th carpometacarpal art iculation. There are erosions in the proximal portion of the hamate with mild postcontrast enhancement. Reading Location: [facility]
== END | disposition home or self-care (01) ==
LOC: MRI 10:55
PROVIDERS: PCP Family Medicine; Referring Provider Orthopaedic Surgery; Visit Provider Orthopaedic Surgery
DX: R22.32 Localized swelling, mass and lump, left upper limb (principal)
CPT/HCPCS: 73220; A9575; A4216

== ENCOUNTER → 2025-08-15 | Outpatient (CLI) | payer OTHER, SELFPAY ==
[2025-06-29 11:15] VITALS: BMI 25.2
[2025-08-15 15:21] LABS: Hematocrit 36.1 % (40-54); Hemoglobin 12.4 g/dL (13.0-16.5); Immature Granulocytes Count 0.030 X10^3/uL (0.0-0.0); Mean Corp Hgb Conc 34.3 g/dL (32-36); Mean Corpuscular Volume 91.9 fL (80-94); Mean Platelet Vol. 10.1 fl (6.2-12.0); NRBC Flagged by Analyzer 0 % (0-5); Platelet Count 278 K/mm3 (150-450); RBC Distribution Width CV 11.9 % (11.6-14.6); RBC Distribution Width SD 39.9 fl (35.1-43.9); Red Blood Count 3.93 M/mm3 (4.6-6.2); White Blood Count 8.2 K/mm3 (4.4-11.0)
[2025-08-15 15:40] LABS: AST(SGOT) 73 U/L (<=37); Alanine Aminotransfer ALT/SGPT 144 U/L (<=46); Albumin, Serum 4.2 g/dL (3.4-4.8); Alkaline Phosphatase 71 U/L (40-129); Anion Gap 13 (5-15); BUN 20 mg/dL (4-19); BUN/Creat Ratio 14.0 RATIO (10-20); Calcium,Total 9.2 mg/dL (7.6-11.0); Carbon Dioxide 21.4 mmol/L (21.0-32.0); Chloride 102 mmol/L (98-108); Globulin 2.7 g/dL (2.2-4.2); Glucose 89 mg/dL (70-99); Potassium 4.5 mmol/L (3.3-5.1); Uric Acid 4.5 mg/dL (3.5-7.2)
== END | disposition home or self-care (01) ==
LOC: MTLAB 11:32
PROVIDERS: PCP Family Medicine; Referring Provider Internal Medicine Rheumatology; Visit Provider Internal Medicine Rheumatology
DX: M06.09 Rheumatoid arthritis without rheumatoid factor, multiple sites (principal); Z79.899 Other long term (current) drug therapy
CPT/HCPCS: 36415; 80053; 84550; 85025

== ENCOUNTER → 2025-10-17 | Outpatient (CLI) | payer OTHER, SELFPAY ==
[2025-06-29 11:15] VITALS: BMI 25.2
== END | disposition home or self-care (01) ==
LOC: CVS 07:47
PROVIDERS: PCP Family Medicine; Referring Provider Surgery; Visit Provider Surgery
DX: Z48.812 Encounter for surgical aftercare following surgery on the circulatory system (principal); I70.239 Atherosclerosis of native arteries of right leg with ulceration of unspecified site; I70.249 Atherosclerosis of native arteries of left leg with ulceration of unspecified site; I10 Essential (primary) hypertension
CPT/HCPCS: 93922; 93978

== ENCOUNTER → 2025-11-13 | Outpatient (CLI) | payer OTHER, SELFPAY ==
[2025-06-29 11:15] VITALS: BMI 25.2
[2025-11-13 09:22] LABS: Hematocrit 30.1 % (40-54); Hemoglobin 11.0 g/dL (13.0-16.5); Immature Granulocytes Count 0.040 X10^3/uL (0.0-0.0); Mean Corp Hgb Conc 36.5 g/dL (32-36); Mean Corpuscular Volume 92.3 fL (80-94); Mean Platelet Vol. 9.2 fl (6.2-12.0); NRBC Flagged by Analyzer 0 % (0-5); Platelet Count 377 K/mm3 (150-450); RBC Distribution Width CV 11.6 % (11.6-14.6); RBC Distribution Width SD 37.5 fl (35.1-43.9); Red Blood Count 3.26 M/mm3 (4.6-6.2); White Blood Count 5.6 K/mm3 (4.4-11.0)
[2025-11-13 09:57] LABS: AST(SGOT) 53 U/L (<=37); Alanine Aminotransfer ALT/SGPT 40 U/L (<=46); Albumin, Serum 3.6 g/dL (3.4-4.8); Alkaline Phosphatase 75 U/L (40-129); Anion Gap 14 (5-15); BUN 20 mg/dL (4-19); BUN/Creat Ratio 10.3 RATIO (10-20); Calcium,Total 9.0 mg/dL (7.6-11.0); Carbon Dioxide 18.6 mmol/L (21.0-32.0); Chloride 97 mmol/L (98-108); Globulin 3.6 g/dL (2.2-4.2); Glucose 159 mg/dL (70-99); Potassium 4.9 mmol/L (3.3-5.1); Uric Acid 4.9 mg/dL (3.5-7.2)
== END | disposition home or self-care (01) ==
LOC: LAB 08:49
PROVIDERS: PCP Family Medicine; Referring Provider Internal Medicine Rheumatology; Visit Provider Internal Medicine Rheumatology
DX: M06.09 Rheumatoid arthritis without rheumatoid factor, multiple sites (principal); Z79.899 Other long term (current) drug therapy
CPT/HCPCS: 36415; 80053; 84550; 85025